=== PATIENT | male | born 1975 | race Caucasian/White ===

== ENCOUNTER 2020-02-26 08:43 | Emergency (ER) | payer BC, SELFPAY ==
[2020-02-26 08:51] VITALS: BP 158/91; PULSE 88; RESP 16; TEMP 36.4; O2SAT 100
--- NOTE | 2020-02-26 09:29 | ED.GENADULT ---
HPI - General Adult General Chief complaint: Ear Stated complaint: ear pain Time Seen by Provider: 02/26/20 09:29 Source: patient and RN notes reviewed Mode of arrival: ambulatory Limitations: no limitations History of Present Illness HPI narrative: 44-year-old male presents with complaints of left otalgia with decrease hearing, muffled, and liquid sounds for the past 2 days. Varinder reports increase in symptoms throughout the night with pain. Denies drainage or tinnitus. Denies injury to ear. Denies rhinorrhea and nasal congestion. Denies cough. No high fevers or chills. Denies nausea, vomiting, and dizziness. Remains active. The patient reports he have not been diagnosed with COVID-19. The patient reports he is not waiting for the results of a COVID-19 lab test. The patient reports he do not have weakness or fatigue. The patient reports he do not have a new or worsening cough or shortness of breath. Denies chest pain. The patient reports he do not have any loss of taste, sore throat, vomiting, abdominal pain, and diarrhea. Tolerating po intake well. Denies recent traveling. Denies concerns for COVID-19 or exposures been home with limited outdoor exposure except for essential household needs, work, and return home. At this time, patient is not suspected of having COVID-19. Some parts of this dictation were generated by voice recognition software and may contain typographical and/or grammatical inaccuracies. Related Data Home Medications Medication Instructions Recorded Confirmed allopurinol 02/26/20 lisinopril 02/26/20 metformin mg 02/26/20 metoprolol tartrate 02/26/20 patiromer calcium sorbitex g PO 02/26/20 [Veltassa] rosuvastatin mg 02/26/20 Allergies Allergy/AdvReac Type Severity Reaction Status Date / Time bacitracin Allergy Mild Verified 04/27/18 12:24 gramicidin D Allergy Mild Verified 04/27/18 12:24 neomycin Allergy Mild Verified 04/27/18 12:24 polymyxin B Allergy Mild Verified 04/27/18 12:24 Review of Systems Review of Systems: Narrative: CONSTITUTIONAL: Denies fever, chills, sweats. EYES: Denies visual changes, redness, discharge. ENT: Denies sore throat, ear drainage, rhinorrhea, congestion. Complains of LT otalgia, decrease hearing. CARDIOVASCULAR: Denies chest pain, palpitations, edema. RESPIRATORY: Denies dyspnea, wheezing, cough. GASTROINTESTINAL: Denies abdominal pain, nausea, vomiting, diarrhea. SKIN: Denies rash or itching. MUSCULOSKELETAL: Denies acute back pain, joint pain, or myalgia. NEUROLOGIC: Denies numbness or focal weakness. PSYCHIATRIC: Denies anxiety or depression. All systems reviewed & are unremarkable except as noted in HPI and below. [facility] Past Medical History Medical History (Updated 02/26/20 @ 12:16 by CHRISSY Chen) Diabetes Hypertension Mild hypercholesterolemia Surgical History Surgical History (Updated 02/26/20 @ 12:16 by CHRISSY Chen) No significant past surgical history Family History Family History (Updated 02/26/20 @ 12:16 by CHRISSY Chen) Father Diabetes mellitus Mother Diabetes mellitus Social History Social History (Updated 02/26/20 @ 12:18 by CHRISSY Chen) Smoking status: Former smoker Tobacco type: cigarettes Second hand tobacco smoke exposure: No Smoking end date: 08/28/04 Alcohol intake: former Substance use: current Substance use type: marijuana Living arrangements: with family Additional living arrangements comments: spouse Occupation/Education: occupation Gender identity (if verbalized by the patient): Male Sexual Orientation (if Verbalized by the Patient): Straight or Heterosexual Comments At time of signature, I have reviewed and agree with nursing past medical, surgical, social, and family history. Please see nursing chart for further information. There is no relevant family history pertinent to the presenting complaint. Exam N
== END 2020-02-26 09:51 | disposition home or self-care (01) ==
PROVIDERS: Emergency Provider Nurse Practitioner Family; PCP Physician Assistant
DX: H66.002 Acute suppurative otitis media without spontaneous rupture of ear drum, left ear (principal); Z87.891 Personal history of nicotine dependence; E11.9 Type 2 diabetes mellitus without complications; I10 Essential (primary) hypertension; E78.00 Pure hypercholesterolemia, unspecified
CPT/HCPCS: 99213; G0463

== ENCOUNTER 2020-03-13 15:15 | Outpatient (CLI) | payer BC, SELFPAY ==
--- NOTE | ~2020-03-13 | US_ITS ---
EXAMINATION: US renal BI DATE: 03/13/2020 15:47 INDICATION: Stage IV chronic kidney disease TECHNIQUE: Multiple ultrasound grayscale images of the kidneys were obtained. COMPARISON: 04/06/2019 FINDINGS: The right kidney measures 10.2 x 5.2 x 2.4 cm. The left kidney measures 11.8 x 5.9 x 6.1 cm. Kidneys demonstrate increased renal cortical echogenicity consistent with medical renal disease. There is no hydronephrosis in either kidney. No stones identified. The bladder is normal. IMPRESSION: 1. Bilateral diffuse increased renal cortical activity consistent with medical renal disease. No hyd ronephrosis. Reviewed, dictated and finalized at location B. 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 Bilateral diffuse increased renal cortical activity consistent with medical renal disease. No hydronephrosis.
== END 2020-03-13 15:16 | disposition home or self-care (01) ==
PROVIDERS: PCP Physician Assistant; Visit Provider Internal Medicine Nephrology
DX: N18.4 Chronic kidney disease, stage 4 (severe) (principal)
CPT/HCPCS: 76775

== ENCOUNTER 2020-11-05 15:51 | Outpatient (CLI) | payer BC, SELFPAY ==
--- NOTE | ~2020-11-05 | XR_ITS ---
EXAMINATION: XR chest 1V DATE: 11/05/2020 16:13 INDICATION: End-stage renal disease. Heart murmur. TECHNIQUE: PA view of the chest was obtained. COMPARISON: None FINDINGS: The lungs are clear with no focal airspace opacities, pulmonary edema, pleural effusion or pneumothor ax. The cardiomediastinal silhouette is normal. Visualized bones and soft tissues are unremarkable. IMPRESSION: 1. Multiple chest radiograph. Reviewed, dictated and finalized at location A.
== END 2020-11-05 15:52 | disposition home or self-care (01) ==
LOC: ANHIMG 15:56
PROVIDERS: PCP Physician Assistant; Visit Provider Internal Medicine Nephrology
DX: N18.6 End stage renal disease (principal)
CPT/HCPCS: 71045

== ENCOUNTER 2022-05-28 09:09 | Emergency (ER) | payer BC, SELFPAY ==
[2022-05-28] VITALS (38 sets, daily range): BP systolic 125–201; BP diastolic 66–86; PULSE 71–82; RESP 11–29; TEMP 37.3; O2SAT 93–100
--- NOTE | ~2022-05-28 | XR_ITS ---
EXAMINATION: XR chest 2V 05/28/2022 10:40 INDICATION: Hypertension. Headache. Head and neck pain. PROCEDURE: 2 view chest COMPARISON: 11/05/2020 FINDINGS: The lungs are clear. The cardiomediastinal silhouette is within normal limits. There are no pleural effusions. There is no pneumothorax suspected. There is a vascular stent overlying the l eft shoulder. IMPRESSION: 1: NO ACUTE CARDIOPULMONARY DISEASE. Reviewed, dictated and finalized at location B. 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
--- NOTE | ~2022-05-28 | CT_ITS ---
EXAMINATION: CT BRAIN W/O DATE: 05/28/2022 12:40 INDICATION: Hypertension. Headache. TECHNIQUE: Computed tomography (CT) of the head was performed without intravenous contrast. The dose- length product was 605.33 mGy-cm. Automated exposure control and iterative reconstruction technique w ere employed. COMPARISON: No prior studies for comparison. FINDINGS: Normal brain parenchymal volume for age. Normal lai-white differentiation. No acute intrac ranial hemorrhage, infarction, mass or mass effect. No ventriculomegaly or midline shift. Midline sagittal images demonstrate a normal corpus callosum, c raniovertebral junction and sella turcica. Basilar cisterns are patent. Paranasal sinuses and mastoids are pneumatized. No depressed skull fractures. IMPRESSION: 1. No acute intracranial abnormality. Reviewed, dictated and finalized at location B. 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
--- NOTE | 2022-05-28 09:14 | ECG_ITS ---
Measurements Intervals [place] Rate: 79 P: 111 [place]: 170 QRS: 84 QRSD: 90 T: 130 QT: 352 QTc: 405 Interpretive Statements SINUS RHYTHM CONSIDER LIMB LEAD REVERSAL POSSIBLE LEFT ATRIAL ENLARGEMENT DELAYED PRECORDIAL R/S TRANSITION BORDERLINE ECG NO PREVIOUS ECG AVAILABLE FOR COMPARISON Electronically Signed On 05-28-2022 10:33:10 CLAIMS ADJUSTER CROP by Matias Aparicio D.O.
[2022-05-28 10:42] LABS: Basophils Percent Auto 0.8 % (0.2-1.2); Eosinophils Absolute Auto 0.1 K/mm3 (0-0.3); Eosinophils Percent Auto 1.7 % (0-4.4); Hematocrit 34.7 % (42.0-52.0); Hemoglobin 11.9 g/dL (14.0-18.0); Immature Granulocyte Absolute 0.02 K/mm3 (0.00-0.031); Immature Granulocyte Percent A 0.4 % (0-0.5); Lymphocytes Absolute Auto 1.18 K/mm3 (0.9-3.2); Lymphocytes Percent Auto 24.4 % (18.3-44.2); Mean Corpuscular HGB Conc 34.3 g/dl (32-36); Mean Corpuscular Hemoglobin 30.9 pg (26-34); Mean Corpuscular Volume 90.1 fl (80-100); Mean Platelet Volume 8.5 fl (7.4-10.4); Monocytes Absolute Auto 0.4 K/mm3 (0.1-0.6); Monocytes Percent Auto 8.9 % (2.6-8.5); Neutrophils Absolute Auto 3.1 K/mm3 (1.3-6.7); Neutrophils Percent Auto 63.8 % (45.5-73.1); Platelet Count Result 140 k/mm3 (150-375); Red Blood Count 3.85 M/mm3 (4.6-6.20); Red Cell Distribution Width 11.8 % (11.5-14.5); White Blood Count 4.8 K/mm3 (4.5-10.0)
[2022-05-28 10:53] LABS: Prothrombin Time 12.9 Seconds (11.1-14.7)
[2022-05-28 10:54] LABS: Partial Thromboplastin Time 28.1 SECONDS (22.3-36.8)
[2022-05-28 11:05] LABS: Alanine Aminotransferase 24 U/L (6-50); Albumin Level 4.6 g/dL (3.5-5.1); Alkaline Phosphatase 119 U/L (38-126); Anion Gap 6 mmol/L (8-16); Aspartate Amino Transferase 29 U/L (17-59); Bilirubin,Total 0.7 mg/dL (0.2-1.3); Blood Urea Nitrogen 26 mg/dL (9-20); Calcium 9.6 mg/dL (8.4-10.2); Carbon Dioxide 35 mmol/L (22-30); Chloride 93 mmol/L (98-107); Estimated Glomerular Filt Rate 18; Glucose 169 mg/dL (65-110); Lipase 109 U/L (23-300); Sodium 134 mmol/L (137-145)
[2022-05-28 11:28] LABS: Troponin I 0.021 ng/mL (0.000-0.034)
--- NOTE | 2022-05-28 12:27 | ED.RECABL ---
HPI - Recheck/Abnormal Lab/Rx General Chief Complaint: Recheck/Abnormal Lab/Rx Stated Complaint: ELEVATED BP Time Seen by Provider: 05/28/22 12:09 History of Present Illness HPI narrative: Patient is a 47-year-old male with a history of CKD on ESRD (says he does HD at home as needed), hypertension, hyperlipidemia presenting with multiple complaints. Patient states that he has had high blood pressures over the last 3 weeks. States that they have been running in the 170s to 180s at home. States that his orthotic/prosthetic practitioner recently added another antihypertensive. States he has not taken any of his morning meds today. Also complains of generalized fatigue, diffuse headache, intermittent nausea. States that he was diagnosed with shingles on his right leg earlier this week and was started on valacyclovir. Denies chest pain, shortness of breath, lightheadedness, fevers, abdominal pain, diarrhea, constipation. Patient does still make urine, denies dysuria or hematuria. Denies numbness or weakness, ataxia, speech changes, vision changes. Related Data Home Medications Medication Instructions Recorded Confirmed allopurinol 100 mg tablet 02/26/20 lisinopril 20 mg tablet 02/26/20 metformin 1,000 mg tablet mg 02/26/20 metoprolol tartrate 25 mg tablet 02/26/20 patiromer calcium sorbitex 8.4 g PO 02/26/20 gram oral powder packet (Veltassa) rosuvastatin 10 mg tablet mg 02/26/20 Allergies Allergy/AdvReac Type Severity Reaction Status Date / Time bacitracin Allergy Mild Verified 04/27/18 12:24 gramicidin D Allergy Mild Verified 04/27/18 12:24 neomycin Allergy Mild Verified 04/27/18 12:24 polymyxin B Allergy Mild Verified 04/27/18 12:24 Review of Systems Review of Systems: All systems reviewed & are unremarkable except as noted in HPI and below PMFSH Past Medical History Medical History Diabetes Hypertension Mild hypercholesterolemia Surgical History Surgical History No significant past surgical history Family History Family History Father Diabetes mellitus Mother Diabetes mellitus Social History Social History Smoking status: Former smoker Tobacco type: cigarettes Second hand tobacco smoke exposure: No Smoking end date: 08/28/04 Alcohol intake: former Substance use: current Substance use type: marijuana Living arrangements: with family Additional living arrangements comments: spouse Occupation/Education: occupation Gender identity (if verbalized by the patient): Male Sexual Orientation (if Verbalized by the Patient): Straight or Heterosexual Exam Narrative: GENERAL: Appears a bit fatigued but in no acute distress, nontoxic HEAD: Normocephalic, atraumatic. EYES: PERRLA and EOMI. ENT: Nares clear, no rhinorrhea or epistaxis. Mucous membranes moist. NECK: Supple. CHEST: Clear to auscultation. No respiratory distress. HEART: Regular rate and rhythm. No murmur heard. Normal peripheral pulses. ABDOMEN: Soft, nontender, nondistended EXTREMITIES: Normal range of motion. No edema. AV fistula left upper arm with clean bandage, positive thrill SKIN: Warm, dry, shingles rash right upper thigh NEURO: No focal deficits. Alert and oriented x3. PSYCH: Normal mood and affect. Course Vital Signs Vital signs: Vital Signs Temperature 99.1 F 05/28/22 09:39 Pulse Rate 82 05/28/22 09:39 Respiratory Rate 20 05/28/22 09:39 Blood Pressure 199/84 H 05/28/22 09:39 Pulse Oximetry 100 05/28/22 09:39 Oxygen Delivery Room Air 05/28/22 09:39 Temperature 99.1 F 05/28/22 09:39 Pulse Rate 71 05/28/22 15:31 Respiratory Rate 19 05/28/22 15:31 Blood Pressure 135/68 05/28/22 15:31 Pulse Oximetry 96 05/28/22 15:31 Oxygen Delivery Room Air
[2022-05-28 13:11] LABS: Appearance Urine Clear (Clear); Bacteria Urine None Seen /hpf; Bilirubin Urine Negative (Negative); Blood Urine 1+ (Negative); Color Urine Yellow (Yellow); Glucose Urine UA 1+ mg/dL (Negative); Ketones Urine Negative (Negative); Leukocyte Esterase Ur Negative LEU/UL (Negative); Nitrate Urine Negative (Negative); Protein Urine 3+ mg/dL (Negative); Specific Grav Ur 1.015 (1.001-1.035); Squamous Epithelial Cell Urine None seen /hpf (Few); Urobilinogen Urine 0.2 mg/dL (<2.0); WBC Urine 0-5 /hpf; pH Urine 8.5 (5.0-9.0)
[2022-05-28] MEDS: ONDANSETRON INJ 4 MG/2 ML VIAL IV PUSH (13:11)
[2022-05-28 13:36] LABS: Influenza A QL RT-PCR Negative (Negative); Influenza B QL RT-PCR Negative (Negative); RSV RNA, RT-PCR Negative (Negative); SARS-CoV-2 RNA PCR Negative
[2022-05-28 13:48] LABS: Add Urine Microscopic? YES
[2022-05-28 13:52] LABS: Troponin I 0.026 ng/mL (0.000-0.034)
== END 2022-05-28 15:37 | disposition home or self-care (01) ==
PROVIDERS: Emergency Medicine; Emergency Provider Emergency Medicine; PCP Physician Assistant
DX: B02.9 Zoster without complications (principal); R51.9 Headache, unspecified; I12.0 Hypertensive chronic kidney disease with stage 5 chronic kidney disease or end stage renal disease; E11.22 Type 2 diabetes mellitus with diabetic chronic kidney disease; N18.6 End stage renal disease; Z99.2 Dependence on renal dialysis; E78.00 Pure hypercholesterolemia, unspecified; Z87.891 Personal history of nicotine dependence; F12.90 Cannabis use, unspecified, uncomplicated; Z79.84 Long term (current) use of oral hypoglycemic drugs; Z20.822 Contact with and (suspected) exposure to COVID-19
CPT/HCPCS: 36415; 70450; 71046; 80053; 81001; 83690; 84484; 85025; 85610; 85730; 87637; 93005; 96374; 96375; 99284; J0131; J2405

== ENCOUNTER 2023-09-15 09:05 | Observation (INO) | payer BC, MEDICARE, SELFPAY ==
[2023-09-15] VITALS (17 sets, daily range): BP systolic 120–166; BP diastolic 62–89; PULSE 64–74; RESP 12–24; TEMP 36.2–36.8; O2SAT 98–100; BMI 25.7
--- NOTE | ~2023-09-15 | NM_ITS ---
EXAMINATION: NM roxanna stress w perfusion DATE: 09/16/2023 15:00 INDICATION: Rest pain TECHNIQUE: Rest images were obtained following intravenous administration of 10.6 mCi Tc99m tetrofosm in (Myoview). The patient was infused intravenously with Lexiscan (Regadenoson). Then, 44.2 mCi Tc99m tetrofosmin (Myoview) was administered intravenously, and stress images were obtained. Data was gelacio nstructed into short axis and horizontal and vertical long axis SPECT images. Gated SPECT images were also obtained. COMPARISON: None. FINDINGS: There is no definite reversible or fixed perfusion abnormality to suggest ischemia or infar ction. There is normal left ventricular chamber size, wall motion and ejection fraction. Left ventr icular ejection fraction measures 56%. IMPRESSION: 1. Normal myocardial perfusion during stress. 2. Left ventricular ejection fraction measuring 56%. Reviewed, dictated and finalized at location A.
--- NOTE | ~2023-09-15 | CT_ITS ---
CTA chest Ordering provider: Vinh Perez MD History: 48 years Male with . chest pain . Comparison: None. Technique: CT angiogram chest was performed following timed intravenous injection of contrast. Thin s lice axial images and reformatted coronal images were obtained. Three dimensional reformatted images of the chest were also obtained using a [employer] workstation. Radiation reduction technique utilized. DLP is 572.25 mGy. Findings: PULMONARY ARTERIES: No pulmonary embolus. VISUALIZED THORACIC INLET: Normal. MEDIASTINUM: Aorta/coronary arteries: Normal. Heart/other: The heart is not enlarged. Lymph nodes: No mediastinal or hilar adenopathy. LUNGS: 6 mm nodule seen in the left upper lobe laterally. No pulmonary masses. No infiltrates or effusions. No pneumothorax. VISUALIZED UPPER ABDOMEN: Fat infiltration of the liver. Areas of fat sparing are noted medially. Cho lelithiasis. Bilateral perinephric fat stranding. Otherwise, the visualized upper abdomen is normal. MUSCULOSKELETAL: Soft tissues: The superficial soft tissues are normal. Bones: Normal spine. IMPRESSION: 1. No evidence of pulmonary embolism or dissection. 2. Nodule in the left upper lobe laterally measuring 6 mm. 6 months follow-up advised. 3. No acute cardiopulmonary pathology. Reviewed, dictated and finalized at location A.
--- NOTE | ~2023-09-15 | XR_ITS ---
EXAMINATION: XR chest 2V DATE: 09/15/2023 09:53 INDICATION: Chest pain radiating to the back and shortness of breath TECHNIQUE: PA and lateral views of the chest were obtained. COMPARISON: Chest radiograph dated 05/28/2022 FINDINGS: The lungs remain clear with no focal airspace opacities, pulmonary edema, pleural effusion or pneumot horax. The cardiomediastinal silhouette is normal. Visualized bones and soft tissues are unremarkable . IMPRESSION: 1. No acute cardiopulmonary disease. Reviewed, dictated and finalized at location A.
--- NOTE | ~2023-09-15 | US_ITS ---
EXAMINATION: US venous doppler [facility] DATE: 09/16/2023 10:23 INDICATION: Lower limb edema. TECHNIQUE: Grayscale ultrasound images without and with compression and Doppler ultrasound images of the bilateral lower extremity veins were obtained. COMPARISON: None. FINDINGS: The visualized portions of right common femoral vein, profunda (deep) femoral vein, femoral vein, pop liteal vein, peroneal veins, posterior tibial veins, and greater saphenous vein outflow are patent. The visualized portions of left common femoral vein, profunda femoral vein, femoral vein, popliteal v ein, peroneal veins, posterior tibial veins, and greater saphenous vein outflow are patent. IMPRESSION: 1. No deep venous thrombosis. Reviewed, dictated and finalized at location A.
--- NOTE | 2023-09-15 09:06 | ECG_ITS ---
Test Date: 2023-09-15 09:13:03 Measurements Intervals [place] Rate: 67 P: 39 [place]: 174 QRS: 44 QRSD: 102 T: 35 QT: 398 QTc: 421 Interpretive Statements SINUS RHYTHM No previous ECG available for comparison Electronically Signed On 09-15-2023 12:11:31 CDT by Eri Enciso M.D.
--- NOTE | 2023-09-15 09:22 | ED.CHESTPAIN ---
HPI - Chest Pain General Chief Complaint: Chest Pain <ALBINO Melara Last Filed: 09/15/23 15:15> Stated Complaint: cp <ALBINO Melara Last Filed: 09/15/23 15:15> Time Seen by Provider: 09/15/23 09:08 <ALBINO Melara Last Filed: 09/15/23 15:15> Source: patient <ALBINO Melara Last Filed: 09/15/23 15:15> Mode of arrival: ambulatory <ALBINO Melara Last Filed: 09/15/23 15:15> Limitations: no limitations <ALBINO Melara Last Filed: 09/15/23 15:15> History of Present Illness HPI narrative: Patient is a 48-year-old male, with past medical history of ESRD on home dialysis, HTN, HLD, DM, who presents to the ED with report of CP. Patient reports he woke up around 8:00 a.m. this morning with diffuse pain across his anterior chest, radiating through to his back. States pain was fairly severe, lasted approximately 10-15 minutes before improving on its own. He then prompted here. Denies current pain. Patient denies previous history of heart disease or previous cardiac issues. He did report feeling very sweaty and short of breath with the pain. Denying nausea. Denies abdominal pain. Denies recent cough or cold symptoms. Denies lower extremity pain. Does admit to increased swelling in his lower extremities and takes he has been taking off an additional kg of fluid off with his 3 previous dialysis treatments. <ALBINO Melara Last Filed: 09/15/23 15:15> Related Data Home Medications: Home Medications Medication Instructions Recorded Confirmed allopurinol 100 mg tablet 100 mg PO DAILY 09/15/23 09/15/23 atenolol 50 mg tablet 50 mg PO DAILY 09/15/23 09/15/23 calcitriol 0.25 mcg capsule 0.25 mcg PO TID 09/15/23 09/15/23 <ALBINO Melara Last Filed: 09/15/23 15:15> Allergies/Adverse Reactions: Allergies Allergy/AdvReac Type Severity Reaction Status Date / Time bacitracin Allergy Mild Verified 04/27/18 12:24 gramicidin D Allergy Mild Verified 04/27/18 12:24 neomycin Allergy Mild Verified 04/27/18 12:24 polymyxin B Allergy Mild Verified 04/27/18 12:24 <Kenia Melo PA-C - Last Filed: 09/15/23 15:15> Review of Systems Review of Systems: CONSTITUTIONAL: See HPI. ENT: Denies rhinorrhea, congestion, sore throat. CARDIOVASCULAR: See HPI. RESPIRATORY: See HPI. GASTROINTESTINAL: Denies abdominal pain, nausea, vomiting MUSCULOSKELETAL: See HPI <Kenia Melo PA-C - Last Filed: 09/15/23 15:15> All systems reviewed & are unremarkable except as noted in HPI and below <Kenia Melo PA-C - Last Filed: 09/15/23 15:15> [facility] Past Medical History Medical History: Medical History End-stage renal disease on hemodialysis Hyperlipidemia Hypertension Type 2 diabetes mellitus <Kenia Melo PA-C - Last Filed: 09/15/23 15:15> Surgical History Surgical History: Surgical History No significant past surgical history <Kenia Melo PA-C - Last Filed: 09/15/23 15:15> Family History Family History: Family History (Updated 09/15/23 @ 17:42 by Angelique Gunn RN) Father Diabetes mellitus Acute myocardial infarction Mother Diabetes mellitus <Kenia Melo PA-C - Last Filed: 09/15/23 15:15> Social History Social History: Social History Social History: Surrogate medical decision maker: Kelley Ming, spouse. Code status: Full code. Smoking packs per day: 1 Smoking cigarettes per day: 20.0 Years smoked: 10 Smoking pack-years: 10.00 Smoking status: Former smoker Tobacco type: cigarettes Second hand tobacco smoke exposure: No Smoking end date: 08/28/04 Alcohol intake: never Substance use: cu
--- NOTE | 2023-09-15 09:29 | ECG_ITS ---
Test Date: 2023-09-15 09:32:07 Measurements Intervals [place] Rate: 69 P: 39 SD: 176 QRS: 50 QRSD: 95 T: 30 QT: 387 QTc: 417 Interpretive Statements SINUS RHYTHM Compared to ECG 09/15/2023 09:13:03 No significant changes Electronically Signed On 09-15-2023 12:11:37 CDT by Eri Enciso M.D.
[2023-09-15 09:30] LABS: Basophils Percent Auto 0.2 % (0.2-1.2); Eosinophils Absolute Auto 0.1 K/mm3 (0-0.3); Eosinophils Percent Auto 0.7 % (0-4.4); Hematocrit 30.4 % (42.0-52.0); Hemoglobin 10.4 g/dL (14.0-18.0); Immature Granulocyte Absolute 0.03 K/mm3 (0.00-0.031); Immature Granulocyte Percent A 0.3 % (0-0.5); Lymphocytes Absolute Auto 1.08 K/mm3 (0.9-3.2); Lymphocytes Percent Auto 10.9 % (18.3-44.2); Mean Corpuscular HGB Conc 34.2 g/dl (32-36); Mean Corpuscular Hemoglobin 30.8 pg (26-34); Mean Corpuscular Volume 89.9 fl (80-100); Mean Platelet Volume 8.3 fl (7.4-10.4); Monocytes Absolute Auto 0.6 K/mm3 (0.1-0.6); Monocytes Percent Auto 5.8 % (2.6-8.5); Neutrophils Absolute Auto 8.1 K/mm3 (1.3-6.7); Neutrophils Percent Auto 82.1 % (45.5-73.1); Platelet Count Result 189 k/mm3 (150-375); Red Blood Count 3.38 M/mm3 (4.6-6.20); Red Cell Distribution Width 12.7 % (11.5-14.5); White Blood Count 9.9 K/mm3 (4.5-10.0)
[2023-09-15] MEDS: ASPIRIN 81 MG CHEWABLE TABLET 324 MG PO (09:38)
[2023-09-15] MEDS: NITROGLYCERIN SL 0.4 MG TABLET SUBLINGUAL (09:38)
[2023-09-15 09:40] LABS: Alanine Aminotransferase 18 U/L (6-50); Albumin Level 3.8 g/dL (3.5-5.1); Alkaline Phosphatase 79 U/L (38-126); Anion Gap 10 mmol/L (4-12); Aspartate Amino Transferase 28 U/L (17-59); Bilirubin,Total 0.5 mg/dL (0.2-1.3); Blood Urea Nitrogen 57 mg/dL (9-20); Calcium 8.6 mg/dL (8.4-10.2); Carbon Dioxide 30 mmol/L (22-30); Chloride 97 mmol/L (98-107); Estimated CRCL calculation 9 ml/min; Estimated Glomerular Filt Rate 6; Glucose 189 mg/dL (65-110); Lipase 217 U/L (23-300); Sodium 137 mmol/L (137-145)
[2023-09-15 09:41] LABS: INR 0.9
--- NOTE | 2023-09-15 09:41 | PC.NURSE ---
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
[2023-09-15 09:42] LABS: Partial Thromboplastin Time 37.9 Seconds (22.3-36.8)
[2023-09-15 09:52] LABS: Troponin I 0.026 ng/mL (0.000-0.034)
[2023-09-15 10:01] LABS: D Dimer 0.47 ug/mL (<0.48); Magnesium 2.2 mg/dL (1.6-2.3)
[2023-09-15 10:10] LABS: NT Pro B Type Natriuretic Pept 3000 pg/mL (19.9-100)
--- NOTE | 2023-09-15 12:00 | ECG_ITS ---
Test Date: 2023-09-15 15:14:06 Measurements Intervals [place] Rate: 62 P: 38 [place]: 185 QRS: 50 QRSD: 96 T: 30 QT: 405 QTc: 413 Interpretive Statements SINUS RHYTHM Compared to ECG 09/15/2023 12:09:54 No significant changes Electronically Signed On 09-16-2023 14:28:10 CDT by Eri Enciso M.D.
[2023-09-15 12:42] LABS: Troponin I 0.023 ng/mL (0.000-0.034)
[2023-09-15 14:27] LABS: Hemoglobin A1C 6.7 % (<5.7)
--- NOTE | 2023-09-15 14:27 | PM.IMHP ---
H&P: HPI History of Present Illness Date/Time: 09/15/23 15:15 Chief Complaint: Chest pain. Narrative: This is a positive 48-year-old male with end-stage renal disease on home hemodialysis, hypertension, hyperlipidemia, and type 2 diabetes mellitus who presented to the emergency department via private vehicle for evaluation of chest pain. The patient provides the following history. Just about the time he was waking up this morning he developed sharp pain in the anterior chest pain radiating through to the back associated with sweats, nausea, and slight shortness of breath. It lasted approximately 10 to 15 minutes before resolving. He has never had similar symptoms in the past. Cardiac catheterization done about 1 year ago for transplant workup reportedly showed 20 to 30% blockage in a small artery which was treated medically. He has not had any exertional chest pain and denies syncope, near syncope, pleuritic pain, palpitations, vomiting, calf pain, and edema. Of note, patient reports that last week he had quite a bit of swelling in his feet which was new for him and he took an extra 2 kg of fluid off during dialysis with resolution. In the ED: He was afebrile on arrival with stable vital signs. Labs were significant for a hemoglobin of 10.4, BUN 57, creatinine 9.70, glucose 189, proBNP 3000, troponin 0.026. Chest x-ray showed no acute cardiopulmonary disease. EKG showed a sinus rhythm without acute ST segment depressions or elevations. He received aspirin 324 mg and is being admitted in this setting for close monitoring and Cardiology consultation. Review of Systems Review of Systems: 12 systems were reviewed and are negative except for as per HPI. [facility] Past Medical History Medical History End-stage renal disease on hemodialysis Hyperlipidemia Hypertension Type 2 diabetes mellitus Surgical History Surgical History (Updated 09/15/23 @ 23:24 by Jaye Roldan PA-C) History of cardiac catheterization Status post creation of arteriovenous fistula Family History Family History Father Diabetes mellitus Acute myocardial infarction Mother Diabetes mellitus Social History Social History Social History: Surrogate medical decision maker: Kelley Lai, spouse. Code status: Full code. Smoking packs per day: 1 Smoking cigarettes per day: 20.0 Years smoked: 10 Smoking pack-years: 10.00 Smoking status: Former smoker Tobacco type: cigarettes Second hand tobacco smoke exposure: No Smoking end date: 08/28/04 Alcohol intake: never Substance use: current Substance use type: marijuana Last use: 09/14/23 Do You Feel Safe in your Home?: Yes Lack of Transportation: No Lack of Food: Never True Current Housing: I Have Housing Concerned About Future Housing: No Difficulty Paying Gas/Electric Bills: No Difficulty Paying for Meds: No Currently Unemployed: No Education: Associate Degree Difficulty w/ Childcare or Family Care: No Spiritual care concerns: No Meds Home Medications and Allergies Home Medications Medication Instructions Recorded Confirmed Type allopurinol 100 mg tablet 100 mg PO DAILY 09/15/23 09/15/23 History amlodipine 5 mg tablet 5 mg PO HS 09/15/23 09/15/23 History atenolol 50 mg tablet 50 mg PO DAILY 09/15/23 09/15/23 History calcitriol 0.25 mcg capsule 0.25 mcg PO DAILY 09/15/23 09/15/23 History clonidine HCl 0.1 mg tablet 0.2 mg PO BID 09/15/23 09/15/23 History doxazosin 2 mg tablet 2 mg PO HS 09/15/23 09/15/23 History ergocalciferol (vitamin D2) 1,250 1,250 mcg PO WEEKLY 09/15/23 09/15/23 History mcg (50,000 unit) capsule icosapent ethyl 1 gram capsule 2 g PO BID 09/15/23 09/15/23 History insulin aspart U-100 100 unit/mL See Rx Instructions .Route .COMPLEX 09/15/23 09/15/23 History
--- NOTE | 2023-09-15 14:54 | ECG_ITS ---
Test Date: 2023-09-15 12:09:54 Measurements Intervals [place] Rate: 64 P: 33 ID: 188 QRS: 45 QRSD: 93 T: 35 QT: 402 QTc: 417 Interpretive Statements SINUS RHYTHM Compared to ECG 09/15/2023 09:32:07 No significant changes Electronically Signed On 09-16-2023 14:23:09 CDT by Eri Enciso M.D.
[2023-09-15 15:33] LABS: Troponin I 0.021 ng/mL (0.000-0.034)
--- NOTE | 2023-09-15 16:55 | PC.NURSE ---
attempted to call report to IMU at 1645, was unable to reach a nurse until 1655
--- NOTE | 2023-09-15 17:25 | ADMGEN ---
This patient, Varinder Lai, was admitted to Virtual [facility] IMU-1. Patient/family oriented to hospital policies and general routines including ID bracelet, bed and alarms, visiting hours, pain management, procedures, bathroom and other care routines, personal items, smoking policy, room service/diet, and visiting hours. Information on how to activate the Rapid Response Team has been discussed. Patient/Family are encouraged to report perceived risks to care and to ask questions if they do not understand what they are told or what they should do.
[2023-09-15 19:38] LABS: Cholesterol 101 mg/dL (0-200); HDL Direct 48 mg/dL; Triglycerides 99 mg/dL (<150)
[2023-09-15 19:49] LABS: LDL Cholesterol Direct 42 mg/dL
[2023-09-16] VITALS (33 sets, daily range): BP systolic 129–198; BP diastolic 59–85; PULSE 56–75; RESP 15–20; TEMP 36.1–37; O2SAT 96–100
--- NOTE | 2023-09-16 | ECHO_ITS ---
Patient Info Name: Varinder Lai Age: 48 years : 1975 Gender: Male Ht: 70 in Wt: 179 lbs BSA: 2.01 m2 HR: 64 bpm BP: 151 / 70 mmHg Heart Rhythm: Sinus Rhythm Technical Quality: Fair Exam Date: 09/16/2023 8:59 AM Exam Location: Echo Lab Patient Status: Inpatient Admit Date: 09/15/2023 Staff Ordering Physician: Jaye Roldan PA-C Associate Director Finance: Teodoro Woo RDCS Attending Provider: Peterson Yanes MD Referring Physician: Yuli QURESHI; Exam Type: CA echo doppler color flow Study Info Indications R07.9 - Chest pain, unspecified Complete two-dimensional, color flow and Doppler transthoracic echocardiogram is performed. Summary 1. Complete two-dimensional, color flow and Doppler transthoracic echocardiogram is performed. 2. Left ventricular chamber dimension is normal. 3. Left ventricular systolic function is normal, estimated at 65-70%. 4. There is mildly increased left ventricular wall thickness. 5. The left ventricular diastolic function is grade II diastolic dysfunction. 6. Left atrial chamber dimension is mildly enlarged. 7. There is moderate aortic valve sclerosis. 8. There is mild aortic valve stenosis with a peak velocity of 306 cm/s, mean gradient of 11 mmHg, and aortic valve area of 1.4 cm2. 9. There is mild aortic valve regurgitation. 10. There is mild aortic valve calcification. 11. There is mild mitral valve regurgitation. 12. There is mild tricuspid valve regurgitation. 13. Moderate pulmonary hypertension, estimated pulmonary arterial systolic pressure is 49 mmHg. 14. There is mild pulmonic regurgitation. Left Ventricle Left ventricular chamber dimension is normal. Left ventricular systolic function is normal, estimated at 65-70%. There is mildly increased left ventricular wall thickness. The left ventricular diastolic function is grade II diastolic dysfunction. Right Ventricle Right ventricular chamber dimension is normal. Right ventricular systolic function is normal. Left Atria Left atrial chamber dimension is mildly enlarged. Right Atria Right atrial chamber dimension is normal. Aortic Valve The aortic valve is trileaflet. There is moderate aortic valve sclerosis. There is mild aortic valve stenosis with a peak velocity of 306 cm/s, mean gradient of 11 mmHg, and aortic valve area of 1.4 cm2. There is mild aortic valve regurgitation. There is mild aortic valve calcification. Pulmonic Valve The pulmonic valve is normal. There is no pulmonic valve stenosis. There is mild pulmonic regurgitation. Mitral Valve The mitral valve has normal leaflets. There is no mitral valve stenosis. There is mild mitral valve regurgitation. Tricuspid Valve The tricuspid valve leaflets are normal. There is no significant tricuspid valve stenosis. There is mild tricuspid valve regurgitation. Moderate pulmonary hypertension, estimated pulmonary arterial systolic pressure is 49 mmHg. Pericardium/Pleural The pericardium appears normal. There is trivial pericardial effusion. Inferior Vena Cava Normal inferior vena cava with <50% collapse upon inspiration consistent with elevated right atrial pressure, 10 mmHg. Aorta The aortic root size at the sinus of Valsalva is normal. Left Ventricular Outflow Tract Name Value Normal LVOT 2D LVOT Diameter
[2023-09-16 04:43] LABS: Hematocrit 28.4 % (42.0-52.0); Hemoglobin 9.8 g/dL (14.0-18.0); Mean Corpuscular HGB Conc 34.5 g/dl (32-36); Mean Corpuscular Hemoglobin 31.1 pg (26-34); Mean Corpuscular Volume 90.2 fl (80-100); Mean Platelet Volume 8.9 fl (7.4-10.4); Platelet Count Result 206 k/mm3 (150-375); Red Blood Count 3.15 M/mm3 (4.6-6.20); Red Cell Distribution Width 12.8 % (11.5-14.5); White Blood Count 8.5 K/mm3 (4.5-10.0)
[2023-09-16 04:59] LABS: Anion Gap 11 mmol/L (4-12); Blood Urea Nitrogen 60 mg/dL (9-20); Calcium 8.8 mg/dL (8.4-10.2); Carbon Dioxide 28 mmol/L (22-30); Chloride 98 mmol/L (98-107); Estimated CRCL calculation 9 ml/min; Estimated Glomerular Filt Rate 6; Glucose 103 mg/dL (65-110); Magnesium 2.2 mg/dL (1.6-2.3); Phosphorus 5.9 mg/dL (2.5-4.5); Potassium 3.7 mmol/L (3.4-5.0); Sodium 137 mmol/L (137-145)
[2023-09-16] MEDS: calcitrioL 0.25 MCG CAPSULE PO (09:46)
[2023-09-16] MEDS: ROSUVASTATIN 10 MG TABLET PO (09:46)
[2023-09-16] MEDS: cloNIDine HCL 0.2 MG TABLET PO ×2 (09:46→21:55)
[2023-09-16] MEDS: PANTOPRAZOLE 40 MG TABLET PO (09:46)
[2023-09-16] MEDS: OMEGA 3 POLYUNSAT FATTY ACIDS 1 GM CAP 2 GM PO ×2 (09:47→21:53)
[2023-09-16] MEDS: HEPARIN SODIUM 5,000 UNITS/ML VIAL 5000 UNITS SUB-Q ×2 (09:47→21:52)
[2023-09-16] MEDS: allopurinoL 100 MG TABLET PO (09:47)
[2023-09-16] MEDS: SEVELAMER CARBONATE 800 MG TABLET 1600 MG PO ×2 (09:47→21:55)
[2023-09-16] MEDS: atenoloL 50 MG TABLET PO (09:47)
--- NOTE | 2023-09-16 09:58 | PM.CNNEP ---
Assessment and Plan Assessment and plan (1) ESRD (end stage renal disease): Code(s): N18.6 - End stage renal disease Status: Acute Assessment and Plan: The patient has end-stage renal disease. This is due to diabetes and hypertension. He has been on dialysis for about 3 years. Dialysis has been going well at home. Will get a dialysis done today if he stays. If he goes home he will get a dialysis this evening he says. (2) Chest pain: Code(s): R07.9 - Chest pain, unspecified Status: Acute Assessment and Plan: The patient has had chest pain. His troponins were okay so far. He just had an echo and he is going for another test shortly. Evaluation is underway. (3) Type 2 diabetes mellitus: Code(s): E11.9 - Type 2 diabetes mellitus without complications Status: Acute Assessment and Plan: Patient has diabetes. He is on insulin at home. Management of this per hospitalist (4) Hypertension: Code(s): I10 - Essential (primary) hypertension Status: Acute Assessment and Plan: his blood pressure has been running 120-160. It is gradually higher between yesterday and today possibly from fluid intake. He will get dialysis later this afternoon either here or at home if he gets discharged today. His blood pressure generally runs in the 120s to 150s at home. (5) Hyperlipidemia: Code(s): E78.5 - Hyperlipidemia, unspecified Status: Acute Assessment and Plan: The patient is on rosuvastatin. History of Present Illness Reason for Consult Consult date: 09/19/23 Chief Complaint Chief complaint: chest pain,heart score = 4 History of Present Illness Narrative: Varinder is a very pleasant 48-year-old gentleman with multiple medical problems including end-stage renal disease on dialysis at home, hyperlipidemia, hypertension, diabetes, skin cancer. Patient sees Dr. Denilson Vee at [facility] for his home dialysis. He does treatments 4 days a week. He has been on dialysis for about 3 years. He is on the transplant list. Dialysis has been going okay. He says that he came in because of chest pain this. This had been going on for a few hours before admission. He was admitted for further evaluation. Notably he had had a cardiac catheterization a year ago during his transplant workup and there was a 20-30% blockage which was treated medically. Patient feels okay today. No more chest pain. He denies any shortness of breath or back pain. No pain in the jaw left shoulder or left arm. Review of Systems Constitutional: Constitutional: Reports no additional constitutional complaints Eyes: Eyes: Reports no additional eye complaints ENT: Reports system reviewed and no additional complaints, except as documented Cardiovascular: Cardiovascular: Reports no additional cardiovascular complaints Respiratory: Respiratory: Reports no additional respiratory complaints Gastrointestinal: Gastrointestinal: Reports no additional gastrointestinal complaints Genitourinary: Genitourinary: Reports no additional male genitourinary complaints Musculoskeletal: Musculoskeletal: Reports no additional musculoskeletal complaints Integumentary/Breasts: Skin/Breast: Reports system reviewed and no additional complaints, except as docu Neurologic: Reports system reviewed and no additional complaints, except as documented Psychiatric: Psychiatric: Reports no additional psychiatric complaints Endocrine: Endocrine: Reports no additional endocrine complaints [facility] Past Medical History Medical History End-stage renal disease on hemodialysis Hyperlipidemia Hypertension Type 2 diabetes mellitus Surgical History Surgical History History of cardiac catheterization Status post creation of arteriovenous fistula Family History Family Histor
--- NOTE | 2023-09-16 11:28 | EST_ITS ---
Patient Info Name: Varinder Lai Age: 48 years : 1975 Gender: Male Ht: 70 in Wt: 180 lbs BSA: 2.02 m2 HR: 58 bpm BP: 142 / 64 mmHg Heart Rhythm: Sinus Rhythm Exam Date: 09/16/2023 1:31 PM Exam Location: Echo Lab Patient Status: Outpatient Admit Date: 09/15/2023 Staff Ordering Physician: Denilson Cadet MD Attending Provider: Peterson Yanes MD Exercise Technologist: Radha Donohue CT Exercise Physician: Denilson Cadet MD Exam Type: CA stress roxanna w NM Study Info Indications R07.89 - Other chest pain A regadenoson stress test was performed. Summary 1. Please correlate with nuclear medicine images, reported separately. 2. No abnormal ST-T wave changes with lexiscan. Protocol: Lexiscan Stress ECG Details Stage: REST Duration (min): 0 min : 59 sec HR (bpm): 57 SBP (mmHg): 142 DBP (mmHg): 64 Stage: REST Duration (min): 1 min : 10 sec HR (bpm): 57 SBP (mmHg): 142 DBP (mmHg): 64 Stage: REST Duration (min): 19 min : 56 sec HR (bpm): 58 SBP (mmHg): 140 DBP (mmHg): 67 Stage: STAGE 1 Duration (min): 0 min : 59 sec HR (bpm): 66 SBP (mmHg): 140 DBP (mmHg): 67 Stage: RECOVERY Duration (min): 1 min : 0 sec HR (bpm): 73 SBP (mmHg): 140 DBP (mmHg): 67 Stage: RECOVERY Duration (min): 2 min : 0 sec HR (bpm): 72 SBP (mmHg): 140 DBP (mmHg): 67 Stage: RECOVERY Duration (min): 3 min : 0 sec HR (bpm): 70 SBP (mmHg): 175 DBP (mmHg): 99 Stage: RECOVERY Duration (min): 4 min : 0 sec HR (bpm): 73 SBP (mmHg): 175 DBP (mmHg): 99 Stage: RECOVERY Duration (min): 5 min : 0 sec HR (bpm): 71 SBP (mmHg): 184 DBP (mmHg): 102 Stage: RECOVERY Duration (min): 6 min : 0 sec HR (bpm): 68 SBP (mmHg): 184 DBP (mmHg): 102 Stage: RECOVERY Duration (min): 6 min : 29 sec HR (bpm): 67 SBP (mmHg): 179 DBP (mmHg): 70 Rest HR: 58 bpm Peak HR: 75 bpm Rest Sys BP: 140 mmHg Peak Sys BP: 184 mmHg Max Pred HR: 174 bpm % Max Pred HR: 43 % Target HR: 148 bpm Max RPP: 13,800 bpm*mmHg BP Response: Normal blood pressure response Termination Reason: Completed protocol Cardiac Symptoms: Shortness of breath Total Time: 1 min : 0 sec Rest Alvarez BP: 67 mmHg Peak Alvarez BP: 102 mmHg Total Dose: 0.4 mg Resting ECG Normal sinus rhythm. nonspecific ST abnormality, IVCD. Stress ECG No abnormal ST/T wave changes with Lexiscan. Arrhythmias None. Report Signatures
--- NOTE | 2023-09-16 11:30 | PM.CNCAR ---
Assessment and Plan Assessment and plan (1) Chest pain: Qualifiers: Chest pain type: unspecified Qualified Code(s): R07.9 - Chest pain, unspecified Code(s): R07.9 - Chest pain, unspecified Status: Acute Assessment and Plan: Patient's chest pain is somewhat atypica. Obviously has mild nonobstructive CAD and a multitude of the car other cardiac risk factors but given the fact he had a catheterization around a year ago showing nonobstructive disease, it is unlikely this is cardiac in etiology unless this is ACS from acute plaque rupture but EKGs do not demonstrate any acute ST T wave abnormalities and troponins are normal. Other possibilities include GI versus musculoskeletal versus pericarditis versus aortic versus other. 2D echocardiogram with Doppler is ordered and will be reviewed. Troponins are negative. Will order Lexiscan myocardial perfusion study for ischemic evaluation. Assuming the Lexiscan is normal, consider CT angiogram of his chest if okay with nephrology and hospitalist to evaluate his aorta especially given his chest pain radiating into his back. Continue rosuvastatin, losartan, Vascepa, aspirin for treatment was chest pain and mild previously known CAD (2) Hypertension associated with diabetes: Code(s): E11.59 - Type 2 diabetes mellitus with other circulatory complications; I15.2 - Hypertension secondary to endocrine disorders Status: Acute Assessment and Plan: Continue amlodipine, atenolol, clonidine, doxazosin, losartan (3) Hyperlipidemia associated with type 2 diabetes mellitus: Code(s): E11.69 - Type 2 diabetes mellitus with other specified complication; E78.5 - Hyperlipidemia, unspecified Status: Acute Assessment and Plan: Continue rosuvastatin. (4) End-stage renal disease on hemodialysis: Code(s): N18.6 - End stage renal disease; Z99.2 - Dependence on renal dialysis Status: Acute Assessment and Plan: Per nephrology (5) Hypertension: Code(s): I10 - Essential (primary) hypertension Status: Acute History of Present Illness History of Present Illness Consult date/time: 09/16/23 11:30 Requesting physician: Kenia Melo PA-C Reason For Visit: chest pain,heart score = 4 Narrative: Reason for consultation: Chest pain These service 09/16/2023 Requesting provider: Kenia VALENCIA History: Patient is a 48-year-old male who does have multiple of cardiac risk factors including end-stage renal disease, hypertension, hyperlipidemia, diabetes and known mild nonobstructive CAD based on a catheterization 1 year ago done and preparation for kidney transplant workup. He came to hospital yesterday because of chest pain. Patient states that he woke up with severe anterior chest pain radiating into his upper back. It lasted about 10-15 minutes and spontaneously resolved. He was diffusely diaphoretic as well as short of breath because of the pain. No nausea. Came to hospital for further workup evaluation. While in the ER he states that he had another brief episode lasting for couple minutes but then this also spontaneously resolved. Symptoms are not worsened by breathing. It was not positional and not improved by sitting up or lying down. He does have some chronic lower extremity edema which comes and goes based upon his home dialysis regimen. He otherwise feels fine and currently denies any chest pain. He has had no recent chest pain, shortness of breath, syncope, presyncope, paroxysmal nocturnal dyspnea, orthopnea, palpitations. EKG showed no acute ST and T-wave abnormalities. Troponins are unremarkable. There is no significant rise or fall. Cardiology consultation further workup evaluation. Review of Systems Review of Systems: All systems reviewed & are unremarkable except as noted in HPI and below Constitutional: Constitutional: Reports no additional constitutional complaints Eyes: Eyes: Denies blurry
--- NOTE | 2023-09-16 11:54 | PM.IMPN ---
Progress Note: A&P Assessment and Plan (1) Chest pain: Code(s): R07.9 - Chest pain, unspecified Status: Acute (2) End-stage renal disease on hemodialysis: Code(s): N18.6 - End stage renal disease; Z99.2 - Dependence on renal dialysis Status: Acute (3) Normocytic anemia: Code(s): D64.9 - Anemia, unspecified Status: Acute (4) Type 2 diabetes mellitus: Code(s): E11.9 - Type 2 diabetes mellitus without complications Status: Acute (5) Hypertension: Code(s): I10 - Essential (primary) hypertension Status: Acute (6) Hyperlipidemia: Code(s): E78.5 - Hyperlipidemia, unspecified Status: Acute Plan The patient presented to the emergency department for evaluation of chest pain as detailed in HPI. Labs, imaging, EKG, and all reports were personally reviewed. This is somewhat atypical presentation for cardiac pain however he certainly has risk factors for coronary artery disease and he is being admitted for close monitoring. Does not seem to be GI or musculoskeletal in etiology. PE is considered but seems less likely. Lower extremity venous Doppler ultrasounds have been ordered to rule out DVT given reports of pre significant swelling last week. Troponins will be trended. Echocardiogram has been ordered. Cardiology has been consulted and their input is appreciated. He will be NPO after midnight in case they want to do a stress test. The patient may use his insulin pump and continuous glucose monitor per protocol. Nephrology has been consulted for dialysis orders. Blood pressures were reviewed and they are stable. Initiate sliding scale insulin, Accu-Cheks, and hypoglycemic protocol. His home medications will be reviewed and resumed as appropriate. Findings and treatment plan were discussed with the patient. Questions were solicited and answered to satisfaction. The patient's medical management will be taken over by the hospitalist team in a.m. Subjective Date/time seen: 09/16/23 11:54 Interval history: 48yo male with ESRD, HTN, HLD and DM here for chest pain. Assuming care. Chart reviewed. No CP since admission. He denies abdominal pain. No fever or chills. Had a LHC 1 year ago which showed minimal disease and a stress test a few months ago showing no acute findings. Has GERD but this did not feel typical of his GERD symptoms. Chest pain was not pleuritic or positional. He was SOb and diaphoretic. Not had before. No melana or hematochezia. He does home hemodialysis 4x/week with a varied schedule. Exam Narrative: AF 98.0 150/63 61 16 99% ra Gen - NARD Chest - CTA bilaterally, nml RR CV - RRR S1/S2. Tele showing no significant dysrhythmias. Abd - Soft, NT/ND, Positive BS Ext - No pedal edema. thrill and bruit LUE. Neuro - Alert and oriented. Nonfocal exam. Psych - Nml mood and affect Skin - Warm and dry Objective Data Vital Signs Vital Signs: Vital Signs - 24 hr 09/15/23 12:01 09/15/23 12:47 09/15/23 13:00 Temperature Pulse Rate 64 64 65 Respiratory Rate 17 21 H 15 Blood Pressure 124/66 139/76 Pulse Oximetry 99 100 99 Oxygen Delivery 09/15/23 14:26 09/15/23 13:09 09/15/23 16:25 Temperature Pulse Rate 66 64 66 Respiratory Rate 22 H 13 19 Blood Pressure 141/72 H 139/89 Pulse Oximetry 99 100 100 Oxygen Delivery 09/15/23 16:00 09/15/23 18:00 09/15/23 17:27 Temperature 97.2 F L Pulse Rate 67 65 Respiratory Rate 24 H Blood Pressure 166/65 H Pulse Oximetry 100 100 Oxygen Delivery Room Air 09/15/23 20:26 09/15/23 20:00 09/15/23 20:00 Temperature 98.3 F Pulse Rate 72 71 Respiratory Rate 20 Blood Pressure 157/62 H Pulse Oximetry 98 Oxygen Delivery Room Air 09/16/23 00:15 09/15/23 22:00 09/16/23 00:00 Temperature 98.2 F Pulse Rate 71 74 Respiratory Rate 20 Blood Pressure 161/64 H Pulse Oximetry 96 Oxygen Delivery Room Air 09/16/23 00:00 09/16/23 02:00 09/16/23 04:
--- NOTE | 2023-09-16 15:33 | PC.NURSE ---
Dialysis called for patient. Patient questioned if he was going home that he would just do his treatment at home. Spoke with Dr. Perez about patient's dialysis treatment and he stated to hold the treatment at this time until he speaks with Dr. Moreno about a CTA of abd. This RN spoke with dialysis about holding the treatment at this time.
[2023-09-16 16:34] LABS: Hepatitis B Surface Antigen Negative (Negative)
[2023-09-16 16:52] LABS: Hepatitis B Surface Anti Res Positive
[2023-09-16] MEDS: EPOETIN ALFA-EPBX 10,000 UNITS/ML VIAL 10000 UNITS IV PUSH (17:40)
[2023-09-16] MEDS: HEPARIN SODIUM 1,000 UNITS/ML VIAL 1000 UNITS IV PUSH (17:44)
[2023-09-16] MEDS: HEPARIN SODIUM 1,000 UNITS/ML VIAL 500 UNITS IV PUSH (17:51)
--- NOTE | 2023-09-16 19:15 | PM.DS ---
DS: Admitting Diagnosis Discharge Date 09/16/23 Admitting Diagnosis Chest pain DS: Discharge Diagnosis Discharge Diagnosis (1) Chest pain: Code(s): R07.9 - Chest pain, unspecified Status: Acute (2) End-stage renal disease on hemodialysis: Code(s): N18.6 - End stage renal disease; Z99.2 - Dependence on renal dialysis Status: Acute (3) Normocytic anemia: Code(s): D64.9 - Anemia, unspecified Status: Acute (4) Type 2 diabetes mellitus: Code(s): E11.9 - Type 2 diabetes mellitus without complications Status: Acute (5) Hypertension: Code(s): I10 - Essential (primary) hypertension Status: Acute (6) Hyperlipidemia: Code(s): E78.5 - Hyperlipidemia, unspecified Status: Acute DS: Summary Hospital Course Reason for hospitalization: 48yo male with ESRD, HTN, HLD and DM here for chest pain. Please see H&P for details. Hospital Course: Patient presents with chest pain. In the ED, he was afebrile with stable vital signs. Hemoglobin of 10.4, BUN 57, creatinine 9.70, glucose 189, proBNP 3000. Chest x-ray showed no acute cardiopulmonary disease. EKG showed a sinus rhythm without acute ST segment depressions or elevations. He received aspirin 324 mg and was admitted to IMU. No CP since admission. He had a LHC 1 year ago which showed minimal disease and a stress test a few months ago showing no acute findings. Cardiology consulted. Troponini negative x 3. TChol 101, TG 99, LDL 42 and HDl 48. Lipase normal. He had lexiscan stress test showing no abnormal ST-T wave changes and nuclear images showed no definitive reversible or fixed perfusion abnormality to suggest ischemia or infarct. Normal LV chamber size, wall motion and EF (56%). Echo showing normal LV systolic function with EF 65-70%, mildly increased LV wall thickness, Grade II diastolic dysfunction, mild valvular disease and moderate pulmonary HTN. Lower extremity venous doppler was negative for DVT. Chest CTA was negative for PE and was negative for dissection. Etiology could be related to esophageal spasm possibly. Nephrology was consulted and the patient had dialysis after the contrast study. He overall did well and was able to be discharged home after dialysis on 09/16/23. Status at Discharge Cognitive/behavioral status at discharge: stable Time Spent with Patient Time attestation: Total time spent providing and/or coordinating discharge services: 38 minutes Time spent: Greater than 30 minutes Exam Narrative: AF 98.0 150/63 61 16 99% ra Gen - NARD Chest - CTA bilaterally, nml RR CV - RRR S1/S2. Tele showing no significant dysrhythmias. Abd - Soft, NT/ND, Positive BS Ext - No pedal edema. thrill and bruit LUE. Neuro - Alert and oriented. Nonfocal exam. Psych - Nml mood and affect Skin - Warm and dry DS: Data Data Completed and Pending Labs on day of discharge: Labs from last 24 hours 09/16/23 09/15/23 03:55 15:04 WBC 8.5 RBC 3.15 L Hgb 9.8 L Hct 28.4 L MCV 90.2 MCH 31.1 MCHC 34.5 RDW 12.8 Plt Count 206 MPV 8.9 Sodium 137 Potassium 3.7 Chloride 98 Carbon Dioxide 28 Anion Gap 11 BUN 60 H Creatinine 10.00 H Estim Creat Clear Calc 9 Estimated GFR 6 L Glucose 103 Calcium 8.8 Phosphorus 5.9 H Magnesium 2.2 Triglycerides 99 Cholesterol 101 LDL Cholesterol Direct 42 HDL Direct 48 Hep Bs Antigen Negative Hep Bs Antibody Positive Discharge Plan Discharge Attending physician on discharge: Vinh Perez Consulting providers: Eri Enciso; Robbie Moreno Discharging Clinician: Vinh Perez Anticipated Discharge Date/Time: 09/16/23 19:27 Patient Disposition: Home, Self-Care Activity: as tolerated Diet: diabetic and renal Discharge Instructions: Please check glucose before meals and before bed. Record and bring into your doctor for review. Check blood pressure
[2023-09-16] MEDS: DOXAZOSIN MESYLATE 2 MG TABLET PO (21:52)
[2023-09-16] MEDS: amLODIPine BESYLATE 5 MG TABLET PO (21:53)
[2023-09-17] VITALS: PULSE 72
[2023-09-17] MEDS: LOSARTAN POTASSIUM 100 MG TABLET PO (00:06)
[2023-09-17 02:00] VITALS: PULSE 69
[2023-09-17 04:00] VITALS: BP 132/64; PULSE 65; PULSE 67; RESP 15; TEMP 36.4; O2SAT 96
[2023-09-17 05:25] LABS: Albumin Level 3.5 g/dL (3.5-5.1); Anion Gap 4 mmol/L (4-12); Blood Urea Nitrogen 27 mg/dL (9-20); Calcium 8.8 mg/dL (8.4-10.2); Carbon Dioxide 36 mmol/L (22-30); Chloride 99 mmol/L (98-107); Estimated CRCL calculation 15 ml/min; Estimated Glomerular Filt Rate 10; Glucose 157 mg/dL (65-110); Potassium 3.5 mmol/L (3.4-5.0); Sodium 139 mmol/L (137-145)
[2023-09-17 06:00] VITALS: PULSE 61
--- NOTE | 2023-09-17 07:00 | PC.NURSE ---
Pt discharged at this time. All personal belongings accompanied with patient. Pt left per private family vehicle.
--- NOTE | 2023-09-23 15:57 | PCCDE ---
09/23/23 Phone A1C: 6.7 (09/15/23) Reached patient by phone, He has his Diabetes under control, using his insulin pump. Denies questions/concerns regarding his DM. FJ
== END 2023-09-17 07:00 | disposition home or self-care (01) ==
LOC: ANHED 09:20 → ANHIMU 15:15
PROVIDERS: Emergency Medicine; Internal Medicine Nephrology; Physician Assistant; Admitting Provider General Practice; Emergency Provider Physician Assistant; PCP Physician Assistant; Visit Provider Internal Medicine
DX: R07.9 Chest pain, unspecified (principal); R79.89 Other specified abnormal findings of blood chemistry; I12.0 Hypertensive chronic kidney disease with stage 5 chronic kidney disease or end stage renal disease; E11.22 Type 2 diabetes mellitus with diabetic chronic kidney disease; N18.6 End stage renal disease; Z99.2 Dependence on renal dialysis; E78.5 Hyperlipidemia, unspecified; I25.10 Atherosclerotic heart disease of native coronary artery without angina pectoris; Z87.891 Personal history of nicotine dependence; F12.90 Cannabis use, unspecified, uncomplicated; Z79.4 Long term (current) use of insulin
CPT/HCPCS: 36415; 71046; 71275; 78452; 80048; 80053; 80061; 80069; 83036; 83690; 83735; 83880; 84100; 84484; 85025; 85027; 85380; 85610; 85730; 86706; 87340; 93005; 93017; 93306; 93970; 96372; 99285; A9270; A9502; G0257; G0378; J1644; J2785; J7030; Q5105; Q9967

== ENCOUNTER 2023-11-24 12:58 | Outpatient (CLI) | payer MEDICARE, BC, SELFPAY ==
--- NOTE | ~2023-11-24 | XR_ITS ---
EXAMINATION: XR ankle LT min 3V DATE: 11/24/2023 13:20 INDICATION: Left heel pain. TECHNIQUE: 4 views of left ankle were obtained. COMPARISON: None. FINDINGS: Alignment is normal. No fracture. Joint spaces are normal. There is an enthesophyte at plan tar aspect of calcaneal tuberosity. IMPRESSION: 1. No fracture. Reviewed, dictated and finalized at location A. IMPRESSION: 1. No fracture.
== END 2023-11-24 12:59 | disposition home or self-care (01) ==
LOC: ANHIMG 13:05
PROVIDERS: PCP Physician Assistant; Visit Provider Physician Assistant
DX: M79.672 Pain in left foot (principal)
CPT/HCPCS: 73610

== ENCOUNTER 2023-12-17 10:31 | Outpatient (CLI) | payer BC, MEDICARE, SELFPAY ==
--- NOTE | ~2023-12-17 | MR_ITS ---
EXAMINATION: MR hand RT wo/w con DATE: 12/17/2023 11:34 INDICATION: A few months of pain at the right second distal phalanx TECHNIQUE: Magnetic resonance imaging (MRI) of the right hand was performed without and with 17 mL Mu ltihance intravenous contrast to include the metacarpals and digits. Sequences included axial, sagitt al and coronal T1-weighted FSE and T1-weighted FS FSE, axial T2-weighted FS FSE and postcontrast axia l and sagittal T1-weighted FS FSE . COMPARISON: None FINDINGS: Bone alignment is normal. Normal bone marrow signal throughout with no reactive edema, fracture or pa thologic marrow replacing process. There is mild polyarticular osteoarthritis at the first carpometac arpal, first and second metacarpophalangeal and a few of the interphalangeal joints. No erosions to s uggest inflammatory arthritis. Physiologic amount fluid in the joint spaces. 7 x 4 x [address] along the radial margin of the triscaphe joint. The visualized portion of the flexor and extensor tendons of the hand appear normal. The collateral ligament complex at the mid carpal phalangeal and i nterphalangeal joints appear normal. There is nonspecific mild soft tissue swelling, edema and non ma sslike enhancement along the radial side of the second digit. No enhancing synovitis at the joint spa ce or tenosynovitis along the flexor extensor tendons. IMPRESSION: 1. Nonspecific mild soft tissue swelling with mild increased fluid signal and non masslike enhancemen t in the subcutaneous fat along the radial aspect of the second digit which is of indeterminate etiol ogy. 2. 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 Reviewed, dictated and finalized at location B. IMPRESSION: 1. Nonspecific mild soft tissue swelling with mild increased fluid signal and n on masslike enhancement in the subcutaneous fat along the radial aspect of the second digit which is of indeterminate etiology. 2. Mild polyarticular osteoarthritis with typical distribution at the right pate d.
== END 2023-12-17 10:32 | disposition home or self-care (01) ==
PROVIDERS: PCP Physician Assistant; Visit Provider Orthopaedic Surgery Hand Surgery
DX: M19.041 Primary osteoarthritis, right hand (principal)
CPT/HCPCS: 73220; A9577

== ENCOUNTER 2024-06-02 09:58 | Emergency (ER) | payer MEDICARE, BC, SELFPAY ==
[2024-06-02 10:15] VITALS: BP 159/83; PULSE 77; RESP 18; TEMP 36.3; O2SAT 99
[2024-06-02 11:08] VITALS: O2SAT 100
[2024-06-02 11:15] VITALS: O2SAT 100
--- OUTSIDE RECORDS SUMMARY | 2024-06-02 11:15 | XMS_ITS ---
Author Name Astrid, Clinic Address [address] [place] [address] Phone [phone] Organization [facility], NA DOCUMENT DISCLAIMER Multiple document versions may exist, please be sure you review the latest version. The information in the [facility], [place] Continuity of Care Document represents a summary of certain health and medical information. It may not contain the complete medical history for the patient and should be independently verified. The represented time in the document is Eastern Time. PROBLEMS Problem Code Status Onset Date Anaphylactic shock, unspecified, initial encounter T78 .2XXA Active June 01, 2024 Allergy, unspecified, initial encounter T78.40XA A ctive June 01, 2024 Other disorders of phosphorus metabolism E83.39 Active May 11, 2024 Secondary hyperparathyroidism of renal origin N25.81 Active February 25, 2023 Type 2 diabetes mellitus wit h diabetic chronic kidney disease E11.22 Active February 25, 2023 penitentiary (current) use of insulin Z79.4 Active February 25, 2023 Hypertrophy of kidney N28.81 Active Novemb er 2022 Hypertensive chronic kidney disease with stage 5 chronic kidney disease or end stage renal disease I12.0 Active February 25, 2023 Fluid overload, unspecified E87.70 Active February 25, 2023 Encounter for immunization Z23 Active N ovember 2022 Encounter for adequacy testing for hemodialysis Z49.31 Active February 25, 2023 Edema, unspecified R60.9 Active February 25, 2023 Diabetes mellitus due to und erlying condition with diabetic chronic kidney disease E08.22 Active February 25, 2023 Dependence on renal dialysis Z99.2 Active February 25, 2023 Cardiac murmur, unspecified R01.1 Active February 25, 2023 Basal cell carcinoma of skin of left lower limb, including hip C44.719 Active February 25, 2023 Anemia in chronic kidney disease D63.1 Active February 25, 2023 Iron deficiency anemia, unspecified D50.9 Activ e February 25, 2023 End stage renal disease N18.6 Active Nargis mb 2022 ALLERGIES AND ADVERSE REACTIONS Substance Reaction Severity Status gabapentin hallucinations Active neomycin Skin Rash Active Neosporin ([id number]-eaimz) Skin Rash Ac tive SOCIAL HISTORY Tobacco Use Status Tobacco Type Former smoker Cigarettes Caregiver Characteristics Need Level ADL Type Relationship of Caregiver Independent N/A N/A Characteristics of Home environment Housing Status Patient Resides With House Gender and Sex Information Gender Identity Sexual Orientation Male Heterosexual MEDICATIONS Prescribed Medications for Dialysis Treatments Medication Instructions Dosage Route Start Date End Date Stat Iron Sucrose (Venofer) Self Administer at Home 1X Week 100 mg Intravenous - push May 16, 2024 May 15, 2025 Active Mircera Once 30 mcg Subcutaneous May 12, 2024 Discontinued Home Medications Medication Instructions Dosage Route Start Date End Date Stat allopurinol 100 mg Take by mouth once a day 1 tablet ORAL November 23, 2020 Active amlodipine 10 mg Take by mouth once a day 1 tablet ORAL March 09, 2024 Active Aspirin Childrens 81 mg Take by mouth once a day 1 tablet ORAL April 17, 2022 Active atenolol 50 mg Take by mouth once a day 1 tablet ORAL November 23, 2020 Active calcitriol 0.25 mcg Take by mouth once a day 1 capsule ORAL August 12, 2023 Active clonidine HCl 0.2 mg Take by mouth three times a day 1 tablet ORAL August 12, 2023 Active Crestor 10 mg by mouth every evening 1 tablet ORAL November 23, 2020 Active doxazosin 2 mg Take by mouth every night 1 tablet ORAL January 13, 2024 Active icosapent ethyl 1 gram Take by mouth twice a day 2 capsule ORAL November 12, 2022 Active Lasix 80 mg Take by mouth twice a day 1 tablet ORAL August 13, 2022 Active Novolog U-100 Insulin aspart 100 unit/mL Infuse subcutaneously as directed 10 ml SUBCUTANEOUS November 23, 2020 Active pantoprazole 20 mg Take by mouth once a day 1 tablet ORAL January 15, 2022 Active Sevelamer Carbonate Tablet 800 mg Take By Mouth Three times a day With Meals 2 Tablet By Mouth May 11, 2024 May 11, 2025 Active vitamin d 50,000 unit Take by mouth once a week 1 capsule by mouth August 14, 2021 Active sevelamer carbonate 800 mg Take by mouth twice a day with meals 2 tablet ORAL December 29, 2020 May 11, 2024 Discontinued VITAL SIGNS Post-Treatment Vital Signs Vital Sign Value Date / Time Blood Pressure-sitting 124/76 mmHg May 31, 2024 03:24 AM Blood Pressure-standing 117/75 mmHg May 03:24 AM Heart Rate 71 beats per minute May 31 03:24 AM Temperature 98.2 deg. F May 31, 2024 0 3:24 AM Weight Vital Sign Value Date / Time Estimated Dry Weight 80 kg October 07 11:59 PM Pre-Dialysis 80.8 kg May 31, 2024 0 3:24 AM Post-Dialysis 80 kg May 31, 2024 0 3:24 AM Other Other Value Date / Time Height 178 cm May 12 12:00 AM Body Mass Index 25.25 kg/m2 May 22 11:02 AM HEALTH CONCERNS Tuberculosis Testing TST Date Administered TST Date Read TST Result 11/13/2020 11/15/2020 Negative (<5) mm LAB RESULTS Hematology Result Type Result Value Relevant Referen ce Range Interpretation Date TIBC (Calc) 271 mcg/dL 185 - 515 mcg/dL - December 29, 2023 Transferrin Sat. (Calc) 30 % 20 - 55 % - December 29, 2023 UIBC/TIBC 191 mcg/dL 155 - 355 mcg/dL - December 29, 2023 Ferritin 1237 ng/mL 22 - 322 ng/mL High December Reticulocyte 2.97 % 0.80 - 2.10 % High December Platelets 230 1000/mcL 130 - 400 1000/mcL - 2023 WBC (No Diff) 7.42 1000/mcL 4.80 - 10.80 1000/mcL - December 29, 2023 Neutrophils 60.9 % 40.0 - 75.0 % - December WBC (No Diff) 5.06 1000/mcL 4.80 - 10.80 1000/mcL - January 13, 2024 Neutrophils 70.3 % 40.0 - 75.0 % - December Platelets 178 1000/mcL 130 - 400 1000/mcL - Octo 2023 Ferritin 988 ng/mL 22 - 322 ng/mL High January Neutrophils 66.6 % 40.0 - 75.0 % - January Reticulocyte 2.08 % 0.80 - 2.10 % - February 03, 2024 Platelets 238 1000/mcL 130 - 400 1000/mcL - [id number] Transferrin Sat. (Calc) 28 % 20 - 55 % - February 02 UIBC/TIBC 207 mcg/dL 155 - 355 mcg/dL - February 03, 2024 TIBC (Calc) 288 mcg/dL 185 - 515 mcg/dL - 2023 WBC (No Diff) 9.36 1000/mcL 4.80 - 10.80 1000/mcL - February 03, 2024 Ferritin 964 ng/mL 22 - 322 ng/mL High February TIBC (Calc) 274 mcg/dL 185 - 515 mcg/dL - 2023 Transferrin Sat. (Calc) 28 % 20 - 55 % - March 01 UIBC/TIBC 197 mcg/dL 155 - 355 mcg/dL - March 01, 2024 WBC (No Diff) 6.02 1000/mcL 4.80 - 10.80 1000/mcL - March 01, 2024 Neutrophils 66.1 % 40.0 - 75.0 % - February Platelets 211 1000/mcL 130 - 400 1000/mcL - 2023 Reticulocyte 1.51 % 0.80 - 2.10 % - March 01, 2024 TIBC (Calc) 266 mcg/dL 185 - 515 mcg/dL - April 06, 2024 UIBC/TIBC 134 mcg/dL 155 - 355 mcg/dL Low April 06, 2024 Transferrin Sat. (Calc) 50 % 20 - 55 % - April 06, 2024 Iron 132 mcg/dL 45 - 160 mcg/dL - March Ferritin 867 ng/mL 22 - 322 ng/mL High March Basophils 0.0 % 0.0 - 1.5 % - April 06 025 Eosinophil 10.8 % 0.0 - 7.0 % High April 06 025 Monocytes 5.3 % 3.0 - 10.0 % - April 06, 2024 Lymphocytes 39.9 % 19.0 - 48.0 % - March WBC (No Diff) 4.33 1000/mcL 4.80 - 10.80 1000/mcL Low April 06, 2024 BRENT 3.8 % 0.0 - 4.0 % - April 06 025 Neutrophils 40.2 % 40.0 - 75.0 % - March Platelets 186 1000/mcL 130 - 400 1000/mcL - 2024 Hemoglobin x 3 33.3 % 42.0 - 54.0 % Low April 06, 2024 RDW 12.3 % 11.5 - 14.5 % - April 06, 2024 Reticulocyte 1.50 % 0.80 - 2.10 % - March MCHC 35.7 g/dL 30.0 - 36.0 g/dL - April 06, 2024 MCH 32.1 pg 27.0 - 31.0 pg High March Reticulocyte 1.88 % 0.80 - 2.10 % - May 04, 2024 Platelets 252 1000/mcL 130 - 400 1000/mcL - 2024 Hemoglobin x 3 31.8 % 42.0 - 54.0 % Low 2024 HGB 10.6 g/dL 14.0 - 18.0 g/dL Low May 04, 2024 RDW 13.0 % 11.5 - 14.5 % - April MCHC 34.0 g/dL 30.0 - 36.0 g/dL - May 04, 2024 MCH 31.9 pg 27.0 - 31.0 pg High April Iron 80 mcg/dL 45 - 160 mcg/dL - May 04, 2024 UIBC/TIBC 209 mcg/dL 155 - 355 mcg/dL - May 04, 2024 TIBC (Calc) 289 mcg/dL 185 - 515 mcg/dL - 2024 Transferrin Sat. (Calc) 28 % 20 - 55 % - May 04 Folate, Serum 4.3 ng/mL No Reference Ran ge Provided - May 04, 2024 Ferritin 677 ng/mL 22 - 322 ng/mL High April HCT 31.1 % 42.0 - 52.0 % Low April RBC 3.31 mill/mcL 4.70 - 6.10 mill/mcL Low May 04, 2024 WBC (No Diff) 7.54 1000/mcL 4.80 - 10.80 1000/mcL - May 04, 2024 BRENT 2.2 % 0.0 - 4.0 % - May 04, 2024 Basophils 4.7 % 0.0 - 1.5 % High May 04, 2024 Eosinophil 6.6 % 0.0 - 7.0 % - May 04, 2024 Monocytes 3.8 % 3.0 - 10.0 % - May 04, 2024 Lymphocytes 17.0 % 19.0 - 48.0 % Low April Neutrophils 70.3 % 40.0 - 75.0 % - April Lymphocytes 28.1 % 19.0 - 48.0 % - May 31, 2024 Neutrophils 58.3 % 40.0 - 75.0 % - May 31, 2024 Eosinophil 4.8 % 0.0 - 7.0 % - May 31 Monocytes 5.0 % 3.0 - 10.0 % - May 31 BRENT 1.3 % 0.0 - 4.0 % - May 31 Basophils 2.5 % 0.0 - 1.5 % High May 31 WBC (No Diff) 6.71 1000/mcL 4.80 - 10.80 1000/mcL - May 31, 2024 HCT 30.8 % 42.0 - 52.0 % Low May 31 RBC 3.29 mill/mcL 4.70 - 6.10 mill/mcL Low May 31, 2024 MCH 31.4 pg 27.0 - 31.0 pg High May 31, 2024 RDW 13.7 % 11.5 - 14.5 % - May 31 MCHC 33.5 g/dL 30.0 - 36.0 g/dL - May Hemoglobin x 3 30.9 % 42.0 - 54.0 % Low May HGB 10.3 g/dL 14.0 - 18.0 g/dL Low May Platelets 239 1000/mcL 130 - 400 1000/mcL - Sami 2024 Reticulocyte 2.62 % 0.80 - 2.10 % High May 31, 2024 TIBC (Calc) 267 mcg/dL 185 - 515 mcg/dL - May UIBC/TIBC 200 mcg/dL 155 - 355 mcg/dL - May Transferrin Sat. (Calc) 25 % 20 - 55 % - May 31, 2024 Iron 67 mcg/dL 45 - 160 mcg/dL - May 31, 2024 Ferritin 780 ng/mL 22 - 322 ng/mL High May 31, 2024 Metabolic/Renal Result Type Result Value Relevant Referen ce Range Interpretation Date Hemoglobin A1c 7.0 % 4.8 - 5.9 % High February 03, 2024 Bicarbonate 28 mEq/L 22 - 29 mEq/L - March Sodium 141 mEq/L 136 - 145 mEq/L - March BUN/Creat Ratio 6.9 10.0 - 20.0 Low April 06, 2024 Chloride 98 mEq/L 96 - 108 mEq/L - March Potassium 4.6 mEq/L 3.5 - 5.1 mEq/L - March BUN 57 mg/dL 6 - 19 mg/dL High April 06, 2024 Creatinine, Serum 8.29 mg/dL 0.60 - 1.30 mg/dL High April 06, 2024 URR, Calc 61 % 65 - 80 % Low April 06 BUN, Post 22 mg/dL 6 - 19 mg/dL High April 06, 2024 Hemoglobin A1c 7.3 % 4.8 - 5.9 % High May 04, 2024 BUN 74 mg/dL 6 - 19 mg/dL High May 04, 2024 Bicarbonate 25 mEq/L 22 - 29 mEq/L - April BUN/Creat Ratio 6.5 10.0 - 20.0 Low May 04, 2024 Sodium 140 mEq/L 136 - 145 mEq/L - May 04, 2024 Potassium 5.2 mEq/L 3.5 - 5.1 mEq/L High May 04, 2024 Chloride 100 mEq/L 96 - 108 mEq/L - April Creatinine, Serum 11.47 mg/dL 0.60 - 1.30 mg/dL High May 04, 2024 BUN, Post 31 mg/dL 6 - 19 mg/dL High May 04, 2024 URR, Calc 58 % 65 - 80 % Low May 04, 025 Vitamin B12 444 pg/mL 211 - 911 pg/mL - May 04, 2024 Creatinine, Serum 9.11 mg/dL 0.60 - 1.30 mg/dL High May 31, 2024 BUN 42 mg/dL 6 - 19 mg/dL High May 31 Bicarbonate 26 mEq/L 22 - 29 mEq/L - May 31, 2024 Sodium 137 mEq/L 136 - 145 mEq/L - May 31, 2024 BUN/Creat Ratio 4.6 10.0 - 20.0 Low May Chloride 95 mEq/L 96 - 108 mEq/L Low May 31, 2024 Potassium 4.4 mEq/L 3.5 - 5.1 mEq/L - May 31, 2024 BUN, Post 18 mg/dL 6 - 19 mg/dL - May 31 URR, Calc 57 % 65 - 80 % Low May 31, 2024 HD Adequacy Result Type Result Value Relevant Referen ce Range Interpretation Date spKt/V Daugirdas II (D) 1.00 No Reference Range Provided Normal April 06, 2024 wstdKt/V, residual 0.0 No Reference Range Provided - April 06, 2024 Simple Kt/V (Home HD Only) 0.94 No Reference Range Provided Normal April 06, 2024 wstdKt/V without residual 2.6 No Reference Range Provided - April 06, 2024 wstdKt/V 2.6 No Reference Ran ge Provided - April 06, 2024 wstdKt/V without residual 2.5 No Reference Range Provided - May 04, 2024 wstdKt/V, residual 0.0 No Reference Range Provided - May 04, 2024 wstdKt/V 2.5 No Reference Ran ge Provided - May 04, 2024 Simple Kt/V (Home HD Only) 0.87 No Reference Range Provided Normal May 04, 2024 spKt/V Daugirdas II (D) 0.93 No Reference Range Provided Normal May 04, 2024 Simple Kt/V (Home HD Only) 0.84 No Reference Range Provided Normal May 31, 2024 Bone/Mineral Result Type Result Value Relevant Referen ce Range Interpretation Date PTH-Intact, Plasma 307 pg/mL 16 - 80 pg/mL High Dec [id number] PTH-Intact, Plasma 181 pg/mL 16 - 80 pg/mL High Jan PTH-Intact, Plasma 177 pg/mL 16 - 80 pg/mL High Feb Calcium, Total 9.4 mg/dL 8.4 - 10.2 mg/dL - 2024 Ca x P Product 56 0 - 54 High March Phosphorus 6.0 mg/dL 2.6 - 4.5 mg/dL High March PTH-Intact, Plasma 235 pg/mL 16 - 80 pg/mL High Mar Corrected Ca x P Product 55 0 - 54 High April 06, 2024 Alkaline Phosphatase 61 U/L 40 - 129 U/L - [id number] Calcium, Total 9.7 mg/dL 8.4 - 10.2 mg/dL - 2024 Phosphorus 6.3 mg/dL 2.6 - 4.5 mg/dL High May 04, 2024 Ca x P Product 61 0 - 54 High April Corrected Ca x P Product 59 0 - 54 High May 04 Vitamin D 25 Hydroxy 41.0 ng/mL 30.0 - 100.0 ng/mL - May 04, 2024 PTH-Intact, Plasma 202 pg/mL 16 - 80 pg/mL [facility] Apr Magnesium 2.5 mg/dL 1.6 - 2.6 mg/dL - May 04, 2024 PTH-Intact, Plasma 232 pg/mL 16 - 80 pg/mL [facility] May Calcium, Total 9.4 mg/dL 8.4 - 10.2 mg/dL - 2024 Ca x P Product 56 0 - 54 High May 31, 2024 Phosphorus 6.0 mg/dL 2.6 - 4.5 mg/dL High May 31, 2024 Corrected Ca x P Product 55 0 - 54 High May 31, 2024 Liver/Nutrition Result Type Result Value Relevant Referen ce Range Interpretation Date Albumin (BCG) 4.3 g/dL 3.5 - 5.2 g/dL - April 06, 2024 Total Protein 6.5 g/dL 6.0 - 8.5 g/dL - April 06, 2024 Glucose 152 mg/dL 70 - 100 mg/dL High March Globulin (Calc) 2.2 g/dL 2.0 - 4.0 g/dL - 2024 A/G Ratio 2.0 1.0 - 2.0 - April 06 Globulin (Calc) 2.4 g/dL 2.0 - 4.0 g/dL - 2024 A/G Ratio 1.8 1.0 - 2.0 - February 05, 2 025 Total Protein 6.8 g/dL 6.0 - 8.5 g/dL - 2024 Albumin (BCG) 4.4 g/dL 3.5 - 5.2 g/dL - 2024 Glucose 173 mg/dL 70 - 100 mg/dL High April Total Protein 6.6 g/dL 6.0 - 8.5 g/dL - May Albumin (BCG) 4.3 g/dL 3.5 - 5.2 g/dL - May Globulin (Calc) 2.3 g/dL 2.0 - 4.0 g/dL - May 31, 2024 A/G Ratio 1.9 1.0 - 2.0 - May 31, 2024 Glucose 315 mg/dL 70 - 100 mg/dL High May 31, 2024 Immunochemistry Result Type Result Value Relevant Reference Range Interpre tation Date HCV s/co ratio 0.21 0.00 - 0.79 - June 03, 2023 HCV s/co ratio < 0.02 0.00 - 0.79 - May 04, 2024 Trace Elements Result Type Result Value Relevant Reference Range Interpre tation Date Aluminum < 5 mcg/L 0 - 10 mcg/L - June 02, 24 Aluminum < 5 mcg/L 0 - 10 mcg/L - July 29, 2023 Aluminum < 5 mcg/L 0 - 10 mcg/L - November 02, 024 Aluminum < 5 mcg/L 0 - 10 mcg/L - February 03, 2024 Aluminum < 5 mcg/L 0 - 10 mcg/L - May 04, 2024 Infectious Diseases Result Type Result Value Relevant Referen ce Range Interpretation Date Hep B Surface Ab (anti-HBs) 451 mIU/mL No Reference Range Provided - May 04, 2024 HCV Ab (anti-HCV) Nonreactive No Reference R sabina Provided - May 04, 2024 DIALYSIS PRESCRIPTION NxStage Hemodialysis Data Element Value Order Date/Time October 08, 2023 Frequency 4X Week Treatment Days [facility] Dialyzer/Cartridge CAR 172 Therapy Fluid (dialysate) 1.0 K 45 Lacta te Estimated Treatment Time 190 min Volume per Treatment (Liters) 50 L Dialysate Flow Rate 16.5 L/hr Maximum Flow Fraction (%) 100% Maximum Ultrafiltration Rate 8 ml/Kg/hr Blood Flow Rate (mL/min) 400 mL/min Estimated Dry Weight 80 kg Dialysis Access Hemodialysis-AV Fist cassidy-Standard, Left Upper Arm, Brachial Artery to Cephalic Vein Arterial Needle Size 15g1 Venous Needle Size 15g1 IMMUNIZATIONS Vaccine Date Dose Route Status Flu Vaccine - Flublok Quadrivalent January 14, 2023 0.5 mL Intramuscular Completed HEPLISAV-B, series 4 of April 17, 2021 20.0 mcg Intr amuscular Completed HEPLISAV-B, series 3 of March 01, 2021 20.0 mcg Int ramuscular Completed PNEUMOVAX March 01, 2021 0.5 mL Intramuscular Co mpleted HEPLISAV-B, series 2 of January 23, 2021 20.0 mcg Intr amuscular Completed PREVNAR December 25, 2020 0.5 mL Intramuscular Com pleted HEPLISAV-B, series 1 of December 20, 2020 20.0 mcg In tramuscular Completed TRANSPLANT WAITLIST STATUS No Information on Transplant Waitlist Status ADVANCE DIRECTIVES Directive Description Ordered By Effective Date Resuscitation status Full Code Denilson Vee Feb 27, 2024 DIALYSIS TREATMENTS NxStage-HHD Date Pre-Treatment Vitals Post-Treatment Vitals Durat ion(hr) Exchanges BFR(mL/min) Cartridge Type Dialysate Dialysis Access Meds-entered by patient May 28, 2024 Weight 81.3 kg Weight 80.6 kg 2:58 1 of 11 450 CAR-170 1K 45 La ctate Blood Pressure-sitting 121/72 mmHg Blood Pressure-sitting 13 8/74 mmHg 2 of 450 Blood Pressure-standing 115/71 mmHg Blood Pressure-standing 130/72 mmHg 3 of 450 Heart Rate 63 beats per minute Heart Rate 69 beats per minute 4 of 11 450 Temperature 98.1 deg. F Temperature 98.1 deg. F 5 of 11 45 0 - - - - 6 of 11 450 - - - - 7 of 11 450 - - - - 8 of 11 450 - - - - 9 of 11 450 - - - - 10 of 11 450 - - - - 11 of 11 450 May 28, 2024 Blood Pressure-sitting 132/73 mmHg Weight 80 kg 2:51 1 of 420 CAR-170 1K 45 Lactate Hemodialysis-AV Fistula-Standard, Left Upper Arm, Brachial Artery to Cephalic Vein Heparin 0 Blood Pressure-standing 121/66 mmHg Blood Pressure-sitting 1 20/71 mmHg 2 of 9 420 Heart Rate 61 beats per minute Blood Pressure-standing 126/66 mmHg 3 of 9 420 Temperature 98.1 deg. F Heart Rate 74 beats per minute 4 of 9 420 - - Temperature 98.2 deg. F 5 of 9 420 - - - - 6 of 9 420 - - - - 7 of 9 420 - - - - 8 of 9 420 - - - - 9 of 9 May 31, 2024 Weight 80.8 kg Weight 80 kg 2:53 1 of 450 CAR-170 1K 45 Lactate Hemodialysis-AV Fistula-Standard, Left Upper Arm, Brachial Artery to Cephalic Vein Heparin 0 Blood Pressure-sitting 124/52 mmHg Blood Pressure-sitting 12 4/76 mmHg 2 of 13 450 Blood Pressure-standing 119/52 mmHg Blood Pressure-standing 117/75 mmHg 3 of 450 Heart Rate 67 beats per minute Heart Rate 71 beats per minute 4 of 13 450 Temperature 98.2 deg. F Temperature 98.2 deg. F 5 of 45 0 - - - - 6 of 450 - - - - 7 of 450 - - - - 8 of 450 - - - - 9 of 450 - - - - 10 of 450 - - - - 11 of 450 - - - - 12 of 350 - - - - 13 of -
--- OUTSIDE RECORDS SUMMARY | 2024-06-02 11:15 | XMS_ITS ---
Author Organization [facility] [address] [facility] Address [address] [place] [address] Care Team Providers Care Chuck Wagon Driver Name Role Phone Ashley Mcneal Primary Care Provider + [phone] Denilson Kyle MD Unavailable [phone] Kyree Noonan MD Unavailable [phone] Ashish Fonseca MD Unavailable [phone] Betsy Bro RN Unavailable Betsy Bro RN Unavailable Natali Cano NP Unavailable [phone] Brian Cedeno MD Unavailable Active Problems Patient Care Coordination No te Formatting of this note migh t be different from the original. CAD for BIC Verbal consent- (Spouse) Kelley,(Mother) Chela Problem Noted Date Diagnosed Date Cancer of skin of left leg 12/15/2023 Infection of index finger 12/15/2023 BMI 24.0-24.9, adult 11/30/2023 Assessment & Plan (11/30/2023 8:03 PM CDT): Weight/BMI is in healthy range. Continue healthy lifestyle to maintain. Pain of left heel 11/30/2023 Assessment & Plan (11/30/2023 8:04 PM CDT): Patient notices pain in the left heel. I suspect this is probably plantar fasciitis but he is concerned it could be gout. Will check uric acid levels as well as an x-ray. Discussed treatment for plantar fasciitis encouraged lot of stretching as well as ice to the area. If his symptoms persist can consider referral to Podiatry. Avoid NSAIDs due to his renal function Chronic gout of left foot 11/30/2023 Assessment & Plan (11/30/2023 8:04 PM CDT): Patient has had a history of chronic gout in the left foot. Currently on allopurinol. Check uric acid level Cellulitis of finger, right 11/02/2023 Finger pain, right 10/11/2023 Assessment & Plan (10/11/2023 9:45 PM CDT): Patient with finger pain. It appears there may be something underneath the nail as it appears a little raised. He has on an antibiotic and it does not look to be infected. Encouraged him to soak it warm water to see if this pulls out. If it does not may need to see hand specialist for further evaluation. Other chest pain 10/11/2023 Assessment & Plan (10/11/2023 9:45 PM CDT): Patient went to ER with chest pain. Cardiac workup was essentially normal. Was started on pantoprazole and has seen improvement with his symptoms. Continue to monitor diet BMI 26.0-26.9,adult 05/29/2023 Assessment & Plan (05/26/2024 11:16 AM MANAGER PAYROLL): Weight/BMI is in healthy range. Continue healthy lifestyle to maintain. Assessment & Plan (10/11/2023 9:45 PM CDT): Weight/BMI is in healthy range. Continue healthy lifestyle to maintain. Assessment & Plan (05/29/2023 12:07 AM MANAGER PAYROLL): Weight/BMI is in healthy range. Continue healthy lifestyle to maintain. 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 Stressed importance of routine eye exams as he does have retinopathy Screening for colon cancer 10/03/2022 Keratotic lesion 09/14/2022 Assessment & Plan (09/14/2022 10:18 PM CDT): Keratotic lesion on the left pepe that has erythema around it most consistent with early cellulitis. Patient is diabetic and on home dialysis and on the kidney transplant list. Will start Keflex 250 3 times a day. He is to keep the area clean and dry. He states he is going to late [place] but encouraged him to stay on the godinez or keep it covered to prevent any additional exposure infection. If the redness increases starts running fever chills or sweats he needs to go to the ER immediately. He verbalizes concerns. He is to come back in 10-14 days to reassess. Depending on with the keratotic lesion looks like this may be need excision. Will reassess at that time Cellulitis of left lower extremity 09/14/2022 Assessment & Plan (09/22/2022 7:45 PM CDT): Erythema did improve with patch of discoloration. Crusted lesion still present. Will send Bactroban to use bid to the area until resolved. Call if sxs worsen or don't fully resolve. Assessment & Plan (09/14/2022 10:18 PM CDT): Keratotic lesion on the left pepe that has erythema around it most consistent with early cellulitis. Patient is diabetic and on home dialysis and on the kidney transplant list. Will start Keflex 250 3 times a day. He is to keep the area clean and dry. He states he is going to late [place] but encouraged him to stay on the godinez or keep it covered to prevent any additional exposure infection. If the redness increases starts running fever chills or sweats he needs to go to the ER immediately. He verbalizes concerns. He is to come back in 10-14 days to reassess. Depending on with the keratotic lesion looks like this may be need excision. Will reassess at that time Coronary artery disease invo lving [place] coronary artery of [place] heart without angina pectoris 04/16/2022 Assessment & Plan (04/16/2022 11:16 AM MANAGER PAYROLL): I reviewed the cardiac catheterization findings with him. Patient had nonocclusive disease. Advised him to take baby aspirin every day. The right groin looks good without any hematoma or bruit. Gastritis 04/04/2022 Duodenitis 04/04/2022 Hypercholesterolemia 03/17/2022 Assessment & Plan (04/16/2022 11:17 AM MANAGER PAYROLL): Recent lipid panel showed normal LDL. Continue the Crestor. I will repeat his lipids and LFTs in 6 months. Discussed low-cholesterol diet. Essential hypertension, benign 03/17/2022 Assessment & Plan (02/23/2024 2:29 PM MANAGER PAYROLL): Impression: Chronic and elevated. Patient remains asymptomatic. Plan: Recommend patient to monitor blood pressures at home and notify primary care provider for elevated blood pressure for further management. Assessment & Plan (10/01/2022 3:38 PM CDT): Impression: Chronic stable hypertension. Plan: Continue amlodipine. Assessment & Plan (07/02/2022 1:48 PM CDT): Impression: Chronic stable hypertension. Plan: Continue amlodipine 5 mg. Assessment & Plan (06/12/2022 2:18 PM CDT): Impression: Chronic stable hypertension. Plan: Continue amlodipine 5 mg. Assessment & Plan (04/16/2022 11:17 AM MANAGER PAYROLL): Blood pressure is well controlled. Continue current medications and low-salt diet. Erectile dysfunction 02/08/2022 Assessment & Plan (02/08/2022 8:44 PM MANAGER PAYROLL): Patient notes difficulty with obtaining an erection/firmness. He would like to consider treatment for ED He is diabetic -- Recommend referral to Urology for full workup. Referral placed Nausea and vomiting 11/22/2021 Assessment & Plan (10/03/2022 1:03 PM CDT): Overall doing well unless ate something greasy, still taking pantoprazole 40 mg daily. Previous EGD 12/11/2021 with hiatal hernia gastritis and duodenitis. Normal gastric emptying study. We will continue current management with daily pantoprazole 40mg Assessment & Plan (11/22/2021 12:07 PM CDT): Chronic nausea vomiting for the past 3-4 years. Slightly improved in frequency after adjusting diet to eating less greasy foods. Used to occur every day, currently happens about 2 to 3 times a week worse at nighttime. Patient has some reflux not currently on any meds. No dysphagia, odynophagia, weight loss or signs of GI bleeding. Symptoms not c/w cyclic vomiting syndrome as there's no symptom free period between flares, but is at risk for hyperemesis associated with cannabis. Will schedule EGD to evaluate for possible reflux or ulcer disease that could explain the n/v. As well as gastric emptying study to rule out diabetic gastroparesis. Cyclical vomiting 06/12/2021 Assessment & Plan (10/08/2021 10:56 AM CDT): This is persistent. Reports never heard from GI amb referral to GI placed. 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 Patient denies any pain or weakness to the left hand. Denies any problems with dialysis. On stitches removed from the site and office. Patient was seen with Dr. Marlen Fonseca. Plan: Continue dialysis Wednesdays and Fridays return within 3 months with fistula scan. Assessment & Plan (04/11/2021 10:32 AM MANAGER PAYROLL): Patient states fistula and cannulation significantly improved following recent procedure. Will continue 3 months duplex surveillance. Assessment & Plan (03/21/2021 8:49 AM MANAGER PAYROLL): Patient has findings consistent with high-grade outflow cephalic arch stenosis. Have recommended fistulogram possible intervention. The procedure and all risks have been explained. Positive depression screening 12/26/2020 Assessment & Plan (12/26/2020 10:02 AM CDT): Had positive depression screening but states thinks it is due to all the changes going on. No suicidal or homicidal thoughts. Admits to times of hypomania and then will feel down but very situational. Declines meds at this time. Will monitor. Has good support. Annual physical exam 12/26/2020 Assessment & Plan (05/29/2023 12:07 AM MANAGER PAYROLL): Encouraged healthy lifestyle, good nutrition and exercise. Encouraged Calcium and Vitamin D and weight bearing exercise for bone health. Reviewed immunizations Reviewed age appropirate screenings. Assessment & Plan (02/08/2022 8:43 PM MANAGER PAYROLL): Encouraged healthy lifestyle, good nutrition and exercise. Encouraged Calcium and Vitamin D and weight bearing exercise for bone health. Reviewed immunizations Reviewed age appropirate screenings. Assessment & Plan (12/26/2020 10:07 AM CDT): Encouraged healthy lifestyle, good nutrition and exercise. Encouraged Calcium and Vitamin D and weight bearing exercise for bone health. Reviewed immunizations Reviewed age appropirate screenings. Edema, unspecified 12/12/2020 Hypertrophy of kidney 12/05/2020 Dependence on renal dialysis 12/04/2020 Assessment & Plan (11/30/2023 8:02 PM CDT): Patient is on renal dialysis at home. He has managed by Dr. KYLE Assessment & Plan (10/11/2023 9:47 PM CDT): Continue per Nephrology. Patient is on dialysis as well as the kidney transplant list Assessment & Plan (05/29/2023 12:06 AM MANAGER PAYROLL): Patient is on dialysis at home. Managed by Dr. Kyle Fluid overload, unspecified 12/04/2020 Hypotension of hemodialysis 12/04/2020 Localized edema 12/04/2020 Anemia in chronic kidney disease 12/03/2020 Assessment & Plan (11/22/2021 12:00 PM CDT): Stable, no signs of GI blood loss ESRD (end stage renal disease) on dialysis 12/03 Assessment & Plan (02/23/2024 2:29 PM MANAGER PAYROLL): Impression: Patient is undergoing home dialysis through a left brachiocephalic AV fistula without any issues. Patient has a patent AV fistula and stents to the left upper extremity. End stent elevated velocities are noted to the cephalic vein. Plan: Recommend left upper extremity AV fistulogram with possible intervention. Risks of the procedure communicate with the patient to include bleeding, infection, injury, further surgery, limb loss and . Patient voices understanding of these risks and wishes to proceed. -Continue utilizing left upper extremity AV fistula for dialysis until scheduled procedure. Assessment & Plan (11/30/2023 8:02 PM CDT): Patient is at end-stage renal disease and on dialysis. He is managed by He has been on renal transplant list but is currently inactive due to the infection on his finger. Assessment & Plan (11/20/2023 11:16 AM CDT): Dialyzing without any issues. Follow up in 3 months for routine surveillance with an AV duplex. Assessment & Plan (10/01/2022 3:37 PM CDT): Impression: Patient is undergoing home dialysis 4 days a week utilizing a left brachiocephalic AV fistula without any complications. Audible bruit and palpable thrill noted on exam. AV scan reveals a patent stent and patent AV fistula. Plan: Continue utilizing AV fistula for dialysis as per Nephrology. -patient to follow-up in 3 months for re-evaluation with repeat AV scan. Encouraged patient to make a sooner appointment if there are issues with dialysis. Assessment & Plan (07/02/2022 1:48 PM CDT): Impression: Patient is status post balloon angioplasty x2 to the left brachiocephalic AV fistula. Patient denies any complications during dialysis. Suture noted to the left antecubital fossa is intact with no concern for infection. AV scan reveals a patent AV fistula and patent stents. Plan: Suture removed at bedside. Patient to follow-up in 3 months for re- evaluation with AV scan. Recommend patient to call the office for sooner appointment if any other issue arises. Assessment & Plan (06/12/2022 2:17 PM CDT): Impression: Patient has a left brachiocephalic AV fistula being utilized for home dialysis. Patient reports he is beginning to have prolonged bleeding as well as increasing venous pressures. Patient is able to complete a dialysis session. Audible bruit and palpable thrill noted on exam. AV scan reveals elevated velocity at the axillary stent. Plan: Recommend left AV fistulogram with possible intervention. Risks of the procedure communicate with the patient to include bleeding, infection, injury, requiring further surgery, limb loss and . Patient voices understanding of these risks and wishes to proceed. Patient to continue utilizing AV fistula for dialysis as per nephrology until scheduled procedure. Assessment & Plan (03/11/2022 1:32 PM MANAGER PAYROLL): Impression: Patient has a left brachial cephalic AV fistula being utilized for home dialysis without any complications. Audible bruit and palpable thrill noted on exam. Av scan reveals a patent AV fistula and stents. Plan: Continue home dialysis utilizing AV fistula as per Nephrology. Patient to follow-up in 3 months for re-evaluation with repeat AV scan. Encouraged patient to call for sooner appointment if any issues arises. Assessment & Plan (08/09/2021 12:12 PM CDT): Patient is currently receiving dialysis through a left upper AV fistula on Wednesdays and Fridays. Continue dialysis as per Nephrology. Assessment & Plan (04/11/2021 10:32 AM MANAGER PAYROLL): Continue home dialysis. Follow-up 3 months. Assessment & Plan (03/21/2021 8:49 AM MANAGER PAYROLL): Continue dialysis 3 times weekly per Nephrology direction. Iron deficiency anemia, unspecified 12/03/2020 Other fatigue 11/28/2020 Nonrheumatic pulmonary valve stenosis 11/28/2020 Assessment & Plan (04/16/2022 11:17 AM MANAGER PAYROLL): He has only mild gradient up to 10 mm by cardiac catheterization. Continue to monitor clinically. Medtronic 780 g Insulin pump titration Assessment & Plan (05/09/2024 10:35 AM MANAGER PAYROLL): This is a chronic condition which is improving, but not at goal. Download reviewed from 04/26/2024 to 05/01/24 Type of insulin pump- Medtronics 780G Pump settings : Basal 0.7 IC -13 ISF -55 Active insulin time 2.3hrs. TARGET GLUCOSE 100-120 Avg Total daily insulin -30.5 units Avg daily basal -17 units (55%) Avg daily bolus -14 units (45%) Interpretation: In smart guard 17% of the time. Manual mode 79% of the time, sensor wear 19% of the time. Average glucose 201+/- 55. Encouraged smart guard 100% of the time. 41% time in range. 59% hyperglycemia. Assessment & Plan (10/26/2023 12:43 PM CDT): This is a chronic condition which is improving, but not at goal. Download reviewed. Type of insulin pump- Medtronics 780G Pump settings : Basal 0.7 IC -13 ISF -55 Active insulin time 2.3hrs. TARGET GLUCOSE 100-120 Avg Total daily insulin -21 units Avg daily basal -15 units (71%) Avg daily bolus -6units (29%) Interpretation: In smart guard 20% of the time. Manual mode 76% of the time. Encouraged manual mode 100% of the time. 45% time in range 55% hyperglycemia. Assessment & Plan (06/02/2023 2:25 PM MANAGER PAYROLL): This is a chronic condition which is worsening, but not at goal. Download reviewed. Type of insulin pump- Medtronics 770G Encouraged to upgrade to 780 G with guardian 4 sensor Pump settings : Basal 0.7 IC -13 ISF -55 Active insulin time 4hrs. TARGET GLUCOSE 100-120 Avg Total daily insulin -21 units Avg daily basal -16 units (76%) Avg daily bolus -5 units (24%) Interpretation: In manual mode 100% of the time. Denies hypoglycemia. Lack of bolusing, lack of monitoring. Monitor 0-3 times daily. Agreed to upgrade to 780g, state he has all the stuff at home he just has not had time to sit down and do it Assessment & Plan (02/26/2023 11:52 AM MANAGER PAYROLL): This is a chronic condition which is worsening, but not at goal. Download reviewed. Type of insulin pump- Medtronics 770G Encouraged to upgrade to 780 G with guardian 4 sensor Pump settings : Basal 0.7 IC -13 ISF -55 Active insulin time 4hrs. TARGET GLUCOSE 100-120 Avg Total daily insulin -24 units Avg daily basal -17 units (70%) Avg daily bolus -7 units (30%) Interpretation: In manual mode 100% of the time. Denies hypoglycemia. Lack of bolusing, lack of monitoring. Monitor 0-3 times daily. Agreed to upgrade to 780g Assessment & Plan (11/26/2022 12:17 PM CDT): This is a chronic condition which is worsening, but not at goal. Download reviewed. Type of insulin pump- Medtronics 770G Encouraged to upgrade to 780 G with guardian 4 sensor Information provided on how to upgrade to 780 G He does not like the guardian 3 sensor because he does not want to calibrating. Explained that the guardian for sensor only requires 1 calibration at the beginning of the sensor Pump settings : Basal 0.7 IC -13 ISF -55 Active insulin time 4hrs. TARGET GLUCOSE 100-120 Avg Total daily insulin -25 units Avg daily basal -16 units (65%) Avg daily bolus -9 units (35%) Interpretation: In manual mode 100% of the time. Denies hypoglycemia. Lack of bolusing, lack of monitoring. Monitor 0-3 times daily. Agreed to upgrade to 782 Assessment & Plan (10/08/2021 10:58 AM CDT): This is a chronic condition which is improving, but not at goal. Download reviewed. Type of insulin pump- Medtronics 770G Pump settings : Basal 0.7 IC -13 ISF -55 Active insulin time 4hrs. TARGET GLUCOSE 100-120 Avg Total daily insulin - 26 units Avg daily basal -16 (61%) Avg daily bolus -10(39%) Interpretation: In target 73% of the time. Encouraged auto mode. Without hypoglycemia. . Medtronics continuous glucose monitor applied from 09/25/2021 to 10/08/2021 This device was placed for monitor and treatment of blood sugar. Interpretation of data- In target 73% of time. Encouraged auto mode- on 55% of time/week. No hypoglycemia Assessment & Plan (06/12/2021 10:53 AM CDT): This is a chronic condition which is improving, but not at goal. Download reviewed. Type of insulin pump- Medtronics 770G Pump settings : Basal 0.7 IC -13 ISF -55 Active insulin time 4hrs. TARGET GLUCOSE 100-120 Avg BG 180 + or - 35 Avg daily carbs 67 + or - 53 gm Avg Total daily insulin - 25 units Avg daily basal -18 (73%) Avg daily bolus -7 (27%) Interpretation: In target 67% of the time. Encouraged auto mode. Without hypoglycemia. . Medtronics continuous glucose monitor applied from 05/30/2021 to 06/12/2021 This device was placed for monitor and treatment of blood sugar. Average blood sugar- 180 Variability- % ( goal < 36%) Data Analysis Very High >250 mg/dl- 1 % High 181-250 mg/dl 32 % Target 70-180 mg/dl 67 % Low 54-69 mg/dl 0 % Very Low <50 mg/dl 0% Interpretation of data- In target 67% of time. Encouraged auto mode- on 59% of time/week. No hypoglycemia Assessment & Plan (11/02/2020 5:07 PM CDT): This is a chronic condition which is improving, but not at goal. Download reviewed. Type of insulin pump- [employer] 770G Pump settings : Basal 0.7 IC -13 ISF -55 Active insulin time 4hrs. TARGET GLUCOSE 100-120 Avg BG 189 + or - 36 Avg daily carbs 95 + or - 35 gm Avg Total daily insulin - 27 units Avg daily basal -16.5 (61%) Avg daily bolus -10.4 (39%) Interpretation: Improving blood sugars with the addition of insulin pump therapy. Switched to auto mode today. . Murmur 09/24/2020 Assessment & Plan (09/24/2020 3:48 PM CDT): New murmur heard today in the office. Discussed workup versus referral to cardio to establish care due to his chronic conditions including diabetes and chronic kidney disease. He is in favor of just making that referral in this tablet she with Dr. Noonan. In [facility] 03/25/2020 Assessment & Plan (03/25/2020 7:09 PM MANAGER PAYROLL): Suspect infection has resolved with antibiotic and may still have fluid behind the TM - difficult to evaluate without an exam. Start antihistamine and Flonase. If persists, will need to have exam. Calculus of gallbladder with out cholecystitis without obstruction 04/11/2019 Overview (04/11/2019): Incidental finding on CT done 03/2018 for hematuria Recurrent major depressive disorder, in partial remission 03/29/2019 Assessment & Plan (05/29/2023 12:05 AM MANAGER PAYROLL): Patient's depression symptoms are stable without medication. Seeing counselor and doing well. Will continue to monitor Assessment & Plan (02/08/2022 8:43 PM MANAGER PAYROLL): Stable without medication. Continuing with counselor and that has been helping a lot. He may call at any time for assistance Assessment & Plan (10/27/2021 10:16 PM CDT): Patient has a positive depression screen but states he is doing fine without medication. He is to call if this changes. Assessment & Plan (09/24/2020 3:50 PM CDT): Stable without medication Assessment & Plan (11/19/2019 10:37 AM CDT): Pt has stopped the LExapro. Monitor without medication. Assessment & Plan (03/29/2019 2:09 PM MANAGER PAYROLL): Patient has depression symptoms with tendencies towards OCD as well as anxiety. Has been self medicating with marijuana. Reviewed that this probably isn't the best option. Reviewed medications including risks benefits alternatives side effects and proper use. Will start Lexapro 10 mg 1 tablet daily and have follow up in about 4 weeks to reassess. Acute left-sided low back pain without sciatica 02/27/2019 Assessment & Plan (02/27/2019 6:04 PM MANAGER PAYROLL): Check urine culture. Suspect musculoskeletal pain. Flexeril prn. NSAIDs prn If has problems with bowel or bladder control or pain begins to radiate into the groin, he is to followup immediately. Gastroesophageal reflux disease without esophagi tis 08/09/2018 Assessment & Plan (10/11/2023 9:45 PM CDT): Patient went to ER with chest pain. Cardiac workup was essentially normal. Was started on pantoprazole and has seen improvement with his symptoms. Continue to monitor diet Assessment & Plan (10/03/2022 1:04 PM CDT): Stable, doing well on pantoprazole 40mg daily. continue Assessment & Plan (02/08/2022 8:43 PM MANAGER PAYROLL): Continue PPI p.r.n. Assessment & Plan (11/22/2021 12:08 PM CDT): Stable, will schedule EGD. Hold off on PPI for now as symptoms mostly diet controlled. Assessment & Plan (11/19/2019 10:35 AM CDT): Continue PPI prn Assessment & Plan (02/13/2019 7:53 PM MANAGER PAYROLL): With PPI Assessment & Plan (08/25/2018 10:21 AM CDT): This is a significant, separately identifiable problem that was evaluated and managed on the same day as the wellness exam Pt has had increased abdominal pain which appear c/w GERD. May be a component of gastroparesis. Encouraged tight control of DM. Start PPI. Discussed GERD at length including anatomy, behavioral changes (raise HOB, meal timings), dietary changes and medication options. Reviewed risks, benefits alternatives, side effects and proper use. Followup if sxs worsen or has hematochezia or hematemeis. Mixed diabetic hyperlipidemi a associated with type 2 diabetes mellitus 08/08/2018 Assessment & Plan (11/30/2023 8:02 PM CDT): Encouraged patient to follow low fat/low chol diet like the Mediterranean diet. Increase good fats in the diet. Increase exercise. Monitor labs as needed. continue Crestor 10 and Vascepa Assessment & Plan (11/20/2023 11:16 AM CDT): Continue insulin diabetic diet Assessment & Plan (10/26/2023 12:45 PM CDT): This is a chronic condition which is at goal . Goal is LDL less than 70 Continue rosuvastatin Encouraged to eat healthy, include fresh fruits and vegetables daily and avoid eating fried foods more than once per week. Encouraged to take medications as prescribed. Assessment & Plan (05/29/2023 12:06 AM MANAGER PAYROLL): Encouraged patient to follow low fat/low chol diet like the Mediterranean diet. Increase good fats in the diet. Increase exercise. Monitor labs as needed. Continue statin Assessment & Plan (02/26/2023 11:51 AM MANAGER PAYROLL): This is a chronic condition which is at goal of LDL less than 70 Continue rosuvastatin Encouraged to eat healthy, include fresh fruits and vegetables daily and avoid eating fried foods more than once per week. Encouraged to take medications as prescribed. Assessment & Plan (11/26/2022 12:14 PM CDT): This is a chronic condition which is at goal of LDL less than 70 Continue rosuvastatin, Vascepa Encouraged to eat healthy, include fresh fruits and vegetables daily and avoid eating fried foods more than once per week. Encouraged to take medications as prescribed. Assessment & Plan (03/11/2022 1:23 PM MANAGER PAYROLL): Impression: Chronic hyperlipidemia, controlled with statin therapy. Plan: Statin therapy as per primary care provider. Assessment & Plan (02/08/2022 8:41 PM MANAGER PAYROLL): Continue statin and Vascepa Assessment & Plan (10/27/2021 10:15 PM CDT): Stressed importance of continued A1c control to minimize the mcc effects of diabetes. Bring accuchecks to office when instructed to do so. Check A1c about every 3-6 months. Take medication as prescribed. Get annual eye exam. Encouraged KHANH/Statin if able to tolerate. Encouraged weight control and encouraged diabetic diet and exercise. Could continue per Natali Cano nurse practitioner. Encouraged patient to follow low fat/low chol diet like the Mediterranean diet. Increase good fats in the diet. Increase exercise. Monitor labs as needed. Continue statin Assessment & Plan (10/08/2021 11:00 AM CDT): This is a chronic condition which at goal. Goal is less than 70. Encouraged to eat healthy, include fresh fruits and vegetables daily and avoid eating fried foods more than once per week. Please take medications as prescribed. Personally reviewed LDL - 33, trigs decreased to 208. continue on crestor, vaspeca. Not at Goal of less than 70. Triglycerides will reduce as blood sugars improved. Monitor and repeat labs later in 2020. Assessment & Plan (08/09/2021 12:17 PM CDT): Blood sugars and hyperlipidemia or being medically controlled with insulin and statins. Plan: Continue taking medications and insulin as per primary care physician. Assessment & Plan (06/12/2021 10:50 AM CDT): This is a chronic condition which not at goal. Goal is less than 70. Encouraged to eat healthy, include fresh fruits and vegetables daily and avoid eating fried foods more than once per week. Please take medications as prescribed. Personally reviewed LDL - not calculated, Trig-860, currently on crestor, vaspeca. Not at Goal of less than 70. Triglycerides will reduce as blood sugars improved. Monitor and repeat labs later in 2020. Assessment & Plan (03/21/2021 8:48 AM MANAGER PAYROLL): Type 2 diabetes mellitus with hyperlipidemia chronic and controlled. Continue ongoing medical therapy Assessment & Plan (12/26/2020 10:06 AM CDT): Encouraged patient to follow fat/low chol diet like the Mediterranean diet. Increase good fats in the diet. Increase exercise. Monitor labs as needed. Continue statin and vascepa Assessment & Plan (09/24/2020 3:48 PM CDT): Encouraged patient to follow fat/low chol diet like the Mediterranean diet. Increase good fats in the diet. Increase exercise. Monitor labs as needed. Continue DM tightly Assessment & Plan (08/07/2020 5:15 PM CDT): This is a chronic condition which not at goal. Goal is less than 70. Encouraged to eat healthy, include fresh fruits and vegetables daily and avoid eating fried foods more than once per week. Please take medications as prescribed. Reports was taking vascepa 1 capsule once a day, now is taking 1 capsule twice a day and working his way up to 2 capsules twice a day. Personally reviewed(3.19.21) LDL - not calculated, Trig-860, currently on crestor, vaspeca. Not at Goal of less than 70. Triglycerides will reduce as blood sugars improved. Monitor and repeat labs later in 2020. Assessment & Plan (06/18/2020 10:47 AM CDT): Encouraged patient to follow fat/low chol diet like the Mediterranean diet. Increase good fats in the diet. Increase exercise. Monitor labs as needed. Trig still elevated. Continue statin and vascepa Assessment & Plan (03/09/2020 8:34 PM MANAGER PAYROLL): Continue statin. Start vascepa. Encouraged coupon. Tolerated well in the past. Reviewed risks, benefit, alternatives, side effects and proper use. Assessment & Plan (11/19/2019 10:36 AM CDT): Encouraged patient to continue low fat/low chol diet. Continue exercise. Increase good fats in the diet. Monitor labs as needed. Restart statin Assessment & Plan (02/13/2019 7:55 PM MANAGER PAYROLL): Stressed importance of continued A1c control to minimize the mcc effects of diabetes. Bring accuchecks to office when instructed to do so. Check A1c about every 3-6 months. Take medication as prescribed. Get annual eye exam. Encouraged KHANH/Statin if able to tolerate. Encouraged weight control and encouraged diabetic diet and exercise. Encouraged patient to continue low fat/low chol diet. Continue exercise. Increase good fats in the diet. Monitor labs as needed. Assessment & Plan (09/18/2018 10:31 PM CDT): Encouraged patient to continue low fat/low chol diet. Continue exercise. Increase good fats in the diet. Monitor labs as needed. Triglycerides are elevated. Stressed control of DM for better control of Trig. If can't get control may need to stop the lopid and add Vascepa Assessment & Plan (08/25/2018 10:19 AM CDT): Encouraged patient to continue low fat/low chol diet. Continue exercise. Increase good fats in the diet. Monitor labs as needed. Type 2 diabetes mellitus wit h chronic kidney disease on chronic dialysis, with long-term current use of insulin 08/08/2018 Assessment & Plan (02/23/2024 1:30 PM MANAGER PAYROLL): Impression: Chronic with good glucose control. Plan: Continue insulin Assessment & Plan (10/26/2023 12:45 PM CDT): This is a chronic condition which is improving but not at goal . Goal is less than 7%. Personally reviewed most recent A1c - Lab Results Component Value Date HGBA1C 7.6 (H) 05/04/2023 Personally reviewed POC blood sugar- not at goal of 80-180 Lab Results Component Value Date POCGLU 201 10/26/2023 Medication- continue Medtronics 780 basal 0.7, carbohydrate ratio 13, sensitivity 55, target 100-120. Encouraged smart guard Monitor blood sugar continuously with cgm. Encouraged annual eye exam. Monofilament foot exam completed. Protective senses intact Personally reviewed CMP eGFR- 12. On dialysis Kidney function-on dialysis Assessment & Plan (06/02/2023 2:23 PM MANAGER PAYROLL): This is a chronic condition which is close to goal of less than 7%. Personally reviewed most recent A1c - Lab Results Component Value Date HGBA1C 7.6 (H) 05/04/2023 Personally reviewed POC blood sugar- not at goal 80-180 Lab Results Component Value Date POCGLU 293 06/02/2023 Medication- Continue Medtronics 770 basal 0.7, carbohydrate ratio 13, sensitivity 55, target 100-120. Manual mode. Monitor blood sugar continuously with sensor. Encouraged annual eye exam. Personally reviewed CMP eGFR- 11 on dialysis Kidney function- abnormal B/P today- at goal of <140/90. continue amlodipine, atenolol, clonidine Personally reviewed lipid panel. at Goal of less than 70. Continue rosuvastatin, Vascepa Assessment & Plan (05/29/2023 12:05 AM MANAGER PAYROLL): Stressed importance of continued A1c control to minimize the watermaster effects of diabetes. Bring accuchecks to office when instructed to do so. Check A1c about every 3-6 months. Take medication as prescribed. Get annual eye exam. Encouraged KHANH/Statin if able to tolerate. Encouraged weight control and encouraged diabetic diet and exercise. Continue per Natali Cano who is managing his diabetes. He has on a pump . Avoid nephrotoxic drugs including NSAIDs. Monitor labs. Chronic kidney disease and dialysis is managed by Dr. Kyle Assessment & Plan (02/26/2023 11:50 AM MANAGER PAYROLL): This is a chronic condition which is inadequately controlled stable, not at goal of less than 7%. Personally reviewed most recent A1c - Lab Results Component Value Date HGBA1C 7.9 02/26/2023 Personally reviewed POC blood sugar- not at goal 80-180 Lab Results Component Value Date POCGLU 221 02/26/2023 Medication- continue Medtronics 770 basal 0.7, carbohydrate ratio 13, sensitivity 55, target 100-120. Manual mode. Encouraged to upgrade to Medtronic 780g Monitor blood sugar 3-4 times a day. Continuously with sensor. Encouraged annual eye exam. Monofilament foot exam completed. protective senses intact Personally reviewed CMP eGFR- 19- Kidney function- on dialysis B/P today- at goal of <140/90. continue atenolol, amlodipine, clonidine, furosemide Personally reviewed lipid panel. at Goal of less than 70. Continue rosuvastatin Assessment & Plan (11/26/2022 12:14 PM CDT): This is a chronic condition which is inadequately controlled not at goal of less than 7% on Medtronic 770g insulin pump without wearing sensor. In manual mode/ Personally reviewed most recent A1c - Lab Results Component Value Date HGBA1C 7.9 11/26/2022 Personally reviewed POC blood sugar- not at goal 80-180 Lab Results Component Value Date POCGLU 283 11/26/2022 Medication- Continue Medtronics 770 basal 0.7, carbohydrate ratio 13, sensitivity 55, target 100-120. Manual mode. Monitor blood sugar 0-3 times a day. Encouraged annual eye exam. last dilated eye exam was [facility] Monofilament foot exam completed. protective senses intact Personally reviewed CMP eGFR- 19 Kidney function- abnormal - on dialysis, awaiting kidney transplant. B/P today- not at goal of <140/90. continue amlodipine, atenolol, clonidine, doxazosin, furosemide Personally reviewed lipid panel. at Goal of less than 70. Continue rosuvastatin, Vascepa Assessment & Plan (10/01/2022 3:37 PM CDT): Impression: Diabetes mellitus with good glucose control. Plan: Continue insulin. Assessment & Plan (07/02/2022 1:47 PM CDT): Impression: Diabetes mellitus with good glucose control. Plan: Continue insulin. Assessment & Plan (06/12/2022 2:18 PM CDT): Impression: Chronic diabetes mellitus with good glucose control. Plan: Continue insulin. Assessment & Plan (03/11/2022 1:24 PM MANAGER PAYROLL): Impression: Chronic diabetes mellitus with the use of insulin. Good glucose control per patient. Plan: Continue glucose monitoring and management as per primary care provider. Assessment & Plan (02/08/2022 8:42 PM MANAGER PAYROLL): Stressed importance of continued A1c control to minimize the mcc effects of diabetes. Bring accuchecks to office when instructed to do so. Check A1c about every 3-6 months. Take medication as prescribed. Get annual eye exam. Encouraged KHANH/Statin if able to tolerate. Encouraged weight control and encouraged diabetic diet and exercise. . Continue per Natali Cano. Patient is on dialysis managed by Dr. Justin He is on the kidney transplant list. Assessment & Plan (10/08/2021 10:55 AM CDT): This is a chronic condition which is at goal. Personally reviewed A1c today- 6.6% at goal less than 7% Medication- Medtronic 770g insulin pump and sensor. Switched to auto mode today. Monitor blood sugar 4times a day. Encouraged annual eye exam. last dilated eye exam was at [facility] Monofilament foot exam completed, protective senses intact, Urine microalbumin/creatinine ratio - on dialysis. Known kidney failure. Personally reviewed labs: BUN- 88, creatinine-4.78, GFR-30 Chronic kidney disease on home hemodialysis - Sees Dr. Kyle in [place] for nephrology. B/P today-134/60 currently on atenolol,clonidine, cardura and losartan. At goal blood pressure is <140/90 and as close to 120/80 as possible. Personally reviewed LDL - 33, Trig-208, currently on crestor, vaspeca. at Goal of less than 70. Triglycerides will reduce as blood sugars improved. No history of macrovascular disease - CVA, [place]. Assessment & Plan (06/12/2021 10:49 AM CDT): This is a chronic condition which is at goal. Personally reviewed A1c today- 6.8% at goal less than 7% Medication- Medtronic 770g insulin pump and sensor. Switched to auto mode today. Monitor blood sugar 4times a day. Encouraged annual eye exam. last dilated eye exam was at [facility] Monofilament foot exam completed, protective senses intact, Urine microalbumin/creatinine ratio - on dialysis. Known kidney failure. Personally reviewed labs: BUN- 88, creatinine-4.78, GFR-30 Chronic kidney disease on dialysis - Sees Dr. Kyle in [place] for nephrology. B/P today-130/56 currently on atenolol,clonidine, cardura. At goal blood pressure is <140/90 and as close to 120/80 as possible. Personally reviewed LDL - not calculated, Trig-860, currently on crestor, vaspeca. Not at Goal of less than 70. Triglycerides will reduce as blood sugars improved. No history of macrovascular disease - CVA, [place]. Assessment & Plan (04/11/2021 10:32 AM MANAGER PAYROLL): Type 2 diabetes chronic and currently controlled. Continue insulin therapy per PCP. Assessment & Plan (12/26/2020 10:05 AM CDT): Stressed importance of continued A1c control to minimize the mcc effects of diabetes. Bring accuchecks to office when instructed to do so. Check A1c about every 3-6 months. Take medication as prescribed. Get annual eye exam. Encouraged KHANH/Statin if able to tolerate. Encouraged weight control and encouraged diabetic diet and exercise. Avoid nephrotoxic drugs including NSAIDs. Monitor labs. Continue per specialist Assessment & Plan (11/02/2020 5:00 PM CDT): This is a chronic condition which is improving and close to goal. Personally reviewed A1c today- 7.1% decreased from 10.1 (06/15/20) close to goal less than 7% Medication- Medtronic 770g insulin pump and sensor. Switched to auto mode today. Monitor blood sugar 4times a day. Encouraged annual eye exam. last dilated eye exam was at [place], [place]. Monofilament foot exam completed, protective senses intact, Urine microalbumin/creatinine ratio - on dialysis. Known kidney failure. Personally reviewed labs: BUN- 88, creatinine-4.78, GFR-30 Chronic kidney disease on dialysis - Sees Dr. Kyle in [place] for nephrology. B/P today-150/76, currently on atenolol, amlodipine, atenolol At goal blood pressure is <140/90 and as close to 120/80 as possible. Personally reviewed(06.15.20) LDL - not calculated, Trig-860, currently on crestor, vaspeca. Not at Goal of less than 70. Triglycerides will reduce as blood sugars improved. No history of macrovascular disease - CVA, [place]. Assessment & Plan (09/24/2020 3:49 PM CDT): DM managed by Natali Cano NP/Endocrine. Avoid nephrotoxic drugs including NSAIDs. Monitor labs. Assessment & Plan (09/19/2020 4:34 PM CDT): This is a chronic condition which is improving and close to goal. Personally reviewed A1c today- 7.1% decreased from 10.1 (06/15/20) close to goal less than 7% Medication- Lantus 15 units daily and lispro 5 units - 15 minutes prior to meals. Adjust insulin based on blood sugars. Monitor blood sugar 4times a day. Wears [employer] Guardian sensor. Is interested in pump therapy and would like to investigate the [employer] tslim pump Encouraged annual eye exam. last dilated eye exam was at [place], [place]. Monofilament foot exam completed, protective senses intact, Urine microalbumin/creatinine ratio - 5410 currently atenolol, not at goal <30, Know kidney failure. Personally reviewed labs: (08/09/20) BUN- 50, creatinine-3.3, GFR-30 Chronic kidney disease stage 4- having dialysis catheter placed . Sees Dr. Kyle in [place] for nephrology. B/P today-142/88, currently on atenolol, amlodipine, atenolol At goal blood pressure is <140/90 and as close to 120/80 as possible. Personally reviewed(06.15.20) LDL - not calculated, Trig-860, currently on crestor, vaspeca. Not at Goal of less than 70. Triglycerides will reduce as blood sugars improved. No history of macrovascular disease - CVA, [place]. Insulin deficiency. Patient is on 3 or more insulin injections and has been testing blood sugars continously with CGM times a day. Patient has been adjusting insulin doses based on blood sugar. Starting dialysis. Insulin sensitive which will make him at high risk for severe hypoglycemia. Medtronic Guardian continuous glucose monitor applied from 09/06/2020 to 09/19/2020 This device was placed for monitor and treatment of blood sugar. Average blood sugar- 181 +or- 49 mg/dl Data Analysis Readings above target-10/59% Sensor avg 159 +or-38 Interpretation of data- Much improved blood glucose levels with addition of meal time insulin and cgm. Assessment & Plan (08/09/2020 1:09 PM CDT): This is a chronic condition which is uncontrolled with hyperglycemia, not at goal. Personally reviewed A1c today- 10.1 (06/15/20) Not at goal less than 7% Personally reviewed blood sugar-129, at goal 80-180 Medication- stop Jardiance 10mg daily- needs to return to basal/bolus therapy. Change Lantus 15 units daily. Re- Start lispro 5 units - 15 minutes prior to meals. Monitor blood sugar 2 times a day. Wears Medtronic Guardian sensor. Will add 770G Medtronic pump. Encouraged annual eye exam. last dilated eye exam was at [place], [place]. Monofilament foot exam completed, protective senses intact, Urine microalbumin/creatinine ratio - 5410 currently atenolol, not at goal <30 Personally reviewed labs: BUN- 51, creatinine-3.22, GFR-22 Chronic kidney disease stage 4- having dialysis catheter placed . Sees Dr. Kyle in [place] for nephrology. B/P today-118/76, currently on atenolol, At goal blood pressure is <140/90 and as close to 120/80 as possible. Personally reviewed(06.15.20) LDL - not calculated, Trig-860, currently on crestor, vaspeca. Not at Goal of less than 70. Triglycerides will reduce as blood sugars improved. Monitor and repeat labs later in 2020. No history of macrovascular disease - CVA, [place]. Insulin deficiency. Patient is on 3 or more insulin injections and has been testing blood sugars continously with CGM times a day. Patient has been adjusting insulin doses based on blood sugar. Starting dialysis. Insulin sensitive which will make him at high risk for severe hypoglycemia. Assessment & Plan (06/26/2020 7:18 PM CDT): This is a chronic condition which is uncontrolled with hyperglycemia, not at goal. Personally reviewed A1c today- 10.1 (06/15/20) Not at goal less than 7% Personally reviewed blood sugar-273, not at goal 80-180 Medication- Continue Jardiance 10mg daily, add Lantus 18 units daily Monitor blood sugar 2 times a day. Apply sample Dexcom 6 sensor. Encouraged annual eye exam. last dilated eye exam was at [place], [place]. Monofilament foot exam completed, protective senses intact, Urine microalbumin/creatinine ratio - 5410 currently atenolol, not at goal <30 Personally reviewed labs: BUN- 51, creatinine-3.22, GFR-22 Chronic kidney disease stage 4 B/P today-126/62 , currently on atenolol, At goal blood pressure is <140/90 and as close to 120/80 as possible. Personally reviewed LDL - not calculated, Trig-860, currently on crestor, vaspeca. Not at Goal of less than 70. Triglycerides will reduce as blood sugars improved. Monitor and repeat labs later in 2020. No history of macrovascular disease - CVA, [place]. Assessment & Plan (11/19/2019 10:36 AM CDT): Stressed importance of continued A1c control to minimize the watermaster effects of diabetes. Bring accuchecks to office when instructed to do so. Check A1c about every 3-6 months. Take medication as prescribed. Get annual eye exam. Encouraged KHANH/Statin if able to tolerate. Encouraged weight control and encouraged diabetic diet and exercise. Continue metformin. Holding Basaglar as A1c is at goal. Assessment & Plan (02/13/2019 7:54 PM MANAGER PAYROLL): Stressed importance of continued A1c control to minimize the mcc effects of diabetes. Bring accuchecks to office when instructed to do so. Check A1c about every 3-6 months. Take medication as prescribed. Get annual eye exam. Encouraged KHANH/Statin if able to tolerate. Encouraged weight control and encouraged diabetic diet and exercise. Improving DM control. Continue to monitor closely for hypoglecemia Assessment & Plan (09/18/2018 10:27 PM CDT): Avoid nephrotoxic drugs including NSAIDs. Monitor labs. Encouraged tight control of co-morbidities. See individual dx for plan. Assessment & Plan (08/25/2018 10:18 AM CDT): Avoid nephrotoxic drugs including NSAIDs. Monitor labs. 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 Encouraged to limit sodium intake and exercise for weight control. Avoid nephrotoxic drugs including NSAIDs. Monitor labs. Stressed importance of continued A1c control to minimize the mcc effects of diabetes. Bring accuchecks to office when instructed to do so. Check A1c about every 3-6 months. Take medication as prescribed. Get annual eye exam. Encouraged KHANH/Statin if able to tolerate. Encouraged weight control and encouraged diabetic diet and exercise. Continue losartan 100 atenolol 50 and amlodipine 5 and Catapres 0.2 b.i.d. with Lasix 80 and Cardura 1 mg. Continue diabetes management with Natali Cano nurse practitioner Assessment & Plan (10/26/2023 12:46 PM CDT): This is a chronic condition which is at goal. Goal is less than 140/90 Personally reviewed labs. Continue losartan, amlodipine, atenolol, clonidine Encouraged to monitor weight and B/P at home. Explained correct way to take blood pressure. - After 5 minutes of sitting calmly with arm supported. Encouraged to void caffeine and excessive alcohol consumption as this will elevate B/P Encouraged to take medications as prescribed. Assessment & Plan (06/02/2023 2:24 PM MANAGER PAYROLL): This is a chronic condition which is at goal of less than 140/90 Continue amlodipine, atenolol, clonidine Encouraged to monitor weight and B/P at home Encouraged to take medications as prescribed. Assessment & Plan (02/26/2023 11:51 AM MANAGER PAYROLL): This is a chronic condition which is at goal of less than 140/90 Personally reviewed labs. Continue atenolol, amlodipine, clonidine, rosuvastatin Encouraged to monitor weight and B/P at home Encouraged to take medications as prescribed. Assessment & Plan (11/26/2022 12:14 PM CDT): This is a chronic condition which is not at goal of less than 140/90 Personally reviewed labs. Continue amlodipine, atenolol, clonidine, doxazosin, furosemide Encouraged to monitor weight and B/P at home Encouraged to take medications as prescribed. Assessment & Plan (03/11/2022 1:24 PM MANAGER PAYROLL): Impression: Chronic hypertension, controlled medications. Blood pressure stable. Plan: Continue blood pressure management as per primary care provider. Assessment & Plan (02/08/2022 8:42 PM MANAGER PAYROLL): Bp is stable/in acceptable range for any co-morbidities. Encouraged to limit sodium intake and exercise for weight control. Continue per Nephrology Assessment & Plan (12/26/2020 10:05 AM CDT): Bp is stable/in acceptable range for any co-morbidities. Encouraged to limit sodium intake and exercise for weight control. Avoid nephrotoxic drugs including NSAIDs. Monitor labs. Stressed importance of continued A1c control to minimize the watermaster effects of diabetes. Bring accuchecks to office when instructed to do so. Check A1c about every 3-6 months. Take medication as prescribed. Get annual eye exam. Encouraged KHANH/Statin if able to tolerate. Encouraged weight control and encouraged diabetic diet and exercise. Continue per her specialists. Assessment & Plan (09/24/2020 3:46 PM CDT): Bp is stable/in acceptable range for any co-morbidities. Encouraged to limit sodium intake and exercise for weight control. Avoid nephrotoxic drugs including NSAIDs. Monitor labs. Control DM tightly Assessment & Plan (09/19/2020 4:36 PM CDT): This is a chronic condition and is at goal. Goal is <140/90 Personally reviewed labs. B/P today-142/88, currently on atenolol, amlodipine, atenolol At goal blood pressure is <140/90 and as close to 120/80 as possible. Avoid caffeine, caffeine will raise blood pressure and excessive alcohol consumption. Monitor your weight and B/P. Please take medications as prescribed. Assessment & Plan (06/26/2020 7:36 PM CDT): This is a chronic condition and is at goal. Goal is <140/90 Personally reviewed labs. Avoid caffeine, caffeine will raise blood pressure and excessive alcohol consumption. Monitor your weight and B/P. Please take medications as prescribed. B/P today-126/62 , currently on atenolol. Assessment & Plan (06/18/2020 10:45 AM CDT): Bp is stable/in acceptable range for any co-morbidities. Encouraged to limit sodium intake and exercise for weight control. Avoid nephrotoxic drugs including NSAIDs. Monitor labs. ---continue per Dr. Kyle Stressed importance of continued A1c control to minimize the watermaster effects of diabetes. Bring accuchecks to office when instructed to do so. Check A1c about every 3-6 months. Take medication as prescribed. Get annual eye exam. Encouraged KHANH/Statin if able to tolerate. Encouraged weight control and encouraged diabetic diet and exercise. Not well controlled on jardiance 10mg alone. (Stopped Metformin due to renal function) Due to renal function, limited medication options so must consider starting insulin and pt would like to consider pump. Will refer to Endocrine for further evaluation. Assessment & Plan (03/09/2020 8:22 PM MANAGER PAYROLL): Stressed importance of continued A1c control to minimize the watermaster effects of diabetes. Bring accuchecks to office when instructed to do so. Check A1c about every 3-6 months. Take medication as prescribed. Get annual eye exam. Encouraged KHANH/Statin if able to tolerate. Encouraged weight control and encouraged diabetic diet and exercise. Assessment & Plan (11/19/2019 10:35 AM CDT): Encouraged to limit sodium intake and exercise for weight control. Avoid nephrotoxic drugs including NSAIDs. Monitor labs. Continue per Dr. Kyle. Bp elevated today but KHANH was just held due to renal function He has followup with Dr. Kyle in a few weeks. Assessment & Plan (02/13/2019 7:53 PM MANAGER PAYROLL): Bp is stable/in acceptable range for any co-morbidities. Encouraged to limit sodium intake and exercise for weight control. Avoid nephrotoxic drugs including NSAIDs. Monitor labs. Assessment & Plan (09/18/2018 10:26 PM CDT): Bp is stable/in acceptable range for any co-morbidities. Encouraged to limit sodium intake and exercise for weight control. Avoid nephrotoxic drugs including NSAIDs. Monitor labs. Assessment & Plan (08/25/2018 10:16 AM CDT): Bp is stable/in acceptable range for any co-morbidities. Encouraged to limit sodium intake and exercise for weight control. Avoid nephrotoxic drugs including NSAIDs. Monitor labs. CRD (chronic renal disease), stage V 08/08/2018 Assessment & Plan (10/11/2023 9:47 PM CDT): Continue per Nephrology. Patient is on dialysis as well as the kidney transplant list Assessment & Plan (02/08/2022 8:42 PM MANAGER PAYROLL): Patient is on the transplant list. Currently doing home dialysis per Dr. Justin Assessment & Plan (12/26/2020 10:06 AM CDT): Per Dr. Kyle. On diaylsis. Working toward transplant list Assessment & Plan (09/24/2020 3:50 PM CDT): Avoid nephrotoxic drugs including NSAIDs. Monitor labs. Assessment & Plan (07/15/2020 10:26 PM CDT): Impression: Worsening chronic kidney disease with anticipated need for hemodialysis in the near future. Upper extremity vein mapping revealed adequate size left cephalic and basilic veins for a left upper extremity non dominant AV fistula creation. Patient is right-hand dominant. Plan: Recommended further surgical intervention with left upper extremity AV fistula creation, possible AV graft creation. The procedure and associated risks were discussed with patient detail which he acknowledged and agreed to proceed. Assessment & Plan (06/18/2020 10:46 AM CDT): Avoid nephrotoxic drugs including NSAIDs. Monitor labs. GFR was stable since adding Jardiance. Still stressed importance of better DM control . Assessment & Plan (03/25/2020 7:11 PM MANAGER PAYROLL): Avoid nephrotoxic drugs including NSAIDs. Monitor labs. Continue per Dr. Kyle Assessment & Plan (03/09/2020 8:34 PM MANAGER PAYROLL): Continue per Dr. Klye Assessment & Plan (11/19/2019 10:36 AM CDT): Per Dr. Kyle Assessment & Plan (02/13/2019 7:53 PM MANAGER PAYROLL): Stressed importance of continued A1c control to minimize the watermaster effects of diabetes. Bring accuchecks to office when instructed to do so. Check A1c about every 3-6 months. Take medication as prescribed. Get annual eye exam. Encouraged KHANH/Statin if able to tolerate. Encouraged weight control and encouraged diabetic diet and exercise. Avoid nephrotoxic drugs including NSAIDs. Monitor labs. Assessment & Plan (09/18/2018 10:28 PM CDT): Avoid nephrotoxic drugs including NSAIDs. Monitor labs. Bp is stable/in acceptable range for any co-morbidities. Encouraged to limit sodium intake and exercise for weight control. Assessment & Plan (08/25/2018 10:19 AM CDT): Avoid nephrotoxic drugs including NSAIDs. Monitor labs. Diabetes mellitus due to und erlying condition with diabetic neuropathy, with long-term current use of insulin ([facility] [place]) 08/08/2018 Assessment & Plan (02/08/2022 8:42 PM MANAGER PAYROLL): Stressed importance of continued A1c control to minimize the watermaster effects of diabetes. Bring accuchecks to office when instructed to do so. Check A1c about every 3-6 months. Take medication as prescribed. Get annual eye exam. Encouraged KHANH/Statin if able to tolerate. Encouraged weight control and encouraged diabetic diet and exercise. Continue per Natali Cano Assessment & Plan (09/24/2020 3:49 PM CDT): DM managed by Natali cano NP Assessment & Plan (11/19/2019 10:33 AM CDT): Stressed importance of continued A1c control to minimize the mcc effects of diabetes. Bring accuchecks to office when instructed to do so. Check A1c about every 3-6 months. Take medication as prescribed. Get annual eye exam. Encouraged KHANH/Statin if able to tolerate. Encouraged weight control and encouraged diabetic diet and exercise. Sxs have improved with better control of DM Continue metformin, KHANH and statin. Will monitor without insulin as A1c is at goal right now. If elevates, may need additional medication and could consider SGLT but will depend on renal function. Assessment & Plan (03/29/2019 2:04 PM MANAGER PAYROLL): Stressed importance of continued A1c control to minimize the watermaster effects of diabetes. Bring accuchecks to office when instructed to do so. Check A1c about every 3-6 months. Take medication as prescribed. Get annual eye exam. Encouraged KHANH/Statin if able to tolerate. Encouraged weight control and encouraged diabetic diet and exercise. Continue working on tight control. Check labs Assessment & Plan (02/13/2019 7:52 PM MANAGER PAYROLL): Improving control of DM Continue to monitor Assessment & Plan (09/18/2018 10:25 PM CDT): Stressed importance of continued A1c control to minimize the mcc effects of diabetes. Bring accuchecks to office when instructed to do so. Check A1c about every 3-6 months. Take medication as prescribed. Get annual eye exam. Encouraged KHANH/Statin if able to tolerate. Encouraged weight control and encouraged diabetic diet and exercise. Not well controlled. Stressed importance of taking medication as prescribed. Will not adjust the insulin as he hasn't been taking regular. Encouraged to bring accuchecks. Continue the Metformin. Must watch renal function. If stable/improves could consider GLP/SGLT. Assessment & Plan (08/25/2018 10:15 AM CDT): Stressed importance of continued A1c control to minimize the watermaster effects of diabetes. Bring accuchecks to office when instructed to do so. Check A1c about every 3-6 months. Take medication as prescribed. Get annual eye exam. Encouraged KHANH/Statin if able to tolerate. Encouraged weight control and encouraged diabetic diet and exercise. Check labs to determine followup plan as FBS are not showing control. Foot exam normal, but he has tingling at times. Psoriasis 08/08/2018 Assessment & Plan (08/25/2018 10:19 AM CDT): Pt is currently monitoring Other secondary gout, multiple sites 08/08/2018 Assessment & Plan (12/26/2020 10:06 AM CDT): Continue allopurinol Assessment & Plan (09/24/2020 3:52 PM CDT): Continue allopurinol Assessment & Plan (02/13/2019 7:55 PM MANAGER PAYROLL): No flairs. Continue allopurinol Assessment & Plan (08/25/2018 10:19 AM CDT): Continue allopurinol. MAGNO on CPAP 08/08/2018 Assessment & Plan (02/08/2022 8:42 PM MANAGER PAYROLL): Continue CPAP Assessment & Plan (12/26/2020 10:06 AM CDT): Continue Cpap. Has supplies Assessment & Plan (03/09/2020 8:21 PM MANAGER PAYROLL): Continue CPAP treatment Assessment & Plan (11/19/2019 10:34 AM CDT): Continue to use nightly. Has needed supplies Assessment & Plan (02/13/2019 7:52 PM MANAGER PAYROLL): Continue CPAP. Using nightly Assessment & Plan (09/18/2018 10:26 PM CDT): Continue CPAP Assessment & Plan (08/25/2018 10:15 AM CDT): Using regular. Has all needed supplies. Abnormal EKG 11/14/2015 Sinus tachycardia 11/14/2015 Current Treatment and Therapy Plans No current plan information found. Past Treatment and Therapy Plans No past plan information found. Lifetime Dose Tracking * Chemical Lifetime Dose Automatic Entry Manual Entr y Air kerma at the reference point (Ka,r) 1,036 mGy 0 mGy 1,036 mGy DLP 423 mGycm 423 mGycm 0 mGycm Resolved Problems Problem Noted Date Diagnosed Date Resolved Date ESRD (end stage renal disease) 04/13/2023 11/30/2023 Assessment & Plan (05/29/2023 12:08 AM MANAGER PAYROLL): Patient is on dialysis at home. Managed by Dr. Kyle Has been on the kidney transplant list. That is on hold right now until the squamous cell skin cancer on his leg is definitively treated. BMI 27.0-27.9,adult 09/22/2022 05/29/19 24 Assessment & Plan (09/22/2022 7:45 PM CDT): Weight/BMI is in healthy range. Continue healthy lifestyle to maintain. BMI 27.0-27.9,adult 09/04/2022 09/23/19 23 Assessment & Plan (09/04/2022 11:14 AM CDT): Weight/BMI is in healthy range. Continue healthy lifestyle to maintain. Diabetes mellitus 01/06/2022 02/08/2022 Essential hypertension, benign 12/04/2021 02/08/2022 Mixed hyperlipidemia 12/04/2021 022 BMI 26.0-26.9,adult 10/18/2021 09/05/19 23 Assessment & Plan (02/08/2022 8:43 PM MANAGER PAYROLL): Weight/BMI is in healthy range. Continue healthy lifestyle to maintain. Assessment & Plan (10/18/2021 7:24 AM CDT): Weight/BMI is in healthy range. Continue healthy lifestyle to maintain. BMI 25.0-25.9,adult 12/26/2020 10/19/19 22 Assessment & Plan (12/26/2020 10:05 AM CDT): Weight/BMI is in healthy range. Continue healthy lifestyle to maintain. Essential hypertension 11/28/202012/26 Dyslipidemia 11/28/2020 12/26/2020 Murmur, heart 10/22/2020 12/26/2020 Essential hypertension 10/22/202011/02 BMI 26.0-26.9,adult 09/24/2020 12/27/19 21 Assessment & Plan (12/26/2020 7:22 AM CDT): Weight/BMI is in healthy range. Continue healthy lifestyle to maintain. Assessment & Plan (09/24/2020 7:16 AM CDT): Weight/BMI is in healthy range. Continue healthy lifestyle to maintain. Flu vaccine need 03/09/2020 12/26/2020 Assessment & Plan (03/09/2020 8:35 PM MANAGER PAYROLL): Updated in office today BMI 24.0-24.9, adult 03/08/2020 021 Assessment & Plan (06/18/2020 7:17 AM CDT): Weight/BMI is in healthy range. Continue healthy lifestyle to maintain. Assessment & Plan (03/08/2020 11:16 AM MANAGER PAYROLL): Weight/BMI is in healthy range. Continue healthy lifestyle to maintain. Anxiety 03/08/2020 03/08/2020 Annual physical exam 11/19/2019 020 Assessment & Plan (11/19/2019 10:38 AM CDT): Encouraged healthy lifestyle, good nutrition and exercise. Encouraged Calcium and Vitamin D and weight bearing exercise for bone health. Reviewed immunizations Reviewed age appropirate screenings. Groin pain 03/29/2019 11/19/2019 Assessment & Plan (03/29/2019 2:05 PM MANAGER PAYROLL): Due to this newer onset pain and the chronic microscopic hematuria, will obtain a CT of the abdomen and pelvis with contrast. This will allow evaluation of the kidneys due to the chronic hematuria as well as identify any kidney stones or hernia this that may be in the area. Reviewed with patient if pain increases intensely or begins to have trouble voiding he is to go to the ER for immediate evaluation. Patient is in agreement. Asymptomatic microscopic hematuria 03/29/2019 11/02/2020 Assessment & Plan (03/29/2019 2:07 PM MANAGER PAYROLL): Persistent. Obtain CT of the abdomen pelvis for renal evaluation. Awaiting appointment for Urology consult for further workup. Other fatigue 03/29/2019 11/28/2020 Assessment & Plan (11/19/2019 10:37 AM CDT): Probably multifactorial. Check labs and followup to re-evaluate Hematuria 03/29/2019 11/02/2020 BMI 25.0-25.9,adult 01/12/2019 03/08/20 20 Assessment & Plan (11/19/2019 10:38 AM CDT): Weight/BMI is in healthy range. Continue healthy lifestyle to maintain. Assessment & Plan (03/29/2019 7:57 AM MANAGER PAYROLL): Weight/BMI is in healthy range. Continue healthy lifestyle to maintain. Assessment & Plan (02/13/2019 7:56 PM MANAGER PAYROLL): Weight/BMI is in healthy range. Continue healthy lifestyle to maintain. Assessment & Plan (02/10/2019 1:29 PM MANAGER PAYROLL): Weight/BMI is in healthy range. Continue healthy lifestyle to maintain. Diabetic nephropathy associa stacy with type 2 diabetes mellitus 09/28/2018 11/02/2020 Assessment & Plan (07/15/2020 10:24 PM CDT): Impression: Uncontrolled chronic type 2 insulin-dependent diabetes. Plan: Medications reviewed and recommend continuing daily anti diabetic regimen including his daily insulin as managed by his primary care physician. Assessment & Plan (11/19/2019 10:36 AM CDT): Continue per Dr. Kyle Benign hypertensive kidney d isease with chronic kidney disease stage I through stage IV, or unspecified(403.10) 09/28/2018 11/02/2020 Assessment & Plan (11/19/2019 10:36 AM CDT): Continue per Dr. Kyle Assessment & Plan (02/13/2019 7:53 PM MANAGER PAYROLL): Bp is stable/in acceptable range for any co-morbidities. Encouraged to limit sodium intake and exercise for weight control. Avoid nephrotoxic drugs including NSAIDs. Monitor labs. BMI 25.0-25.9,adult 09/08/2018 01/13/20 Assessment & Plan (09/08/2018 10:51 AM CDT): Weight/BMI is in healthy range. Continue healthy lifestyle to maintain. Type 2 diabetes mellitus wit h hyperglycemia, with long-term current use of insulin 08/25/2018 Assessment & Plan (09/18/2018 10:28 PM CDT): See dm above Assessment & Plan (08/25/2018 10:33 AM CDT): This is a significant, separately identifiable problem that was evaluated and managed on the same day as the wellness exam DM is not well controlled by his FBS readings and last A1c and his non- comliance. Need labs now for further evaluation. Continue the Basaglar and Metformin. May need to consider additional meal insulins. Stressed importance of continued A1c control to minimize the watermaster effects of diabetes. Bring accuchecks to office when instructed to do so. Check A1c about every 3-6 months. Take medication as prescribed. Get annual eye exam. Encouraged KHANH/Statin if able to tolerate. Encouraged weight control and encouraged diabetic diet and exercise. BMI 26.0-26.9,adult 08/09/2018 09/09/19 19 Assessment & Plan (08/09/2018 3:47 PM CDT): Weight/BMI is in healthy range. Continue healthy lifestyle to maintain. Hypertension associated with diabetes 08/08/2018 11/02/2020 Assessment & Plan (09/24/2020 3:46 PM CDT): Bp is stable/in acceptable range for any co-morbidities. Encouraged to limit sodium intake and exercise for weight control. Dr. Kyle is managing with his chronic kidney disease Assessment & Plan (07/15/2020 10:23 PM CDT): Impression: Stable chronic hypertension. Plan: Medications reviewed and recommend continuing daily antihypertensive regimen as directed by patient's primary care physician. Assessment & Plan (03/09/2020 8:22 PM MANAGER PAYROLL): Bp is stable/in acceptable range for any co-morbidities. Encouraged to limit sodium intake and exercise for weight control. Continue to work with Dr. Kyle on control. ON amlodipine, atenolol. Holding all diuretics. May get additional control from the Jardiance. Assessment & Plan (11/19/2019 10:35 AM CDT): See HT in CKD due to DM Assessment & Plan (03/29/2019 2:06 PM MANAGER PAYROLL): Elevated today but patient does feel anxious. Will continue to monitor both ambulatory readings and follow up in the office Assessment & Plan (02/13/2019 7:52 PM MANAGER PAYROLL): Bp is stable/in acceptable range for any co-morbidities. Encouraged to limit sodium intake and exercise for weight control. Continue lisinopril, metoprolol Assessment & Plan (09/18/2018 10:26 PM CDT): Bp is stable/in acceptable range for any co-morbidities. Encouraged to limit sodium intake and exercise for weight control. Assessment & Plan (08/25/2018 10:16 AM CDT): Bp is stable/in acceptable range for any co-morbidities. Encouraged to limit sodium intake and exercise for weight control. Continue Lisinopril and metorpolol Type 2 DM with CKD stage 4 a nd hypertension (CMS/HCC) 08/08/2018 11/02/2020 Assessment & Plan (09/24/2020 3:48 PM CDT): Control co-morbidities tightly Assessment & Plan (03/25/2020 7:10 PM MANAGER PAYROLL): Stressed importance of continued A1c control to minimize the watermaster effects of diabetes. Bring accuchecks to office when instructed to do so. Check A1c about every 3-6 months. Take medication as prescribed. Get annual eye exam. Encouraged KHANH/Statin if able to tolerate. Encouraged weight control and encouraged diabetic diet and exercise. Avoid nephrotoxic drugs including NSAIDs. Monitor labs. Continue jardiance. Check renal labs for stability Assessment & Plan (03/09/2020 8:33 PM MANAGER PAYROLL): Stressed importance of continued A1c control to minimize the mcc effects of diabetes. Bring accuchecks to office when instructed to do so. Check A1c about every 3-6 months. Take medication as prescribed. Get annual eye exam. Encouraged KHANH/Statin if able to tolerate. Encouraged weight control and encouraged diabetic diet and exercise. Had a nice discussion with Dr. Kyle regarding patient. Agreed to stop the Metformin due to renal function as will probably continue to decline. Start jardiance 10mg as has renal protection (cant be on ARB) and cleared by Dr. Kyle with his GFR. Encouraged to continue the Veltessa. Will check CMP in a week and monitor closely. Pt instructed may be able to find a coupon online to help with cost. Assessment & Plan (11/19/2019 10:36 AM CDT): Continue per Dr. Kyle Assessment & Plan (03/29/2019 2:06 PM MANAGER PAYROLL): Known kidney disease. Having chronic hematuria. Has follow-up with Dr. KYLE. Still awaiting Neurology consult appointment. Assessment & Plan (02/13/2019 7:53 PM MANAGER PAYROLL): Avoid nephrotoxic drugs including NSAIDs. Monitor labs. Assessment & Plan (09/18/2018 10:27 PM CDT): Avoid nephrotoxic drugs including NSAIDs. Monitor labs. Assessment & Plan (08/25/2018 10:18 AM CDT): Avoid nephrotoxic drugs including NSAIDs. Monitor labs. Stressed importance of tight DM control to avoid mcc sequela Other chronic pain 08/08/2018 0 Nonadherence to medical treatment 07/23/2016 12/26/2020 Overview (09/03/2020): pt acknowledges Dyslipidemia 11/14/2015 11/02/2020 Overview (09/03/2020): on statin
--- OUTSIDE RECORDS SUMMARY | 2024-06-02 11:15 | XMS_ITS | Clinical Summary ---
Author Organization [facility] [address] [facility] Address [address] [place] [address] Care Team Providers Care Dispatcher Service Name Role Phone Ashley Mcneal Primary Care Provider + [phone] Denilson Kyle MD Unavailable [phone] Kyree Noonan MD Unavailable [phone] Ashish Fonseca MD Unavailable [phone] Betsy Bro RN Unavailable Betsy Bro RN Unavailable Natali Cano NP Unavailable [phone] Brian Cedeno MD Unavailable Allergies Active Allergy Reactions Criticality Noted Date Comments Adhesive Rash Medium 03/19/2021 Plastic tape. Pt does ok with paper tape Gabapentin Other (See comments),Hallucinat ions Medium 06/13/2022 [place] bad all over - took for [place] pain - gabapentin made me feel worse/ high Neosporin (Neomycin-Polymyx) Rash Medium 08/09/2018 Medications blood-glucose meter (glucose monitoring kit) kit Please provide a glucometer that his insurance approves with strips and lancet to test daily. 1 each 3 020 Active Additional Information Patient not taking.Informant: Self, Reported on 05/26/2024 lancets 33 gauge miscIndications:D iabetes mellitus due to underlying condition with diabetic neuropathy, without long-term current use of insulin ([facility]) Check daily accuchecks as instructed 100 each 3 Active Additional Information Patient not taking.Informant: Self, Reported on 05/26/2024 sevelamer (RENVELA) 800 mg tablet Take 1 tablet (800 mg total) by mouth 2 (two) times a day with meals With biggest meal Active ferrous sulfate syrup 300 mg/5 mL Take 1 mL (60 mg total) by mouth once Every 2 weeks with dialysis - usually every other , last dose 06/13 Active amLODIPine (NORVASC) 5 mg tablet Take 2 tablets (10 mg total) by mouth daily Active methoxy peg-epoetin beta (MIRCERA INJ) Inject 30 mcg under the skin Generally once a month with dialysis check up Active Accu-Chek Guide test strips strip USE TO TEST BLOOD SUGAR AND CALIBRATE INSULIN PUMP DIRECTED 4X/DAY. 200 strip 11 Active Additional Information Patient not taking.Reported on 05/26/2024 calcitRIOL (ROCALTROL) 0.25 mcg capsule Take 1 capsule (0.25 mcg total) by mouth every other day Active aspirin 81 mg enteric coated tablet Take 1 tablet (81 mg total) by mouth daily Active insulin aspart (NovoLOG) 100 unit/mL vial for injection INFUSE INSULIN PER MEDTRONIC INSULIN PUMP DIRECTED. MAX DAILY DOSE- 50 UNITS. 50 mL 11 Active furosemide (LASIX) 80 mg tablet Take 1 tablet (80 mg total) by mouth daily Active subcutaneous insulin pump (MiniMed 780G Insulin Pump) misc Active allopurinoL (ZYLOPRIM) 100 mg tablet TAKE 1 TABLET BY MOUTH EVERY DAY 90 tablet 1 Active doxazosin (CARDURA) 2 mg tablet Take 1 tablet (2 mg total) by mouth Active ergocalciferol (VITAMIN D) 50,000 unit capsule TAKE 1 CAPS BY MOUTH ONCE A WEEK ON THURSDAY 12 capsule 2 Active cloNIDine (CATAPRES) 0.1 mg tablet Take 1 tablet (0.1 mg total) by mouth 3 (three) times a day [address] (PROTONIX) 20 mg EC tablet Take 1 tablet (20 mg total) by mouth daily 30 tablet 5 025 Active icosapent ethyL (VASCEPA) 1 gram capsuleIndication s:Type 2 diabetes mellitus with hyperlipidemia (HCC) TAKE 2 CAPSULES BY MOUTH 2 TIMES A DAY. 180 capsule 1 025 Active atenoloL (TENORMIN) 50 mg tablet TAKE 1 TABLET BY MOUTH EVERY DAY 100 tablet 025 Active rosuvastatin (CRESTOR) 10 mg tablet TAKE 1 TABLET BY MOUTH EVERY DAY 90 tablet 1 025 Active subcutaneous insulin pump miscIndications:T ype 2 diabetes mellitus with stage 4 chronic kidney disease, with long-term current use of insulin (HCC) 1 Device continuously Medtronic 770G Insulin pump with Guardian 3 transmittor and Guardian 3 sensors. 1 each 021 2024 Discontinued(T herapy completed) losartan (COZAAR) 100 mg tablet Take 1 tablet (100 mg total) by mouth nightly 024 2024 Discontinued(T herapy completed) rosuvastatin (CRESTOR) 10 mg tablet TAKE 1 TABLET BY MOUTH EVERY DAY 90 tablet 1 024 2024 Discontinued Active Problems Patient Care Coordination No te [...] 05/29/2023 Assessment & Plan (05/26/2024 11:16 AM LINE PILOT): Weight/BMI is in healthy range. Continue healthy lifestyle to maintain. Assessment & Plan (10/11/2023 9:45 PM CDT): Weight/BMI is in healthy range. Continue healthy lifestyle to maintain. Assessment & Plan (05/29/2023 12:07 AM LINE PILOT): Weight/BMI is in healthy range. Continue healthy lifestyle to maintain. 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 Stressed importance of routine [...] He states he is going [place] but encouraged him to stay on the [...] He states he is going [place] but encouraged him to stay on the [...] that time Coronary artery disease invo lving grindstone coronary artery of grindstone heart without angina pectoris 04/16/2022 Assessment & Plan (04/16/2022 11:16 AM LINE PILOT): I reviewed the cardiac catheterization findings with him. Patient had nonocclusive disease. Advised him to take baby aspirin every day. The right groin looks good without any hematoma or bruit. Gastritis 04/04/2022 Duodenitis 04/04/2022 Hypercholesterolemia 03/17/2022 Assessment & Plan (04/16/2022 11:17 AM LINE PILOT): Recent lipid panel showed normal LDL. Continue the Crestor. I will repeat his lipids and LFTs in 6 months. Discussed low-cholesterol diet. Essential hypertension, benign 03/17/2022 Assessment & Plan (02/23/2024 2:29 PM LINE PILOT): Impression: Chronic and elevated. Patient remains asymptomatic. [...] mg. Assessment & Plan (04/16/2022 11:17 AM LINE PILOT): Blood pressure is well controlled. Continue current medications and low-salt diet. Erectile dysfunction 02/08/2022 Assessment & Plan (02/08/2022 8:44 PM LINE PILOT): Patient notes difficulty with obtaining an erection/firmness. [...] scan. Assessment & Plan (04/11/2021 10:32 AM LINE PILOT): Patient states fistula and cannulation significantly improved following recent procedure. Will continue 3 months duplex surveillance. Assessment & Plan (03/21/2021 8:49 AM LINE PILOT): Patient has findings consistent with high-grade outflow [...] 12/26/2020 Assessment & Plan (05/29/2023 12:07 AM LINE PILOT): Encouraged healthy lifestyle, good nutrition and exercise. Encouraged Calcium and Vitamin D and weight bearing exercise for bone health. Reviewed immunizations Reviewed age appropirate screenings. Assessment & Plan (02/08/2022 8:43 PM LINE PILOT): Encouraged healthy lifestyle, good nutrition and exercise. [...] list Assessment & Plan (05/29/2023 12:06 AM LINE PILOT): Patient is on dialysis at home. Managed by Dr. Kyle Fluid overload, unspecified 12/04/2020 Hypotension of hemodialysis 12/04/2020 Localized edema 12/04/2020 Anemia in chronic kidney disease 12/03/2020 Assessment & Plan (11/22/2021 12:00 PM CDT): Stable, no signs of GI blood loss ESRD (end stage renal disease) on dialysis 12/03 Assessment & Plan (02/23/2024 2:29 PM LINE PILOT): Impression: Patient is undergoing home dialysis through [...] procedure. Assessment & Plan (03/11/2022 1:32 PM LINE PILOT): Impression: Patient has a left brachial cephalic [...] Nephrology. Assessment & Plan (04/11/2021 10:32 AM LINE PILOT): Continue home dialysis. Follow-up 3 months. Assessment & Plan (03/21/2021 8:49 AM LINE PILOT): Continue dialysis 3 times weekly per Nephrology direction. Iron deficiency anemia, unspecified 12/03/2020 Other fatigue 11/28/2020 Nonrheumatic pulmonary valve stenosis 11/28/2020 Assessment & Plan (04/16/2022 11:17 AM LINE PILOT): He has only mild gradient up to 10 mm by cardiac catheterization. Continue to monitor clinically. Medtronic 780 g Insulin pump titration Assessment & Plan (05/09/2024 10:35 AM LINE PILOT): This is a chronic condition which is [...] hyperglycemia. Assessment & Plan (06/02/2023 2:25 PM LINE PILOT): This is a chronic condition which is [...] it Assessment & Plan (02/26/2023 11:52 AM LINE PILOT): This is a chronic condition which is [...] this tablet she with Dr. Noonan. In [facility] 03/25/2020 Assessment & Plan (03/25/2020 7:09 PM LINE PILOT): Suspect infection has resolved with antibiotic and [...] 03/29/2019 Assessment & Plan (05/29/2023 12:05 AM LINE PILOT): Patient's depression symptoms are stable without medication. Seeing counselor and doing well. Will continue to monitor Assessment & Plan (02/08/2022 8:43 PM LINE PILOT): Stable without medication. Continuing with counselor and [...] medication. Assessment & Plan (03/29/2019 2:09 PM LINE PILOT): Patient has depression symptoms with tendencies towards [...] 02/27/2019 Assessment & Plan (02/27/2019 6:04 PM LINE PILOT): Check urine culture. Suspect musculoskeletal pain. Flexeril [...] continue Assessment & Plan (02/08/2022 8:43 PM LINE PILOT): Continue PPI p.r.n. Assessment & Plan (11/22/2021 12:08 PM CDT): Stable, will schedule EGD. Hold off on PPI for now as symptoms mostly diet controlled. Assessment & Plan (11/19/2019 10:35 AM CDT): Continue PPI prn Assessment & Plan (02/13/2019 7:53 PM LINE PILOT): With PPI Assessment & Plan (08/25/2018 10:21 [...] prescribed. Assessment & Plan (05/29/2023 12:06 AM LINE PILOT): Encouraged patient to follow low fat/low chol diet like the Mediterranean diet. Increase good fats in the diet. Increase exercise. Monitor labs as needed. Continue statin Assessment & Plan (02/26/2023 11:51 AM LINE PILOT): This is a chronic condition which is [...] prescribed. Assessment & Plan (03/11/2022 1:23 PM LINE PILOT): Impression: Chronic hyperlipidemia, controlled with statin therapy. Plan: Statin therapy as per primary care provider. Assessment & Plan (02/08/2022 8:41 PM LINE PILOT): Continue statin and Vascepa Assessment & Plan (10/27/2021 10:15 PM CDT): Stressed importance of continued A1c control to minimize the assistant professor of psychology effects of diabetes. Bring accuchecks to office [...] 2020. Assessment & Plan (03/21/2021 8:48 AM LINE PILOT): Type 2 diabetes mellitus with hyperlipidemia chronic [...] vascepa Assessment & Plan (03/09/2020 8:34 PM LINE PILOT): Continue statin. Start vascepa. Encouraged coupon. Tolerated well in the past. Reviewed risks, benefit, alternatives, side effects and proper use. Assessment & Plan (11/19/2019 10:36 AM CDT): Encouraged patient to continue low fat/low chol diet. Continue exercise. Increase good fats in the diet. Monitor labs as needed. Restart statin Assessment & Plan (02/13/2019 7:55 PM LINE PILOT): Stressed importance of continued A1c control to minimize the assistant professor of psychology effects of diabetes. Bring accuchecks to office [...] 08/08/2018 Assessment & Plan (02/23/2024 1:30 PM LINE PILOT): Impression: Chronic with good glucose control. Plan: [...] dialysis Assessment & Plan (06/02/2023 2:23 PM LINE PILOT): This is a chronic condition which is [...] Vascepa Assessment & Plan (05/29/2023 12:05 AM LINE PILOT): Stressed importance of continued A1c control to minimize the assistant professor of psychology effects of diabetes. Bring accuchecks to office [...] Kyle Assessment & Plan (02/26/2023 11:50 AM LINE PILOT): This is a chronic condition which is [...] last dilated eye exam was [facility] Monofilament foot exam completed. protective senses intact [...] insulin. Assessment & Plan (03/11/2022 1:24 PM LINE PILOT): Impression: Chronic diabetes mellitus with the use of insulin. Good glucose control per patient. Plan: Continue glucose monitoring and management as per primary care provider. Assessment & Plan (02/08/2022 8:42 PM LINE PILOT): Stressed importance of continued A1c control to minimize the assistant professor of psychology effects of diabetes. Bring accuchecks to office [...] exam. last dilated eye exam was at [facility] Monofilament foot exam completed, protective senses intact, Urine microalbumin/creatinine ratio - on dialysis. Known kidney failure. Personally reviewed labs: BUN- 88, creatinine-4.78, GFR-30 Chronic kidney disease on home hemodialysis - Sees Dr. Kyle in [place] for nephrology. B/P today-134/60 currently on atenolol,clonidine, cardura and losartan. At goal blood pressure is <140/90 and as close to 120/80 as possible. Personally reviewed LDL - 33, Trig-208, currently on crestor, vaspeca. at Goal of less than 70. Triglycerides will reduce as blood sugars improved. No history of macrovascular disease - CVA, [place]. Assessment & Plan (06/12/2021 10:49 AM CDT): This is a chronic condition which is at goal. Personally reviewed A1c today- 6.8% at goal less than 7% Medication- Medtronic 770g insulin pump and sensor. Switched to auto mode today. Monitor blood sugar 4times a day. Encouraged annual eye exam. last dilated eye exam was at [facility] Monofilament foot exam completed, protective senses intact, Urine microalbumin/creatinine ratio - on dialysis. Known kidney failure. Personally reviewed labs: BUN- 88, creatinine-4.78, GFR-30 Chronic kidney disease on dialysis - Sees Dr. Kyle in [place] for nephrology. B/P today-130/56 currently on atenolol,clonidine, cardura. At goal blood pressure is <140/90 and as close to 120/80 as possible. Personally reviewed LDL - not calculated, Trig-860, currently on crestor, vaspeca. Not at Goal of less than 70. Triglycerides will reduce as blood sugars improved. No history of macrovascular disease - CVA, [place]. Assessment & Plan (04/11/2021 10:32 AM LINE PILOT): Type 2 diabetes chronic and currently controlled. Continue insulin therapy per PCP. Assessment & Plan (12/26/2020 10:05 AM CDT): Stressed importance of continued A1c control to minimize the residential effects of diabetes. Bring accuchecks to office [...] exam. last dilated eye exam was at [place], [place]. Monofilament foot exam completed, protective senses intact, Urine microalbumin/creatinine ratio - on dialysis. Known kidney failure. Personally reviewed labs: BUN- 88, creatinine-4.78, GFR-30 Chronic kidney disease on dialysis - Sees Dr. Kyle in [place] for nephrology. B/P today-150/76, currently on atenolol, amlodipine, atenolol At goal blood pressure is <140/90 and as close to 120/80 as possible. Personally reviewed(06.15.20) LDL - not calculated, Trig-860, currently on crestor, vaspeca. Not at Goal of less than 70. Triglycerides will reduce as blood sugars improved. No history of macrovascular disease - CVA, [place]. Assessment & Plan (09/24/2020 3:49 PM CDT): [...] Monitor blood sugar 4times a day. Wears Lidyana.coman sensor. Is interested in pump therapy and would like to investigate the Tandem tslim pump Encouraged annual eye exam. last dilated eye exam was at [place], [place]. Monofilament foot exam completed, protective senses intact, Urine microalbumin/creatinine ratio - 5410 currently atenolol, not at goal <30, Know kidney failure. Personally reviewed labs: (08/09/20) BUN- 50, creatinine-3.3, GFR-30 Chronic kidney disease stage 4- having dialysis catheter placed . Sees Dr. Kyle in [place] for nephrology. B/P today-142/88, currently on atenolol, amlodipine, atenolol At goal blood pressure is <140/90 and as close to 120/80 as possible. Personally reviewed(06.15.20) LDL - not calculated, Trig-860, currently on crestor, vaspeca. Not at Goal of less than 70. Triglycerides will reduce as blood sugars improved. No history of macrovascular disease - CVA, [place]. Insulin deficiency. Patient is on 3 or [...] exam. last dilated eye exam was at [place], [place]. Monofilament foot exam completed, protective senses intact, Urine microalbumin/creatinine ratio - 5410 currently atenolol, not at goal <30 Personally reviewed labs: BUN- 51, creatinine-3.22, GFR-22 Chronic kidney disease stage 4- having dialysis catheter placed . Sees Dr. Kyle in [place] for nephrology. B/P today-118/76, currently on atenolol, At goal blood pressure is <140/90 and as close to 120/80 as possible. Personally reviewed(06.15.20) LDL - not calculated, Trig-860, currently on crestor, vaspeca. Not at Goal of less than 70. Triglycerides will reduce as blood sugars improved. Monitor and repeat labs later in 2020. No history of macrovascular disease - CVA, [place]. Insulin deficiency. Patient is on 3 or [...] exam. last dilated eye exam was at [place], [place]. Monofilament foot exam completed, protective senses [...] No history of macrovascular disease - CVA, [place]. Assessment & Plan (11/19/2019 10:36 AM CDT): Stressed importance of continued A1c control to minimize the residential effects of diabetes. Bring accuchecks to office when instructed to do so. Check A1c about every 3-6 months. Take medication as prescribed. Get annual eye exam. Encouraged KHANH/Statin if able to tolerate. Encouraged weight control and encouraged diabetic diet and exercise. Continue metformin. Holding Basaglar as A1c is at goal. Assessment & Plan (02/13/2019 7:54 PM LINE PILOT): Stressed importance of continued A1c control to minimize the assistant professor of psychology effects of diabetes. Bring accuchecks to office [...] of continued A1c control to minimize the assistant professor of psychology effects of diabetes. Bring accuchecks to office [...] prescribed. Assessment & Plan (06/02/2023 2:24 PM LINE PILOT): This is a chronic condition which is at goal of less than 140/90 Continue amlodipine, atenolol, clonidine Encouraged to monitor weight and B/P at home Encouraged to take medications as prescribed. Assessment & Plan (02/26/2023 11:51 AM LINE PILOT): This is a chronic condition which is [...] prescribed. Assessment & Plan (03/11/2022 1:24 PM LINE PILOT): Impression: Chronic hypertension, controlled medications. Blood pressure stable. Plan: Continue blood pressure management as per primary care provider. Assessment & Plan (02/08/2022 8:42 PM LINE PILOT): Bp is stable/in acceptable range for any co-morbidities. Encouraged to limit sodium intake and exercise for weight control. Continue per Nephrology Assessment & Plan (12/26/2020 10:05 AM CDT): Bp is stable/in acceptable range for any co-morbidities. Encouraged to limit sodium intake and exercise for weight control. Avoid nephrotoxic drugs including NSAIDs. Monitor labs. Stressed importance of continued A1c control to minimize the residential effects of diabetes. Bring accuchecks to office [...] of continued A1c control to minimize the assistant professor of psychology effects of diabetes. Bring accuchecks to office [...] evaluation. Assessment & Plan (03/09/2020 8:22 PM LINE PILOT): Stressed importance of continued A1c control to minimize the assistant professor of psychology effects of diabetes. Bring accuchecks to office [...] weeks. Assessment & Plan (02/13/2019 7:53 PM LINE PILOT): Bp is stable/in acceptable range for any [...] list Assessment & Plan (02/08/2022 8:42 PM LINE PILOT): Patient is on the transplant list. Currently [...] . Assessment & Plan (03/25/2020 7:11 PM LINE PILOT): Avoid nephrotoxic drugs including NSAIDs. Monitor labs. Continue per Dr. Kyle Assessment & Plan (03/09/2020 8:34 PM LINE PILOT): Continue per Dr. Kyle Assessment & Plan (11/19/2019 10:36 AM CDT): Per Dr. Kyle Assessment & Plan (02/13/2019 7:53 PM LINE PILOT): Stressed importance of continued A1c control to minimize the residential effects of diabetes. Bring accuchecks to office [...] neuropathy, with long-term current use of insulin ([facility]) 08/08/2018 Assessment & Plan (02/08/2022 8:42 PM LINE PILOT): Stressed importance of continued A1c control to minimize the residential effects of diabetes. Bring accuchecks to office [...] of continued A1c control to minimize the assistant professor of psychology effects of diabetes. Bring accuchecks to office [...] function. Assessment & Plan (03/29/2019 2:04 PM LINE PILOT): Stressed importance of continued A1c control to minimize the residential effects of diabetes. Bring accuchecks to office when instructed to do so. Check A1c about every 3-6 months. Take medication as prescribed. Get annual eye exam. Encouraged KHANH/Statin if able to tolerate. Encouraged weight control and encouraged diabetic diet and exercise. Continue working on tight control. Check labs Assessment & Plan (02/13/2019 7:52 PM LINE PILOT): Improving control of DM Continue to monitor Assessment & Plan (09/18/2018 10:25 PM CDT): Stressed importance of continued A1c control to minimize the residential effects of diabetes. Bring accuchecks to office [...] of continued A1c control to minimize the assistant professor of psychology effects of diabetes. Bring accuchecks to office [...] allopurinol Assessment & Plan (02/13/2019 7:55 PM LINE PILOT): No flairs. Continue allopurinol Assessment & Plan (08/25/2018 10:19 AM CDT): Continue allopurinol. MAGNO on CPAP 08/08/2018 Assessment & Plan (02/08/2022 8:42 PM LINE PILOT): Continue CPAP Assessment & Plan (12/26/2020 10:06 AM CDT): Continue Cpap. Has supplies Assessment & Plan (03/09/2020 8:21 PM LINE PILOT): Continue CPAP treatment Assessment & Plan (11/19/2019 10:34 AM CDT): Continue to use nightly. Has needed supplies Assessment & Plan (02/13/2019 7:52 PM LINE PILOT): Continue CPAP. Using nightly Assessment & Plan (09/18/2018 10:26 PM CDT): Continue CPAP Assessment & Plan (08/25/2018 10:15 AM CDT): Using regular. Has all needed supplies. Abnormal EKG 11/14/2015 Sinus tachycardia 11/14/2015 Resolved Problems Problem Noted Date Diagnosed Date Resolved Date ESRD (end stage renal disease) 04/13/2023 11/30/2023 Assessment & Plan (05/29/2023 12:08 AM LINE PILOT): Patient is on dialysis at home. Managed [...] 23 Assessment & Plan (02/08/2022 8:43 PM LINE PILOT): Weight/BMI is in healthy range. Continue healthy [...] 12/26/2020 Assessment & Plan (03/09/2020 8:35 PM LINE PILOT): Updated in office today BMI 24.0-24.9, adult 03/08/2020 021 Assessment & Plan (06/18/2020 7:17 AM CDT): Weight/BMI is in healthy range. Continue healthy lifestyle to maintain. Assessment & Plan (03/08/2020 11:16 AM LINE PILOT): Weight/BMI is in healthy range. Continue healthy lifestyle to maintain. Anxiety 03/08/2020 03/08/2020 Annual physical exam 11/19/2019 020 Assessment & Plan (11/19/2019 10:38 AM CDT): Encouraged healthy lifestyle, good nutrition and exercise. Encouraged Calcium and Vitamin D and weight bearing exercise for bone health. Reviewed immunizations Reviewed age appropirate screenings. Groin pain 03/29/2019 11/19/2019 Assessment & Plan (03/29/2019 2:05 PM LINE PILOT): Due to this newer onset pain and [...] 11/02/2020 Assessment & Plan (03/29/2019 2:07 PM LINE PILOT): Persistent. Obtain CT of the abdomen pelvis [...] maintain. Assessment & Plan (03/29/2019 7:57 AM LINE PILOT): Weight/BMI is in healthy range. Continue healthy lifestyle to maintain. Assessment & Plan (02/13/2019 7:56 PM LINE PILOT): Weight/BMI is in healthy range. Continue healthy lifestyle to maintain. Assessment & Plan (02/10/2019 1:29 PM LINE PILOT): Weight/BMI is in healthy range. Continue healthy [...] Kyle Assessment & Plan (02/13/2019 7:53 PM LINE PILOT): Bp is stable/in acceptable range for any co-morbidities. Encouraged to limit sodium intake and exercise for weight control. Avoid nephrotoxic drugs including NSAIDs. Monitor labs. BMI 25.0-25.9,adult 09/08/2018 01/13/20 19 Assessment & Plan (09/08/2018 10:51 AM CDT): [...] of continued A1c control to minimize the assistant professor of psychology effects of diabetes. Bring accuchecks to office [...] physician. Assessment & Plan (03/09/2020 8:22 PM LINE PILOT): Bp is stable/in acceptable range for any co-morbidities. Encouraged to limit sodium intake and exercise for weight control. Continue to work with Dr. Kyle on control. ON amlodipine, atenolol. Holding all diuretics. May get additional control from the [facility]. Assessment & Plan (11/19/2019 10:35 AM CDT): See HT in CKD due to DM Assessment & Plan (03/29/2019 2:06 PM LINE PILOT): Elevated today but patient does feel anxious. Will continue to monitor both ambulatory readings and follow up in the office Assessment & Plan (02/13/2019 7:52 PM LINE PILOT): Bp is stable/in acceptable range for any [...] tightly Assessment & Plan (03/25/2020 7:10 PM LINE PILOT): Stressed importance of continued A1c control to minimize the assistant professor of psychology effects of diabetes. Bring accuchecks to office when instructed to do so. Check A1c about every 3-6 months. Take medication as prescribed. Get annual eye exam. Encouraged KHANH/Statin if able to tolerate. Encouraged weight control and encouraged diabetic diet and exercise. Avoid nephrotoxic drugs including NSAIDs. Monitor labs. Continue jardiance. Check renal labs for stability Assessment & Plan (03/09/2020 8:33 PM LINE PILOT): Stressed importance of continued A1c control to minimize the residential effects of diabetes. Bring accuchecks to office [...] Kyle Assessment & Plan (03/29/2019 2:06 PM LINE PILOT): Known kidney disease. Having chronic hematuria. Has follow-up with Dr. KYLE. Still awaiting Neurology consult appointment. Assessment & Plan (02/13/2019 7:53 PM LINE PILOT): Avoid nephrotoxic drugs including NSAIDs. Monitor labs. Assessment & Plan (09/18/2018 10:27 PM CDT): Avoid nephrotoxic drugs including NSAIDs. Monitor labs. Assessment & Plan (08/25/2018 10:18 AM CDT): Avoid nephrotoxic drugs including NSAIDs. Monitor labs. 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 Other chronic pain 08/08/2018 Nonadherence to medical treatment 07/23/2016 12/26/2020 Overview (09/03/2020): pt acknowledges Dyslipidemia 11/14/2015 11/02/2020 Overview (09/03/2020): on statin Encounters Date Type Department Care Team Description 05/30/2024 Telephone [facility] Transplant Kidney [address] [id number] Mailstop [id number] [place] [address] Brionna Palma 05/26/2024 11:00 AM LINE PILOT Office Visit [facility] Family Medicine [address] [place] [address] [address] [place] [address] Ashley Mcneal PA Welcome to Medicare preventive visit (Primary Dx); BMI 26.0-26.9,adult 05/20/2024 Telephone [facility] [address] [address] Mailstop [phone] [place] [address] Betsy Bro RN 05/09/2024 10:30 AM LINE PILOT Office Visit [facility] Diabetes Endocrine Care at [address] [address] Natali Cano, TERRENCE Type 2 diabetes mellitus with chronic kidney disease on chronic dialysis, with long-term current use of insulin ([facility]) (Primary Dx); 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 with type 2 diabetes mellitus ([facility]); Diabetes mellitus due to underlying condition with diabetic neuropathy, with long-term current use of insulin ([facility]/HCC) (HCC); Hypertension in chronic kidney disease due to type 2 diabetes mellitus ([facility]); Mixed diabetic hyperlipidemia associated with type 2 diabetes mellitus ([facility]); Medtronic 780 g Insulin pump titration 05/06/2024 Documentation [facility] [address] Mailstop [phone] [place] [address] Ysabel [place] 05/06/2024 Nurse Triage [facility] Family [facility] [address] [place] [address] Ashley Mcneal PA 05/05/2024 10:00 AM LINE PILOT - 05/05/2024 11:59 PM LINE PILOT Hospital Encounter [address] [address] ESRD (end stage renal disease) (HCC) Discharge Disposition: Discharge to home or self care 05/02/2024 Telephone [facility] Trans[facility] Kidney [address] [facility] [address] Mailstop [phone] [place] [address] Ysabel [place] 04/26/2024 11:15 AM LINE PILOT Office Visit [facility] Medical [facility] [address] [facility] [address] [place] [address] Kyree Noonan MD Coronary artery disease involving grindstone coronary artery of grindstone heart without angina pectoris (Primary Dx); Mixed hyperlipidemia; Essential hypertension, benign; Nonrheumatic pulmonary valve stenosis 04/19/2024 11:00 AM LINE PILOT Office Visit [facility] Gastro[facility]ology at [place] [address] [facility] [address] [place] [phone] Salma Reyes MD Nausea and vomiting, unspecified vomiting type (Primary Dx); Gastroesophageal reflux disease without esophagitis; Tubular adenoma of colon 04/06/2024 10:00 AM LINE PILOT - 04/06/2024 11:59 PM LINE PILOT Hospital Encounter [address] [address] Discharge Disposition: Discharge to home or self care 04/01/2024 10:58 AM LINE PILOT - 04/01/2024 11:59 PM LINE PILOT Hospital Encounter [facility] 2 Vascular [address] [facility] [address] [place] [address] Dependence on renal dialysis; End stage renal disease (HCC); Other complication of arteriovenous dialysis fistula, initial encounter Discharge Disposition: Discharge to home or self care 04/01/2024 10:58 AM LINE PILOT - 04/01/2024 11:59 PM LINE PILOT [facility] [address] [address] ESRD (end stage renal disease) on dialysis (HCC) (Primary Dx); Other complication of arteriovenous dialysis fistula, subsequent encounter Discharge Disposition: Discharge to home or self care 03/25/2024 [facility] [address] [address] Ashish Fonseca MD Dependence on renal dialysis (Primary Dx); End stage renal disease (HCC); Other complication of arteriovenous dialysis fistula, initial encounter 03/11/2024 11:00 AM LINE PILOT - 03/11/2024 12:00 PM LINE PILOT Surgery [facility] Cardiac Coil [place] [address] [place] [address] Ashish Fonseca MD Dialysis Circuit Angiogram 03/11/2024 9:01 AM LINE PILOT - 03/11/2024 10:59 AM LINE PILOT Hospital Encounter [facility] [address] [place] [address] Ashish Fonseca MD ESRD (end stage renal disease) on dialysis (HCC) Discharge Disposition: Discharge to home or self care 03/07/2024 Telephone [facility] at [address] [address] Ashish Fonseca MD from Last 3 Months Immunizations Immunization Administration Dates Next Due DTP 08/01/1982, 9,1977,07/31,1977 Heplisav-b (Hepatitis B) 04/17/2021,12/0 05/2020,01/23/2021,12/20 Influenza, Quadrivalent, Rec ombinant, Egg Free, Preservative Free, Intramuscular 01/14/2023 Influenza, Quadrivalent, Spl it, Preservative Free, Intramuscular 01/15/2022,01/14/2021,03/08/2020,01/12 Influenza, Trivalent, Preser vative Free, Intramuscular 01/12/2024,01/12/2015 Influenza, Unspecified 04/30/2022(Deferr ed: Patient Refused),04/30/2021(Deferred: Patient Refused),03/30/2020(Deferred: Patient Refused) MMR 01/02/1983,07/02/1978 OPV 08/01/1982, 9,1977,07/31,1977 Pfizer SARS-CoV-2 Monovalent Vaccination (12+ Yrs) PURPLE 02/01/2021,06/12/2020,05/22/2020 Pneumococcal Conjugate PCV 13 12/25/2020 Pneumococcal Polysaccharide PPV23 03/01/2021 Tdap 12/10/2014 Surgical History Surgery Date Site/Laterality Comments TOENAIL EXCISION DIALYSIS FISTULA CREATION 08/09/2020 Left LUE brachiocephalic fistula - Dr. Ashish Fonseca AV FISTULA REPAIR 03/21/2021 Left LUE AVF - DCB cephalic vein - Dr. Ashish Fonseca AV FISTULA REPAIR 07/19/2021 Left LUE AVF - angioplasty/stent cephalic vein - Dr. Ashish Fonseca CARDIAC CATHETERIZATION 03/30/2022 - 04/29/2022 N/A No intervention needed COLONOSCOPY 10/30/2022 AV FISTULA REPAIR 11/26/2021 Left LUE AVF - angioplasty/stentx2 fistula- Dr. Ashish Fonseca AV FISTULA REPAIR 06/18/2022 Left LUE AVF - angioplastyx2 fistula - Dr. Ashish Fonseca AV FISTULA REPAIR 07/27/2023 Left LUE AVF - angioplasty to AVF - Dr. Ashish Fonseca FINGER SURGERY 11/12/2023 Right second finger infection AV FISTULA REPAIR 03/11/2024 Left LUE AVF - angioplasty cephalic vein - Dr. Ashish Fonseca Medical History Medical History Date Comments Hyperlipidemia Glaucoma Dyslipidemia 11/14/2015 on statin Asymptomatic microscopic hematuria 03/29/2019 ESRD (end stage renal disease) (HCC) home hemodialysis with fistula at [facility], still makes urine. GERD (gastroesophageal reflux disease) 2019 h/o no current issues Anemia on Epogen and Ir on at dialysis. takes oral iron at home Diabetic nephropathy associa stacy with type 2 diabetes mellitus (HCC) 09/28/2018 IDDM, Medtronic insulin pump and wears CGM Heart murmur stable, evaluate d by Dr. 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 Awareness under anesthesia Diabetic retinopathy (HCC) Sleep apnea does not use mac bonny Family History Medical History Relation Name Comments Diabetes Father Wilber Lai Heart disease Father Wilber Lai No Known Problems Maternal Grandfather No Known Problems Maternal Grandmother Diabetes Mother Chela Lai Kidney disease Paternal Grandfather Kennedy Lai No Known Problems Paternal Grandmother Relation Name Status Comments Father Wilber Lai Alive Maternal Grandfather Maternal Grandmother Mother Chela Lai Alive Paternal Grandfather Kennedy Lai Paternal Grandmother Social History Tobacco Use Types Packs/Day Years Used Date Smoking Tobacco: Former Cigarettes Q uit: 03/22/2005 Smokeless Tobacco: Never Tobacco Cessation:Counseling Given: Not Answered Alcohol Use Standard Drinks/Week Comments Never 0 (1 standard drink = 0.6 oz pur e alcohol) AUDIT-C Answer Date Recorded Q1: How often do you have a drink containing alcohol? Never 05/26/2024 Q2: How many drinks containi ng alcohol do you have on a typical day when you are drinking? Patient does not drink Q3: How often do you have si x or more drinks on one occasion? Never 05/26/2024 PHQ-2 Answer Date Recorded PHQ-2 Total Score (If total score is 3 or more points, staff should administer the PHQ-9) 0 05/26/2024 Personal Safety Answer Date Recorded Have you ever been in or are you currently in a harmful physical or emotional relationship or is someone making you feel afraid or unsafe? 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 Not on file Obstetrics History Last Filed Vital Signs Vital Sign Reading Time Taken Comments Blood Pressure 110/62 05/26/2024 11:15 AM LINE PILOT Pulse 62 05/26/2024 11:15 AM LINE PILOT Temperature 36.7 C (98.1 F) 05/26/2024 11:15 AM LINE PILOT Respiratory Rate 12 03/11/2024 10:30 AM LINE PILOT Oxygen Saturation 97% 05/26/2024 11:15 AM LINE PILOT Inhaled Oxygen Concentration - - Weight 83 kg (183 lb) 05/26/2024 11:15 AM LINE PILOT Height 177.8 cm (5' 10 ) 05/26/2024 11:15 AM LINE PILOT Body Mass Index 26.26 05/26/2024 11:15 AM LINE PILOT Plan of Treatment Health Maintenance Due Date Last Done Comments Albumin Creatinine Ratio, Urine 02/24/2021 , 03/29/2018 Covid-19 Vaccine (2023-2 5 season) 2023 02/01/2021, 06/12/2020, 05/22/2020 Regular Well Visit/Exam 18-64 05/26/2024, 02/07/2022, 12/26/2020, Additional history exists eGFR 07/26/2024 07/27/2023, 02/0 07/2023, 06/18/2022, Additional history exists Lipid Panel 08/12/2024 08/13/2023, 03/31, 10/13/2022, Additional history exists Foot Exam 10/25/2024 10/26/2023, 03/0 07/2023, 11/26/2022, Additional history exists Hemoglobin A1C 11/06/2024 05/09/2024, 02/0 07/2023, 02/26/2023, Additional history exists Dilated Eye Exam 12/09/2024 12/10/2023, 07/2023, 01/26/2023, Additional history exists DTaP/Tdap/Td Vaccine (7 - Td or Tdap) 12/10/2024 12/10/2014, 08/01/1982, 12/31/1978, Additional history exists Depression Screening 05/26/2025 05/26/2024, 11/24/2023, 09/29/2023, Additional history exists Colon Cancer Screening-Colonoscopy 10/30/20252022, 10/30/2022 Pneumococcal vaccine <65 (3 of 3 - PCV20 or PCV21) 2027 03/01/2021, 12/25/2020 Hepatitis B Screening Completed 05/04/2023 , 04/17/2021, 03/01/2021, Additional history exists Hepatitis C Screening Completed 05/04/2023 , 02/10/2022, 11/05/2020 Influenza Vaccine Completed 01/12/2024, , 01/15/2022, Additional history exists Medical Devices Implanted Type Area Plastic Fixture Builder Device Identifier Shelf Expiration Date Model / Serial / Lot [employer] Peripheral Vascular [id number] Covera 8mm 8fr 60mm 80cm Cover Helical Strut Thumbwheel - [id number] Implanted:Qty: 1 on 07/19/2021 by Ashish Fonseca MD at [facility] [employer]ipheral [employer] 02/01/2023 [id number] / / [id number] [employer] Peripheral Vascular Covera 8mm 8fr 40mm 80cm Cover Helical Strut Thumbwheel [id number] - [id number] Implanted:Qty: 1 on 11/26/2021 by Ashish Fonseca MD at [facility] Peripheral Vascular [id number] 02/08/2023 [id number] / / [id number] [employer] [facility] Angio-Seal Vip 6fr Closere Device [id number] - [id number] Implanted:Qty: 1 on 04/07/2022 by Kyree Noonan MD at [facility] [employer] 11/27/2022 [id number] / / [id number] Procedures Procedure Name Priority Date/Time Associated Diagnosis Comments POCT HEMOGLOBIN A1C Routine 05/09/2024 10:37 AM LINE PILOT Type 2 diabetes mellitus with chronic kidney disease on chronic dialysis, with long-term current use of insulin (HCC) POCT GLUCOSE Routine 05/09/2024 10:33 AM LINE PILOT Type 2 diabetes mellitus with chronic kidney disease on chronic dialysis, with long-term current use of insulin (HCC) HLA ANTIBODY SCREEN - PRA (CLASS I AND CLASS II) Routine 05/05/2024 10:00 AM LINE PILOT ESRD (end stage renal disease) (HCC) HLA ANTIBODY SCREEN BY PRA OR SAB PER SCHEDULE (CLASS I AND CLASS II) Routine 05/05/2024 10:00 AM LINE PILOT ESRD (end stage renal disease) (HCC) HLA SOLID ORGAN TYPING REPORT 04/21/2024 10:55 AM LINE PILOT US HEMODIALYSIS ACCESS Schedule Routine, Read Routine (OP Routine) 04/01/2024 11:29 AM LINE PILOT Dependence on renal dialysis End stage renal disease (HCC) Other complication of arteriovenous dialysis fistula, initial encounter INTRO CATH DIALYSIS CIRCUIT DX ANGRPH FLUOR [id number] Routine 03/11/2024 9:54 AM LINE PILOT ESRD (end stage renal disease) on dialysis (HCC) HM DIABETES EYE EXAM Routine 12/10/2023 3:13 PM CDT LIPID PANEL Routine 08/13/2023 6:53 AM CDT Coronary artery disease involving grindstone coronary artery of grindstone heart without angina pectoris Mixed hyperlipidemia EGFR STAT 07/27/2023 11:29 AM CDT HEPATITIS C ANTIBODY Routine 05/04/2023 11:18 AM LINE PILOT ESRD (end stage renal disease) (HCC) COLONOSCOPY 10/30/2022 9:56 AM CDT ALBUMIN CREATININE RATIO, URINE Routine 02/25/2020 8:33 AM LINE PILOT Type 2 DM with CKD and hypertension ([facility]/HCC) from Last 3 Months or Most Recently Relevant to Health Maintenance Results * POCT hemoglobin A1c (05/09/2024 10:37 AM LINE PILOT) Hemoglobin A1C, POC 7.3 4.0 - 5.6 % Blood 05/09/2024 10:3 7 AM LINE PILOT us Natali Cano NP POINT OF CARE TEST ORDERABLES F inal Result * POCT glucose (05/09/2024 10:33 AM LINE PILOT) Glucose Blood, POC 177 mg/dL Blood 05/09/2024 10:3 3 AM LINE PILOT us Natali Cano NP POINT OF CARE TEST ORDERABLES F inal Result * HLA Antibody Screen by PRA or SAB per Schedule (Class I and Class II) (05/05/2024 10:00 AM LINE PILOT) Blood 05/05/2024 10:0 0 AM LINE PILOT Narrative HISTOTRAC - LINE PILOT Sample received in lab. PRA Screen ordered. us Bozena Silvestre MD LAB BLOOD ORDERABLE S Final Result HISTOTRAC * HLA Antibody Screen - PRA (Class I and Class II) (05/05/2024 10:00 AM LINE PILOT) Class I Treatment Untreated HISTOTRAC Class I Dilution 1:1 HISTOTRAC Class I Tested Date 05/09/2024 HISTOTRAC Class I Result Negative HISTOTRAC Class I Percent Positive 0 HISTOTRAC Class II Treatment Untreated HISTOTRAC Class II Dilution 1:1 HISTOTRAC Class II Tested Date 05/09/2024 HISTOTRAC Class II Result Negative HISTOTRAC Class II Percent Positive 0 HISTOTRAC 05/05/2024 10:0 0 AM LINE PILOT 05/10/2024 7:49 AM LINE PILOT Narrative HISTOTRAC - 05/10/2024 7:49 AM LINE PILOT PRA (panel reactive antibody) HLA antibody screen is performed on serum samples using a method developed and validated by the [facility] HLA laboratory based on an FDA- approved IVD kit (LABScreen PRA, [employer], [place], [place]). Interpretive comments: The percentage of beads with MFI > 750 is reported, which indicates the percentage of donor population estimated to be incompatible with the patient tested. PRA > 0% is consistent with alloimmunization to HLA. Testing performed at the [facility], [address], 5th floor, [place], [address]. [facility] # [id number]. Nicole Magaña, Ph.D., [place], HLA Laboratory Evangelista Wang M.D., Ph.D., Library Sales Consultant, HLA Laboratory Monae Shultz, Ph.D., CLIA Library Sales Consultant, [facility] Current methodology and interpretive comments last revised on 07/22/2017. us Bozena Silvestre MD LAB BLOOD ORDERABLE S Final Result HISTOTRAC * HLA Solid Organ Typing Report (04/21/2024 10:55 AM LINE PILOT) us Liliya Mcgarry MD LAB GENETIC TESTIN G Final Result * US Hemodialysis Access (04/01/2024 11:29 AM LINE PILOT) Anatomical Region Laterality Modality Vascular N/A Ultrasound 04/01/2024 Narrative 04/03/2024 9:33 AM LINE PILOT [employer] Job ID: [id number] Am[employer]ion Document ID: [id number] Dictated date/time: [id number] LEFT UPPER EXTREMITY HEMODIALYSIS DUPLEX. REASON FOR EXAM End-stage renal disease. FINDINGS ON THE LEFT The patient has a left brachiocephalic arteriovenous fistula. The anastomosis peak systolic velocity is 736. The velocity is then 731 and 147. There is a stent with a velocity of 347 and 341. There is another stent in cephalic artery with a velocity 338 and 366. Subclavian is 370. INTERPRETATION Patent left brachial cephalic arteriovenous fistula stent in the cephalic outflow as well as the cephalic artery patent. Job ID/Internal Job ID: [id number] us Ashish Fonseca MD IMG US PROCEDURES Final Re sult * INTRO CATH DIALYSIS CIRCUIT DX ANGRPH FLUOR [id number] (03/11/2024 9:54 AM LINE PILOT) Anatomical Region Laterality Modality X-Ray Angiograph y Narrative 03/11/2024 9:55 AM LINE PILOT Please see OpNote for result. Ashish Fonseca MD CV CARDIAC CATH PROCEDURES Final Result * (ABNORMAL) DIABETES EYE EXAM (12/10/2023 3:13 PM CDT) SCRIBED DIABETIC DILATED EYE EXAM Abnormal Historical Provider HEALTH MAINTENANCE Edited Result - Final * Lipid panel (08/13/2023 6:53 AM CDT) Cholesterol 102 <200 mg/dL [facility] HDL 40 > OR = 40 mg/dL [facility] Triglycerides 144 <150 mg/dL [facility] LDL 39 mg/dL (calc) [facility] Comment: Reference range: <100 Desirable range <100 mg/dL for primary prevention; <70 mg/dL for patients with CHD or diabetic patients with > or = 2 CHD risk factors. LDL-C is now calculated using the González-Mendoza calculation, which is a validated novel method providing better accuracy than the Friedewald equation in the estimation of LDL-C. González SS et al. MAREN. 2013;310(19): 8405-1257 (http://education.Arkami/faq/KAK576) Chol/HDL ratio 2.6 <5.0 (calc) [facility] Non-HDL, (LDL+VLDL) 62 <130 mg/dL (calc) [facility] Comment: For patients with diabetes plus 1 major ASCVD risk factor, treating to a non-HDL-C goal of <100 mg/dL (LDL-C of <70 mg/dL) is considered a therapeutic option. Blood 08/13/2023 6:53 AM CDT 08/13/2023 6:54 AM CDT Kyree Noonan MD LAB BLOOD ORDERABLES Final Result [facility] [address] [address] [place] [id number] * (ABNORMAL) eGFR (07/27/2023 11:29 AM CDT) eGFR 12(L) >=60 mL/min/1. 73 m2 Comment: Interpretive Data Reference Interval Normal >/= 90 mL/min/1.73m2 Mildly decreased* 60 - 89 mL/min/1.73m2 Mildly to moderately decreased 45 - 59 mL/min/1.73m2 Moderately to severely decreased 30 - 44 mL/min/1.73m2 Severely decreased 15 - 29 mL/min/1.73m2 Kidney Failure < 15 mL/min/1.73m2 *Relative to young adult level Estimated glomerular filtration rate is determined by the 2020 CKD-EPI equation recommended by the National Kidney Foundation (A Unifying Approach to GFR Estimation: Recommendations of the NKF-ASK Task Force on Reassessing the Inclusion of Race in Diagnosing Kidney Disease, JASN 2020). The CKD-EPI equation should not be used for patients with unstable renal function and has not been validated in children and those over 70. Current interpretive data was last reviewed 2021. Blood 07/27/2023 11:2 9 AM CDT 07/27/2023 11:35 AM CDT us Ashish Fonseca MD LAB BLOOD ORDERABLES Final Result [facility] Department of Laboratories [place], [place] [id number] * Hepatitis C antibody Blood (05/04/2023 11:18 AM LINE PILOT) Hep C Ab Nonreactive Nonreactive [facility] Comment:Antibodies to HCV no t detected. Does NOT exclude the possibility of recent exposure to HCV. Current interpretive data was last revised on 21 Blood 05/04/2023 11:1 8 AM LINE PILOT 05/04/2023 11:39 AM LINE PILOT us Liliya Mcgarry MD LAB MICROBIOLOGY - GENERAL ORDERABLES Final Result [facility] [place] [address] * (ABNORMAL) COLONOSCOPY (10/30/2022 9:56 AM CDT) Anatomical Region Laterality Modality Other Narrative Procedure Note Salma Reyes MD - 10/30/2022 9:[address] [facility] Patient Name: Varinder Lai Procedure Date: 10/30/2022 9:56 AM Date of : 1975 Admit Type: Outpatient Age: 47 Gender: Male Attending MD: Salma Reyes M.D. Room: [facility] ENDOSCOPY ROOM 2 Note Status: Finalized Patient Profile: This is a 47 year old male h/o DM2, ESRD on HD,anemia of chronic disease, HTN, HLD, gout here for colonoscopy for colon cancer screening. No family history of colon cance Procedure: Colonoscopy Indications: Screening for colorectal malignant neoplasm, Thisis the patient's first colonoscopy Referring MD: Ashley Mcneal PA-C Providers: Salma Reyes M.D. Impression: - Two 4 to 5 mm polyps in the sigmoid colon,removed with a cold snare. Resected and retrieved. - One 2 mm polyp in the sigmoid colon, removed witha jumbo cold forceps. Resected and retrieved. - Internal hemorrhoids. Recommendation: - Patient has a contact number available for emergencies. The signs and symptoms of potential delayed complications were discussed with thepatient. Return to normal activities tomorrow. Written discharge instructions were provided to thepatient. - Discharge patient to home (with escort). - Resume previous diet. - Continue present medications. - Await pathology results. - Repeat colonoscopy in 3-5 years for surveillance based on pathology results. - Return to GI clinic as previously scheduled. Medicines: Monitored Anesthesia Care Complications: No immediate complications. Estimated Blood Loss: Estimated blood loss was minimal. Procedure: Pre-Anesthesia Assessment: - Prior to the procedure, a History and Physicalwas performed, and patient medications and allergieswere reviewed. The patient is competent. The risks and benefits of the procedure and the sedation optionsand risks were discussed with the patient. Allquestions were answered and informed consent was obtained. Patient identification and proposed procedure were verified by the physician, the teletype or varitype keyboard operator and the application support technician in the endoscopy suite. Mental Status Examination: normal. Prophylactic Antibiotics: The patient does not require prophylactic antibiotics. Prior Anticoagulants: The patient has taken no anticoagulant or antiplatelet agents. Afterreviewing the risks and benefits, the patient was deemed in satisfactory condition to undergo the procedure.The anesthesia plan was to use monitored anesthesiacare (MAC). Immediately prior to administration of medications, the patient was re-assessed foradequacy to receive sedatives. The heart rate, respiratory rate, oxygen saturations, blood pressure, adequacyof pulmonary ventilation, and response to care were monitored throughout the procedure. The physical status of the patient was re-assessed after the procedure. The benefits, risks and alternatives of theprocedure and sedation were discussed and informed consentwas obtained. All questions were answered. Please referto the signed informed consent document in the medical record. The bowel preparation used was Miralax via split dose instruction. The bowel preparation usedwas bisacodyl tablets via split dose instruction. The scope was passed under direct vision. TheColonoscope [id number] was introduced through the anus and advanced to the the cecum, identified by appendiceal orifice and ileocecal valve. The colonoscopy was performed without difficulty. The patient tolerated the procedure well. The qualityof the bowel preparation was good. Bowel prep was administered using a split dose. Findings: The perianal and digital rectal examinations were normal. Two sessile polyps were found in the sigmoid colon. The polyps were 4to 5 mm in size. These polyps were removed with a cold snare. Resectionand retrieval were complete. A 2 mm polyp was found in the sigmoid colon. The polyp was sessile.The polyp was removed with a jumbo cold forceps. Resection and retrieval were complete. Internal hemorrhoids were found during retroflexion. Salma Reyes M.D. 10/30/2022 11:14:12 AM Number of Addenda: 0 Note Initiated On: 10/30/2022 9:56 AM Procedure Code(s): --- Professional --- 35539, Colonoscopy, flexible; with removal of tumor(s), polyp(s), or other lesion(s) by snare technique 26261, 59, Colonoscopy, flexible; with biopsy, single or multiple --- Technical --- 79506, Colonoscopy, flexible; with removal of tumor(s), polyp(s), or other lesion(s) by snare technique 56423, 59, Colonoscopy, flexible; with biopsy, single or multiple Diagnosis Code(s): --- Professional --- D12.5, Benign neoplasm of sigmoid colon Z12.11, Encounter for screening for malignant neoplasm of colon K64.8, Other hemorrhoids --- Technical --- D12.5, Benign neoplasm of sigmoid colon Z12.11, Encounter for screening for malignant neoplasm of colon K64.8, Other hemorrhoids CPT copyright 2020 [employer]. All rights reserved. The codes documented in this report are preliminary and upon superintendent fish hatchery reviewmay be revised to meet current compliance requirements. Recognized by the [employer] for promoting quality in endoscopy us Salma Reyes MD ENDOSCOPY PROCEDURES Edited Resu lt - Final * (ABNORMAL) Albumin Creatinine Ratio, Urine (02/25/2020 8:33 AM LINE PILOT) Creatinine, ur 79 20 - 320 mg/dL [facility] Microalbumin, ur 427.4 See Note: mg/dL [facility] Comment: Reference Range: Reference Range Not established Verified by repeat analysis. Microalbumin/crea t ratio 5,410(H) <30 mcg/mg creat [facility] Comment: The ADA defines abnormalities in albumin excretion as follows: Category Result (mcg/mg creatinine) Normal <30 Microalbuminuria 30-299 Clinical albuminuria > OR = 300 The ADA recommends that at least two of three specimens collected within a 3-6 month period be abnormal before considering a patient to be within a diagnostic category. Urine 02/25/2020 8:33 AM LINE PILOT 02/25/2020 8:34 AM LINE PILOT Narrative [facility] - 02/27/2020 12:30 PM LINE PILOT FASTING:YES FASTING: YES us Denilson Kyle MD LAB URINE ORDERABLES Final Re [facility] Organization Address City/State/ZIP Co de Phone Number [facility] [address] [place] [address] from Last 3 Months or Most Recently Relevant to Health Maintenance Insurance [facility] [employer] Member Subscriber Plan / Payer (Ef fective 2019-Present) Name:Varinder Lai Relation to Subscriber:Spouse Name:HOWARD LAI Date of :1990 Address: [address] [place] [address] Payer ID:[id number] (NAIC) Group ID:[id number] Type:[facility] Address: [facility] [address] [place] [id number] MEDICARE [facility] FEDERAL TRANSPLANT BDCT MEDICARE Advance Directives For more information, please contact: [phone] * Full Code (Latest Code Status on File) Date Activated Date Inactivated Comments 10/30/2022 9:35 AM 10/30/2022 4:19 PM * Full Code Date Activated Date Inactivated Comments 10/30/2022 9:35 AM 10/30/2022 9:35 AM * Full Code Date Activated Date Inactivated Comments 04/07/2022 1:32 PM 04/07/2022 8:36 PM * Full Code Date Activated Date Inactivated Comments 12/11/2021 9:43 AM 12/11/2021 5:10 PM * Full Code Date Activated Date Inactivated Comments 12/11/2021 9:43 AM 12/11/2021 9:43 AM Care Teams Dispatcher Service Relationship Specialty Start Date End Date Ashley Mcneal PA [address] [place] [address] PCP - General Internal Medicine 08/04/18 Denilson Kyle MD [address] [place] [address] Consulting Physician Nephrology 03/08/20 Kyree Noonan MD [address] [facility] [address] [place] [address] Consulting Physician Cardiology 03/19/21 Ashish Fonseca MD [address] [facility] [address] [place] [address] Surgeon Surgery 03/21/21 Betsy Bro, RN [address] [address] Greenhouse Grower 08/23/21 Betsy Bro, CINDY [address] [facility] [address] [place] [address] Registered Nurse Greenhouse Grower 08/23/21 Natali Cano, GARBAGE PERSON [address] [address] Nurse Practitioner Endocrinology Diabetes & Metabolism 11/19/21 Brian Cedeno MD [address] [address] Referring Physician Dermatology 12/17/22 [facility] [place] Dentist 05/07/23
--- OUTSIDE RECORDS SUMMARY | 2024-06-02 11:15 | XMS_ITS ---
Author Organization [facility] [address] [facility] Address [address] [place] [address] Care Team Providers Care Support Associate Name Role Phone Ashley Mcneal Primary Care Provider + [phone] Denilson Vee MD Unavailable [phone] Kyree Noonan MD Unavailable [phone] Ashish Fonseca MD Unavailable [phone] Betsy Bro RN Unavailable [phone] Betsy Bro RN Unavailable [phone] Natali Cano NP Unavailable [phone] Brian Cedeno MD Unavailable Transplant Episode Kidney Candidate [facility] ([place], [place]) [facility] Center waitlisted on 04/24/2022 Marked as Active on 12/28/2023 Reason: Listed in [facility] Kidney CoordinatorBetsy Bro RN Email: N/A Scores Score Value Updated Exceptions/Reas ons CPRA Not available EPTS (Calc) 55 06/02/2024 [place] Organ Diagnosis Organ Primary Contributory Kidney Diabetes Mellitus - Type II Infection History Noted Survival Infection Treatment Organism Resolved 12/15/2023 Infection of index finger Care Team Name Role Phone Fax Email Betsy Bro RN Kidney Coordinator [phone] N/A Irina Carmona Copy Lathe Operator [phone] N/A N/A Events Pre-Transplant Referred: 11/30/2020 Evaluation began: 11/19/2021 Committee: 04/21/2022 [facility]OS qualified: 11/12/2020 Center waitlisted: 04/24/2022 Dialysis History Dialysis History Start End Type Comments Center 11/12/2020 Home Hemodialysis [facility] Dialysis Center Information Center Phone Fax Address [facility] [phone] [place] [address]
--- OUTSIDE RECORDS SUMMARY | 2024-06-02 11:15 | XMS_ITS | Encounter Summary ---
Author Organization [facility] Facility Care Team Providers Care Veterinary Poultry Inspector Name Role Phone Ashley Mcneal Primary Care Provider + [phone] Denilson Vee MD Unavailable [phone] Kyree Noonan MD Unavailable [phone] Ashish Fonseca MD Unavailable [phone] Betsy Bro RN Unavailable Betsy Bro RN Unavailable Natali Cano NP Unavailable [phone] Brian Cedeno MD Unavailable Encounter Details Date Type Department Care Team (Latest Contact Info) Description 01/15/2015 Orders Only [facility] CLINCONV Provider, MD Rachel [address] [place] [address] Social History Tobacco Use Types Packs/Day Years Used Date Smoking Tobacco: Never Assessed Sex and Gender Information Value Date Recorded Sex Assigned at Not on file 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 us Historical Provider Final Res ult documented in this encounter Visit Diagnoses Not on filedocumented in this encounter Care Teams Veterinary Poultry Inspector Relationship Specialty Start Date End Date Ashley Mcneal PA [address] [place] [address] PCP - General Internal Medicine 08/04/18 Denilson Vee MD [address] [place] [address] Consulting Physician Nephrology 03/08/20 Kyree Noonan MD [address] [facility] [address] [address] Consulting Physician Cardiology 03/19/21 Ashish Fonseca MD [address] [facility] [address] [address] Surgeon Surgery 03/21/21 Betsy Bro RN [address] [address] Rn Recovery 08/23/21 Betsy Bro RN [address] [address] Registered Nurse Rn Recovery 08/23/21 Natali Cano NP [address] [address] Nurse Practitioner Endocrinology Diabetes & Metabolism 11/19/21 Brian Cedeno MD [address] [address] Referring Physician Dermatology 12/17/22 [facility] Dentist 11/19/21 05/06/23 [facility] Pt Sitter 12/17/22 12/17/22 [facility] [place] Dentist 05/07/23 documented as of this encounter
--- OUTSIDE RECORDS SUMMARY | 2024-06-02 11:15 | XMS_ITS | Encounter Summary ---
Author Organization [facility] Facility Care Team Providers Care Ceramic Engineering Professor Name Role Phone Ashley Mcneal Primary Care Provider + [phone] Denilson Vee MD Unavailable [phone] Kyree Noonan MD Unavailable [phone] Ashish Fonseca MD Unavailable [phone] Betsy Bro RN Unavailable Betsy Bro RN Unavailable [phone] Natali Cano NP Unavailable [phone] Brian Cedeno MD Unavailable Encounter Details Date Type Department Care Team (Latest Contact Info) Description 10/07/2014 Orders Only [facility] CLINCONV Provider, MD Rachel [address] [place] [address] Social History Tobacco Use Types Packs/Day Years Used Date Smoking Tobacco: Never Assessed Sex and Gender Information Value Date Recorded Sex Assigned at Not on file 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 Gender Identity Male 06/27/2020 3:28 PM CDT [...] on filedocumented in this encounter Care Teams Ceramic Engineering Professor Relationship Specialty Start Date End Date Ashley Mcneal PA [address] [place] [address] PCP - General Internal Medicine 08/04/18 Denilson Vee MD [address] [place] [address] Consulting Physician Nephrology 03/08/20 Kyree Noonan MD [address] [facility] [address] [address] Consulting Physician Cardiology 03/19/21 Ashish Fonseca MD [address] [facility] [address] [address] Surgeon Surgery 03/21/21 Betsy Bro RN [address] [address] Milk Runner 08/23/21 Betsy Bro RN [address] [address] Registered Nurse Milk Runner 08/23/21 Natali Cano NP [address] [address] Nurse Practitioner Endocrinology Diabetes & Metabolism 11/19/21 Brian Cedeno MD [address] [address] Referring Physician Dermatology 12/17/22 [facility] Dentist 11/19/21 05/06/23 [facility] Medical Supervisor 12/17/22 12/17/22 [facility] [place] Dentist 05/07/23 documented as of this encounter
--- OUTSIDE RECORDS SUMMARY | 2024-06-02 11:15 | XMS_ITS | Encounter Summary ---
Author Organization [facility] Healthcare Address [address] [place] [address] Care Team Providers Care Talent Acquisition Director Name Role Phone Ashley Mcneal Primary Care Provider +- [phone] Denilson Vee MD Unavailable [phone] Kyree Noonan MD Unavailable [phone] Ashish Fonseca MD Unavailable [phone] Betsy Bro RN Unavailable Betsy Bro RN Unavailable Natali Cano NP Unavailable [phone] Brian Cedeno MD Unavailable Encounter Details Date Type Department Care Team (Late st Contact Info) Description 06/12/2022 Telephone [facility] Medical Office Building [address] [place] [address] Ashish Fonseca MD [address] [facility] [address] [place] [address] Social History Tobacco Use Types Packs/Day Years Used Date Smoking Tobacco: Former Cigarettes Q uit: 03/22/2005 Smokeless Tobacco: Never Alcohol Use Standard Drinks/Week Comments Never 0 (1 standard drink = 0.6 oz pur e alcohol) AUDIT-C Answer Date Recorded Q1: How often do you have a drink containing alcohol? Never 06/13/2022 Q2: How many drinks containi ng alcohol do you have on a typical day when you are drinking? Patient does not drink Q3: How often do you have si x or more drinks on one occasion? 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 Never 06/13/2022 10:28 AM MICHELLET Aviva Reeder RN Q2: How many drinks containing alcohol do you have on a typical day when you are drinking? Patient does not drink 06/13/2022 10:28 AM MICHELLET Aviva Reeder RN Q3: How often do you have six or more drinks on one occasion? Never 06/13/2022 10:28 AM Aviva Coker RN documented as of this encounter Plan of Treatment Not on file documented as of this encounter Visit Diagnoses Not on filedocumented in this encounter Care Teams Talent Acquisition Director Relationship Specialty Start Date End Date Ashley Mcneal PA [address] [facility] [address] [place] [address] PCP - General Internal Medicine 08/04/18 Denilson Vee MD [address] [facility] [facility] [address] [place] [address] Consulting Physician Nephrology 03/08/20 Kyree Noonan MD [address] [facility] [address] [place] [address] Consulting Physician Cardiology 03/19/21 Ashish Fonseca MD [address] [facility] [address] [place] [address] Surgeon Surgery 03/21/21 Betsy Bro, CINDY [address] [address] Proof Press Operator 08/23/21 Betsy Bro RN [address] [address] Registered Nurse Proof Press Operator 08/23/21 Natali Cano NP [address] [address] Nurse Practitioner Endocrinology Diabetes & Metabolism 11/19/21 Brian Cedeno MD [address] [facility] [address] [address] Referring Physician Dermatology 12/17/22 [facility] Dentist 11/19/21 05/06/23 [facility] Warehouse Worker 2Nd Shift 12/17/22 12/17/22 [facility] [place] Dentist 05/07/23 documented as of this encounter
--- OUTSIDE RECORDS SUMMARY | 2024-06-02 11:15 | XMS_ITS | Clinical Summary ---
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 Gender Identity Not on file Sexual Orientation Not on file Plan of Treatment Health Maintenance Due Date Last Done Comments Colorectal Cancer Screening Colonoscopy (10 Years) 1977 Annual Physical 1980 Hepatitis C 1995 DTaP, Tdap and Td Vaccines ( 1 - Tdap) 1996 Hepatitis B Vaccines (1 of 3 - 19+ 3-dose series) 1996 COVID-19 Vaccine (2023-2 5 season) 2023 Influenza Adult (#1) 2023 Meningococcal B Vaccine Aged Out No l onger eligible based on patient's age to complete this topic Meningococcal Vaccine Aged Out No maurisio elana eligible based on patient's age to complete this topic Pneumococcal Vaccine: Pediat rics (0 to 5 Years) and At-Risk Patients (6 to 64 Years) Aged Out No longer eligible b ased on patient's age to complete this topic RSV Immunizations Under 20 Months Aged Out No longer eligible based on patient's age to complete this topic
--- OUTSIDE RECORDS SUMMARY | 2024-06-02 11:15 | XMS_ITS | Encounter Summary ---
Author Organization [facility] Healthcare Address [address] [place] [address] Care Team Providers Care Environmental Inspector Name Role Phone Ashley Mcneal Primary Care Provider + [phone] Denilson Vee MD Unavailable [phone] Kyree Noonan MD Unavailable [phone] Ashish Fonseca MD Unavailable [phone] Betsy Bro RN Unavailable [phone] Betsy Bro RN Unavailable Natali Cano NP Unavailable [phone] Brian Cedeno MD Unavailable Encounter Details Date Type Department Care Team (Late st Contact Info) Description 07/20/2023 Telephone [facility] D[facility] Access [facility] at [facility] [address] [facility] [address] [place] [address] Ashish Fonseca MD [address] [place] [address] [address] [place] [address] Social History Tobacco Use Types Packs/Day Years Used Date Smoking Tobacco: Former Cigarettes Q uit: 03/22/2005 Smokeless Tobacco: Never Alcohol Use Standard Drinks/Week Comments Never 0 (1 standard drink = 0.6 oz pur e alcohol) AUDIT-C Answer Date Recorded Q1: How often do you have a drink containing alcohol? Never 05/26/2023 Q2: How many drinks containi ng alcohol do you have on a typical day when you are drinking? Patient does not drink Q3: How often do you have si x or more drinks on one occasion? Never 05/26/2023 PHQ-2 Answer Date Recorded PHQ-2 Total Score 1 05/26/2023 Personal Safety Answer Date Recorded Have you ever been in or are you currently in a harmful physical or emotional relationship or is someone making you feel afraid or unsafe? 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 Not on file documented as of this encounter Plan of Treatment Not on file documented as of this encounter Visit Diagnoses Not on filedocumented in this encounter Care Teams Environmental Inspector Relationship Specialty Start Date End Date Ashley Mcneal PA [address] [place] [address] PCP - General Internal Medicine 08/04/18 Denilson Vee MD [address] [place] [address] Consulting Physician Nephrology 03/08/20 Kyree Noonan MD [address] [facility] [address] [place] [address] Consulting Physician Cardiology 03/19/21 Ashish Fonseca MD [address] [facility] [address] [place] [address] Surgeon Surgery 03/21/21 Betsy Bro, CINDY [address] [address] Electric Blanket Packer 08/23/21 Betsy Bro, CINDY [address] [facility] [address] [place], [place] [address] Registered Nurse Electric Blanket Packer 08/23/21 Natali Cano APPRAISER TIMBER [address] [facility] [address] [place] [address] Nurse Practitioner Endocrinology Diabetes & Metabolism 11/19/21 Brian Cedeno MD [address] [address] Referring Physician Dermatology 12/17/22 [facility] [place] Dentist 05/07/23 documented as of this encounter
[2024-06-02 11:16] VITALS: BP 156/76; PULSE 66; O2SAT 100
--- OUTSIDE RECORDS SUMMARY | 2024-06-02 11:16 | XMS_ITS | Referral Summary ---
Author Organization [facility] [address] [facility] Address [address] [place] [address] Care Team Providers Care Heat And Frost Insulator Name Role Phone Ashley Mcneal Primary Care Provider [phone] Denilson Kyle MD Unavailable [phone] Kyree Noonan MD Unavailable [phone] Ashish Fonseca MD Unavailable [phone] Betsy Bro RN Unavailable Betsy Bro RN Unavailable Natali Cano NP Unavailable [phone] Brian Cedeno MD Unavailable Encounters Date Type Department Care Team Description 05/30/2024 Telephone [facility] Transplant Kidney [address] [facility] [address] [phone] [place] [address] Brionna Palma 05/26/2024 11:00 AM FIELD INVESTIGATOR Office Visit [facility] Family Medicine [address] [facility] [address] [place] [phone] Ashley Mcneal PA Welcome to Medicare preventive visit (Primary Dx); BMI 26.0-26.9,adult 05/20/2024 Telephone [facility] Transplant Kidney [address] [facility] [address] [phone] [place] [address] Betsy Bro RN 05/09/2024 10:30 AM FIELD INVESTIGATOR Office Visit 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 with type 2 diabetes mellitus (HCC); Diabetes mellitus due to underlying condition with diabetic neuropathy, with long-term current use of insulin (CMS/HCC) (HCC); Hypertension in chronic kidney disease due to type 2 diabetes mellitus ([facility]); Mixed diabetic hyperlipidemia associated with type 2 diabetes mellitus ([facility]); Medtronic 780 g Insulin pump titration 05/06/2024 Documentation [facility] Transplant Kidney [address] [facility] [address] [place] [address] [id number] [place] [address] Ysabel Jefferson 05/06/2024 Nurse Triage [facility] Family Medicine [address] [facility] [address] [place] [address] Ashley Mcneal PA 05/05/2024 10:00 AM FIELD INVESTIGATOR - 05/05/2024 11:59 PM FIELD INVESTIGATOR Hospital Encounter [address] [address] ESRD (end stage renal disease) ([facility]) Discharge Disposition: Discharge to home or self care 05/02/2024 Telephone [facility] Transplant Kidney [address] [facility] [address] [facility] [phone] [place] [address] Ysabel Jefferson 04/26/2024 11:15 AM FIELD INVESTIGATOR Office Visit [facility] Cardiology [address] [facility] [address] [address] Kyree Noonan MD Coronary artery disease involving [place] coronary artery of [place] heart without angina pectoris (Primary Dx); Mixed hyperlipidemia; Essential hypertension, benign; Nonrheumatic pulmonary valve stenosis 04/19/2024 11:00 AM FIELD INVESTIGATOR Office Visit [facility] Medical [facility] Gastroenterology at [place] [address] [facility] [address] [place] [phone] Salma Reyes MD Nausea and vomiting, unspecified vomiting type (Primary Dx); Gastroesophageal reflux disease without esophagitis; Tubular adenoma of colon 04/06/2024 10:00 AM FIELD INVESTIGATOR - 04/06/2024 11:59 PM FIELD INVESTIGATOR [place] [address] Discharge Disposition: Discharge to home or self care 04/01/2024 10:58 AM FIELD INVESTIGATOR - 04/01/2024 11:59 PM FIELD INVESTIGATOR Hospital Encounter [facility] Dialysis Access Center at [facility] [address] [place] [address] [address] [place] [address] ESRD (end stage renal disease) on dialysis (HCC) (Primary Dx); Other complication of arteriovenous dialysis fistula, subsequent encounter Discharge Disposition: Discharge to home or self care 04/01/2024 10:58 AM FIELD INVESTIGATOR - 04/01/2024 11:59 PM FIELD INVESTIGATOR Hospital Encounter [facility] Medical Office Building [address] [place] [address] [place] [id number] Dependence on renal dialysis; End stage renal disease (HCC); Other complication of arteriovenous dialysis fistula, initial encounter Discharge Disposition: Discharge to home or self care 03/25/2024 Orders Only [facility] Dialysis Access Center at [address] [address] Ashish Fonseca MD Dependence on renal dialysis (Primary Dx); End stage renal disease (HCC); Other complication of arteriovenous dialysis fistula, initial encounter 03/11/2024 11:00 AM FIELD INVESTIGATOR - 03/11/2024 12:00 PM FIELD INVESTIGATOR Surgery [facility] Cardiac Senior Professional Services Consultant [address] [place] [address] Ashish Fonseca MD Dialysis Circuit Angiogram 03/11/2024 9:01 AM FIELD INVESTIGATOR - 03/11/2024 10:59 AM FIELD INVESTIGATOR Hospital Encounter [facility] Cardiac Senior Professional Services Consultant [address] [place] [id number] Ashish Fonseca MD ESRD (end stage renal disease) on dialysis ([facility]) Discharge Disposition: Discharge to home or self care 03/07/2024 Telephone [facility] at [facility] [address] [facility] [address] [place] [address] Ashish Fonseca MD from Last 3 Months Allergies Active Allergy Reactions Criticality Noted Date Comments Adhesive Rash Medium 03/19/2021 Plastic tape. Pt does ok with paper tape Gabapentin Other (See comments),Hallucinat ions Medium 06/13/2022 [place] bad all over - took for [place] pain - gabapentin made me feel worse/ high Neosporin (Neomycin-Polymyx) Rash Medium 08/09/2018 Medications blood-glucose meter (glucose monitoring kit) kit Please provide a glucometer that his insurance approves with strips and lancet to test daily. 1 each Active Additional Information Patient not taking.Informant: Self, Reported on 05/26/2024 lancets 33 gauge miscIndications:D iabetes mellitus due to underlying condition with diabetic neuropathy, without long-term current use of insulin ([facility]) Check daily accuchecks as instructed 100 each [...] mcg total) by mouth every other day 023 Active aspirin 81 mg enteric coated tablet Take 1 tablet (81 mg total) by mouth daily Active insulin aspart (NovoLOG) 100 unit/mL vial for injection INFUSE INSULIN PER MEDTRONIC INSULIN PUMP DIRECTED. MAX DAILY DOSE- 50 UNITS. 50 mL 11 023 Active furosemide (LASIX) 80 mg tablet Take [...] A WEEK ON THURSDAY 12 capsule 2 024 Active cloNIDine (CATAPRES) 0.1 mg tablet Take [...] 05/29/2023 Assessment & Plan (05/26/2024 11:16 AM FIELD INVESTIGATOR): Weight/BMI is in healthy range. Continue healthy lifestyle to maintain. Assessment & Plan (10/11/2023 9:45 PM CDT): Weight/BMI is in healthy range. Continue healthy lifestyle to maintain. Assessment & Plan (05/29/2023 12:07 AM FIELD INVESTIGATOR): Weight/BMI is in healthy range. Continue healthy lifestyle to maintain. Other complication of arteriovenous dialysis [facility] 04/21/2023 Severe nonproliferative diab etic retinopathy of left eye with macular edema associated with type 2 diabetes mellitus 12/23/2022 Assessment & Plan (05/29/2023 12:06 AM FIELD INVESTIGATOR): Continue per Ophthalmology. Stressed importance of routine [...] He states he is going to late [place] but encouraged him to stay on the [...] He states he is going to [place] but encouraged him to stay on the [...] that time Coronary artery disease invo lving [place] coronary artery of [place] heart without angina pectoris 04/16/2022 Assessment & Plan (04/16/2022 11:16 AM FIELD INVESTIGATOR): I reviewed the cardiac catheterization findings with him. Patient had nonocclusive disease. Advised him to take baby aspirin every day. The right groin looks good without any hematoma or bruit. Gastritis 04/04/2022 Duodenitis 04/04/2022 Hypercholesterolemia 03/17/2022 Assessment & Plan (04/16/2022 11:17 AM FIELD INVESTIGATOR): Recent lipid panel showed normal LDL. Continue the Crestor. I will repeat his lipids and LFTs in 6 months. Discussed low-cholesterol diet. Essential hypertension, benign 03/17/2022 Assessment & Plan (02/23/2024 2:29 PM FIELD INVESTIGATOR): Impression: Chronic and elevated. Patient remains asymptomatic. [...] mg. Assessment & Plan (04/16/2022 11:17 AM FIELD INVESTIGATOR): Blood pressure is well controlled. Continue current medications and low-salt diet. Erectile dysfunction 02/08/2022 Assessment & Plan (02/08/2022 8:44 PM FIELD INVESTIGATOR): Patient notes difficulty with obtaining an erection/firmness. [...] scan. Assessment & Plan (04/11/2021 10:32 AM FIELD INVESTIGATOR): Patient states fistula and cannulation significantly improved following recent procedure. Will continue 3 months duplex surveillance. Assessment & Plan (03/21/2021 8:49 AM FIELD INVESTIGATOR): Patient has findings consistent with high-grade outflow [...] 12/26/2020 Assessment & Plan (05/29/2023 12:07 AM FIELD INVESTIGATOR): Encouraged healthy lifestyle, good nutrition and exercise. Encouraged Calcium and Vitamin D and weight bearing exercise for bone health. Reviewed immunizations Reviewed age appropirate screenings. Assessment & Plan (02/08/2022 8:43 PM FIELD INVESTIGATOR): Encouraged healthy lifestyle, good nutrition and exercise. [...] list Assessment & Plan (05/29/2023 12:06 AM FIELD INVESTIGATOR): Patient is on dialysis at home. Managed by Dr. Kyle Fluid overload, unspecified 12/04/2020 Hypotension of hemodialysis 12/04/2020 Localized edema 12/04/2020 Anemia in chronic kidney disease 12/03/2020 Assessment & Plan (11/22/2021 12:00 PM CDT): Stable, no signs of GI blood loss ESRD (end stage renal disease) on dialysis 12/03 Assessment & Plan (02/23/2024 2:29 PM FIELD INVESTIGATOR): Impression: Patient is undergoing home dialysis through [...] procedure. Assessment & Plan (03/11/2022 1:32 PM FIELD INVESTIGATOR): Impression: Patient has a left brachial cephalic [...] Nephrology. Assessment & Plan (04/11/2021 10:32 AM FIELD INVESTIGATOR): Continue home dialysis. Follow-up 3 months. Assessment & Plan (03/21/2021 8:49 AM FIELD INVESTIGATOR): Continue dialysis 3 times weekly per Nephrology direction. Iron deficiency anemia, unspecified 12/03/2020 Other fatigue 11/28/2020 Nonrheumatic pulmonary valve stenosis 11/28/2020 Assessment & Plan (04/16/2022 11:17 AM FIELD INVESTIGATOR): He has only mild gradient up to 10 mm by cardiac catheterization. Continue to monitor clinically. Medtronic 780 g Insulin pump titration Assessment & Plan (05/09/2024 10:35 AM FIELD INVESTIGATOR): This is a chronic condition which is [...] hyperglycemia. Assessment & Plan (06/02/2023 2:25 PM FIELD INVESTIGATOR): This is a chronic condition which is [...] it Assessment & Plan (02/26/2023 11:52 AM FIELD INVESTIGATOR): This is a chronic condition which is [...] time. Encouraged auto mode. Without hypoglycemia. . BIG Launchers continuous glucose monitor applied from 09/25/2021 to [...] time. Encouraged auto mode. Without hypoglycemia. . BIG Launchers continuous glucose monitor applied from 05/30/2021 to [...] this tablet she with Dr. Noonan. In [place] 03/25/2020 Assessment & Plan (03/25/2020 7:09 PM FIELD INVESTIGATOR): Suspect infection has resolved with antibiotic and [...] 03/29/2019 Assessment & Plan (05/29/2023 12:05 AM FIELD INVESTIGATOR): Patient's depression symptoms are stable without medication. Seeing counselor and doing well. Will continue to monitor Assessment & Plan (02/08/2022 8:43 PM FIELD INVESTIGATOR): Stable without medication. Continuing with counselor and [...] medication. Assessment & Plan (03/29/2019 2:09 PM FIELD INVESTIGATOR): Patient has depression symptoms with tendencies towards [...] 02/27/2019 Assessment & Plan (02/27/2019 6:04 PM FIELD INVESTIGATOR): Check urine culture. Suspect musculoskeletal pain. Flexeril [...] continue Assessment & Plan (02/08/2022 8:43 PM FIELD INVESTIGATOR): Continue PPI p.r.n. Assessment & Plan (11/22/2021 12:08 PM CDT): Stable, will schedule EGD. Hold off on PPI for now as symptoms mostly diet controlled. Assessment & Plan (11/19/2019 10:35 AM CDT): Continue PPI prn Assessment & Plan (02/13/2019 7:53 PM FIELD INVESTIGATOR): With PPI Assessment & Plan (08/25/2018 10:21 [...] prescribed. Assessment & Plan (05/29/2023 12:06 AM FIELD INVESTIGATOR): Encouraged patient to follow low fat/low chol diet like the Mediterranean diet. Increase good fats in the diet. Increase exercise. Monitor labs as needed. Continue statin Assessment & Plan (02/26/2023 11:51 AM FIELD INVESTIGATOR): This is a chronic condition which is [...] prescribed. Assessment & Plan (03/11/2022 1:23 PM FIELD INVESTIGATOR): Impression: Chronic hyperlipidemia, controlled with statin therapy. Plan: Statin therapy as per primary care provider. Assessment & Plan (02/08/2022 8:41 PM FIELD INVESTIGATOR): Continue statin and Vascepa Assessment & Plan (10/27/2021 10:15 PM CDT): Stressed importance of continued A1c control to minimize the computer terminal operator effects of diabetes. Bring accuchecks to office [...] 2020. Assessment & Plan (03/21/2021 8:48 AM FIELD INVESTIGATOR): Type 2 diabetes mellitus with hyperlipidemia chronic [...] vascepa Assessment & Plan (03/09/2020 8:34 PM FIELD INVESTIGATOR): Continue statin. Start vascepa. Encouraged coupon. Tolerated well in the past. Reviewed risks, benefit, alternatives, side effects and proper use. Assessment & Plan (11/19/2019 10:36 AM CDT): Encouraged patient to continue low fat/low chol diet. Continue exercise. Increase good fats in the diet. Monitor labs as needed. Restart statin Assessment & Plan (02/13/2019 7:55 PM FIELD INVESTIGATOR): Stressed importance of continued A1c control to minimize the shelter effects of diabetes. Bring accuchecks to office [...] 08/08/2018 Assessment & Plan (02/23/2024 1:30 PM FIELD INVESTIGATOR): Impression: Chronic with good glucose control. Plan: [...] dialysis Assessment & Plan (06/02/2023 2:23 PM FIELD INVESTIGATOR): This is a chronic condition which is [...] Vascepa Assessment & Plan (05/29/2023 12:05 AM FIELD INVESTIGATOR): Stressed importance of continued A1c control to minimize the computer terminal operator effects of diabetes. Bring accuchecks to office [...] Kyle Assessment & Plan (02/26/2023 11:50 AM FIELD INVESTIGATOR): This is a chronic condition which is [...] 100-120. Manual mode. Encouraged to upgrade to BIG Launcher 780g Monitor blood sugar 3-4 times a [...] last dilated eye exam was [facility] [place] Monofilament foot exam completed. protective senses intact [...] insulin. Assessment & Plan (03/11/2022 1:24 PM FIELD INVESTIGATOR): Impression: Chronic diabetes mellitus with the use of insulin. Good glucose control per patient. Plan: Continue glucose monitoring and management as per primary care provider. Assessment & Plan (02/08/2022 8:42 PM FIELD INVESTIGATOR): Stressed importance of continued A1c control to minimize the computer terminal operator effects of diabetes. Bring accuchecks to office [...] 6.6% at goal less than 7% Medication- BIG Launcher 770g insulin pump and sensor. Switched to auto mode today. Monitor blood sugar 4times a day. Encouraged annual eye exam. last dilated eye exam was at [facility] [place] Monofilament foot exam completed, protective senses intact, Urine microalbumin/creatinine ratio - on dialysis. Known kidney failure. Personally reviewed labs: BUN- 88, creatinine-4.78, GFR-30 Chronic kidney disease on home hemodialysis - Sees Dr. Kyle in [place] for nephrology. B/P today-134/60 currently on atenolol,clonidine, cardura and losartan. At goal blood pressure is <140/90 and as close to 120/80 as possible. Personally reviewed LDL - 33, Trig-208, currently on crestor, vaspeca. at Goal of less than 70. Triglycerides will reduce as blood sugars improved. No history of macrovascular disease - [place]. Assessment & Plan (06/12/2021 10:49 AM CDT): This is a chronic condition which is at goal. Personally reviewed A1c today- 6.8% at goal less than 7% Medication- Medtronic 770g insulin pump and sensor. Switched to auto mode today. Monitor blood sugar 4times a day. Encouraged annual eye exam. last dilated eye exam was at [facility] [place] Monofilament foot exam completed, protective senses intact, Urine microalbumin/creatinine ratio - on dialysis. Known kidney failure. Personally reviewed labs: BUN- 88, creatinine-4.78, GFR-30 Chronic kidney disease on dialysis - Sees Dr. Kyle in [place] for nephrology. B/P today-130/56 currently on atenolol,clonidine, cardura. At goal blood pressure is <140/90 and as close to 120/80 as possible. Personally reviewed LDL - not calculated, Trig-860, currently on crestor, vaspeca. Not at Goal of less than 70. Triglycerides will reduce as blood sugars improved. No history of macrovascular disease - [place], [place]. Assessment & Plan (04/11/2021 10:32 AM FIELD INVESTIGATOR): Type 2 diabetes chronic and currently controlled. Continue insulin therapy per PCP. Assessment & Plan (12/26/2020 10:05 AM CDT): Stressed importance of continued A1c control to minimize the shelter effects of diabetes. Bring accuchecks to office [...] exam. last dilated eye exam was at [place], [place]. Monofilament foot exam completed, protective senses intact, Urine microalbumin/creatinine ratio - on dialysis. Known kidney failure. Personally reviewed labs: BUN- 88, creatinine-4.78, GFR-30 Chronic kidney disease on dialysis - Sees Dr. Kyle in [place] for nephrology. B/P today-150/76, currently on atenolol, amlodipine, atenolol At goal blood pressure is <140/90 and as close to 120/80 as possible. Personally reviewed(06.15.20) LDL - not calculated, Trig-860, currently on crestor, vaspeca. Not at Goal of less than 70. Triglycerides will reduce as blood sugars improved. No history of macrovascular disease - [place], [place]. Assessment & Plan (09/24/2020 3:49 PM CDT): [...] Monitor blood sugar 4times a day. Wears Medtronic Guardian sensor. Is interested in pump therapy and would like to investigate the Tandem tslim pump Encouraged annual eye exam. last dilated eye exam was at [place], [place]. Monofilament foot exam completed, protective senses intact, Urine microalbumin/creatinine ratio - 5410 currently atenolol, not at goal <30, Know kidney failure. Personally reviewed labs: (08/09/20) BUN- 50, creatinine-3.3, GFR-30 Chronic kidney disease stage 4- having dialysis catheter placed . Sees Dr. Kyle in [place] for nephrology. B/P today-142/88, currently on atenolol, amlodipine, atenolol At goal blood pressure is <140/90 and as close to 120/80 as possible. Personally reviewed(06.15.20) LDL - not calculated, Trig-860, currently on crestor, vaspeca. Not at Goal of less than 70. Triglycerides will reduce as blood sugars improved. No history of macrovascular disease - [place]. Insulin deficiency. Patient is on 3 or [...] exam. last dilated eye exam was at [place], [place]. Monofilament foot exam completed, protective senses intact, Urine microalbumin/creatinine ratio - 5410 currently atenolol, not at goal <30 Personally reviewed labs: BUN- 51, creatinine-3.22, GFR-22 Chronic kidney disease stage 4- having dialysis catheter placed . Sees Dr. Kyle in [place] for nephrology. B/P today-118/76, currently on atenolol, At goal blood pressure is <140/90 and as close to 120/80 as possible. Personally reviewed(06.15.20) LDL - not calculated, Trig-860, currently on crestor, vaspeca. Not at Goal of less than 70. Triglycerides will reduce as blood sugars improved. Monitor and repeat labs later in 2020. No history of macrovascular disease - [place]. Insulin deficiency. Patient is on 3 or [...] exam. last dilated eye exam was at [place], [place]. Monofilament foot exam completed, protective senses [...] No history of macrovascular disease - [place], [place]. Assessment & Plan (11/19/2019 10:36 AM CDT): Stressed importance of continued A1c control to minimize the computer terminal operator effects of diabetes. Bring accuchecks to office when instructed to do so. Check A1c about every 3-6 months. Take medication as prescribed. Get annual eye exam. Encouraged KHANH/Statin if able to tolerate. Encouraged weight control and encouraged diabetic diet and exercise. Continue metformin. Holding Basaglar as A1c is at goal. Assessment & Plan (02/13/2019 7:54 PM FIELD INVESTIGATOR): Stressed importance of continued A1c control to minimize the computer terminal operator effects of diabetes. Bring accuchecks to office [...] of continued A1c control to minimize the shelter effects of diabetes. Bring accuchecks to office [...] prescribed. Assessment & Plan (06/02/2023 2:24 PM FIELD INVESTIGATOR): This is a chronic condition which is at goal of less than 140/90 Continue amlodipine, atenolol, clonidine Encouraged to monitor weight and B/P at home Encouraged to take medications as prescribed. Assessment & Plan (02/26/2023 11:51 AM FIELD INVESTIGATOR): This is a chronic condition which is [...] prescribed. Assessment & Plan (03/11/2022 1:24 PM FIELD INVESTIGATOR): Impression: Chronic hypertension, controlled medications. Blood pressure stable. Plan: Continue blood pressure management as per primary care provider. Assessment & Plan (02/08/2022 8:42 PM FIELD INVESTIGATOR): Bp is stable/in acceptable range for any co-morbidities. Encouraged to limit sodium intake and exercise for weight control. Continue per Nephrology Assessment & Plan (12/26/2020 10:05 AM CDT): Bp is stable/in acceptable range for any co-morbidities. Encouraged to limit sodium intake and exercise for weight control. Avoid nephrotoxic drugs including NSAIDs. Monitor labs. Stressed importance of continued A1c control to minimize the shelter effects of diabetes. Bring accuchecks to office [...] of continued A1c control to minimize the computer terminal operator effects of diabetes. Bring accuchecks to office [...] evaluation. Assessment & Plan (03/09/2020 8:22 PM FIELD INVESTIGATOR): Stressed importance of continued A1c control to minimize the computer terminal operator effects of diabetes. Bring accuchecks to office [...] weeks. Assessment & Plan (02/13/2019 7:53 PM FIELD INVESTIGATOR): Bp is stable/in acceptable range for any [...] list Assessment & Plan (02/08/2022 8:42 PM FIELD INVESTIGATOR): Patient is on the transplant list. Currently [...] . Assessment & Plan (03/25/2020 7:11 PM FIELD INVESTIGATOR): Avoid nephrotoxic drugs including NSAIDs. Monitor labs. Continue per Dr. Kyle Assessment & Plan (03/09/2020 8:34 PM FIELD INVESTIGATOR): Continue per Dr. Kyle Assessment & Plan (11/19/2019 10:36 AM CDT): Per Dr. Kyle Assessment & Plan (02/13/2019 7:53 PM FIELD INVESTIGATOR): Stressed importance of continued A1c control to minimize the computer terminal operator effects of diabetes. Bring accuchecks to office [...] neuropathy, with long-term current use of insulin ([facility]) 08/08/2018 Assessment & Plan (02/08/2022 8:42 PM FIELD INVESTIGATOR): Stressed importance of continued A1c control to minimize the shelter effects of diabetes. Bring accuchecks to office [...] of continued A1c control to minimize the computer terminal operator effects of diabetes. Bring accuchecks to office [...] function. Assessment & Plan (03/29/2019 2:04 PM FIELD INVESTIGATOR): Stressed importance of continued A1c control to minimize the computer terminal operator effects of diabetes. Bring accuchecks to office when instructed to do so. Check A1c about every 3-6 months. Take medication as prescribed. Get annual eye exam. Encouraged KHANH/Statin if able to tolerate. Encouraged weight control and encouraged diabetic diet and exercise. Continue working on tight control. Check labs Assessment & Plan (02/13/2019 7:52 PM FIELD INVESTIGATOR): Improving control of DM Continue to monitor Assessment & Plan (09/18/2018 10:25 PM CDT): Stressed importance of continued A1c control to minimize the shelter effects of diabetes. Bring accuchecks to office [...] of continued A1c control to minimize the shelter effects of diabetes. Bring accuchecks to office [...] allopurinol Assessment & Plan (02/13/2019 7:55 PM FIELD INVESTIGATOR): No flairs. Continue allopurinol Assessment & Plan (08/25/2018 10:19 AM CDT): Continue allopurinol. MAGNO on CPAP 08/08/2018 Assessment & Plan (02/08/2022 8:42 PM FIELD INVESTIGATOR): Continue CPAP Assessment & Plan (12/26/2020 10:06 AM CDT): Continue Cpap. Has supplies Assessment & Plan (03/09/2020 8:21 PM FIELD INVESTIGATOR): Continue CPAP treatment Assessment & Plan (11/19/2019 10:34 AM CDT): Continue to use nightly. Has needed supplies Assessment & Plan (02/13/2019 7:52 PM FIELD INVESTIGATOR): Continue CPAP. Using nightly Assessment & Plan (09/18/2018 10:26 PM CDT): Continue CPAP Assessment & Plan (08/25/2018 10:15 AM CDT): Using regular. Has all needed supplies. Abnormal EKG 11/14/2015 Sinus tachycardia 11/14/2015 Resolved Problems Problem Noted Date Diagnosed Date Resolved Date ESRD (end stage renal disease) 04/13/2023 11/30/2023 Assessment & Plan (05/29/2023 12:08 AM FIELD INVESTIGATOR): Patient is on dialysis at home. Managed [...] 23 Assessment & Plan (02/08/2022 8:43 PM FIELD INVESTIGATOR): Weight/BMI is in healthy range. Continue healthy [...] 12/26/2020 Assessment & Plan (03/09/2020 8:35 PM FIELD INVESTIGATOR): Updated in office today BMI 24.0-24.9, adult 03/08/2020 021 Assessment & Plan (06/18/2020 7:17 AM CDT): Weight/BMI is in healthy range. Continue healthy lifestyle to maintain. Assessment & Plan (03/08/2020 11:16 AM FIELD INVESTIGATOR): Weight/BMI is in healthy range. Continue healthy lifestyle to maintain. Anxiety 03/08/2020 03/08/2020 Annual physical exam 11/19/2019 020 Assessment & Plan (11/19/2019 10:38 AM CDT): Encouraged healthy lifestyle, good nutrition and exercise. Encouraged Calcium and Vitamin D and weight bearing exercise for bone health. Reviewed immunizations Reviewed age appropirate screenings. Groin pain 03/29/2019 11/19/2019 Assessment & Plan (03/29/2019 2:05 PM FIELD INVESTIGATOR): Due to this newer onset pain and [...] 11/02/2020 Assessment & Plan (03/29/2019 2:07 PM FIELD INVESTIGATOR): Persistent. Obtain CT of the abdomen pelvis [...] maintain. Assessment & Plan (03/29/2019 7:57 AM FIELD INVESTIGATOR): Weight/BMI is in healthy range. Continue healthy lifestyle to maintain. Assessment & Plan (02/13/2019 7:56 PM FIELD INVESTIGATOR): Weight/BMI is in healthy range. Continue healthy lifestyle to maintain. Assessment & Plan (02/10/2019 1:29 PM FIELD INVESTIGATOR): Weight/BMI is in healthy range. Continue healthy [...] Kyle Assessment & Plan (02/13/2019 7:53 PM FIELD INVESTIGATOR): Bp is stable/in acceptable range for any [...] of continued A1c control to minimize the computer terminal operator effects of diabetes. Bring accuchecks to office [...] physician. Assessment & Plan (03/09/2020 8:22 PM FIELD INVESTIGATOR): Bp is stable/in acceptable range for any co-morbidities. Encouraged to limit sodium intake and exercise for weight control. Continue to work with Dr. Kyle on control. ON amlodipine, atenolol. Holding all diuretics. May get additional control from the Jardiance. Assessment & Plan (11/19/2019 10:35 AM CDT): See HT in CKD due to DM Assessment & Plan (03/29/2019 2:06 PM FIELD INVESTIGATOR): Elevated today but patient does feel anxious. Will continue to monitor both ambulatory readings and follow up in the office Assessment & Plan (02/13/2019 7:52 PM FIELD INVESTIGATOR): Bp is stable/in acceptable range for any [...] with CKD stage 4 a nd hypertension ([facility]) 08/08/2018 11/02/2020 Assessment & Plan (09/24/2020 3:48 PM CDT): Control co-morbidities tightly Assessment & Plan (03/25/2020 7:10 PM FIELD INVESTIGATOR): Stressed importance of continued A1c control to minimize the shelter effects of diabetes. Bring accuchecks to office when instructed to do so. Check A1c about every 3-6 months. Take medication as prescribed. Get annual eye exam. Encouraged KHANH/Statin if able to tolerate. Encouraged weight control and encouraged diabetic diet and exercise. Avoid nephrotoxic drugs including NSAIDs. Monitor labs. Continue jardiance. Check renal labs for stability Assessment & Plan (03/09/2020 8:33 PM FIELD INVESTIGATOR): Stressed importance of continued A1c control to minimize the computer terminal operator effects of diabetes. Bring accuchecks to office [...] Kyle Assessment & Plan (03/29/2019 2:06 PM FIELD INVESTIGATOR): Known kidney disease. Having chronic hematuria. Has follow-up with Dr. KYLE. Still awaiting Neurology consult appointment. Assessment & Plan (02/13/2019 7:53 PM FIELD INVESTIGATOR): Avoid nephrotoxic drugs including NSAIDs. Monitor labs. Assessment & Plan (09/18/2018 10:27 PM CDT): Avoid nephrotoxic drugs including NSAIDs. Monitor labs. Assessment & Plan (08/25/2018 10:18 AM CDT): Avoid nephrotoxic drugs including NSAIDs. Monitor labs. Stressed importance of tight DM control to avoid computer terminal operator sequela Other chronic pain 08/08/2018 Nonadherence to medical treatment 07/23/2016 12/26/2020 Overview (09/03/2020): pt acknowledges Dyslipidemia 11/14/2015 11/02/2020 Overview (09/03/2020): on statin Immunizations Immunization Administration Dates Next Due DTP 08/01/1982, 9,1977,07/31,1977 Heplisav-b (Hepatitis B) 04/17/2021,12/05/2020,01/23/2021,12/20 Influenza, Quadrivalent, Rec ombinant, Egg Free, Preservative Free, Intramuscular 01/14/2023 Influenza, Quadrivalent, Spl it, Preservative Free, Intramuscular 01/15/2022,01/14/2021,03/08/2020,01/12 Influenza, Trivalent, Preser vative Free, Intramuscular 01/12/2024,01/12/2015 Influenza, Unspecified 04/30/2022(Deferr ed: Patient Refused),04/30/2021(Deferred: Patient Refused),03/30/2020(Deferred: Patient Refused) MMR 01/02/1983,07/02/1978 OPV 08/01/1982, 9,1977,07/31,1977 Pfizer SARS-CoV-2 Monovalent Vaccination (12+ Yrs) PURPLE 02/01/2021,06/12/2020,05/22/2020 Pneumococcal Conjugate PCV 13 12/25/2020 Pneumococcal Polysaccharide PPV23 03/01/2021 Tdap 12/10/2014 Social History Tobacco Use Types Packs/Day Years [...] on file Legal Sex Male 8:53 PM FIELD INVESTIGATOR Gender Identity Male 06/27/2020 3:28 PM CDT Sexual Orientation Straight 06/27/2020 3: 28 PM CDT 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 Not on file Last Filed Vital Signs Vital Sign Reading Time Taken Comments Blood Pressure 110/62 05/26/2024 11:15 AM FIELD INVESTIGATOR Pulse 62 05/26/2024 11:15 AM FIELD INVESTIGATOR Temperature 36.7 C (98.1 F) 05/26/2024 11:15 AM FIELD INVESTIGATOR Respiratory Rate 12 03/11/2024 10:30 AM FIELD INVESTIGATOR Oxygen Saturation 97% 05/26/2024 11:15 AM FIELD INVESTIGATOR Inhaled Oxygen Concentration - - Weight 83 kg (183 lb) 05/26/2024 11:15 AM FIELD INVESTIGATOR Height 177.8 cm (5' 10 ) 05/26/2024 11:15 AM FIELD INVESTIGATOR Body Mass Index 26.26 05/26/2024 11:15 AM FIELD INVESTIGATOR Plan of Treatment Not on file Medical Devices Implanted Type Area Line Maintenance Device Identifier Shelf Expiration Date Model / Serial / Lot [employer] [id number] Covera 8mm 8fr 60mm 80cm Cover Helical Strut Thumbwheel - [id number] Implanted:Qty: 1 on 07/19/2021 by Ashish Fonseca MD at [facility] [employer] 02/01/2023 [id number] / / [id number] [employer] Covera 8mm 8fr 40mm 80cm Cover Helical Strut Thumbwheel [id number] - [id number] Implanted:Qty: 1 on 11/26/2021 by Ashish Fonseca MD at [facility] Per[employer]ascular [id number] 02/08/2023 [id number] / / [id number] [employer] [facility] Angio-Seal Vip 6fr Closere Device [id number] - [id number] Implanted:Qty: 1 on 04/07/2022 by Kyree Noonan MD at [facility] [employer] 11/27/2022 [id number] / / [id number] Procedures Procedure Name Priority Date/Time Associated Diagnosis Comments POCT HEMOGLOBIN A1C Routine 05/09/2024 10:37 AM FIELD INVESTIGATOR Type 2 diabetes mellitus with chronic kidney disease on chronic dialysis, with long-term current use of insulin (HCC) POCT GLUCOSE Routine 05/09/2024 10:33 AM FIELD INVESTIGATOR Type 2 diabetes mellitus with chronic kidney disease on chronic dialysis, with long-term current use of insulin (HCC) HLA ANTIBODY SCREEN - PRA (CLASS I AND CLASS II) Routine 05/05/2024 10:00 AM FIELD INVESTIGATOR ESRD (end stage renal disease) (HCC) HLA ANTIBODY SCREEN BY PRA OR SAB PER SCHEDULE (CLASS I AND CLASS II) Routine 05/05/2024 10:00 AM FIELD INVESTIGATOR ESRD (end stage renal disease) (HCC) HLA SOLID ORGAN TYPING REPORT 04/21/2024 10:55 AM FIELD INVESTIGATOR HEMODIALYSIS ACCESS Schedule Routine, Read Routine (OP Routine) 04/01/2024 11:29 AM FIELD INVESTIGATOR Dependence on renal dialysis End stage renal disease (HCC) Other complication of arteriovenous dialysis fistula, initial encounter INTRO CATH DIALYSIS CIRCUIT DX ANGRPH FLUOR 56498 Routine 03/11/2024 9:54 AM FIELD INVESTIGATOR ESRD (end stage renal disease) on dialysis (HCC) HM DIABETES EYE EXAM Routine 12/10/2023 3:13 PM CDT LIPID PANEL Routine 08/13/2023 6:53 AM CDT Coronary artery disease involving [place] coronary artery of [place] heart without angina pectoris Mixed hyperlipidemia EGFR STAT 07/27/2023 11:29 AM CDT HEPATITIS C ANTIBODY Routine 05/04/2023 11:18 AM FIELD INVESTIGATOR ESRD (end stage renal disease) (HCC) COLONOSCOPY 10/30/2022 9:56 AM CDT ALBUMIN CREATININE RATIO, URINE Routine 02/25/2020 8:33 AM FIELD INVESTIGATOR Type 2 DM with CKD and hypertension ([facility]/HCC) from Last 3 Months or Most Recently Relevant to Health Maintenance Results * POCT hemoglobin A1c (05/09/2024 10:37 AM FIELD INVESTIGATOR) Hemoglobin A1C, POC 7.3 4.0 - 5.6 % Blood 05/09/2024 10:3 7 AM FIELD INVESTIGATOR Natali Cano STORM WINDOW INSTALLER POINT OF CARE TEST ORDERABLES F inal Result * POCT glucose (05/09/2024 10:33 AM FIELD INVESTIGATOR) Glucose Blood, POC 177 mg/dL Blood 05/09/2024 10:3 3 AM FIELD INVESTIGATOR Natali Cano STORM WINDOW INSTALLER POINT OF CARE TEST ORDERABLES F inal Result * HLA Antibody Screen by PRA or SAB per Schedule (Class I and Class II) (05/05/2024 10:00 AM FIELD INVESTIGATOR) Blood 05/05/2024 10:0 0 AM FIELD INVESTIGATOR Narrative HISTOTRAC - FIELD INVESTIGATOR Sample received in lab. PRA Screen ordered. Bozena Silvestre MD LAB BLOOD ORDERABLE S Final Result HISTOTRAC * HLA Antibody Screen - PRA (Class I and Class II) (05/05/2024 10:00 AM FIELD INVESTIGATOR) Class I Treatment Untreated HISTOTRAC Class I Dilution 1:1 HISTOTRAC Class I Tested Date 05/09/2024 HISTOTRAC Class I Result Negative HISTOTRAC Class I Percent Positive 0 HISTOTRAC Class II Treatment Untreated HISTOTRAC Class II Dilution 1:1 HISTOTRAC Class II Tested Date 05/09/2024 HISTOTRAC Class II Result Negative HISTOTRAC Class II Percent Positive 0 HISTOTRAC 05/05/2024 10:0 0 AM FIELD INVESTIGATOR 05/10/2024 7:49 AM FIELD INVESTIGATOR Narrative HISTOTRAC - 05/10/2024 7:49 AM FIELD INVESTIGATOR PRA (panel reactive antibody) HLA antibody screen is performed on serum samples using a method developed and validated by the [facility] HLA laboratory based on an FDA- approved IVD kit (TinyBytescreen PRA, [employer], [place], [place]). Interpretive comments: The percentage of beads with MFI > 750 is reported, which indicates the percentage of donor population estimated to be incompatible with the patient tested. PRA > 0% is consistent with alloimmunization to HLA. Testing performed at the [facility], [facility] [address], [address], [place], [address]. CLIA # [id number]. Nicole Magaña, Ph.D., Ampoule Sealer, HLA Laboratory Evangelista Wang M.D., Ph.D., Placement Assistant, HLA Laboratory Monae Shultz, Ph.D., CLIA Placement Assistant, [facility] Current methodology and interpretive comments last revised on 07/22/2017. us Bozena Silvestre MD LAB BLOOD ORDERABLE S Final Result HISTOTRAC * HLA Solid Organ Typing Report (04/21/2024 10:55 AM FIELD INVESTIGATOR) us Liliya Mcgarry MD LAB GENETIC TESTIN G Final Result * US Hemodialysis Access (04/01/2024 11:29 AM FIELD INVESTIGATOR) Anatomical Region Laterality Modality Vascular N/A Ultrasound 04/01/2024 Narrative 04/03/2024 9:33 AM FIELD INVESTIGATOR Seatersion Job ID: [id number] Amphion Document ID: [id number] Dictated date/time: [id number] LEFT UPPER EXTREMITY HEMODIALYSIS DUPLEX. REASON FOR [...] cephalic artery patent. Job ID/Internal Job ID: [id number] us Ashish Fonseca MD IM US PROCEDURES Final Re sult * INTRO CATH DIALYSIS CIRCUIT DX ANGRPH FLUOR [id number] (03/11/2024 9:54 AM FIELD INVESTIGATOR) Anatomical Region Laterality Modality X-Ray Angiograph y Narrative 03/11/2024 9:55 AM FIELD INVESTIGATOR Please see OpNote for result. Ashish Fonseca [...] LDL-C. González SS et al. MAREN. 2013;310(19): 9021-3430 (http://education.Milk.RateElert/faq/RGJ295) Chol/HDL ratio 2.6 <5.0 (calc) [facility] Non-HDL, (LDL+VLDL) 62 <130 mg/dL (calc) [facility] Comment: For patients with diabetes plus 1 major ASCVD risk factor, treating to a non-HDL-C goal of <100 mg/dL (LDL-C of <70 mg/dL) is considered a therapeutic option. Blood 08/13/2023 6:53 AM CDT 08/13/2023 6:54 AM CDT us Kyree Noonan MD LAB BLOOD ORDERABLES Final Result [facility] [address] [address] * (ABNORMAL) eGFR (07/27/2023 11:29 AM CDT) [...] MD LAB BLOOD ORDERABLES Final Result [facility] [address] [facility] Department [place] [address] * Hepatitis C antibody Blood (05/04/2023 11:18 AM FIELD INVESTIGATOR) Pathologist [facility] Hep C Ab Nonreactive Nonreactive [facility] Comment:Antibodies to HCV no t detected. Does NOT exclude the possibility of recent exposure to HCV. Current interpretive data was last revised on 21 Blood 05/04/2023 11:1 8 AM FIELD INVESTIGATOR 05/04/2023 11:39 AM FIELD INVESTIGATOR us Liliya Mcgarry MD LAB MICROBIOLOGY - GENERAL ORDERABLES Final Result [facility] Department [place] [address] * (ABNORMAL) COLONOSCOPY (10/30/2022 9:56 AM CDT) Anatomical Region Laterality Modality Other Narrative Procedure Note Salma Reyes MD - 10/30/2022 9:[address] [facility] Patient Name: Varinder Lai Procedure Date: 10/30/2022 9:56 AM Date of : 1975 Admit Type: Outpatient Age: 47 Gender: Male Attending MD: Salma Reyes M.D. Room: [facility] ENDOSCOPY ROOM 2 Note Status: Finalized Patient Profile: This is a 47 year old male h/o DM2, ESRD on HD,anemia of chronic disease, HTN, HLD, gout here for colonoscopy for colon cancer screening. No family history of colon cance Procedure: Colonoscopy Indications: Screening for colorectal malignant neoplasm, Thisis the patient's first colonoscopy Referring MD: ADOLFO kAinsC Providers: Yixi Tu, M.D. Impression: - Two 4 to 5 [...] procedure were verified by the physician, the artificial cherry maker and the front end technician in the endoscopy suite. Mental Status [...] scope was passed under direct vision. TheColonoscope [id number] was introduced through the anus and advanced [...] 9:56 AM Procedure Code(s): --- Professional --- 00460, Colonoscopy, flexible; with removal of tumor(s), polyp(s), or other lesion(s) by snare technique 09610, 59, Colonoscopy, flexible; with biopsy, single or multiple --- Technical --- 36221, Colonoscopy, flexible; with removal of tumor(s), polyp(s), or other lesion(s) by snare technique 59916, 59, Colonoscopy, flexible; with biopsy, single or multiple Diagnosis Code(s): --- Professional --- D12.5, Benign neoplasm of sigmoid colon Z12.11, Encounter for screening for malignant neoplasm of colon K64.8, Other hemorrhoids --- Technical --- D12.5, Benign neoplasm of sigmoid colon Z12.11, Encounter for screening for malignant neoplasm of colon K64.8, Other hemorrhoids CPT copyright 2020 [employer]. All rights reserved. The codes documented in this report are preliminary and upon medical data analyst reviewmay be revised to meet current compliance requirements. Recognized by the [employer] for promoting quality in endoscopy Salma Reyes MD ENDOSCOPY PROCEDURES Edited Resu lt - Final * (ABNORMAL) Albumin Creatinine Ratio, Urine (02/25/2020 8:33 AM FIELD INVESTIGATOR) Creatinine, ur 79 20 - 320 mg/dL [...] a diagnostic category. Urine 02/25/2020 8:33 AM FIELD INVESTIGATOR 02/25/2020 8:34 AM FIELD INVESTIGATOR Narrative [facility] - 02/27/2020 12:30 PM FIELD INVESTIGATOR FASTING:YES FASTING: YES Denilson Kyle MD LAB URINE ORDERABLES Final Re sult [facility] [address] [place] [address] from Last 3 Months or Most Recently Relevant to Health Maintenance Insurance [facility] [employer] [employer] TRANSPLANT BDCT MEDICARE Advance Directives For more information, please contact: [phone] * Full Code (Latest Code Status on [...] 9:43 AM 12/11/2021 9:43 AM Care Teams Heat And Frost Insulator Relationship Specialty Start Date End Date Ashley Mcneal PA [address] [facility] [address] [place] [address] PCP - General Internal Medicine 08/04/18 Denilson Kyle MD [address] [facility] [address] [place] [address] Consulting Physician Nephrology 03/08/20 Kyree Noonan MD [address] [place] [address] Consulting Physician Cardiology 03/19/21 Ashish Fonseca MD [address] [facility] [place] [address] Surgeon Surgery 03/21/21 Betsy Bro, RN [address] [address] Mathematics Teacher 08/23/21 Betsy Bro, CINDY [address] [address] Registered Nurse Mathematics Teacher 08/23/21 Natali Cano NP [address] [address] Nurse Practitioner Endocrinology Diabetes & Metabolism 11/19/21 Brian Cedeno MD [address] [address] Referring Physician Dermatology 12/17/22 [facility] [facility]ist 05/07/23
--- OUTSIDE RECORDS SUMMARY | 2024-06-02 11:16 | XMS_ITS | Encounter Summary ---
Author Organization [facility] Healthcare Address [address] [place] [address] Care Team Providers Care Trading Floor Operator Name Role Phone Ashley Mcneal Primary Care Provider + [phone] Denilson Vee MD Unavailable [phone] Kyree Noonan MD Unavailable [phone] Ashish Fonseca MD Unavailable [phone] Betsy Bro RN Unavailable Betsy Bro RN Unavailable Natali Cano NP Unavailable [phone] Brian Cedeno MD Unavailable Encounter Details Date Type Department Care Team (Late st Contact Info) Description 11/15/2021 Telephone [facility] Dialysis Access Center at [facility] [address] [facility] [address] [place] [address] Ashish Fonseca MD [address] [place] [address] [address] [place] [address] Social History Tobacco Use Types Packs/Day Years Used Date Smoking Tobacco: Former Cigarettes Q uit: 03/22/2005 Smokeless Tobacco: Never Alcohol Use Standard Drinks/Week Comments Never 0 (1 standard drink = 0.6 oz pur e alcohol) AUDIT-C Answer Date Recorded Q1: How often do you have a drink containing alcohol? Never 11/18/2021 Q2: How many drinks containi ng alcohol do you have on a typical day when you are drinking? Patient does not drink Q3: How often do you have si x or more drinks on one occasion? 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 Never 11/18/2021 11:54 AM CDT Aviva Reeder RN Q2: How many drinks containing alcohol do you have on a typical day when you are drinking? Patient does not drink 11/18/2021 11:54 AM MICHELLET Aviva Reeder RN Q3: How often do you have six or more drinks on one occasion? Never 11/18/2021 11:54 AM Aviva Coker RN documented as of this encounter Plan of Treatment Not on file documented as of this encounter Visit Diagnoses Not on filedocumented in this encounter Care Teams Trading Floor Operator Relationship Specialty Start Date End Date Ashley Mcneal PA [address] [place] [address] PCP - General Internal Medicine 08/04/18 Denilson Vee MD [address] [place] [address] Consulting Physician Nephrology 03/08/20 Kyree Noonan MD [address] [facility] [address] [place] [address] Consulting Physician Cardiology 03/19/21 Ashish Fonseca MD [address] [place] [address] Surgeon Surgery 03/21/21 Betsy Bro, RN [address] [address] Yoker 08/23/21 Betsy Bro, CINDY [address] [address] Registered Nurse [place] 08/23/21 Natali Cano NP [address] [address] Nurse Practitioner Endocrinology Diabetes & Metabolism 11/19/21 Brian Cedeno MD [address] [facility] [address] [address] Referring Physician Dermatology 12/17/22 [facility] Dentist 11/19/21 05/06/23 [facility] [place] 12/17/22 12/17/22 [facility] [place] Dent[facility] 05/07/23 documented as of this encounter
--- OUTSIDE RECORDS SUMMARY | 2024-06-02 11:16 | XMS_ITS | Encounter Summary ---
Author Organization [facility] Healthcare Address [address] [place] [address] Care Team Providers Care Carpenter Assistant Name Role Phone Ashley Mcneal Primary Care Provider + [phone] Denilson Vee MD Unavailable [phone] Kyree Noonan MD Unavailable [phone] Ashish Fonseca MD Unavailable [phone] Betsy Bro RN Unavailable Betsy Bro RN Unavailable Natali Cano NP Unavailable [phone] Brian Cedeno MD Unavailable Encounter Details Date Type Department Care Team (Late st Contact Info) Description 03/07/2024 Telephone [facility] [address] [address] [facility] [address] [place], [place] [id number] [place] [address] [place] [address] [address] [place] [address] Social History Tobacco Use Types Packs/Day Years Used Date Smoking Tobacco: Former Cigarettes Q uit: 03/22/2005 Smokeless Tobacco: Never Alcohol Use Standard Drinks/Week Comments Never 0 (1 standard drink = 0.6 oz pur e alcohol) AUDIT-C Answer Date Recorded Q1: How often do you have a drink containing alcohol? Never 03/11/2024 Q2: How many drinks containi ng alcohol do you have on a typical day when you are drinking? Patient does not drink Q3: How often do you have si x or more drinks on one occasion? Never 03/11/2024 PHQ-2 Answer Date Recorded PHQ-2 Total Score 0 11/24/2023 Personal Safety Answer Date Recorded Have you ever been in or are you currently in a harmful physical or emotional relationship or is someone making you feel afraid or unsafe? 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 on file documented as of this encounter Plan of Treatment Not on file documented as of this encounter Visit Diagnoses Not on filedocumented in this encounter Care Teams Carpenter Assistant Relationship Specialty Start Date End Date Ashley Mcneal PA [address] [place] [address] PCP - General Internal Medicine 08/04/18 Denilson Vee MD [address] [place] [address] Consulting Physician Nephrology 03/08/20 Kyree Noonan MD [address] [place] [address] Consulting Physician Cardiology 03/19/21 Ashish Fonseca MD [address] [place] [address] Surgeon Surgery 03/21/21 Betsy Bro, CINDY [address] [address] Pleat Taper 08/23/21 Betsy Bro, CINDY [address] [facility] [address] [place], [place] [id number] Registered Nurse Pleat Taper 08/23/21 Natali Cano ASSISTANT PROFESSOR OF DIETETICS [address] [facility] [address] [place] [address] Nurse Practitioner Endocrinology Diabetes & Metabolism 11/19/21 Brian Cedeno MD [address] [address] Referring Physician Dermatology 12/17/22 [facility] 05/07/23 documented as of this encounter
--- NOTE | 2024-06-02 11:28 | ED_ITS ---
HPI - General Adult General Chief complaint: Unspecified Stated complaint: AV Fistula bleeding Time Seen by Provider: 06/02/24 10:11 History of Present Illness HPI narrative: 49-year-old male who does hemodialysis at home present to the emergency department for evaluation for a bleeding fistula in his left arm. Patient states that he completed is hemodialysis at approximately 6:30 a.m. this morning and had continued bleeding from the fistula. Patient attempted for approximately 2 hours to stop the bleeding. Upon arrival emergency department patient was still having active bleeding from the fistula and he had a fistula clamp placed on the arm for 1.5 hours. This does stop bleeding. On recheck the clamp was removed and patient is still having bleeding from the puncture site. Patient had the fistula initially placed by Dr. Fonseca at [facility] Related Data Home Medications ?Medication ?Instructions ?Recorded ?Confirmed ?Last Taken ?Type allopurinol 100 mg tablet 100 mg PO DAILY 09/15/23 09/15/23 Unknown History amlodipine 5 mg tablet 5 mg PO HS 09/15/23 09/15/23 Unknown History atenolol 50 mg tablet 50 mg PO DAILY 09/15/23 09/15/23 Unknown History calcitriol 0.25 mcg capsule 0.25 mcg PO DAILY 09/15/23 09/15/23 Unknown History clonidine HCl 0.1 mg tablet 0.2 mg PO BID 09/15/23 09/15/23 Unknown History doxazosin 2 mg tablet 2 mg PO HS 09/15/23 09/15/23 Unknown History ergocalciferol (vitamin D2) 1,250 1,250 mcg PO WEEKLY 09/15/23 09/15/23 Unknown History mcg (50,000 unit) capsule icosapent ethyl 1 gram capsule 2 g PO BID 09/15/23 09/15/23 Unknown History insulin aspart U-100 100 unit/mL See Rx Instructions .Route .COMPLEX 09/15/23 09/15/23 Unknown History subcutaneous solution (Novolog U-100 Insulin aspart) losartan 100 mg tablet 100 mg PO HS 09/15/23 09/15/23 Unknown History pantoprazole 40 mg tablet,delayed 40 mg PO DAILY 09/15/23 09/15/23 Unknown History release rosuvastatin 10 mg tablet 10 mg PO DAILY 09/15/23 09/15/23 Unknown History sevelamer carbonate 800 mg tablet 1,600 mg PO TID 09/15/23 09/15/23 Unknown History Allergies Allergy/AdvReac Type Severity Reaction Status Date / Time bacitracin Allergy Mild Unknown Verified 06/02/24 10:19 gramicidin D Allergy Mild Unknown Verified 06/02/24 10:19 neomycin Allergy Mild Unknown Verified 06/02/24 10:19 polymyxin B Allergy Mild Unknown Verified 06/02/24 10:19 Review of Systems 2 Review of Systems: All systems reviewed & are unremarkable except as noted in HPI and below PMFSH Past Medical History Medical History End-stage renal disease on hemodialysis Hyperlipidemia Hypertension Type 2 diabetes mellitus Surgical History Surgical History History of cardiac catheterization Status post creation of arteriovenous fistula Family History Family History Father Diabetes mellitus Acute myocardial infarction Mother Diabetes mellitus Social History Social History Social History: Surrogate medical decision maker: Kelley Lai, spouse. Code status: Full code. Smoking packs per day: 1 Smoking cigarettes per day: 20.0 Years smoked: 10 Smoking pack-years: 10.00 Smoking status: Former smoker Tobacco type: cigarettes Second hand tobacco smoke exposure: No Smoking end date: 08/28/04 Alcohol intake: never Substance use: current Substance use type: marijuana Last use: 09/14/23 Do You Feel Safe in your Home?: Yes Lack of Transportation: No Lack of Food: Never True Current Housing: I Have Housing Concerned About Future Housing: No Difficulty Paying Gas/Electric Bills: No Difficulty Paying for Meds: No Currently Unemployed: No Education: Associate Degree Difficulty w/ Childcare or Family Care: No Spiritual care concerns: No Exam 2 Narrative: APPEARANCE: Well appearing, no pain, no distress, well-nourished. HEAD: normocephalic, atraumatic. EYES: PERRLA/EOMI, conjunctivae clear. NOSE: Normal no drainage EARS:TMS clear with good light reflex. THROAT: Pharynx clear, no exudate. NECK: Supple. No adenopathy, no masses. RESPIRATORY: Airway patent, respirations nonlabored. Clear to auscultation bilaterally, no rales, rhonchi, wheezing. CARDIOVASCULAR: Regular rate and rhythm without murmurs rubs or gallops. ABDOMINAL: Soft, nontender, nondistended, normal bowel sounds MUSCULOSKELETAL: Moves all extremities. Strength/ROM intact, No edema, No calf tenderness. NEURO: Alert. Cranial nerves II through XII intact. SKIN: bleeding fistula on left upper arm Course Vital Signs Vital signs: Vital Signs Temperature 97.4 F L 06/02/24 10:15 Pulse Rate 77 06/02/24 10:15 Respiratory Rate 18 06/02/24 10:15 Blood Pressure 159/83 H 06/02/24 10:15 Pulse Oximetry 99 06/02/24 10:15 Oxygen Delivery Room Air 06/02/24 10:15 Temperature 97.4 F L 06/02/24 10:15 Pulse Rate 63 06/02/24 13:10 Respiratory Rate 20 06/02/24 13:10 Blood Pressure 149/92 H 06/02/24 13:10 Pulse Oximetry 99 06/02/24 13:10 Oxygen Delivery Room Air 06/02/24 10:15 Medical Decision Making MDM Narrative Medical decision making narrative: 49-year-old male presenting to the emergency department for evaluation of bleeding fistula. Patient was here for approximately 2 hours and still had bleeding from the fistula. I discussed the case with Dr. Fonseca and recommended placing a figure-eight and the skin. Clamp had been on the arm for another 2 hours and on re-evaluation when getting ready to place the suture the bleeding had resolved. Patient was discharged home. No suture needed to be placed. Differential Diagnosis Differential Diagnosis: Bleeding fistula, abscess, ulcer Vital Signs Vital Signs: Vital Signs Temperature 97.4 F L 06/02/24 10:15 Pulse Rate 77 06/02/24 10:15 Respiratory Rate 18 06/02/24 10:15 Blood Pressure 159/83 H 06/02/24 10:15 Pulse Oximetry 99 06/02/24 10:15 Oxygen Delivery Room Air 06/02/24 10:15 Temperature 97.4 F L 06/02/24 10:15 Pulse Rate 63 06/02/24 13:10 Respiratory Rate 20 06/02/24 13:10 Blood Pressure 149/92 H 06/02/24 13:10 Pulse Oximetry 99 06/02/24 13:10 Oxygen Delivery Room Air 06/02/24 10:15 Lab Data 06/02/24 12:18 06/02/24 12:18 Labs: Lab Results 06/02/24 Range/Units 12:18 WBC 7.1 (4.5-10.0) K/mm3 RBC 3.87 L (4.6-6.20) M/mm3 Hgb 12.0 L (14.0-18.0) g/dL Hct 35.7 L (42.0-52.0) % MCV 92.2 (80-100) fl MCH 31.0 (26-34) pg MCHC 33.6 (32-36) g/dl RDW 12.9 (11.5-14.5) % Plt Count 230 (150-375) k/mm3 MPV 8.5 (7.4-10.4) fl Immature Gran % (Auto) 0.4 (0-0.5) % Neut % (Auto) 68.4 (45.5-73.1) % Lymph % (Auto) 23.1 (18.3-44.2) % [place] % (Auto) 5.5 (2.6-8.5) % Eos % (Auto) 1.8 (0-4.4) % Baso % (Auto) 0.8 (0.2-1.2) % Lymph # (Auto) 1.65 (0.9-3.2) K/mm3 [place] # (Auto) 0.4 (0.1-0.6) K/mm3 Eos # (Auto) 0.1 (0-0.3) K/mm3 Baso # (Auto) 0.1 (0.0-0.1) K/mm3 Abs Immat Gran (auto) 0.03 (0.00-0.031) K/mm3 Absolute Neuts (auto) 4.9 (1.3-6.7) K/mm3 Absolute Nucleated RBC 0.000 (0.0-0.012) K/mm3 Nucleated RBC % 0.0 (0.0-0.2) % PT 12.7 (11.1-14.7) Seconds INR 0.9 APTT 31.6 (22.3-36.8) Seconds Sodium 137 (137-145) mmol/L Potassium 4.0 (3.4-5.0) mmol/L Chloride 89 L (98-107) mmol/L Carbon Dioxide 34 H (22-30) mmol/L Anion Gap 14 H (4-12) mmol/L BUN 25 H (9-20) mg/dL Creatinine 5.92 H (0.7-1.3) mg/dL Estim Creat Clear Calc 15 ml/min Estimated GFR 10 L (59 - ) Glucose 190 H (65-110) mg/dL Calcium 10.3 H (8.4-10.2) mg/dL Total Bilirubin 0.6 (0.2-1.3) mg/dL AST 21 (17-59) U/L ALT 15 (6-50) U/L Alkaline Phosphatase 83 (38-126) U/L Total Protein 9.0 H (6.3-8.2) g/dL Albumin 4.8 (3.5-5.1) g/dL Discharge Plan Discharge Clinical Impression: Dialysis AV fistula malfunction Patient Disposition: Home, Self-Care Condition: Stable Instructions: Antibiotic Form Additional Instructions: Continue have close follow-up with vascular surgery. If you have any worsening symptoms please call or return to the emergency department. Patient Language: Liberian Prescriptions: No Action allopurinol 100 mg Tablet 100 mg PO DAILY atenolol 50 mg Tablet 50 mg PO DAILY calcitriol 0.25 mcg Capsule 0.25 mcg PO DAILY clonidine HCl 0.1 mg Tablet 0.2 mg PO BID amlodipine 5 mg tablet 5 mg PO HS insulin aspart U-100 [Novolog U-100 Insulin aspart] 100 unit/mL solution See Rx Instructions .ROUTE .COMPLEX MDD 50 Rx Instructions: Infuse insulin per [employer] insulin pump as directed. Max daily dose 50 units pantoprazole 40 mg tablet,delayed release (DR/EC) 40 mg PO DAILY ergocalciferol (vitamin D2) 1,250 mcg (50,000 unit) capsule 1,250 mcg PO WEEKLY losartan 100 mg tablet 100 mg PO HS doxazosin 2 mg tablet 2 mg PO HS rosuvastatin 10 mg tablet 10 mg PO DAILY sevelamer carbonate 800 mg tablet 1,600 mg PO TID icosapent ethyl 1 gram capsule 2 g PO BID Follow-up/Referrals: Fredis,ERIK Ramirez [Primary Care Provider] -
--- OUTSIDE RECORDS SUMMARY | 2024-06-02 11:45 | XMS_ITS ---
Author Organization [facility] [address] [facility] Address [address] [place] [address] Care Team Providers Care Broomcorn Press Feeder Name Role Phone Ashley Mcneal Primary Care Provider + [phone] Denilson Kyle MD Unavailable [phone] Kyree Noonan MD Unavailable [phone] Ashish Fonseca MD Unavailable [phone] Betsy Bro RN Unavailable Betsy Bro RN Unavailable Natali Cano NP Unavailable [phone] Brian Cedeno MD Unavailable Active Problems [...] 05/29/2023 Assessment & Plan (05/26/2024 11:16 AM CHIEF NURSE): Weight/BMI is in healthy range. Continue healthy lifestyle to maintain. Assessment & Plan (10/11/2023 9:45 PM CDT): Weight/BMI is in healthy range. Continue healthy lifestyle to maintain. Assessment & Plan (05/29/2023 12:07 AM CHIEF NURSE): Weight/BMI is in healthy range. Continue healthy lifestyle to maintain. 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 Stressed importance of routine [...] He states he is going to [place] but encouraged him to stay on the [...] He states he is going to late [place] but encouraged him to stay on the [...] that time Coronary artery disease invo lving [place] coronary artery of [place] heart without angina pectoris 04/16/2022 Assessment & Plan (04/16/2022 11:16 AM CHIEF NURSE): I reviewed the cardiac catheterization findings with him. Patient had nonocclusive disease. Advised him to take baby aspirin every day. The right groin looks good without any hematoma or bruit. Gastritis 04/04/2022 Duodenitis 04/04/2022 Hypercholesterolemia 03/17/2022 Assessment & Plan (04/16/2022 11:17 AM CHIEF NURSE): Recent lipid panel showed normal LDL. Continue the Crestor. I will repeat his lipids and LFTs in 6 months. Discussed low-cholesterol diet. Essential hypertension, benign 03/17/2022 Assessment & Plan (02/23/2024 2:29 PM CHIEF NURSE): Impression: Chronic and elevated. Patient remains asymptomatic. [...] mg. Assessment & Plan (04/16/2022 11:17 AM CHIEF NURSE): Blood pressure is well controlled. Continue current medications and low-salt diet. Erectile dysfunction 02/08/2022 Assessment & Plan (02/08/2022 8:44 PM CHIEF NURSE): Patient notes difficulty with obtaining an erection/firmness. [...] scan. Assessment & Plan (04/11/2021 10:32 AM CHIEF NURSE): Patient states fistula and cannulation significantly improved following recent procedure. Will continue 3 months duplex surveillance. Assessment & Plan (03/21/2021 8:49 AM CHIEF NURSE): Patient has findings consistent with high-grade outflow [...] 12/26/2020 Assessment & Plan (05/29/2023 12:07 AM CHIEF NURSE): Encouraged healthy lifestyle, good nutrition and exercise. Encouraged Calcium and Vitamin D and weight bearing exercise for bone health. Reviewed immunizations Reviewed age appropirate screenings. Assessment & Plan (02/08/2022 8:43 PM CHIEF NURSE): Encouraged healthy lifestyle, good nutrition and exercise. [...] list Assessment & Plan (05/29/2023 12:06 AM CHIEF NURSE): Patient is on dialysis at home. Managed by Dr. Kyle Fluid overload, unspecified 12/04/2020 Hypotension of hemodialysis 12/04/2020 Localized edema 12/04/2020 Anemia in chronic kidney disease 12/03/2020 Assessment & Plan (11/22/2021 12:00 PM CDT): Stable, no signs of GI blood loss ESRD (end stage renal disease) on dialysis 12/03 Assessment & Plan (02/23/2024 2:29 PM CHIEF NURSE): Impression: Patient is undergoing home dialysis through [...] procedure. Assessment & Plan (03/11/2022 1:32 PM CHIEF NURSE): Impression: Patient has a left brachial cephalic [...] Nephrology. Assessment & Plan (04/11/2021 10:32 AM CHIEF NURSE): Continue home dialysis. Follow-up 3 months. Assessment & Plan (03/21/2021 8:49 AM CHIEF NURSE): Continue dialysis 3 times weekly per Nephrology direction. Iron deficiency anemia, unspecified 12/03/2020 Other fatigue 11/28/2020 Nonrheumatic pulmonary valve stenosis 11/28/2020 Assessment & Plan (04/16/2022 11:17 AM CHIEF NURSE): He has only mild gradient up to 10 mm by cardiac catheterization. Continue to monitor clinically. Medtronic 780 g Insulin pump titration Assessment & Plan (05/09/2024 10:35 AM CHIEF NURSE): This is a chronic condition which is [...] hyperglycemia. Assessment & Plan (06/02/2023 2:25 PM CHIEF NURSE): This is a chronic condition which is [...] it Assessment & Plan (02/26/2023 11:52 AM CHIEF NURSE): This is a chronic condition which is [...] goal. Download reviewed. Type of insulin pump- WildFire Connectionss 770G Pump settings : Basal 0.7 IC [...] this tablet she with Dr. Noonan. In [facility] 03/25/2020 Assessment & Plan (03/25/2020 7:09 PM CHIEF NURSE): Suspect infection has resolved with antibiotic and [...] 03/29/2019 Assessment & Plan (05/29/2023 12:05 AM CHIEF NURSE): Patient's depression symptoms are stable without medication. Seeing counselor and doing well. Will continue to monitor Assessment & Plan (02/08/2022 8:43 PM CHIEF NURSE): Stable without medication. Continuing with counselor and [...] medication. Assessment & Plan (03/29/2019 2:09 PM CHIEF NURSE): Patient has depression symptoms with tendencies towards [...] 02/27/2019 Assessment & Plan (02/27/2019 6:04 PM CHIEF NURSE): Check urine culture. Suspect musculoskeletal pain. Flexeril [...] continue Assessment & Plan (02/08/2022 8:43 PM CHIEF NURSE): Continue PPI p.r.n. Assessment & Plan (11/22/2021 12:08 PM CDT): Stable, will schedule EGD. Hold off on PPI for now as symptoms mostly diet controlled. Assessment & Plan (11/19/2019 10:35 AM CDT): Continue PPI prn Assessment & Plan (02/13/2019 7:53 PM CHIEF NURSE): With PPI Assessment & Plan (08/25/2018 10:21 [...] prescribed. Assessment & Plan (05/29/2023 12:06 AM CHIEF NURSE): Encouraged patient to follow low fat/low chol diet like the Mediterranean diet. Increase good fats in the diet. Increase exercise. Monitor labs as needed. Continue statin Assessment & Plan (02/26/2023 11:51 AM CHIEF NURSE): This is a chronic condition which is [...] prescribed. Assessment & Plan (03/11/2022 1:23 PM CHIEF NURSE): Impression: Chronic hyperlipidemia, controlled with statin therapy. Plan: Statin therapy as per primary care provider. Assessment & Plan (02/08/2022 8:41 PM CHIEF NURSE): Continue statin and Vascepa Assessment & Plan (10/27/2021 10:15 PM CDT): Stressed importance of continued A1c control to minimize the senior care effects of diabetes. Bring accuchecks to office [...] 2020. Assessment & Plan (03/21/2021 8:48 AM CHIEF NURSE): Type 2 diabetes mellitus with hyperlipidemia chronic [...] vascepa Assessment & Plan (03/09/2020 8:34 PM CHIEF NURSE): Continue statin. Start vascepa. Encouraged coupon. Tolerated well in the past. Reviewed risks, benefit, alternatives, side effects and proper use. Assessment & Plan (11/19/2019 10:36 AM CDT): Encouraged patient to continue low fat/low chol diet. Continue exercise. Increase good fats in the diet. Monitor labs as needed. Restart statin Assessment & Plan (02/13/2019 7:55 PM CHIEF NURSE): Stressed importance of continued A1c control to minimize the senior care effects of diabetes. Bring accuchecks to office [...] 08/08/2018 Assessment & Plan (02/23/2024 1:30 PM CHIEF NURSE): Impression: Chronic with good glucose control. Plan: [...] dialysis Assessment & Plan (06/02/2023 2:23 PM CHIEF NURSE): This is a chronic condition which is [...] Vascepa Assessment & Plan (05/29/2023 12:05 AM CHIEF NURSE): Stressed importance of continued A1c control to minimize the terminal gauger effects of diabetes. Bring accuchecks to office [...] Kyle Assessment & Plan (02/26/2023 11:50 AM CHIEF NURSE): This is a chronic condition which is [...] last dilated eye exam was [facility] Monofilament foot exam completed. protective senses intact [...] insulin. Assessment & Plan (03/11/2022 1:24 PM CHIEF NURSE): Impression: Chronic diabetes mellitus with the use of insulin. Good glucose control per patient. Plan: Continue glucose monitoring and management as per primary care provider. Assessment & Plan (02/08/2022 8:42 PM CHIEF NURSE): Stressed importance of continued A1c control to minimize the senior care effects of diabetes. Bring accuchecks to office [...] exam. last dilated eye exam was at [facility] Monofilament foot exam completed, protective senses intact, Urine microalbumin/creatinine ratio - on dialysis. Known kidney failure. Personally reviewed labs: BUN- 88, creatinine-4.78, GFR-30 Chronic kidney disease on home hemodialysis - Sees Dr. Kyle in [place] for nephrology. B/P today-134/60 currently on atenolol,clonidine, cardura and losartan. At goal blood pressure is <140/90 and as close to 120/80 as possible. Personally reviewed LDL - 33, Trig-208, currently on crestor, vaspeca. at Goal of less than 70. Triglycerides will reduce as blood sugars improved. No history of macrovascular disease - [place], [place]. Assessment & Plan (06/12/2021 10:49 AM CDT): This is a chronic condition which is at goal. Personally reviewed A1c today- 6.8% at goal less than 7% Medication- Medtronic 770g insulin pump and sensor. Switched to auto mode today. Monitor blood sugar 4times a day. Encouraged annual eye exam. last dilated eye exam was at [facility] Monofilament foot exam completed, protective senses intact, Urine microalbumin/creatinine ratio - on dialysis. Known kidney failure. Personally reviewed labs: BUN- 88, creatinine-4.78, GFR-30 Chronic kidney disease on dialysis - Sees Dr. Kyle in [place] for nephrology. B/P today-130/56 currently on atenolol,clonidine, cardura. At goal blood pressure is <140/90 and as close to 120/80 as possible. Personally reviewed LDL - not calculated, Trig-860, currently on crestor, vaspeca. Not at Goal of less than 70. Triglycerides will reduce as blood sugars improved. No history of macrovascular disease - CVA, [place]. Assessment & Plan (04/11/2021 10:32 AM CHIEF NURSE): Type 2 diabetes chronic and currently controlled. Continue insulin therapy per PCP. Assessment & Plan (12/26/2020 10:05 AM CDT): Stressed importance of continued A1c control to minimize the senior care effects of diabetes. Bring accuchecks to office [...] exam. last dilated eye exam was at [place], [place]. Monofilament foot exam completed, protective senses intact, Urine microalbumin/creatinine ratio - on dialysis. Known kidney failure. Personally reviewed labs: BUN- 88, creatinine-4.78, GFR-30 Chronic kidney disease on dialysis - Sees Dr. Kyle in [place] for nephrology. B/P today-150/76, currently on atenolol, amlodipine, atenolol At goal blood pressure is <140/90 and as close to 120/80 as possible. Personally reviewed(06.15.20) LDL - not calculated, Trig-860, currently on crestor, vaspeca. Not at Goal of less than 70. Triglycerides will reduce as blood sugars improved. No history of macrovascular disease - CVA, [place]. Assessment & Plan (09/24/2020 3:49 PM CDT): [...] Monitor blood sugar 4times a day. Wears [employer] Guardian sensor. Is interested in pump therapy and would like to investigate the Tandem tslim pump Encouraged annual eye exam. last dilated eye exam was at [place], [place]. Monofilament foot exam completed, protective senses intact, Urine microalbumin/creatinine ratio - 5410 currently atenolol, not at goal <30, Know kidney failure. Personally reviewed labs: (08/09/20) BUN- 50, creatinine-3.3, GFR-30 Chronic kidney disease stage 4- having dialysis catheter placed . Sees Dr. Kyle in [place] for nephrology. B/P today-142/88, currently on atenolol, amlodipine, atenolol At goal blood pressure is <140/90 and as close to 120/80 as possible. Personally reviewed(06.15.20) LDL - not calculated, Trig-860, currently on crestor, vaspeca. Not at Goal of less than 70. Triglycerides will reduce as blood sugars improved. No history of macrovascular disease - CV[place], [place]. Insulin deficiency. Patient is on 3 or [...] exam. last dilated eye exam was at [place], [place]. Monofilament foot exam completed, protective senses intact, Urine microalbumin/creatinine ratio - 5410 currently atenolol, not at goal <30 Personally reviewed labs: BUN- 51, creatinine-3.22, GFR-22 Chronic kidney disease stage 4- having dialysis catheter placed . Sees Dr. Kyle in [place] for nephrology. B/P today-118/76, currently on atenolol, At goal blood pressure is <140/90 and as close to 120/80 as possible. Personally reviewed(06.15.20) LDL - not calculated, Trig-860, currently on crestor, vaspeca. Not at Goal of less than 70. Triglycerides will reduce as blood sugars improved. Monitor and repeat labs later in 2020. No history of macrovascular disease - [place], [place]. Insulin deficiency. Patient is on 3 or [...] exam. last dilated eye exam was at [place], [place]. Monofilament foot exam completed, protective senses [...] No history of macrovascular disease - CVA, [place]. Assessment & Plan (11/19/2019 10:36 AM CDT): Stressed importance of continued A1c control to minimize the terminal gauger effects of diabetes. Bring accuchecks to office when instructed to do so. Check A1c about every 3-6 months. Take medication as prescribed. Get annual eye exam. Encouraged KHANH/Statin if able to tolerate. Encouraged weight control and encouraged diabetic diet and exercise. Continue metformin. Holding Basaglar as A1c is at goal. Assessment & Plan (02/13/2019 7:54 PM CHIEF NURSE): Stressed importance of continued A1c control to minimize the senior care effects of diabetes. Bring accuchecks to office [...] of continued A1c control to minimize the senior care effects of diabetes. Bring accuchecks to office [...] prescribed. Assessment & Plan (06/02/2023 2:24 PM CHIEF NURSE): This is a chronic condition which is at goal of less than 140/90 Continue amlodipine, atenolol, clonidine Encouraged to monitor weight and B/P at home Encouraged to take medications as prescribed. Assessment & Plan (02/26/2023 11:51 AM CHIEF NURSE): This is a chronic condition which is [...] prescribed. Assessment & Plan (03/11/2022 1:24 PM CHIEF NURSE): Impression: Chronic hypertension, controlled medications. Blood pressure stable. Plan: Continue blood pressure management as per primary care provider. Assessment & Plan (02/08/2022 8:42 PM CHIEF NURSE): Bp is stable/in acceptable range for any co-morbidities. Encouraged to limit sodium intake and exercise for weight control. Continue per Nephrology Assessment & Plan (12/26/2020 10:05 AM CDT): Bp is stable/in acceptable range for any co-morbidities. Encouraged to limit sodium intake and exercise for weight control. Avoid nephrotoxic drugs including NSAIDs. Monitor labs. Stressed importance of continued A1c control to minimize the terminal gauger effects of diabetes. Bring accuchecks to office [...] of continued A1c control to minimize the terminal gauger effects of diabetes. Bring accuchecks to office [...] evaluation. Assessment & Plan (03/09/2020 8:22 PM CHIEF NURSE): Stressed importance of continued A1c control to minimize the terminal gauger effects of diabetes. Bring accuchecks to office [...] weeks. Assessment & Plan (02/13/2019 7:53 PM CHIEF NURSE): Bp is stable/in acceptable range for any [...] list Assessment & Plan (02/08/2022 8:42 PM CHIEF NURSE): Patient is on the transplant list. Currently [...] . Assessment & Plan (03/25/2020 7:11 PM CHIEF NURSE): Avoid nephrotoxic drugs including NSAIDs. Monitor labs. Continue per Dr. Kyle Assessment & Plan (03/09/2020 8:34 PM CHIEF NURSE): Continue per Dr. Kyle Assessment & Plan (11/19/2019 10:36 AM CDT): Per Dr. Kyle Assessment & Plan (02/13/2019 7:53 PM CHIEF NURSE): Stressed importance of continued A1c control to minimize the terminal gauger effects of diabetes. Bring accuchecks to office [...] neuropathy, with long-term current use of insulin ([facility]) 08/08/2018 Assessment & Plan (02/08/2022 8:42 PM CHIEF NURSE): Stressed importance of continued A1c control to minimize the terminal gauger effects of diabetes. Bring accuchecks to office [...] of continued A1c control to minimize the senior care effects of diabetes. Bring accuchecks to office [...] function. Assessment & Plan (03/29/2019 2:04 PM CHIEF NURSE): Stressed importance of continued A1c control to minimize the terminal gauger effects of diabetes. Bring accuchecks to office when instructed to do so. Check A1c about every 3-6 months. Take medication as prescribed. Get annual eye exam. Encouraged KHANH/Statin if able to tolerate. Encouraged weight control and encouraged diabetic diet and exercise. Continue working on tight control. Check labs Assessment & Plan (02/13/2019 7:52 PM CHIEF NURSE): Improving control of DM Continue to monitor Assessment & Plan (09/18/2018 10:25 PM CDT): Stressed importance of continued A1c control to minimize the senior care effects of diabetes. Bring accuchecks to office [...] of continued A1c control to minimize the terminal gauger effects of diabetes. Bring accuchecks to office [...] allopurinol Assessment & Plan (02/13/2019 7:55 PM CHIEF NURSE): No flairs. Continue allopurinol Assessment & Plan (08/25/2018 10:19 AM CDT): Continue allopurinol. MAGNO on CPAP 08/08/2018 Assessment & Plan (02/08/2022 8:42 PM CHIEF NURSE): Continue CPAP Assessment & Plan (12/26/2020 10:06 AM CDT): Continue Cpap. Has supplies Assessment & Plan (03/09/2020 8:21 PM CHIEF NURSE): Continue CPAP treatment Assessment & Plan (11/19/2019 10:34 AM CDT): Continue to use nightly. Has needed supplies Assessment & Plan (02/13/2019 7:52 PM CHIEF NURSE): Continue CPAP. Using nightly Assessment & Plan [...] 11/30/2023 Assessment & Plan (05/29/2023 12:08 AM CHIEF NURSE): Patient is on dialysis at home. Managed [...] 23 Assessment & Plan (02/08/2022 8:43 PM CHIEF NURSE): Weight/BMI is in healthy range. Continue healthy [...] 12/26/2020 Assessment & Plan (03/09/2020 8:35 PM CHIEF NURSE): Updated in office today BMI 24.0-24.9, adult 03/08/2020 021 Assessment & Plan (06/18/2020 7:17 AM CDT): Weight/BMI is in healthy range. Continue healthy lifestyle to maintain. Assessment & Plan (03/08/2020 11:16 AM CHIEF NURSE): Weight/BMI is in healthy range. Continue healthy lifestyle to maintain. Anxiety 03/08/2020 03/08/2020 Annual physical exam 11/19/2019 020 Assessment & Plan (11/19/2019 10:38 AM CDT): Encouraged healthy lifestyle, good nutrition and exercise. Encouraged Calcium and Vitamin D and weight bearing exercise for bone health. Reviewed immunizations Reviewed age appropirate screenings. Groin pain 03/29/2019 11/19/2019 Assessment & Plan (03/29/2019 2:05 PM CHIEF NURSE): Due to this newer onset pain and [...] 11/02/2020 Assessment & Plan (03/29/2019 2:07 PM CHIEF NURSE): Persistent. Obtain CT of the abdomen pelvis [...] maintain. Assessment & Plan (03/29/2019 7:57 AM CHIEF NURSE): Weight/BMI is in healthy range. Continue healthy lifestyle to maintain. Assessment & Plan (02/13/2019 7:56 PM CHIEF NURSE): Weight/BMI is in healthy range. Continue healthy lifestyle to maintain. Assessment & Plan (02/10/2019 1:29 PM CHIEF NURSE): Weight/BMI is in healthy range. Continue healthy [...] Kyle Assessment & Plan (02/13/2019 7:53 PM CHIEF NURSE): Bp is stable/in acceptable range for any [...] of continued A1c control to minimize the terminal gauger effects of diabetes. Bring accuchecks to office [...] physician. Assessment & Plan (03/09/2020 8:22 PM CHIEF NURSE): Bp is stable/in acceptable range for any co-morbidities. Encouraged to limit sodium intake and exercise for weight control. Continue to work with Dr. Kyle on control. ON amlodipine, atenolol. Holding all diuretics. May get additional control from the Jardiance. Assessment & Plan (11/19/2019 10:35 AM CDT): See HT in CKD due to DM Assessment & Plan (03/29/2019 2:06 PM CHIEF NURSE): Elevated today but patient does feel anxious. Will continue to monitor both ambulatory readings and follow up in the office Assessment & Plan (02/13/2019 7:52 PM CHIEF NURSE): Bp is stable/in acceptable range for any [...] tightly Assessment & Plan (03/25/2020 7:10 PM CHIEF NURSE): Stressed importance of continued A1c control to minimize the terminal gauger effects of diabetes. Bring accuchecks to office when instructed to do so. Check A1c about every 3-6 months. Take medication as prescribed. Get annual eye exam. Encouraged KHANH/Statin if able to tolerate. Encouraged weight control and encouraged diabetic diet and exercise. Avoid nephrotoxic drugs including NSAIDs. Monitor labs. Continue jardiance. Check renal labs for stability Assessment & Plan (03/09/2020 8:33 PM CHIEF NURSE): Stressed importance of continued A1c control to minimize the senior care effects of diabetes. Bring accuchecks to office [...] Kyle Assessment & Plan (03/29/2019 2:06 PM CHIEF NURSE): Known kidney disease. Having chronic hematuria. Has follow-up with Dr. KYLE. Still awaiting Neurology consult appointment. Assessment & Plan (02/13/2019 7:53 PM CHIEF NURSE): Avoid nephrotoxic drugs including NSAIDs. Monitor labs. Assessment & Plan (09/18/2018 10:27 PM CDT): Avoid nephrotoxic drugs including NSAIDs. Monitor labs. Assessment & Plan (08/25/2018 10:18 AM CDT): Avoid nephrotoxic drugs including NSAIDs. Monitor labs. Stressed importance of tight DM control to avoid senior care sequela Other chronic pain 08/08/2018 0 Nonadherence to medical treatment 07/23/2016 12/26/2020 Overview (09/03/2020): pt acknowledges Dyslipidemia 11/14/2015 11/02/2020 Overview (09/03/2020): on statin
--- OUTSIDE RECORDS SUMMARY | 2024-06-02 11:45 | XMS_ITS | Encounter Summary ---
Author Organization [facility] Healthcare Address [address] [place] [address] Care Team Providers Care Washing Machine Mechanic Name Role Phone Ashley Mcneal Primary Care Provider + [phone] Denilson Vee MD Unavailable [phone] Kyree Noonan MD Unavailable [phone] Ashish Fonseca MD Unavailable [phone] Betsy Bro RN Unavailable Betsy Bro RN Unavailable Natali Cano NP Unavailable [phone] Brian Cedeno MD Unavailable Encounter Details Date Type Department Care Team (Late st Contact Info) Description 07/20/2023 Telephone [facility] at [facility] [address] [place] [address] Ashish Fonseca MD [address] [place] [address] [address] [place] [address] Social History Tobacco Use Types Packs/Day Years [...] on file Legal Sex Male 8:53 PM LOGISTICS/SHIPPER Gender Identity Male 06/27/2020 3:28 PM CDT Sexual Orientation Straight 06/27/2020 3: 28 PM CDT 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 [place] [address] Consulting Physician Cardiology 03/19/21 Ashish Fonseca MD [address] [place] [address] Surgeon Surgery 03/21/21 Betsy Bro, CINDY [address] [address] Gis Database Administrator 08/23/21 Betsy Bro, CINDY [address] [facility] [address] [place], [place] [id number] Registered Nurse Gis Database Administrator 08/23/21 Natali Cano REQUIREMENTS MANAGER [address] [facility] [address] [place] [address] Nurse Practitioner Endocrinology Diabetes & Metabolism 11/19/21 Brian Cedeno MD [address] [address] Referring Physician Dermatology 12/17/22 [facility] [place] Dentist 05/07/23 documented as of this encounter
--- OUTSIDE RECORDS SUMMARY | 2024-06-02 11:45 | XMS_ITS | Encounter Summary ---
Author Organization [facility] Facility Care Team Providers Care Safety Investigator Name Role Phone Ashley Mcneal Primary Care Provider + [phone] Denilson Vee MD Unavailable [phone] Kyree Noonan MD Unavailable [phone] Ashish Fonseca MD Unavailable [phone] Betsy Bro RN Unavailable [phone] Betsy Bro RN Unavailable Natali Cano NP Unavailable [phone] Brian Cedeno MD Unavailable Encounter Details Date Type Department Care Team (Latest Contact Info) Description 01/15/2015 Orders Only [facility] Provider, MD Rachel [address] [place] [id number] Social History Tobacco Use Types Packs/Day Years Used Date Smoking Tobacco: Never Assessed Sex and Gender Information Value Date Recorded Sex Assigned at Not on file 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 Gender Identity Male 06/27/2020 3:28 PM CDT [...] on filedocumented in this encounter Care Teams Safety Investigator Relationship Specialty Start Date End Date Ashley Mcneal PA [address] [place] [address] PCP - General Internal Medicine 08/04/18 Denilson Vee MD [address] [place] [address] Consulting Physician Nephrology 03/08/20 Kyree Noonan MD [address] [facility] [address] [address] Consulting Physician Cardiology 03/19/21 Ashish Fonseca MD [address] [facility] [address] [place] [address] [address] Surgeon Surgery 03/21/21 Betsy Bro RN [address] [address] Fish Peddler 08/23/21 Betsy Bro RN [address] [address] Registered Nurse Fish Peddler 08/23/21 Natali Cano NP [address] [address] Nurse Practitioner Endocrinology Diabetes & Metabolism 11/19/21 Brian Cedeno MD [address] [address] Referring Physician Dermatology 12/17/22 [facility]ist 11/19/21 05/06/23 [facility] Purchase Price Analyst 12/17/22 12/17/22 [facility] [place] [facility] 05/07/23 documented as of this encounter
--- OUTSIDE RECORDS SUMMARY | 2024-06-02 11:45 | XMS_ITS | Encounter Summary ---
Author Organization [facility] Facility Care Team Providers Care Sr. Logistics Analyst Name Role Phone Ashley Mcneal Primary Care Provider + [phone] Denilson Vee MD Unavailable [phone] Kyree Noonan MD Unavailable [phone] Ashish Fonseca MD Unavailable [phone] Betsy Bro RN Unavailable Betsy Bro RN Unavailable Natali Cano NP Unavailable [phone] Brian Cedeno MD Unavailable Encounter Details Date Type Department Care Team (Latest Contact Info) Description 10/07/2014 Orders Only [facility] Provider, MD Rachel [address] [place] [address] Social History Tobacco Use Types Packs/Day Years Used Date Smoking Tobacco: Never Assessed Sex and Gender Information Value Date Recorded Sex Assigned at Not on file 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 Logistics Analyst Relationship Specialty Start Date End Date Ashley Mcneal PA [address] [place] [address] PCP - General Internal Medicine 08/04/18 Denilson Vee MD [address] [place] [address] Consulting Physician Nephrology 03/08/20 Kyree Noonan MD [address] [facility] [address] [address] Consulting Physician Cardiology 03/19/21 Ashish Fonseca MD [address] [facility] [address] [address] [address] Surgeon Surgery 03/21/21 Betsy Bro RN [address] [address] Cylinder Die Machine Operator 08/23/21 Betsy Bro RN [address] [address] Registered Nurse Cylinder Die Machine Operator 08/23/21 Natali Cano NP [address] [address] Nurse Practitioner Endocrinology Diabetes & Metabolism 11/19/21 Brian Cedeno MD [address] [address] Referring Physician Dermatology 12/17/22 [facility] Dentist 11/19/21 05/06/23 [facility] Clerical And Administrative Workers 12/17/22 12/17/22 [facility] [place] [facility] 05/07/23 documented as of this encounter
--- OUTSIDE RECORDS SUMMARY | 2024-06-02 11:45 | XMS_ITS | Clinical Summary ---
Author Organization [facility] [facility] Address [address] [place] [address] Care Team Providers Care Condominium Property Manager Name Role Phone Ashley Mcneal Primary Care Provider + [phone] Denilson Kyle MD Unavailable [phone] Kyree Noonan MD Unavailable [phone] Ashish Fonseca MD Unavailable [phone] Betsy Bro RN Unavailable Betsy Bro RN Unavailable Natali Cano NP Unavailable [phone] Brian Cedeno MD Unavailable Allergies Active Allergy Reactions Criticality Noted Date Comments Adhesive Rash Medium 03/19/2021 Plastic tape. Pt does ok with paper tape Gabapentin Other (See comments),Hallucinat ions Medium 06/13/2022 [place] bad all over - took for [place] [...] neuropathy, without long-term current use of insulin ([facility]) Check daily accuchecks as instructed 100 each [...] 05/29/2023 Assessment & Plan (05/26/2024 11:16 AM FASHION ARTIST): Weight/BMI is in healthy range. Continue healthy lifestyle to maintain. Assessment & Plan (10/11/2023 9:45 PM CDT): Weight/BMI is in healthy range. Continue healthy lifestyle to maintain. Assessment & Plan (05/29/2023 12:07 AM FASHION ARTIST): Weight/BMI is in healthy range. Continue healthy lifestyle to maintain. 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 Stressed importance of routine [...] He states he is going to late Person but encouraged him to stay on the [...] He states he is going to late Person but encouraged him to stay on the [...] that time Coronary artery disease invo lving [place] coronary artery of [place] heart without angina pectoris 04/16/2022 Assessment & Plan (04/16/2022 11:16 AM FASHION ARTIST): I reviewed the cardiac catheterization findings with him. Patient had nonocclusive disease. Advised him to take baby aspirin every day. The right groin looks good without any hematoma or bruit. Gastritis 04/04/2022 Duodenitis 04/04/2022 Hypercholesterolemia 03/17/2022 Assessment & Plan (04/16/2022 11:17 AM FASHION ARTIST): Recent lipid panel showed normal LDL. Continue the Crestor. I will repeat his lipids and LFTs in 6 months. Discussed low-cholesterol diet. Essential hypertension, benign 03/17/2022 Assessment & Plan (02/23/2024 2:29 PM FASHION ARTIST): Impression: Chronic and elevated. Patient remains asymptomatic. [...] mg. Assessment & Plan (04/16/2022 11:17 AM FASHION ARTIST): Blood pressure is well controlled. Continue current medications and low-salt diet. Erectile dysfunction 02/08/2022 Assessment & Plan (02/08/2022 8:44 PM FASHION ARTIST): Patient notes difficulty with obtaining an erection/firmness. [...] scan. Assessment & Plan (04/11/2021 10:32 AM FASHION ARTIST): Patient states fistula and cannulation significantly improved following recent procedure. Will continue 3 months duplex surveillance. Assessment & Plan (03/21/2021 8:49 AM FASHION ARTIST): Patient has findings consistent with high-grade outflow [...] 12/26/2020 Assessment & Plan (05/29/2023 12:07 AM FASHION ARTIST): Encouraged healthy lifestyle, good nutrition and exercise. Encouraged Calcium and Vitamin D and weight bearing exercise for bone health. Reviewed immunizations Reviewed age appropirate screenings. Assessment & Plan (02/08/2022 8:43 PM FASHION ARTIST): Encouraged healthy lifestyle, good nutrition and exercise. [...] list Assessment & Plan (05/29/2023 12:06 AM FASHION ARTIST): Patient is on dialysis at home. Managed by Dr. Kyle Fluid overload, unspecified 12/04/2020 Hypotension of hemodialysis 12/04/2020 Localized edema 12/04/2020 Anemia in chronic kidney disease 12/03/2020 Assessment & Plan (11/22/2021 12:00 PM CDT): Stable, no signs of GI blood loss ESRD (end stage renal disease) on dialysis 12/03 Assessment & Plan (02/23/2024 2:29 PM FASHION ARTIST): Impression: Patient is undergoing home dialysis through [...] procedure. Assessment & Plan (03/11/2022 1:32 PM FASHION ARTIST): Impression: Patient has a left brachial cephalic [...] Nephrology. Assessment & Plan (04/11/2021 10:32 AM FASHION ARTIST): Continue home dialysis. Follow-up 3 months. Assessment & Plan (03/21/2021 8:49 AM FASHION ARTIST): Continue dialysis 3 times weekly per Nephrology direction. Iron deficiency anemia, unspecified 12/03/2020 Other fatigue 11/28/2020 Nonrheumatic pulmonary valve stenosis 11/28/2020 Assessment & Plan (04/16/2022 11:17 AM FASHION ARTIST): He has only mild gradient up to 10 mm by cardiac catheterization. Continue to monitor clinically. Medtronic 780 g Insulin pump titration Assessment & Plan (05/09/2024 10:35 AM FASHION ARTIST): This is a chronic condition which is [...] hyperglycemia. Assessment & Plan (06/02/2023 2:25 PM FASHION ARTIST): This is a chronic condition which is [...] it Assessment & Plan (02/26/2023 11:52 AM FASHION ARTIST): This is a chronic condition which is [...] this tablet she with Dr. Noonan. In [facility] 03/25/2020 Assessment & Plan (03/25/2020 7:09 PM FASHION ARTIST): Suspect infection has resolved with antibiotic and [...] 03/29/2019 Assessment & Plan (05/29/2023 12:05 AM FASHION ARTIST): Patient's depression symptoms are stable without medication. Seeing counselor and doing well. Will continue to monitor Assessment & Plan (02/08/2022 8:43 PM FASHION ARTIST): Stable without medication. Continuing with counselor and [...] medication. Assessment & Plan (03/29/2019 2:09 PM FASHION ARTIST): Patient has depression symptoms with tendencies towards [...] 02/27/2019 Assessment & Plan (02/27/2019 6:04 PM FASHION ARTIST): Check urine culture. Suspect musculoskeletal pain. Flexeril [...] continue Assessment & Plan (02/08/2022 8:43 PM FASHION ARTIST): Continue PPI p.r.n. Assessment & Plan (11/22/2021 12:08 PM CDT): Stable, will schedule EGD. Hold off on PPI for now as symptoms mostly diet controlled. Assessment & Plan (11/19/2019 10:35 AM CDT): Continue PPI prn Assessment & Plan (02/13/2019 7:53 PM FASHION ARTIST): With PPI Assessment & Plan (08/25/2018 10:21 [...] prescribed. Assessment & Plan (05/29/2023 12:06 AM FASHION ARTIST): Encouraged patient to follow low fat/low chol diet like the Mediterranean diet. Increase good fats in the diet. Increase exercise. Monitor labs as needed. Continue statin Assessment & Plan (02/26/2023 11:51 AM FASHION ARTIST): This is a chronic condition which is [...] prescribed. Assessment & Plan (03/11/2022 1:23 PM FASHION ARTIST): Impression: Chronic hyperlipidemia, controlled with statin therapy. Plan: Statin therapy as per primary care provider. Assessment & Plan (02/08/2022 8:41 PM FASHION ARTIST): Continue statin and Vascepa Assessment & Plan (10/27/2021 10:15 PM CDT): Stressed importance of continued A1c control to minimize the superintendent terminal effects of diabetes. Bring accuchecks to office [...] 2020. Assessment & Plan (03/21/2021 8:48 AM FASHION ARTIST): Type 2 diabetes mellitus with hyperlipidemia chronic [...] vascepa Assessment & Plan (03/09/2020 8:34 PM FASHION ARTIST): Continue statin. Start vascepa. Encouraged coupon. Tolerated well in the past. Reviewed risks, benefit, alternatives, side effects and proper use. Assessment & Plan (11/19/2019 10:36 AM CDT): Encouraged patient to continue low fat/low chol diet. Continue exercise. Increase good fats in the diet. Monitor labs as needed. Restart statin Assessment & Plan (02/13/2019 7:55 PM FASHION ARTIST): Stressed importance of continued A1c control to minimize the superintendent terminal effects of diabetes. Bring accuchecks to office [...] 08/08/2018 Assessment & Plan (02/23/2024 1:30 PM FASHION ARTIST): Impression: Chronic with good glucose control. Plan: [...] dialysis Assessment & Plan (06/02/2023 2:23 PM FASHION ARTIST): This is a chronic condition which is [...] Vascepa Assessment & Plan (05/29/2023 12:05 AM FASHION ARTIST): Stressed importance of continued A1c control to minimize the superintendent terminal effects of diabetes. Bring accuchecks to office [...] Kyle Assessment & Plan (02/26/2023 11:50 AM FASHION ARTIST): This is a chronic condition which is [...] last dilated eye exam was [facility] Monofilament foot exam completed. protective senses intact [...] insulin. Assessment & Plan (03/11/2022 1:24 PM FASHION ARTIST): Impression: Chronic diabetes mellitus with the use of insulin. Good glucose control per patient. Plan: Continue glucose monitoring and management as per primary care provider. Assessment & Plan (02/08/2022 8:42 PM FASHION ARTIST): Stressed importance of continued A1c control to minimize the superintendent terminal effects of diabetes. Bring accuchecks to office [...] exam. last dilated eye exam was at [facility] Monofilament foot exam completed, protective senses intact, Urine microalbumin/creatinine ratio - on dialysis. Known kidney failure. Personally reviewed labs: BUN- 88, creatinine-4.78, GFR-30 Chronic kidney disease on home hemodialysis - Sees Dr. Kyle in [place] for nephrology. B/P today-134/60 currently on atenolol,clonidine, cardura and losartan. At goal blood pressure is <140/90 and as close to 120/80 as possible. Personally reviewed LDL - 33, Trig-208, currently on crestor, vaspeca. at Goal of less than 70. Triglycerides will reduce as blood sugars improved. No history of macrovascular disease - [place]. Assessment & Plan (06/12/2021 10:49 AM CDT): This is a chronic condition which is at goal. Personally reviewed A1c today- 6.8% at goal less than 7% Medication- Medtronic 770g insulin pump and sensor. Switched to auto mode today. Monitor blood sugar 4times a day. Encouraged annual eye exam. last dilated eye exam was at [facility] Monofilament foot exam completed, protective senses intact, Urine microalbumin/creatinine ratio - on dialysis. Known kidney failure. Personally reviewed labs: BUN- 88, creatinine-4.78, GFR-30 Chronic kidney disease on dialysis - Sees Dr. Kyle in [place] for nephrology. B/P today-130/56 currently on atenolol,clonidine, cardura. At goal blood pressure is <140/90 and as close to 120/80 as possible. Personally reviewed LDL - not calculated, Trig-860, currently on crestor, vaspeca. Not at Goal of less than 70. Triglycerides will reduce as blood sugars improved. No history of macrovascular disease - [place]. Assessment & Plan (04/11/2021 10:32 AM FASHION ARTIST): Type 2 diabetes chronic and currently controlled. Continue insulin therapy per PCP. Assessment & Plan (12/26/2020 10:05 AM CDT): Stressed importance of continued A1c control to minimize the skilled nursing effects of diabetes. Bring accuchecks to office [...] exam. last dilated eye exam was at [place], [place]. Monofilament foot exam completed, protective senses intact, Urine microalbumin/creatinine ratio - on dialysis. Known kidney failure. Personally reviewed labs: BUN- 88, creatinine-4.78, GFR-30 Chronic kidney disease on dialysis - Sees Dr. Kyle in [place] for nephrology. B/P today-150/76, currently on atenolol, amlodipine, atenolol At goal blood pressure is <140/90 and as close to 120/80 as possible. Personally reviewed(06.15.20) LDL - not calculated, Trig-860, currently on crestor, vaspeca. Not at Goal of less than 70. Triglycerides will reduce as blood sugars improved. No history of macrovascular disease - [place]. Assessment & Plan (09/24/2020 3:49 PM CDT): [...] Monitor blood sugar 4times a day. Wears Cloudaryan sensor. Is interested in pump therapy and would like to investigate the Tandem tslim pump Encouraged annual eye exam. last dilated eye exam was at [place], [place]. Monofilament foot exam completed, protective senses intact, Urine microalbumin/creatinine ratio - 5410 currently atenolol, not at goal <30, Know kidney failure. Personally reviewed labs: (08/09/20) BUN- 50, creatinine-3.3, GFR-30 Chronic kidney disease stage 4- having dialysis catheter placed . Sees Dr. Kyle in [place] for nephrology. B/P today-142/88, currently on atenolol, amlodipine, atenolol At goal blood pressure is <140/90 and as close to 120/80 as possible. Personally reviewed(06.15.20) LDL - not calculated, Trig-860, currently on crestor, vaspeca. Not at Goal of less than 70. Triglycerides will reduce as blood sugars improved. No history of macrovascular disease - [place]. Insulin deficiency. Patient is on 3 or [...] exam. last dilated eye exam was at [place], [place]. Monofilament foot exam completed, protective senses intact, Urine microalbumin/creatinine ratio - 5410 currently atenolol, not at goal <30 Personally reviewed labs: BUN- 51, creatinine-3.22, GFR-22 Chronic kidney disease stage 4- having dialysis catheter placed . Sees Dr. Kyle in [place] for nephrology. B/P today-118/76, currently on atenolol, At goal blood pressure is <140/90 and as close to 120/80 as possible. Personally reviewed(06.15.20) LDL - not calculated, Trig-860, currently on crestor, vaspeca. Not at Goal of less than 70. Triglycerides will reduce as blood sugars improved. Monitor and repeat labs later in 2020. No history of macrovascular disease - [place]. Insulin deficiency. Patient is on 3 or [...] exam. last dilated eye exam was at [place], [place]. Monofilament foot exam completed, protective senses [...] No history of macrovascular disease - [place]. Assessment & Plan (11/19/2019 10:36 AM CDT): Stressed importance of continued A1c control to minimize the skilled nursing effects of diabetes. Bring accuchecks to office when instructed to do so. Check A1c about every 3-6 months. Take medication as prescribed. Get annual eye exam. Encouraged KHANH/Statin if able to tolerate. Encouraged weight control and encouraged diabetic diet and exercise. Continue metformin. Holding Basaglar as A1c is at goal. Assessment & Plan (02/13/2019 7:54 PM FASHION ARTIST): Stressed importance of continued A1c control to minimize the superintendent terminal effects of diabetes. Bring accuchecks to office [...] of continued A1c control to minimize the superintendent terminal effects of diabetes. Bring accuchecks to office [...] prescribed. Assessment & Plan (06/02/2023 2:24 PM FASHION ARTIST): This is a chronic condition which is at goal of less than 140/90 Continue amlodipine, atenolol, clonidine Encouraged to monitor weight and B/P at home Encouraged to take medications as prescribed. Assessment & Plan (02/26/2023 11:51 AM FASHION ARTIST): This is a chronic condition which is [...] prescribed. Assessment & Plan (03/11/2022 1:24 PM FASHION ARTIST): Impression: Chronic hypertension, controlled medications. Blood pressure stable. Plan: Continue blood pressure management as per primary care provider. Assessment & Plan (02/08/2022 8:42 PM FASHION ARTIST): Bp is stable/in acceptable range for any co-morbidities. Encouraged to limit sodium intake and exercise for weight control. Continue per Nephrology Assessment & Plan (12/26/2020 10:05 AM CDT): Bp is stable/in acceptable range for any co-morbidities. Encouraged to limit sodium intake and exercise for weight control. Avoid nephrotoxic drugs including NSAIDs. Monitor labs. Stressed importance of continued A1c control to minimize the skilled nursing effects of diabetes. Bring accuchecks to office [...] of continued A1c control to minimize the superintendent terminal effects of diabetes. Bring accuchecks to office [...] evaluation. Assessment & Plan (03/09/2020 8:22 PM FASHION ARTIST): Stressed importance of continued A1c control to minimize the superintendent terminal effects of diabetes. Bring accuchecks to office [...] weeks. Assessment & Plan (02/13/2019 7:53 PM FASHION ARTIST): Bp is stable/in acceptable range for any [...] list Assessment & Plan (02/08/2022 8:42 PM FASHION ARTIST): Patient is on the transplant list. Currently doing home dialysis per Dr. uJstin Assessment & Plan (12/26/2020 10:06 AM CDT): [...] . Assessment & Plan (03/25/2020 7:11 PM FASHION ARTIST): Avoid nephrotoxic drugs including NSAIDs. Monitor labs. Continue per Dr. Kyle Assessment & Plan (03/09/2020 8:34 PM FASHION ARTIST): Continue per Dr. Kyle Assessment & Plan (11/19/2019 10:36 AM CDT): Per Dr. Kyle Assessment & Plan (02/13/2019 7:53 PM FASHION ARTIST): Stressed importance of continued A1c control to minimize the skilled nursing effects of diabetes. Bring accuchecks to office [...] neuropathy, with long-term current use of insulin ([facility]) 08/08/2018 Assessment & Plan (02/08/2022 8:42 PM FASHION ARTIST): Stressed importance of continued A1c control to minimize the skilled nursing effects of diabetes. Bring accuchecks to office [...] of continued A1c control to minimize the superintendent terminal effects of diabetes. Bring accuchecks to office [...] function. Assessment & Plan (03/29/2019 2:04 PM FASHION ARTIST): Stressed importance of continued A1c control to minimize the skilled nursing effects of diabetes. Bring accuchecks to office when instructed to do so. Check A1c about every 3-6 months. Take medication as prescribed. Get annual eye exam. Encouraged KHANH/Statin if able to tolerate. Encouraged weight control and encouraged diabetic diet and exercise. Continue working on tight control. Check labs Assessment & Plan (02/13/2019 7:52 PM FASHION ARTIST): Improving control of DM Continue to monitor Assessment & Plan (09/18/2018 10:25 PM CDT): Stressed importance of continued A1c control to minimize the skilled nursing effects of diabetes. Bring accuchecks to office [...] of continued A1c control to minimize the superintendent terminal effects of diabetes. Bring accuchecks to office [...] allopurinol Assessment & Plan (02/13/2019 7:55 PM FASHION ARTIST): No flairs. Continue allopurinol Assessment & Plan (08/25/2018 10:19 AM CDT): Continue allopurinol. MAGNO on CPAP 08/08/2018 Assessment & Plan (02/08/2022 8:42 PM FASHION ARTIST): Continue CPAP Assessment & Plan (12/26/2020 10:06 AM CDT): Continue Cpap. Has supplies Assessment & Plan (03/09/2020 8:21 PM FASHION ARTIST): Continue CPAP treatment Assessment & Plan (11/19/2019 10:34 AM CDT): Continue to use nightly. Has needed supplies Assessment & Plan (02/13/2019 7:52 PM FASHION ARTIST): Continue CPAP. Using nightly Assessment & Plan (09/18/2018 10:26 PM CDT): Continue CPAP Assessment & Plan (08/25/2018 10:15 AM CDT): Using regular. Has all needed supplies. Abnormal EKG 11/14/2015 Sinus tachycardia 11/14/2015 Resolved Problems Problem Noted Date Diagnosed Date Resolved Date ESRD (end stage renal disease) 04/13/2023 11/30/2023 Assessment & Plan (05/29/2023 12:08 AM FASHION ARTIST): Patient is on dialysis at home. Managed [...] 23 Assessment & Plan (02/08/2022 8:43 PM FASHION ARTIST): Weight/BMI is in healthy range. Continue healthy [...] 12/26/2020 Assessment & Plan (03/09/2020 8:35 PM FASHION ARTIST): Updated in office today BMI 24.0-24.9, adult 03/08/2020 021 Assessment & Plan (06/18/2020 7:17 AM CDT): Weight/BMI is in healthy range. Continue healthy lifestyle to maintain. Assessment & Plan (03/08/2020 11:16 AM FASHION ARTIST): Weight/BMI is in healthy range. Continue healthy lifestyle to maintain. Anxiety 03/08/2020 03/08/2020 Annual physical exam 11/19/2019 020 Assessment & Plan (11/19/2019 10:38 AM CDT): Encouraged healthy lifestyle, good nutrition and exercise. Encouraged Calcium and Vitamin D and weight bearing exercise for bone health. Reviewed immunizations Reviewed age appropirate screenings. Groin pain 03/29/2019 11/19/2019 Assessment & Plan (03/29/2019 2:05 PM FASHION ARTIST): Due to this newer onset pain and [...] 11/02/2020 Assessment & Plan (03/29/2019 2:07 PM FASHION ARTIST): Persistent. Obtain CT of the abdomen pelvis [...] maintain. Assessment & Plan (03/29/2019 7:57 AM FASHION ARTIST): Weight/BMI is in healthy range. Continue healthy lifestyle to maintain. Assessment & Plan (02/13/2019 7:56 PM FASHION ARTIST): Weight/BMI is in healthy range. Continue healthy lifestyle to maintain. Assessment & Plan (02/10/2019 1:29 PM FASHION ARTIST): Weight/BMI is in healthy range. Continue healthy [...] Kyle Assessment & Plan (02/13/2019 7:53 PM FASHION ARTIST): Bp is stable/in acceptable range for any [...] of continued A1c control to minimize the superintendent terminal effects of diabetes. Bring accuchecks to office [...] physician. Assessment & Plan (03/09/2020 8:22 PM FASHION ARTIST): Bp is stable/in acceptable range for any co-morbidities. Encouraged to limit sodium intake and exercise for weight control. Continue to work with Dr. Kyle on control. ON amlodipine, atenolol. Holding all diuretics. May get additional control from the [facility]. Assessment & Plan (11/19/2019 10:35 AM CDT): See HT in CKD due to DM Assessment & Plan (03/29/2019 2:06 PM FASHION ARTIST): Elevated today but patient does feel anxious. Will continue to monitor both ambulatory readings and follow up in the office Assessment & Plan (02/13/2019 7:52 PM FASHION ARTIST): Bp is stable/in acceptable range for any [...] tightly Assessment & Plan (03/25/2020 7:10 PM FASHION ARTIST): Stressed importance of continued A1c control to minimize the superintendent terminal effects of diabetes. Bring accuchecks to office when instructed to do so. Check A1c about every 3-6 months. Take medication as prescribed. Get annual eye exam. Encouraged KHANH/Statin if able to tolerate. Encouraged weight control and encouraged diabetic diet and exercise. Avoid nephrotoxic drugs including NSAIDs. Monitor labs. Continue jardiance. Check renal labs for stability Assessment & Plan (03/09/2020 8:33 PM FASHION ARTIST): Stressed importance of continued A1c control to minimize the skilled nursing effects of diabetes. Bring accuchecks to office [...] Kyle Assessment & Plan (03/29/2019 2:06 PM FASHION ARTIST): Known kidney disease. Having chronic hematuria. Has follow-up with Dr. KYLE. Still awaiting Neurology consult appointment. Assessment & Plan (02/13/2019 7:53 PM FASHION ARTIST): Avoid nephrotoxic drugs including NSAIDs. Monitor labs. Assessment & Plan (09/18/2018 10:27 PM CDT): Avoid nephrotoxic drugs including NSAIDs. Monitor labs. Assessment & Plan (08/25/2018 10:18 AM CDT): Avoid nephrotoxic drugs including NSAIDs. Monitor labs. Stressed importance of tight DM control to avoid superintendent terminal sequela Other chronic pain 08/08/2018 Nonadherence to medical treatment 07/23/2016 12/26/2020 Overview (09/03/2020): pt acknowledges Dyslipidemia 11/14/2015 11/02/2020 Overview (09/03/2020): on statin Encounters Date Type Department Care Team Description 05/30/2024 Telephone [facility] [id number] Mailstop [phone] [place] [address] Brionna Palma 05/26/2024 11:00 AM FASHION ARTIST Office Visit [facility] [address] [place] [address] [address] [place] [address] Ashley Mcneal PA Welcome to Medicare preventive visit (Primary Dx); BMI 26.0-26.9,adult 05/20/2024 Telephone [facility] [address] [address] Mailstop [phone] [place] [address] Betsy Bro RN 05/09/2024 10:30 AM FASHION ARTIST Office Visit [facility] at [address] [address] Natali Cano, TERRENCE Type 2 diabetes mellitus with chronic kidney disease on chronic dialysis, with long-term current use of insulin ([facility]) (Primary Dx); 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 with type 2 diabetes mellitus ([facility]); Diabetes mellitus due to underlying condition with diabetic neuropathy, with long-term current use of insulin ([facility]) (HCC); Hypertension in chronic kidney disease due to type 2 diabetes mellitus ([facility]); Mixed diabetic hyperlipidemia associated with type 2 diabetes mellitus ([facility]); Medtronic 780 g Insulin pump titration 05/06/2024 Documentation [facility] Transplant Kidney [address] Mailstop [phone] [place] [address] Ysabel Jefferson 05/06/2024 Nurse Triage [facility] [address] [facility] [address] [place] [address] Ashley Mcneal PA 05/05/2024 10:00 AM FASHION ARTIST - 05/05/2024 11:59 PM FASHION ARTIST Hospital Encounter [address] [address] ESRD (end stage renal disease) (HCC) Discharge Disposition: Discharge to home or self care 05/02/2024 Telephone [facility] Transplant Kidney [address] [facility] [address] Mailstop [phone] [place] [address] Ysabel Jefferson 04/26/2024 11:15 AM FASHION ARTIST Office Visit [facility] Medical [facility] Cardiology [address] [place] [address] Kyree Noonan MD Coronary artery disease involving twenty-nine palms coronary artery of twenty-nine palms heart without angina pectoris (Primary Dx); Mixed hyperlipidemia; Essential hypertension, benign; Nonrheumatic pulmonary valve stenosis 04/19/2024 11:00 AM FASHION ARTIST Office Visit [facility] G[facility] [place] [address] [place] [address] Salma Reyes MD Nausea and vomiting, unspecified vomiting type (Primary Dx); Gastroesophageal reflux disease without esophagitis; Tubular adenoma of colon 04/06/2024 10:00 AM FASHION ARTIST - 04/06/2024 11:59 PM FASHION ARTIST Hospital Encounter [address] [address] Discharge Disposition: Discharge to home or self care 04/01/2024 10:58 AM FASHION ARTIST - 04/01/2024 11:59 PM FASHION ARTIST Hospital Encounter [facility] Medical Office Building 2 Vascular [address] [place] [address] Dependence on renal dialysis; End stage renal disease (HCC); Other complication of arteriovenous dialysis fistula, initial encounter Discharge Disposition: Discharge to home or self care 04/01/2024 10:58 AM FASHION ARTIST - 04/01/2024 11:59 PM FASHION ARTIST [facility] [address] [address] ESRD (end stage renal disease) on dialysis (HCC) (Primary Dx); Other complication of arteriovenous dialysis fistula, subsequent encounter Discharge Disposition: Discharge to home or self care 03/25/2024 Orders Only [facility] at [address] [address] Ashish Fonseca MD Dependence on renal dialysis (Primary Dx); End stage renal disease (HCC); Other complication of arteriovenous dialysis fistula, initial encounter 03/11/2024 11:00 AM FASHION ARTIST - 03/11/2024 12:00 PM FASHION ARTIST Surgery [facility] Cardiac Manager Fleet [address] [place] [address] Ashish Fonseca MD Dialysis Circuit Angiogram 03/11/2024 9:01 AM FASHION ARTIST - 03/11/2024 10:59 AM FASHION ARTIST Hospital Encounter [facility] Cardiac Manager Fleet [address] [place] [address] Ashish Fonseca MD ESRD (end stage renal disease) on dialysis (HCC) Discharge Disposition: Discharge to home or self care 03/07/[address] [facility] Dialysis Access Center at [address] [address] Ashish Fonseca MD from Last 3 Months [...] disease) (HCC) home hemodialysis with fistula at [facility], still makes urine. 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 Not on file Obstetrics History Last Filed Vital Signs Vital Sign Reading Time Taken Comments Blood Pressure 110/62 05/26/2024 11:15 AM FASHION ARTIST Pulse 62 05/26/2024 11:15 AM FASHION ARTIST Temperature 36.7 C (98.1 F) 05/26/2024 11:15 AM FASHION ARTIST Respiratory Rate 12 03/11/2024 10:30 AM FASHION ARTIST Oxygen Saturation 97% 05/26/2024 11:15 AM FASHION ARTIST Inhaled Oxygen Concentration - - Weight 83 kg (183 lb) 05/26/2024 11:15 AM FASHION ARTIST Height 177.8 cm (5' 10 ) 05/26/2024 11:15 AM FASHION ARTIST Body Mass Index 26.26 05/26/2024 11:15 AM FASHION ARTIST Plan of Treatment Health Maintenance Due Date [...] history exists Medical Devices Implanted Type Area Geriatric Psychiatrist Device Identifier Shelf Expiration Date Model / Serial / Lot Bard Peripheral Vascular [id number] Covera 8mm 8fr 60mm 80cm Cover Helical Strut Thumbwheel - [id number] Implanted:Qty: 1 on 07/19/2021 by Ashish Fonseca MD at [facility] [employer] Peripheral Vascular 02/01/2023 [id number] / / [id number] Bard Peripheral Vascular Covera 8mm 8fr 40mm 80cm Cover Helical Strut Thumbwheel [id number] - [id number] Implanted:Qty: 1 on 11/26/2021 by Ashish Fonseca MD at [facility] Peripheral Vascular [id number] 02/08/2023 [id number] / / [id number] [employer] [facility] Angio-Seal Vip 6fr Closere Device [id number] - [id number] Implanted:Qty: 1 on 04/07/2022 by Kyree Noonan MD at [facility] [employer] 11/27/2022 [id number] / / [id number] Procedures Procedure Name Priority Date/Time Associated Diagnosis Comments POCT HEMOGLOBIN A1C Routine 05/09/2024 10:37 AM FASHION ARTIST Type 2 diabetes mellitus with chronic kidney disease on chronic dialysis, with long-term current use of insulin (HCC) POCT GLUCOSE Routine 05/09/2024 10:33 AM FASHION ARTIST Type 2 diabetes mellitus with chronic kidney disease on chronic dialysis, with long-term current use of insulin (HCC) HLA ANTIBODY SCREEN - PRA (CLASS I AND CLASS II) Routine 05/05/2024 10:00 AM FASHION ARTIST ESRD (end stage renal disease) (HCC) HLA ANTIBODY SCREEN BY PRA OR SAB PER SCHEDULE (CLASS I AND CLASS II) Routine 05/05/2024 10:00 AM FASHION ARTIST ESRD (end stage renal disease) (HCC) HLA SOLID ORGAN TYPING REPORT 04/21/2024 10:55 AM FASHION ARTIST US HEMODIALYSIS ACCESS Schedule Routine, Read Routine (OP Routine) 04/01/2024 11:29 AM FASHION ARTIST Dependence on renal dialysis End stage renal disease (HCC) Other complication of arteriovenous dialysis fistula, initial encounter INTRO CATH DIALYSIS CIRCUIT DX ANGRPH FLUOR [id number] Routine 03/11/2024 9:54 AM FASHION ARTIST ESRD (end stage renal disease) on dialysis (HCC) HM DIABETES EYE EXAM Routine 12/10/2023 3:13 PM CDT LIPID PANEL Routine 08/13/2023 6:53 AM CDT Coronary artery disease involving twenty-nine palms coronary artery of twenty-nine palms heart without angina pectoris Mixed hyperlipidemia EGFR STAT 07/27/2023 11:29 AM CDT HEPATITIS C ANTIBODY Routine 05/04/2023 11:18 AM FASHION ARTIST ESRD (end stage renal disease) (HCC) COLONOSCOPY 10/30/2022 9:56 AM CDT ALBUMIN CREATININE RATIO, URINE Routine 02/25/2020 8:33 AM FASHION ARTIST Type 2 DM with CKD and hypertension ([facility]/HCC) from Last 3 Months or Most Recently Relevant to Health Maintenance Results * POCT hemoglobin A1c (05/09/2024 10:37 AM FASHION ARTIST) Hemoglobin A1C, POC 7.3 4.0 - 5.6 % Blood 05/09/2024 10:3 7 AM FASHION ARTIST us Natali Cano NP POINT OF CARE TEST ORDERABLES F inal Result * POCT glucose (05/09/2024 10:33 AM FASHION ARTIST) Glucose Blood, POC 177 mg/dL Blood 05/09/2024 10:3 3 AM FASHION ARTIST us Natali Cano NP POINT OF CARE TEST ORDERABLES F inal Result * HLA Antibody Screen by PRA or SAB per Schedule (Class I and Class II) (05/05/2024 10:00 AM FASHION ARTIST) Blood 05/05/2024 10:0 0 AM FASHION ARTIST Narrative HISTOT[facility] - FASHION ARTIST Sample received in lab. PRA Screen ordered. us Bozena Silvestre MD LAB BLOOD ORDERABLE S Final Result [facility] * HLA Antibody Screen - PRA (Class I and Class II) (05/05/2024 10:00 AM FASHION ARTIST) Class I Treatment Untreated [facility] Class I Dilution 1:1 [facility] Class I Tested Date 05/09/2024 H[facility]OTRAC Class I Result Negative H[facility]OT[facility] Class I Percent Positive 0 [facility]OT[facility] Class II Treatment Untreated HISTOTRAC Class II Dilution 1:1 [facility]OT[facility] Class II Tested Date 05/09/2024 HISTOTRAC Class II Result Negative [facility] Class II Percent Positive 0 HISTOTRAC 05/05/2024 10:0 0 AM FASHION ARTIST 05/10/2024 7:49 AM FASHION ARTIST Narrative HISTOT[facility]AC - 05/10/2024 7:49 AM FASHION ARTIST PRA (panel reactive antibody) HLA antibody screen is performed on serum samples using a method developed and validated by the [facility] HLA laboratory based on an FDA- approved IVD kit (LABScreen PRA, [employer], [place], [place]). Interpretive comments: The percentage of beads with MFI > 750 is reported, which indicates the percentage of donor population estimated to be incompatible with the patient tested. PRA > 0% is consistent with alloimmunization to HLA. Testing performed at the [facility], [address], 5th floor, [place], [address]. [facility] # [id number]. Nicole Magaña, Ph.D., Gun Striper, HLA Laboratory Evangelista Wang M.D., Ph.D., Board Finisher, HLA Laboratory Monae Shultz, Ph.D., CLIA Board Finisher, [facility] Current methodology and interpretive comments last revised on 07/22/2017. us Bozena Silvestre MD LAB BLOOD ORDERABLE S Final Result [facility]ISTOTR[facility] * HLA Solid Organ Typing Report (04/21/2024 10:55 AM FASHION ARTIST) us Liliya Mcgarry MD LAB GENETIC TESTIN G Final Result * US Hemodialysis Access (04/01/2024 11:29 AM FASHION ARTIST) Anatomical Region Laterality Modality Vascular N/A Ultrasound 04/01/2024 Narrative 04/03/2024 9:33 AM FASHION ARTIST Amphion Job ID: [id number] Am[employer]ion Document ID: [id number] Dictated date/time: [id number] LEFT UPPER EXTREMITY HEMODIALYSIS DUPLEX. REASON FOR [...] cephalic artery patent. Job ID/Internal Job ID: [id number] us Ashish Fonseca MD IMG US PROCEDURES Final Re sult * INTRO CATH DIALYSIS CIRCUIT DX ANGRPH FLUOR 16183 (03/11/2024 9:54 AM FASHION ARTIST) Anatomical Region Laterality Modality X-Ray Angiograph y Narrative 03/11/2024 9:55 AM FASHION ARTIST Please see OpNote for result. Ashish Fonseca [...] LDL-C. González SS et al. MAREN. 2013;310(19): 4037-8112 (http://education.News360/faq/RQA114) Chol/HDL ratio 2.6 <5.0 (calc) [facility] [...] LAB BLOOD ORDERABLES Final Result [facility] [address] [address] [address] * (ABNORMAL) eGFR (07/27/2023 11:29 AM CDT) [...] MD LAB BLOOD ORDERABLES Final Result [facility] Department of Laboratories [place], [place] [id number] * Hepatitis C antibody Blood (05/04/2023 11:18 AM FASHION ARTIST) Hep C Ab Nonreactive Nonreactive [facility] Comment:Antibodies to HCV no t detected. Does NOT exclude the possibility of recent exposure to HCV. Current interpretive data was last revised on 21 Blood 05/04/2023 11:1 8 AM FASHION ARTIST 05/04/2023 11:39 AM FASHION ARTIST us Liliya Mcgarry MD LAB MICROBIOLOGY - GENERAL ORDERABLES Final Result [facility] Department [place] [address] * (ABNORMAL) COLONOSCOPY (10/30/2022 9:56 AM CDT) Anatomical Region Laterality Modality Other Narrative Procedure Note Salma Reyes MD - 10/30/2022 9:56 AM CDT [facility] Patient Name: Varinder Lai Procedure Date: 10/30/2022 9:56 AM Date of : 1975 Admit Type: Outpatient Age: 47 Gender: Male Attending MD: Salma Reyes M.D. Room: [facility] ROOM 2 Note Status: Finalized Patient [...] procedure were verified by the physician, the neurology director and the senior manufacturing technician in the endoscopy suite. Mental Status [...] scope was passed under direct vision. TheColonoscope [id number] was introduced through the anus and advanced [...] 9:56 AM Procedure Code(s): --- Professional --- 48583, Colonoscopy, flexible; with removal of tumor(s), polyp(s), or other lesion(s) by snare technique 51280, 59, Colonoscopy, flexible; with biopsy, single or multiple --- Technical --- 85230, Colonoscopy, flexible; with removal of tumor(s), polyp(s), or other lesion(s) by snare technique 80523, 59, Colonoscopy, flexible; with biopsy, single or multiple Diagnosis Code(s): --- Professional --- D12.5, Benign neoplasm of sigmoid colon Z12.11, Encounter for screening for malignant neoplasm of colon K64.8, Other hemorrhoids --- Technical --- D12.5, Benign neoplasm of sigmoid colon Z12.11, Encounter for screening for malignant neoplasm of colon K64.8, Other hemorrhoids CPT copyright 2020 [employer]. All rights reserved. The codes documented in this report are preliminary and upon supervisor agency appointments reviewmay be revised to meet current compliance requirements. Recognized by the [employer] Society for G[employer]intestinal End[employer] for promoting quality in endoscopy us Salma Reyes MD ENDOSCOPY PROCEDURES Edited Resu lt - Final * (ABNORMAL) Albumin Creatinine Ratio, Urine (02/25/2020 8:33 AM FASHION ARTIST) Creatinine, ur 79 20 - 320 mg/dL [...] a diagnostic category. Urine 02/25/2020 8:33 AM FASHION ARTIST 02/25/2020 8:34 AM FASHION ARTIST Narrative [facility] - 02/27/2020 12:30 PM FASHION ARTIST FASTING:YES FASTING: YES us Denilson Kyle MD LAB URINE ORDERABLES Final Re [facility] Organization Address City/State/ZIP Co de Phone Number [facility] [address] [place] [address] from Last 3 Months or Most Recently Relevant to Health Maintenance Insurance [facility] FEDERAL Member Subscriber Plan / Payer (Ef fective 2019-Present) Name:Varinder Lai Relation to Subscriber:Spouse Name:HOWARD LAI Date of :1990 Address: [address] [place] [address] Payer ID:[id number] (NAIC) Group ID:[id number] Type:[facility] Address: [facility] [address] [place] [id number] MEDICARE [facility] FEDERAL TRANSPLANT BDCT MEDICARE Advance Directives For more information, please contact: [phone] * Full Code (Latest Code Status on [...] 9:43 AM 12/11/2021 9:43 AM Care Teams Condominium Property Manager Relationship Specialty Start Date End Date Ashley Mcneal PA [address] [place] [address] PCP - General Internal Medicine 08/04/18 Denilson Kyle MD [address] [place] [address] Consulting Physician Nephrology 03/08/20 Kyree Noonan MD [address] [facility] [address] [place] [address] Consulting Physician Cardiology 03/19/21 Ashish Fonseca MD [address] [facility] [address] [place] [address] Surgeon Surgery 03/21/21 Betsy Bro, RN [address] [address] Darkroom Worker 08/23/21 Betsy Bro, CINDY [address] [facility] [address] [place] [address] Registered Nurse Darkroom Worker 08/23/21 Natali Cano, AIRCRAFT DELIVERY CHECKER [address] [address] Nurse Practitioner Endocrinology Diabetes & Metabolism 11/19/21 Brian Cedeno MD [address] [address] Referring Physician Dermatology 12/17/22 [facility] Dentist 05/07/23
--- OUTSIDE RECORDS SUMMARY | 2024-06-02 11:45 | XMS_ITS ---
Author Organization [facility] [address] [facility] Address [address] [place] [address] Care Team Providers Care Personnel Arbitrator Name Role Phone Ashley Mcneal Primary Care Provider + [phone] Denilson Vee MD Unavailable [phone] Kyree Noonan MD Unavailable [phone] Ashish Fonseca MD Unavailable [phone] Betsy Bro RN Unavailable Betsy Bro RN Unavailable Natali Cano NP Unavailable [phone] Brian Cedeno MD Unavailable Transplant Episode Kidney Candidate [facility] ([place], [place]) [facility] Center waitlisted on 04/24/2022 Marked as Active on 12/28/2023 Reason: Listed in [facility] Kidney CoordinatorBetsy Bro RN Email: N/A Scores Score Value Updated Exceptions/Reas ons CPRA Not available EPTS (Calc) 55 06/02/2024 Solomon Organ Diagnosis Organ Primary Contributory Kidney Diabetes Mellitus - Type II Infection History Noted Survival Infection Treatment Organism Resolved 12/15/2023 Infection of index finger Care Team Name Role Phone Fax Email Betsy Bro RN Kidney Coordinator [phone] N/A Irina Carmona Outside Contractor Sales [phone] N/A N/A Events Pre-Transplant Referred: 11/30/2020 Evaluation began: 11/19/2021 Committee: 04/21/2022 [facility] qualified: 11/12/2020 Center waitlisted: 04/24/2022 Dialysis History Dialysis History Start End Type Comments Center 11/12/2020 Home Hemodialysis [facility] Dialysis Center Information Center Phone Fax Address [facility] [phone] [place] [address]
--- OUTSIDE RECORDS SUMMARY | 2024-06-02 11:45 | XMS_ITS | Clinical Summary ---
Author Organization [facility] Address [address] [place] [address] Care Team Providers Care Contract Paralegal Name Role Phone Unavailable Primary Care Provider Unavailabl e Social History Tobacco Use Types Packs/Day Years Used Date Smoking Tobacco: Never Assessed Sex and Gender Information Value Date Recorded Sex Assigned at Not on file Legal Sex Male 5:54 PM WEIGH BOSS Gender Identity Not on file Sexual Orientation [...]
--- OUTSIDE RECORDS SUMMARY | 2024-06-02 11:45 | XMS_ITS | Encounter Summary ---
Author Organization [facility] Healthcare Address [address] [place] [address] Care Team Providers Care Charcoal Kiln Burner Name Role Phone Ashley Mcneal Primary Care Provider [phone] Denilson Vee MD Unavailable [phone] Kyree Noonan MD Unavailable [phone] Ashish Fonseca MD Unavailable [phone] Betsy Bro RN Unavailable Betsy Bro RN Unavailable Natali Cano NP Unavailable [phone] Brian Cedeno MD Unavailable Encounter Details Date Type Department Care Team (Late st Contact Info) Description 06/12/2022 Telephone [facility] Medical Office Building [address] [place] [address] Ashish Fonseca MD [address] [facility] [address] [place] [address] Social History Tobacco Use Types Packs/Day Years [...] on file Legal Sex Male 8:53 PM PSYCHIATRIC ASSISTANT Gender Identity Male 06/27/2020 3:28 PM CDT [...] on filedocumented in this encounter Care Teams Charcoal Kiln Burner Relationship Specialty Start Date End Date Ashley Mcneal PA [address] [address] [place] [address] PCP - General Internal Medicine 08/04/18 Denilson Vee MD [address] [facility] [place] [address] Consulting Physician Nephrology 03/08/20 Kyree Noonan MD [address] [facility] [address] [place] [address] Consulting Physician Cardiology 03/19/21 Ashish Fonseca MD [address] [facility] [place] [address] Surgeon Surgery 03/21/21 Betsy Bro, CINDY [address] [address] Ager Tender 08/23/21 Betsy Bro RN [address] [address] Registered Nurse Ager Tender 08/23/21 Natali Cano NP [address] [address] Nurse Practitioner Endocrinology Diabetes & Metabolism 11/19/21 Brian Cedeno MD [address] [facility] [address] [address] Referring Physician Dermatology 12/17/22 [facility] Dentist 11/19/21 05/06/23 [facility] Technical Recruiter 12/17/22 12/17/22 [facility] [place] Dentist 05/07/23 documented as of this encounter
--- OUTSIDE RECORDS SUMMARY | 2024-06-02 11:46 | XMS_ITS | Referral Summary ---
Author Organization [facility] [address] [facility] Address [address] [place] [address] Care Team Providers Care [employer]ement [employer] Operator Name Role Phone Ashley Mcneal Primary Care Provider [phone] Denilson Kyle MD Unavailable [phone] Kyree Noonan MD Unavailable [phone] Ashish Fonseca MD Unavailable [phone] Betsy Bro RN Unavailable Betsy Bro RN Unavailable Natali Cano NP Unavailable [phone] Brian Cedeno MD Unavailable Encounters Date Type Department Care Team Description 05/30/2024 Telephone [facility] Transplant Kidney [address] [facility] [address] [phone] [place] [address] Brionna Palma 05/26/2024 11:00 AM OUTDOOR LANDSCAPE ARCHITECT Office Visit [facility] Family Medicine [address] [facility] [address] [place] [phone] Ashley Mcneal PA Welcome to Medicare preventive visit (Primary Dx); BMI 26.0-26.9,adult 05/20/2024 Telephone [facility] Transplant Kidney [address] [facility] [address] [phone] [place] [address] Betsy Bro RN 05/09/2024 10:30 AM OUTDOOR LANDSCAPE ARCHITECT Office Visit [facility] Diabetes Endocrine Care at [address] [place] [address] Natali Cano NP Type 2 diabetes mellitus with chronic kidney disease on chronic dialysis, with long-term current use of insulin ([facility]) (Primary Dx); 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 with type 2 diabetes mellitus (HCC); Diabetes mellitus due to underlying condition with diabetic neuropathy, with long-term current use of insulin (CMS/HCC) (HCC); Hypertension in chronic kidney disease due to type 2 diabetes mellitus ([facility]); Mixed diabetic hyperlipidemia associated with type 2 diabetes mellitus ([facility]); Medtronic 780 g Insulin pump titration 05/06/2024 Documentation [facility] Transplant Kidney [address] [facility] [address] [place] [address] [phone] [place] [address] Ysabel Jefferson 05/06/2024 Nurse Triage [facility] Family Medicine [address] [facility] [address] [place] [address] Ashley Mcneal PA 05/05/2024 10:00 AM OUTDOOR LANDSCAPE ARCHITECT - 05/05/2024 11:59 PM OUTDOOR LANDSCAPE ARCHITECT Hospital Encounter [address] [address] ESRD (end stage renal disease) ([facility]) Discharge Disposition: Discharge to home or self care 05/02/2024 Telephone [facility] Transplant Kidney [address] [facility] 34[address] [facility] [phone] [place] [address] Ysabel Jefferson 04/26/2024 11:15 AM OUTDOOR LANDSCAPE ARCHITECT Office Visit [facility] Cardiology [address] [facility] [address] [address] Kyree Noonan MD Coronary artery disease involving [place] coronary artery of [place] heart without angina pectoris (Primary Dx); Mixed hyperlipidemia; Essential hypertension, benign; Nonrheumatic pulmonary valve stenosis 04/19/2024 11:00 AM OUTDOOR LANDSCAPE ARCHITECT Office Visit [facility] Gastroenterology at [place] [address] [facility] [address] [place] [phone] Salma Reyes MD Nausea and vomiting, unspecified vomiting type (Primary Dx); Gastroesophageal reflux disease without esophagitis; Tubular adenoma of colon 04/06/2024 10:00 AM OUTDOOR LANDSCAPE ARCHITECT - 04/06/2024 11:59 PM OUTDOOR LANDSCAPE ARCHITECT [place] [address] Discharge Disposition: Discharge to home or self care 04/01/2024 10:58 AM OUTDOOR LANDSCAPE ARCHITECT - 04/01/2024 11:59 PM OUTDOOR LANDSCAPE ARCHITECT Hospital Encounter [facility] at [facility] [address] [place] [address] [address] [place] [address] ESRD (end stage renal disease) on dialysis (HCC) (Primary Dx); Other complication of arteriovenous dialysis fistula, subsequent encounter Discharge Disposition: Discharge to home or self care 04/01/2024 10:58 AM OUTDOOR LANDSCAPE ARCHITECT - 04/01/2024 11:59 PM OUTDOOR LANDSCAPE ARCHITECT Hospital Encounter [facility] Medical Office Building [address] [place] [address] [place] [address] Dependence on renal dialysis; End stage renal disease (HCC); Other complication of arteriovenous dialysis fistula, initial encounter Discharge Disposition: Discharge to home or self care 03/25/2024 Orders Only [facility] at [address] [address] Ashish Fonseca MD Dependence on renal dialysis (Primary Dx); End stage renal disease (HCC); Other complication of arteriovenous dialysis fistula, initial encounter 03/11/2024 11:00 AM OUTDOOR LANDSCAPE ARCHITECT - 03/11/2024 12:00 PM OUTDOOR LANDSCAPE ARCHITECT Surgery [facility] Cardiac Nursing Program Chair [address] [place] [address] Ashish Fonseca MD Dialysis Circuit Angiogram 03/11/2024 9:01 AM OUTDOOR LANDSCAPE ARCHITECT - 03/11/2024 10:59 AM OUTDOOR LANDSCAPE ARCHITECT Hospital Encounter [facility] Cardiac Nursing Program Chair [address] [place] [address] Ashish Fonseca MD ESRD (end stage renal disease) on dialysis ([facility]) Discharge Disposition: Discharge to home or self care 03/07/2024 Telephone [facility] at [facility] [address] [facility] [address] [place] [address] Ashish Fonseca MD from Last 3 Months Allergies Active Allergy Reactions Criticality Noted Date Comments Adhesive Rash Medium 03/19/2021 Plastic tape. Pt does ok with paper tape Gabapentin Other (See comments),Hallucinat ions Medium 06/13/2022 Gary bad all over - took for Shingle [...] long-term current use of insulin ([facility]) Check daily accuchecks as instructed [...] 05/29/2023 Assessment & Plan (05/26/2024 11:16 AM OUTDOOR LANDSCAPE ARCHITECT): Weight/BMI is in healthy range. Continue healthy lifestyle to maintain. Assessment & Plan (10/11/2023 9:45 PM CDT): Weight/BMI is in healthy range. Continue healthy lifestyle to maintain. Assessment & Plan (05/29/2023 12:07 AM OUTDOOR LANDSCAPE ARCHITECT): Weight/BMI is in healthy range. Continue healthy lifestyle to maintain. Other complication of arteriovenous dialysis [facility] 04/21/2023 Severe nonproliferative diab etic retinopathy of left eye with macular edema associated with type 2 diabetes mellitus 12/23/2022 Assessment & Plan (05/29/2023 12:06 AM OUTDOOR LANDSCAPE ARCHITECT): Continue per Ophthalmology. Stressed importance of routine [...] He states he is going to late [place] but encouraged him to stay on the [...] that time Coronary artery disease invo lving [place] coronary artery of [place] heart without angina pectoris 04/16/2022 Assessment & Plan (04/16/2022 11:16 AM OUTDOOR LANDSCAPE ARCHITECT): I reviewed the cardiac catheterization findings with him. Patient had nonocclusive disease. Advised him to take baby aspirin every day. The right groin looks good without any hematoma or bruit. Gastritis 04/04/2022 Duodenitis 04/04/2022 Hypercholesterolemia 03/17/2022 Assessment & Plan (04/16/2022 11:17 AM OUTDOOR LANDSCAPE ARCHITECT): Recent lipid panel showed normal LDL. Continue the Crestor. I will repeat his lipids and LFTs in 6 months. Discussed low-cholesterol diet. Essential hypertension, benign 03/17/2022 Assessment & Plan (02/23/2024 2:29 PM OUTDOOR LANDSCAPE ARCHITECT): Impression: Chronic and elevated. Patient remains asymptomatic. [...] mg. Assessment & Plan (04/16/2022 11:17 AM OUTDOOR LANDSCAPE ARCHITECT): Blood pressure is well controlled. Continue current medications and low-salt diet. Erectile dysfunction 02/08/2022 Assessment & Plan (02/08/2022 8:44 PM OUTDOOR LANDSCAPE ARCHITECT): Patient notes difficulty with obtaining an erection/firmness. [...] scan. Assessment & Plan (04/11/2021 10:32 AM OUTDOOR LANDSCAPE ARCHITECT): Patient states fistula and cannulation significantly improved following recent procedure. Will continue 3 months duplex surveillance. Assessment & Plan (03/21/2021 8:49 AM OUTDOOR LANDSCAPE ARCHITECT): Patient has findings consistent with high-grade outflow [...] 12/26/2020 Assessment & Plan (05/29/2023 12:07 AM OUTDOOR LANDSCAPE ARCHITECT): Encouraged healthy lifestyle, good nutrition and exercise. Encouraged Calcium and Vitamin D and weight bearing exercise for bone health. Reviewed immunizations Reviewed age appropirate screenings. Assessment & Plan (02/08/2022 8:43 PM OUTDOOR LANDSCAPE ARCHITECT): Encouraged healthy lifestyle, good nutrition and exercise. [...] list Assessment & Plan (05/29/2023 12:06 AM OUTDOOR LANDSCAPE ARCHITECT): Patient is on dialysis at home. Managed by Dr. Kyle Fluid overload, unspecified 12/04/2020 Hypotension of hemodialysis 12/04/2020 Localized edema 12/04/2020 Anemia in chronic kidney disease 12/03/2020 Assessment & Plan (11/22/2021 12:00 PM CDT): Stable, no signs of GI blood loss ESRD (end stage renal disease) on dialysis 12/03 Assessment & Plan (02/23/2024 2:29 PM OUTDOOR LANDSCAPE ARCHITECT): Impression: Patient is undergoing home dialysis through [...] procedure. Assessment & Plan (03/11/2022 1:32 PM OUTDOOR LANDSCAPE ARCHITECT): Impression: Patient has a left brachial cephalic [...] Nephrology. Assessment & Plan (04/11/2021 10:32 AM OUTDOOR LANDSCAPE ARCHITECT): Continue home dialysis. Follow-up 3 months. Assessment & Plan (03/21/2021 8:49 AM OUTDOOR LANDSCAPE ARCHITECT): Continue dialysis 3 times weekly per Nephrology direction. Iron deficiency anemia, unspecified 12/03/2020 Other fatigue 11/28/2020 Nonrheumatic pulmonary valve stenosis 11/28/2020 Assessment & Plan (04/16/2022 11:17 AM OUTDOOR LANDSCAPE ARCHITECT): He has only mild gradient up to 10 mm by cardiac catheterization. Continue to monitor clinically. Medtronic 780 g Insulin pump titration Assessment & Plan (05/09/2024 10:35 AM OUTDOOR LANDSCAPE ARCHITECT): This is a chronic condition which is [...] hyperglycemia. Assessment & Plan (06/02/2023 2:25 PM OUTDOOR LANDSCAPE ARCHITECT): This is a chronic condition which is [...] it Assessment & Plan (02/26/2023 11:52 AM OUTDOOR LANDSCAPE ARCHITECT): This is a chronic condition which is [...] time. Encouraged auto mode. Without hypoglycemia. . SwapMobs continuous glucose monitor applied from 09/25/2021 to [...] time. Encouraged auto mode. Without hypoglycemia. . SwapMobs continuous glucose monitor applied from 05/30/2021 to [...] 03/25/2020 Assessment & Plan (03/25/2020 7:09 PM OUTDOOR LANDSCAPE ARCHITECT): Suspect infection has resolved with antibiotic and [...] 03/29/2019 Assessment & Plan (05/29/2023 12:05 AM OUTDOOR LANDSCAPE ARCHITECT): Patient's depression symptoms are stable without medication. Seeing counselor and doing well. Will continue to monitor Assessment & Plan (02/08/2022 8:43 PM OUTDOOR LANDSCAPE ARCHITECT): Stable without medication. Continuing with counselor and [...] medication. Assessment & Plan (03/29/2019 2:09 PM OUTDOOR LANDSCAPE ARCHITECT): Patient has depression symptoms with tendencies towards [...] 02/27/2019 Assessment & Plan (02/27/2019 6:04 PM OUTDOOR LANDSCAPE ARCHITECT): Check urine culture. Suspect musculoskeletal pain. Flexeril [...] continue Assessment & Plan (02/08/2022 8:43 PM OUTDOOR LANDSCAPE ARCHITECT): Continue PPI p.r.n. Assessment & Plan (11/22/2021 12:08 PM CDT): Stable, will schedule EGD. Hold off on PPI for now as symptoms mostly diet controlled. Assessment & Plan (11/19/2019 10:35 AM CDT): Continue PPI prn Assessment & Plan (02/13/2019 7:53 PM OUTDOOR LANDSCAPE ARCHITECT): With PPI Assessment & Plan (08/25/2018 10:21 [...] prescribed. Assessment & Plan (05/29/2023 12:06 AM OUTDOOR LANDSCAPE ARCHITECT): Encouraged patient to follow low fat/low chol diet like the Mediterranean diet. Increase good fats in the diet. Increase exercise. Monitor labs as needed. Continue statin Assessment & Plan (02/26/2023 11:51 AM OUTDOOR LANDSCAPE ARCHITECT): This is a chronic condition which is [...] prescribed. Assessment & Plan (03/11/2022 1:23 PM OUTDOOR LANDSCAPE ARCHITECT): Impression: Chronic hyperlipidemia, controlled with statin therapy. Plan: Statin therapy as per primary care provider. Assessment & Plan (02/08/2022 8:41 PM OUTDOOR LANDSCAPE ARCHITECT): Continue statin and Vascepa Assessment & Plan (10/27/2021 10:15 PM CDT): Stressed importance of continued A1c control to minimize the android ui developer effects of diabetes. Bring accuchecks to office [...] 2020. Assessment & Plan (03/21/2021 8:48 AM OUTDOOR LANDSCAPE ARCHITECT): Type 2 diabetes mellitus with hyperlipidemia chronic [...] vascepa Assessment & Plan (03/09/2020 8:34 PM OUTDOOR LANDSCAPE ARCHITECT): Continue statin. Start vascepa. Encouraged coupon. Tolerated well in the past. Reviewed risks, benefit, alternatives, side effects and proper use. Assessment & Plan (11/19/2019 10:36 AM CDT): Encouraged patient to continue low fat/low chol diet. Continue exercise. Increase good fats in the diet. Monitor labs as needed. Restart statin Assessment & Plan (02/13/2019 7:55 PM OUTDOOR LANDSCAPE ARCHITECT): Stressed importance of continued A1c control to minimize the fdc effects of diabetes. Bring accuchecks to office [...] 08/08/2018 Assessment & Plan (02/23/2024 1:30 PM OUTDOOR LANDSCAPE ARCHITECT): Impression: Chronic with good glucose control. Plan: [...] dialysis Assessment & Plan (06/02/2023 2:23 PM OUTDOOR LANDSCAPE ARCHITECT): This is a chronic condition which is [...] Vascepa Assessment & Plan (05/29/2023 12:05 AM OUTDOOR LANDSCAPE ARCHITECT): Stressed importance of continued A1c control to minimize the android ui developer effects of diabetes. Bring accuchecks to office [...] Kyle Assessment & Plan (02/26/2023 11:50 AM OUTDOOR LANDSCAPE ARCHITECT): This is a chronic condition which is [...] 100-120. Manual mode. Encouraged to upgrade to SwapMob 780g Monitor blood sugar 3-4 times a [...] last dilated eye exam was [facility] Monofilament foot exam completed. protective senses intact [...] insulin. Assessment & Plan (03/11/2022 1:24 PM OUTDOOR LANDSCAPE ARCHITECT): Impression: Chronic diabetes mellitus with the use of insulin. Good glucose control per patient. Plan: Continue glucose monitoring and management as per primary care provider. Assessment & Plan (02/08/2022 8:42 PM OUTDOOR LANDSCAPE ARCHITECT): Stressed importance of continued A1c control to minimize the android ui developer effects of diabetes. Bring accuchecks to office [...] 6.6% at goal less than 7% Medication- SwapMob 770g insulin pump and sensor. Switched to auto mode today. Monitor blood sugar 4times a day. Encouraged annual eye exam. last dilated eye exam was at [facility] [place] Monofilament foot exam completed, protective senses intact, Urine microalbumin/creatinine ratio - on dialysis. Known kidney failure. Personally reviewed labs: BUN- 88, creatinine-4.78, GFR-30 Chronic kidney disease on home hemodialysis - Sees Dr. Kyle in [place] for nephrology. B/P today-134/60 currently on atenolol,clonidine, cardura and losartan. At goal blood pressure is <140/90 and as close to 120/80 as possible. Personally reviewed LDL - 33, Trig-208, currently on crestor, vaspeca. at Goal of less than 70. Triglycerides will reduce as blood sugars improved. No history of macrovascular disease - [place]. Assessment & Plan (06/12/2021 10:49 AM CDT): This is a chronic condition which is at goal. Personally reviewed A1c today- 6.8% at goal less than 7% Medication- Medtronic 770g insulin pump and sensor. Switched to auto mode today. Monitor blood sugar 4times a day. Encouraged annual eye exam. last dilated eye exam was at [facility] Monofilament foot exam completed, protective senses intact, Urine microalbumin/creatinine ratio - on dialysis. Known kidney failure. Personally reviewed labs: BUN- 88, creatinine-4.78, GFR-30 Chronic kidney disease on dialysis - Sees Dr. Kyle in [place] for nephrology. B/P today-130/56 currently on atenolol,clonidine, cardura. At goal blood pressure is <140/90 and as close to 120/80 as possible. Personally reviewed LDL - not calculated, Trig-860, currently on crestor, vaspeca. Not at Goal of less than 70. Triglycerides will reduce as blood sugars improved. No history of macrovascular disease - [place]. Assessment & Plan (04/11/2021 10:32 AM OUTDOOR LANDSCAPE ARCHITECT): Type 2 diabetes chronic and currently controlled. Continue insulin therapy per PCP. Assessment & Plan (12/26/2020 10:05 AM CDT): Stressed importance of continued A1c control to minimize the fdc effects of diabetes. Bring accuchecks to office [...] exam. last dilated eye exam was at [place], [place]. Monofilament foot exam completed, protective senses intact, Urine microalbumin/creatinine ratio - on dialysis. Known kidney failure. Personally reviewed labs: BUN- 88, creatinine-4.78, GFR-30 Chronic kidney disease on dialysis - Sees Dr. Kyle in [place] for nephrology. B/P today-150/76, currently on atenolol, amlodipine, atenolol At goal blood pressure is <140/90 and as close to 120/80 as possible. Personally reviewed(06.15.20) LDL - not calculated, Trig-860, currently on crestor, vaspeca. Not at Goal of less than 70. Triglycerides will reduce as blood sugars improved. No history of macrovascular disease - [place]. Assessment & Plan (09/24/2020 3:49 PM CDT): [...] exam. last dilated eye exam was at [place], [place]. Monofilament foot exam completed, protective senses intact, Urine microalbumin/creatinine ratio - 5410 currently atenolol, not at goal <30, Know kidney failure. Personally reviewed labs: (08/09/20) BUN- 50, creatinine-3.3, GFR-30 Chronic kidney disease stage 4- having dialysis catheter placed . Sees Dr. Kyle in [place] for nephrology. B/P today-142/88, currently on atenolol, amlodipine, atenolol At goal blood pressure is <140/90 and as close to 120/80 as possible. Personally reviewed(06.15.20) LDL - not calculated, Trig-860, currently on crestor, vaspeca. Not at Goal of less than 70. Triglycerides will reduce as blood sugars improved. No history of macrovascular disease - [place] Insulin deficiency. Patient is on 3 or [...] exam. last dilated eye exam was at [place], [place]. Monofilament foot exam completed, protective senses intact, Urine microalbumin/creatinine ratio - 5410 currently atenolol, not at goal <30 Personally reviewed labs: BUN- 51, creatinine-3.22, GFR-22 Chronic kidney disease stage 4- having dialysis catheter placed . Sees Dr. Kyle in [place] for nephrology. B/P today-118/76, currently on atenolol, At goal blood pressure is <140/90 and as close to 120/80 as possible. Personally reviewed(06.15.20) LDL - not calculated, Trig-860, currently on crestor, vaspeca. Not at Goal of less than 70. Triglycerides will reduce as blood sugars improved. Monitor and repeat labs later in 2020. No history of macrovascular disease - [place]. Insulin deficiency. Patient is on 3 or [...] exam. last dilated eye exam was at [place], [place]. Monofilament foot exam completed, protective senses [...] No history of macrovascular disease - [place]. Assessment & Plan (11/19/2019 10:36 AM CDT): Stressed importance of continued A1c control to minimize the android ui developer effects of diabetes. Bring accuchecks to office when instructed to do so. Check A1c about every 3-6 months. Take medication as prescribed. Get annual eye exam. Encouraged KHANH/Statin if able to tolerate. Encouraged weight control and encouraged diabetic diet and exercise. Continue metformin. Holding Basaglar as A1c is at goal. Assessment & Plan (02/13/2019 7:54 PM OUTDOOR LANDSCAPE ARCHITECT): Stressed importance of continued A1c control to minimize the android ui developer effects of diabetes. Bring accuchecks to office [...] of continued A1c control to minimize the fdc effects of diabetes. Bring accuchecks to office [...] prescribed. Assessment & Plan (06/02/2023 2:24 PM OUTDOOR LANDSCAPE ARCHITECT): This is a chronic condition which is at goal of less than 140/90 Continue amlodipine, atenolol, clonidine Encouraged to monitor weight and B/P at home Encouraged to take medications as prescribed. Assessment & Plan (02/26/2023 11:51 AM OUTDOOR LANDSCAPE ARCHITECT): This is a chronic condition which is [...] prescribed. Assessment & Plan (03/11/2022 1:24 PM OUTDOOR LANDSCAPE ARCHITECT): Impression: Chronic hypertension, controlled medications. Blood pressure stable. Plan: Continue blood pressure management as per primary care provider. Assessment & Plan (02/08/2022 8:42 PM OUTDOOR LANDSCAPE ARCHITECT): Bp is stable/in acceptable range for any co-morbidities. Encouraged to limit sodium intake and exercise for weight control. Continue per Nephrology Assessment & Plan (12/26/2020 10:05 AM CDT): Bp is stable/in acceptable range for any co-morbidities. Encouraged to limit sodium intake and exercise for weight control. Avoid nephrotoxic drugs including NSAIDs. Monitor labs. Stressed importance of continued A1c control to minimize the fdc effects of diabetes. Bring accuchecks to office [...] of continued A1c control to minimize the android ui developer effects of diabetes. Bring accuchecks to office [...] evaluation. Assessment & Plan (03/09/2020 8:22 PM OUTDOOR LANDSCAPE ARCHITECT): Stressed importance of continued A1c control to minimize the android ui developer effects of diabetes. Bring accuchecks to office [...] weeks. Assessment & Plan (02/13/2019 7:53 PM OUTDOOR LANDSCAPE ARCHITECT): Bp is stable/in acceptable range for any [...] list Assessment & Plan (02/08/2022 8:42 PM OUTDOOR LANDSCAPE ARCHITECT): Patient is on the transplant list. Currently [...] . Assessment & Plan (03/25/2020 7:11 PM OUTDOOR LANDSCAPE ARCHITECT): Avoid nephrotoxic drugs including NSAIDs. Monitor labs. Continue per Dr. Kyle Assessment & Plan (03/09/2020 8:34 PM OUTDOOR LANDSCAPE ARCHITECT): Continue per Dr. Kyle Assessment & Plan (11/19/2019 10:36 AM CDT): Per Dr. Kyle Assessment & Plan (02/13/2019 7:53 PM OUTDOOR LANDSCAPE ARCHITECT): Stressed importance of continued A1c control to minimize the android ui developer effects of diabetes. Bring accuchecks to office [...] neuropathy, with long-term current use of insulin ([facility]) 08/08/2018 Assessment & Plan (02/08/2022 8:42 PM OUTDOOR LANDSCAPE ARCHITECT): Stressed importance of continued A1c control to minimize the fdc effects of diabetes. Bring accuchecks to office [...] of continued A1c control to minimize the android ui developer effects of diabetes. Bring accuchecks to office [...] function. Assessment & Plan (03/29/2019 2:04 PM OUTDOOR LANDSCAPE ARCHITECT): Stressed importance of continued A1c control to minimize the android ui developer effects of diabetes. Bring accuchecks to office when instructed to do so. Check A1c about every 3-6 months. Take medication as prescribed. Get annual eye exam. Encouraged KHANH/Statin if able to tolerate. Encouraged weight control and encouraged diabetic diet and exercise. Continue working on tight control. Check labs Assessment & Plan (02/13/2019 7:52 PM OUTDOOR LANDSCAPE ARCHITECT): Improving control of DM Continue to monitor Assessment & Plan (09/18/2018 10:25 PM CDT): Stressed importance of continued A1c control to minimize the fdc effects of diabetes. Bring accuchecks to office [...] of continued A1c control to minimize the fdc effects of diabetes. Bring accuchecks to office [...] allopurinol Assessment & Plan (02/13/2019 7:55 PM OUTDOOR LANDSCAPE ARCHITECT): No flairs. Continue allopurinol Assessment & Plan (08/25/2018 10:19 AM CDT): Continue allopurinol. MAGNO on CPAP 08/08/2018 Assessment & Plan (02/08/2022 8:42 PM OUTDOOR LANDSCAPE ARCHITECT): Continue CPAP Assessment & Plan (12/26/2020 10:06 AM CDT): Continue Cpap. Has supplies Assessment & Plan (03/09/2020 8:21 PM OUTDOOR LANDSCAPE ARCHITECT): Continue CPAP treatment Assessment & Plan (11/19/2019 10:34 AM CDT): Continue to use nightly. Has needed supplies Assessment & Plan (02/13/2019 7:52 PM OUTDOOR LANDSCAPE ARCHITECT): Continue CPAP. Using nightly Assessment & Plan (09/18/2018 10:26 PM CDT): Continue CPAP Assessment & Plan (08/25/2018 10:15 AM CDT): Using regular. Has all needed supplies. Abnormal EKG 11/14/2015 Sinus tachycardia 11/14/2015 Resolved Problems Problem Noted Date Diagnosed Date Resolved Date ESRD (end stage renal disease) 04/13/2023 11/30/2023 Assessment & Plan (05/29/2023 12:08 AM OUTDOOR LANDSCAPE ARCHITECT): Patient is on dialysis at home. Managed [...] 23 Assessment & Plan (02/08/2022 8:43 PM OUTDOOR LANDSCAPE ARCHITECT): Weight/BMI is in healthy range. Continue healthy [...] 12/26/2020 Assessment & Plan (03/09/2020 8:35 PM OUTDOOR LANDSCAPE ARCHITECT): Updated in office today BMI 24.0-24.9, adult 03/08/2020 021 Assessment & Plan (06/18/2020 7:17 AM CDT): Weight/BMI is in healthy range. Continue healthy lifestyle to maintain. Assessment & Plan (03/08/2020 11:16 AM OUTDOOR LANDSCAPE ARCHITECT): Weight/BMI is in healthy range. Continue healthy lifestyle to maintain. Anxiety 03/08/2020 03/08/2020 Annual physical exam 11/19/2019 020 Assessment & Plan (11/19/2019 10:38 AM CDT): Encouraged healthy lifestyle, good nutrition and exercise. Encouraged Calcium and Vitamin D and weight bearing exercise for bone health. Reviewed immunizations Reviewed age appropirate screenings. Groin pain 03/29/2019 11/19/2019 Assessment & Plan (03/29/2019 2:05 PM OUTDOOR LANDSCAPE ARCHITECT): Due to this newer onset pain and [...] 11/02/2020 Assessment & Plan (03/29/2019 2:07 PM OUTDOOR LANDSCAPE ARCHITECT): Persistent. Obtain CT of the abdomen pelvis [...] maintain. Assessment & Plan (03/29/2019 7:57 AM OUTDOOR LANDSCAPE ARCHITECT): Weight/BMI is in healthy range. Continue healthy lifestyle to maintain. Assessment & Plan (02/13/2019 7:56 PM OUTDOOR LANDSCAPE ARCHITECT): Weight/BMI is in healthy range. Continue healthy lifestyle to maintain. Assessment & Plan (02/10/2019 1:29 PM OUTDOOR LANDSCAPE ARCHITECT): Weight/BMI is in healthy range. Continue healthy [...] Kyle Assessment & Plan (02/13/2019 7:53 PM OUTDOOR LANDSCAPE ARCHITECT): Bp is stable/in acceptable range for any [...] of continued A1c control to minimize the android ui developer effects of diabetes. Bring accuchecks to office [...] physician. Assessment & Plan (03/09/2020 8:22 PM OUTDOOR LANDSCAPE ARCHITECT): Bp is stable/in acceptable range for any co-morbidities. Encouraged to limit sodium intake and exercise for weight control. Continue to work with Dr. Kyle on control. ON amlodipine, atenolol. Holding all diuretics. May get additional control from the Jardiance. Assessment & Plan (11/19/2019 10:35 AM CDT): See HT in CKD due to DM Assessment & Plan (03/29/2019 2:06 PM OUTDOOR LANDSCAPE ARCHITECT): Elevated today but patient does feel anxious. Will continue to monitor both ambulatory readings and follow up in the office Assessment & Plan (02/13/2019 7:52 PM OUTDOOR LANDSCAPE ARCHITECT): Bp is stable/in acceptable range for any [...] with CKD stage 4 a nd hypertension ([facility]) 08/08/2018 11/02/2020 Assessment & Plan (09/24/2020 3:48 PM CDT): Control co-morbidities tightly Assessment & Plan (03/25/2020 7:10 PM OUTDOOR LANDSCAPE ARCHITECT): Stressed importance of continued A1c control to minimize the fdc effects of diabetes. Bring accuchecks to office when instructed to do so. Check A1c about every 3-6 months. Take medication as prescribed. Get annual eye exam. Encouraged KHANH/Statin if able to tolerate. Encouraged weight control and encouraged diabetic diet and exercise. Avoid nephrotoxic drugs including NSAIDs. Monitor labs. Continue jardiance. Check renal labs for stability Assessment & Plan (03/09/2020 8:33 PM OUTDOOR LANDSCAPE ARCHITECT): Stressed importance of continued A1c control to minimize the android ui developer effects of diabetes. Bring accuchecks to office [...] Kyle Assessment & Plan (03/29/2019 2:06 PM OUTDOOR LANDSCAPE ARCHITECT): Known kidney disease. Having chronic hematuria. Has follow-up with Dr. KYLE. Still awaiting Neurology consult appointment. Assessment & Plan (02/13/2019 7:53 PM OUTDOOR LANDSCAPE ARCHITECT): Avoid nephrotoxic drugs including NSAIDs. Monitor labs. Assessment & Plan (09/18/2018 10:27 PM CDT): Avoid nephrotoxic drugs including NSAIDs. Monitor labs. Assessment & Plan (08/25/2018 10:18 AM CDT): Avoid nephrotoxic drugs including NSAIDs. Monitor labs. 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 Not on file Last Filed Vital Signs Vital Sign Reading Time Taken Comments Blood Pressure 110/62 05/26/2024 11:15 AM OUTDOOR LANDSCAPE ARCHITECT Pulse 62 05/26/2024 11:15 AM OUTDOOR LANDSCAPE ARCHITECT Temperature 36.7 C (98.1 F) 05/26/2024 11:15 AM OUTDOOR LANDSCAPE ARCHITECT Respiratory Rate 12 03/11/2024 10:30 AM OUTDOOR LANDSCAPE ARCHITECT Oxygen Saturation 97% 05/26/2024 11:15 AM OUTDOOR LANDSCAPE ARCHITECT Inhaled Oxygen Concentration - - Weight 83 kg (183 lb) 05/26/2024 11:15 AM OUTDOOR LANDSCAPE ARCHITECT Height 177.8 cm (5' 10 ) 05/26/2024 11:15 AM OUTDOOR LANDSCAPE ARCHITECT Body Mass Index 26.26 05/26/2024 11:15 AM OUTDOOR LANDSCAPE ARCHITECT Plan of Treatment Not on file Medical Devices Implanted Type Area Chocolate Maker Device Identifier Shelf Expiration Date Model / Serial / Lot Bard Peripheral Vascular [id number] Covera 8mm 8fr 60mm 80cm Cover Helical Strut Thumbwheel - [id number] Implanted:Qty: 1 on 07/19/2021 by Ashish Fonseca MD at [facility] [employer] 02/01/2023 [id number] / / [id number] [employer] Peripheral V[employer] Covera 8mm 8fr 40mm 80cm Cover Helical Strut Thumbwheel [id number] - [id number] Implanted:Qty: 1 on 11/26/2021 by Ashish Fonseca MD at [facility] Peripheral Vascular [id number] 02/08/2023 [id number] / / [id number] [employer] [facility] Angio-Seal Vip 6fr Closere Device [id number] - [id number] Implanted:Qty: 1 on 04/07/2022 by Kyree Noonan MD at [facility] [employer] 11/27/2022 [id number] / / [id number] Procedures Procedure Name Priority Date/Time Associated Diagnosis Comments POCT HEMOGLOBIN A1C Routine 05/09/2024 10:37 AM OUTDOOR LANDSCAPE ARCHITECT Type 2 diabetes mellitus with chronic kidney disease on chronic dialysis, with long-term current use of insulin (HCC) POCT GLUCOSE Routine 05/09/2024 10:33 AM OUTDOOR LANDSCAPE ARCHITECT Type 2 diabetes mellitus with chronic kidney disease on chronic dialysis, with long-term current use of insulin (HCC) HLA ANTIBODY SCREEN - PRA (CLASS I AND CLASS II) Routine 05/05/2024 10:00 AM OUTDOOR LANDSCAPE ARCHITECT ESRD (end stage renal disease) (HCC) HLA ANTIBODY SCREEN BY PRA OR SAB PER SCHEDULE (CLASS I AND CLASS II) Routine 05/05/2024 10:00 AM OUTDOOR LANDSCAPE ARCHITECT ESRD (end stage renal disease) (HCC) HLA SOLID ORGAN TYPING REPORT 04/21/2024 10:55 AM OUTDOOR LANDSCAPE ARCHITECT HEMODIALYSIS ACCESS Schedule Routine, Read Routine (OP Routine) 04/01/2024 11:29 AM OUTDOOR LANDSCAPE ARCHITECT Dependence on renal dialysis End stage renal disease (HCC) Other complication of arteriovenous dialysis fistula, initial encounter INTRO CATH DIALYSIS CIRCUIT DX ANGRPH FLUOR 03048 Routine 03/11/2024 9:54 AM OUTDOOR LANDSCAPE ARCHITECT ESRD (end stage renal disease) on dialysis (HCC) HM DIABETES EYE EXAM Routine 12/10/2023 3:13 PM CDT LIPID PANEL Routine 08/13/2023 6:53 AM CDT Coronary artery disease involving [place] coronary artery of [place] heart without angina pectoris Mixed hyperlipidemia EGFR STAT 07/27/2023 11:29 AM CDT HEPATITIS C ANTIBODY Routine 05/04/2023 11:18 AM OUTDOOR LANDSCAPE ARCHITECT ESRD (end stage renal disease) (HCC) COLONOSCOPY 10/30/2022 9:56 AM CDT ALBUMIN CREATININE RATIO, URINE Routine 02/25/2020 8:33 AM OUTDOOR LANDSCAPE ARCHITECT Type 2 DM with CKD and hypertension ([facility]/HCC) from Last 3 Months or Most Recently Relevant to Health Maintenance Results * POCT hemoglobin A1c (05/09/2024 10:37 AM OUTDOOR LANDSCAPE ARCHITECT) Hemoglobin A1C, POC 7.3 4.0 - 5.6 % Blood 05/09/2024 10:3 7 AM OUTDOOR LANDSCAPE ARCHITECT Natali Cano ENVELOPE MACHINE OPERATOR POINT OF CARE TEST ORDERABLES F inal Result * POCT glucose (05/09/2024 10:33 AM OUTDOOR LANDSCAPE ARCHITECT) Glucose Blood, POC 177 mg/dL Blood 05/09/2024 10:3 3 AM OUTDOOR LANDSCAPE ARCHITECT Natali Cano ENVELOPE MACHINE OPERATOR POINT OF CARE TEST ORDERABLES F inal Result * HLA Antibody Screen by PRA or SAB per Schedule (Class I and Class II) (05/05/2024 10:00 AM OUTDOOR LANDSCAPE ARCHITECT) Blood 05/05/2024 10:0 0 AM OUTDOOR LANDSCAPE ARCHITECT Narrative HISTOTRAC - OUTDOOR LANDSCAPE ARCHITECT Sample received in lab. PRA Screen ordered. Bozena Silvestre MD LAB BLOOD ORDERABLE S Final Result [facility] * HLA Antibody Screen - PRA (Class I and Class II) (05/05/2024 10:00 AM OUTDOOR LANDSCAPE ARCHITECT) Class I Treatment Untreated [facility]OT[facility] Class I Dilution 1:1 [facility]OT[facility] Class I Tested Date 05/09/2024 HISTOTRAC Class I Result Negative HISTOTRAC Class I Percent Positive 0 H[facility]OTRAC Class II Treatment Untreated HISTOTRAC Class II Dilution 1:1 HISTOTRAC Class II Tested Date 05/09/2024 HISTOTRAC Class II Result Negative HISTOTRAC Class II Percent Positive 0 HISTOTRAC 05/05/2024 10:0 0 AM OUTDOOR LANDSCAPE ARCHITECT 05/10/2024 7:49 AM OUTDOOR LANDSCAPE ARCHITECT Narrative HISTOTRAC - 05/10/2024 7:49 AM OUTDOOR LANDSCAPE ARCHITECT PRA (panel reactive antibody) HLA antibody screen is performed on serum samples using a method developed and validated by the [facility] HLA laboratory based on an FDA- approved IVD kit ([employer] PRA, [employer], [place], [place]). Interpretive comments: The percentage of beads with MFI > 750 is reported, which indicates the percentage of donor population estimated to be incompatible with the patient tested. PRA > 0% is consistent with alloimmunization to HLA. Testing performed at the [facility], [facility] [address], 5th floor, [place], [address]. CLIA # [id number]. Nicole Magaña, Ph.D., Caul Fat Puller, HLA Laboratory Evangelista Wang M.D., Ph.D., Antique Clocks Repairer, HLA Laboratory Monae Shultz, Ph.D., CLIA Antique Clocks Repairer, [facility] Current methodology and interpretive comments last revised on 07/22/2017. us Bozena Silvestre MD LAB BLOOD ORDERABLE S Final Result [facility]OT[facility] * HLA Solid Organ Typing Report (04/21/2024 10:55 AM OUTDOOR LANDSCAPE ARCHITECT) us Liliya Mcgarry MD LAB GENETIC TESTIN G Final Result * US Hemodialysis Access (04/01/2024 11:29 AM OUTDOOR LANDSCAPE ARCHITECT) Anatomical Region Laterality Modality Vascular N/A Ultrasound 04/01/2024 Narrative 04/03/2024 9:33 AM OUTDOOR LANDSCAPE ARCHITECT [employer] Job ID: [id number] Amphion Document ID: [id number] Dictated date/time: [id number] LEFT UPPER EXTREMITY HEMODIALYSIS DUPLEX. REASON FOR [...] cephalic artery patent. Job ID/Internal Job ID: [id number] us Ashish Fonseca MD IM US PROCEDURES Final Re sult * INTRO CATH DIALYSIS CIRCUIT DX ANGRPH FLUOR [id number] (03/11/2024 9:54 AM OUTDOOR LANDSCAPE ARCHITECT) Anatomical Region Laterality Modality X-Ray Angiograph y Narrative 03/11/2024 9:55 AM OUTDOOR LANDSCAPE ARCHITECT Please see OpNote for result. Ashish Fonseca [...] LDL-C. González SS et al. MAREN. 2013;310(19): 4964-1264 (http://education.Anytime DD.Alytics/faq/VUZ679) Chol/HDL ratio 2.6 <5.0 (calc) [facility] Non-HDL, (LDL+VLDL) 62 <130 mg/dL (calc) [facility] Comment: For patients with diabetes plus 1 major ASCVD risk factor, treating to a non-HDL-C goal of <100 mg/dL (LDL-C of <70 mg/dL) is considered a therapeutic option. Blood 08/13/2023 6:53 AM CDT 08/13/2023 6:54 AM CDT us Kyree Noonan MD LAB BLOOD ORDERABLES Final Result [facility] [address] [address] [phone] * (ABNORMAL) eGFR (07/27/2023 11:29 AM CDT) [...] LAB BLOOD ORDERABLES Final Result [facility] [address] [facility] [place] [address] * Hepatitis C antibody Blood (05/04/2023 11:18 AM OUTDOOR LANDSCAPE ARCHITECT) Pathologist [facility] Hep C Ab Nonreactive Nonreactive [facility] Comment:Antibodies to HCV no t detected. Does NOT exclude the possibility of recent exposure to HCV. Current interpretive data was last revised on 21 Blood 05/04/2023 11:1 8 AM OUTDOOR LANDSCAPE ARCHITECT 05/04/2023 11:39 AM OUTDOOR LANDSCAPE ARCHITECT us Liliya Mcgarry MD LAB MICROBIOLOGY - GENERAL ORDERABLES Final Result [facility] Department [place] [address] * (ABNORMAL) COLONOSCOPY (10/30/2022 9:56 AM CDT) Anatomical Region Laterality Modality Other Narrative Procedure Note Salma Reyes MD - 10/30/2022 9:[address] [facility] Patient Name: Varinder Lai Procedure Date: 10/30/2022 9:56 AM Date of : 1975 Admit Type: Outpatient Age: 47 Gender: Male Attending MD: Salma Reyes M.D. Room: [facility] ENDOSCOPY ROOM 2 Note Status: Finalized Patient Profile: This is a 47 year old male h/o DM2, ESRD on HD,anemia of chronic disease, HTN, HLD, gout here for colonoscopy for colon cancer screening. No family history of colon cance Procedure: Colonoscopy Indications: Screening for colorectal malignant neoplasm, Thisis the patient's first colonoscopy Referring MD: ADOLFO AkinsC Providers: Yixi Tu, M.D. Impression: - Two [...] procedure were verified by the physician, the insurance verifier and the rehab technician in the endoscopy suite. Mental Status [...] scope was passed under direct vision. TheColonoscope [id number] was introduced through the anus and advanced [...] 9:56 AM Procedure Code(s): --- Professional --- 58301, Colonoscopy, flexible; with removal of tumor(s), polyp(s), or other lesion(s) by snare technique 63753, 59, Colonoscopy, flexible; with biopsy, single or multiple --- Technical --- 69707, Colonoscopy, flexible; with removal of tumor(s), polyp(s), or other lesion(s) by snare technique 88084, 59, Colonoscopy, flexible; with biopsy, single or multiple Diagnosis Code(s): --- Professional --- D12.5, Benign neoplasm of sigmoid colon Z12.11, Encounter for screening for malignant neoplasm of colon K64.8, Other hemorrhoids --- Technical --- D12.5, Benign neoplasm of sigmoid colon Z12.11, Encounter for screening for malignant neoplasm of colon K64.8, Other hemorrhoids CPT copyright 2020 [employer]. All rights reserved. The codes documented in this report are preliminary and upon middle school history teacher reviewmay be revised to meet current compliance requirements. Recognized by the [employer] for promoting quality in endoscopy Salma Reyes MD ENDOSCOPY PROCEDURES Edited Resu lt - Final * (ABNORMAL) Albumin Creatinine Ratio, Urine (02/25/2020 8:33 AM OUTDOOR LANDSCAPE ARCHITECT) Creatinine, ur 79 20 - 320 mg/dL [...] a diagnostic category. Urine 02/25/2020 8:33 AM OUTDOOR LANDSCAPE ARCHITECT 02/25/2020 8:34 AM OUTDOOR LANDSCAPE ARCHITECT Narrative [facility] - 02/27/2020 12:30 PM OUTDOOR LANDSCAPE ARCHITECT FASTING:YES FASTING: YES Denilson Kyle MD LAB URINE ORDERABLES Final Re sult [facility] [address] [place] [address] from Last 3 Months or Most Recently Relevant to Health Maintenance Insurance [facility] FEDERAL MEDICARE [facility] FEDERAL TRANSPLANT BDCT MEDICARE Advance Directives For more information, please contact: [phone] * Full Code (Latest Code Status on [...] 9:43 AM 12/11/2021 9:43 AM Care Teams Cement Production Plant Operator Relationship Specialty Start Date End Date Ashley Mcneal PA [address] [facility] [address] [place] [address] PCP - General Internal Medicine 08/04/18 Denilson Kyle MD [address] [facility] [address] [place] [address] Consulting Physician Nephrology 03/08/20 Kyree Noonan MD [address] [facility] [address] [place] [address] Consulting Physician Cardiology 03/19/21 Ashish Fonseca MD [address] [facility] [address] [facility] [place] [address] Surgeon Surgery 03/21/21 Betsy Bro, RN [address] [address] Barn And Property Manager 08/23/21 Betsy Bro, CINDY [address] [address] Registered Nurse Barn And Property Manager 08/23/21 Natali Cano NP [address] [address] Nurse Practitioner Endocrinology Diabetes & Metabolism 11/19/21 Brian Cedeno MD [address] [address] Referring Physician Dermatology 12/17/22 [facility] 05/07/23
--- OUTSIDE RECORDS SUMMARY | 2024-06-02 11:46 | XMS_ITS | Encounter Summary ---
Author Organization [facility] Healthcare Address [address] [place] [address] Care Team Providers Care Outside Plant Cable Engineer Name Role Phone Ashley Mcneal Primary Care Provider + [phone] Denilson Vee MD Unavailable [phone] Kyree Noonan MD Unavailable [phone] Ashish Fonseca MD Unavailable [phone] Betsy Bro RN Unavailable Betsy Bro RN Unavailable Natali Cano NP Unavailable [phone] Brian Cedeno MD Unavailable Encounter Details Date Type Department Care Team (Late st Contact Info) Description 11/15/2021 Telephone [facility] Dialysis Access Center at [facility] [address] [facility] [address] [place] [address] Ashish Fonseca MD [address] [place] [address] [address] [place] [address] Social History Tobacco Use Types Packs/Day Years [...] on file Legal Sex Male 8:53 PM COAL 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 [address] [place] [address] Consulting Physician Cardiology 03/19/21 Ashish Fonseca MD [address] [facility] [address] [place] [address] Surgeon Surgery 03/21/21 Betsy Bro, RN [address] [address] Attending Radiologist 08/23/21 Betsy Bro, CINDY [address] [address] Registered Nurse Attending Radiologist 08/23/21 Natali Cano NP [address] [address] Nurse Practitioner Endocrinology Diabetes & Metabolism 11/19/21 Brian Cedeno MD [address] [facility] [address] [address] Referring Physician Dermatology 12/17/22 [facility]ist 11/19/21 05/06/23 [facility] Progress Clerk 12/17/22 12/17/22 [facility] [place] [facility] 05/07/23 documented as of this encounter
--- OUTSIDE RECORDS SUMMARY | 2024-06-02 11:46 | XMS_ITS | Encounter Summary ---
Author Organization [facility] Healthcare Address [address] [place] [address] Care Team Providers Care Peoplesoft Name Role Phone Ashley Mcneal Primary Care Provider + [phone] Denilson eVe MD Unavailable [phone] Kyree Noonan MD Unavailable [phone] Ashish Fonseca MD Unavailable [phone] Betsy Bro RN Unavailable Betsy Bro RN Unavailable Natali Cano NP Unavailable [phone] Brian Cedeno MD Unavailable Encounter Details Date Type Department Care Team (Late st Contact Info) Description 03/07/2024 Telephone [facility] Dialysis Access Center at [facility] [address] [facility] [address] [place], [place] [id number] [place] [address] [place] [address] [address] [place] [address] Social History Tobacco Use Types Packs/Day Years [...] on file Legal Sex 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 Gender Identity Male 06/27/2020 3:28 PM CDT Sexual Orientation Straight 06/27/2020 3: 28 PM CDT 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 Not on file documented as of this encounter Plan of Treatment Not on file documented as of this encounter Visit Diagnoses Not on filedocumented in this encounter Care Teams Peoplesoft Relationship Specialty Start Date End Date Ashley Mcneal PA [address] [place] [address] PCP - General Internal Medicine 08/04/18 Denilson Vee MD [address] [place] [address] Consulting Physician Nephrology 03/08/20 Kyree Noonan MD [address] [facility] [address] [place] [address] Consulting Physician Cardiology 03/19/21 Ashish Fonseca MD [address] [facility] [address] [place] [address] Surgeon Surgery 03/21/21 Betsy Bro, CINDY [address] [address] Development And Housing Director 08/23/21 Betsy Bro, CINDY [address] [facility] [address] [place], [place] [id number] Registered Nurse Development And Housing Director 08/23/21 Natali Cano LAVENDER FARM WORKER [address] [facility] [address] [place] [address] Nurse Practitioner Endocrinology Diabetes & Metabolism 11/19/21 Brian Cedeno MD [address] [address] Referring Physician Dermatology 12/17/22 [facility] [place] Dentist 05/07/23 documented as of this encounter
[2024-06-02 12:26] LABS: Basophils Absolute Auto 0.1 K/mm3 (0.0-0.1); Basophils Percent Auto 0.8 % (0.2-1.2); Eosinophils Absolute Auto 0.1 K/mm3 (0-0.3); Eosinophils Percent Auto 1.8 % (0-4.4); Hematocrit 35.7 % (42.0-52.0); Immature Granulocyte Absolute 0.03 K/mm3 (0.00-0.031); Immature Granulocyte Percent A 0.4 % (0-0.5); Lymphocytes Absolute Auto 1.65 K/mm3 (0.9-3.2); Lymphocytes Percent Auto 23.1 % (18.3-44.2); Mean Corpuscular HGB Conc 33.6 g/dl (32-36); Mean Corpuscular Volume 92.2 fl (80-100); Mean Platelet Volume 8.5 fl (7.4-10.4); Monocytes Absolute Auto 0.4 K/mm3 (0.1-0.6); Monocytes Percent Auto 5.5 % (2.6-8.5); Neutrophils Absolute Auto 4.9 K/mm3 (1.3-6.7); Neutrophils Percent Auto 68.4 % (45.5-73.1); Platelet Count Result 230 k/mm3 (150-375); Red Blood Count 3.87 M/mm3 (4.6-6.20); Red Cell Distribution Width 12.9 % (11.5-14.5); White Blood Count 7.1 K/mm3 (4.5-10.0)
[2024-06-02 12:38] LABS: INR 0.9; Prothrombin Time 12.7 Seconds (11.1-14.7)
[2024-06-02 12:39] LABS: Partial Thromboplastin Time 31.6 Seconds (22.3-36.8)
[2024-06-02 12:40] LABS: Alanine Aminotransferase 15 U/L (6-50); Albumin Level 4.8 g/dL (3.5-5.1); Alkaline Phosphatase 83 U/L (38-126); Anion Gap 14 mmol/L (4-12); Aspartate Amino Transferase 21 U/L (17-59); Bilirubin,Total 0.6 mg/dL (0.2-1.3); Blood Urea Nitrogen 25 mg/dL (9-20); Calcium 10.3 mg/dL (8.4-10.2); Carbon Dioxide 34 mmol/L (22-30); Chloride 89 mmol/L (98-107); Estimated CRCL calculation 15 ml/min; Estimated Glomerular Filt Rate 10; Glucose 190 mg/dL (65-110); Sodium 137 mmol/L (137-145)
[2024-06-02 13:10] VITALS: BP 149/92; PULSE 63; RESP 20; O2SAT 99
== END 2024-06-02 13:30 | disposition home or self-care (01) ==
PROVIDERS: Emergency Provider Emergency Medicine; PCP Physician Assistant
DX: T82.838A Hemorrhage due to vascular prosthetic devices, implants and grafts, initial encounter (principal); E11.22 Type 2 diabetes mellitus with diabetic chronic kidney disease; I12.0 Hypertensive chronic kidney disease with stage 5 chronic kidney disease or end stage renal disease; N18.6 End stage renal disease; Z99.2 Dependence on renal dialysis; E78.5 Hyperlipidemia, unspecified; Z87.891 Personal history of nicotine dependence; Z79.4 Long term (current) use of insulin; Z79.899 Other long term (current) drug therapy; Y84.1 Kidney dialysis as the cause of abnormal reaction of the patient, or of later complication, without mention of misadventure at the time of the procedure
CPT/HCPCS: 36415; 80053; 85025; 85610; 85730; 99283